=== PATIENT | male | born 1965 | race African-American/Black ===

== ENCOUNTER 2016-07-18 21:51 | Emergency (ER) | payer MEDICARE, OTHER ==
[~2016-07-18] VITALS: Ht 185.4 cm; Wt 63.5 kg
[~2016-07-18 21:51] MED LIST: AMBIEN10 M1 ORAL; AMBIEN10 MG PO; AMBIEN5 MG PO; ANCEF0.5 GM IVPB; ANCEF1 GM/50 ML IV; ASPIR 8181 MG ORAL; ASPIR-LOW81 MG PO; ASPIRIN81 M3 PO; BENADRYL25 M3 IV; BENADRYL25 M3 PO; BETADINE TOPIC; BISACODYL5 MG ORAL; CATAPRES0.1 MG ORAL; COLACE100 MG ORAL; COZAAR50 MG ORAL; CRESTOR10 M2 ORAL; DEPAKOTE125 MG PO; DEPAKOTE500 MG PO; DOCUSATE SODIU100 MG ORAL; ENALAPRIL-HCTZ1 EACH PO; EPZICOM1 TAB ORAL; EPZICOM1 TAB PO; GENVOYA TABLET1 EACH PO; HUMULIN R100 UNIT/1 IJ; HUMULIN R100 UNIT/1 SUBQ; INVANZ1 GM IVPB; LEVAQUIN500 MG IVPB; LEVEMIR FL100 UNIT/1 SUBQ; LEVEMIR100 UNIT/1 SUBQ; LEVEMIR100 UNITS/ *; LEVEMIR100 UNITS/ SUBQ; LEXIVA PO; LEXIVA700 MG PO; LIPITOR20 MG ORAL; LIPITOR80 MG PO; LOPRESSOR HCT1 EAC3 ORAL; METOPROLOL TART25 MG PO; METOPROLOL TART50 M1 ORAL; METOPROLOL-HCT1 EACH PO; MILK OF MA400 MG/51 ORAL; MOM30 ML ORAL; MORPHINE SU IV; MUPIROCIN22 GM TOPIC; NEXIUM40 MG ORAL; NITROSTAT0.4 M1 SL; NORCO 10-325 T1 EACH ORAL; NORCO 10-325 T1 EACH PO; NORCO 10/3251 EA ORAL; NORCO 5-325 TA1 EACH ORAL; NORCO 5-325 TA1 EACH PO; NORCO1 E5 PO; NORVASC5 MG ORAL; NORVIR; NORVIR100 MG ORAL; NORVIR80 MG/1 ML PO; NOVOLOG100 UNIT/1 SQ; NOVOLOG100 UNIT/3 SUBQ; NOVOLOG100 UNITS1; OXYCONTIN10 MG ORAL; PREZISTA600 MG ORAL; PROAIR HFA8.5 GM INH; PROTONIX40 MG ORAL; RANITIDINE HCL150 MG ORAL; SYNTHROID150 MCG ORAL; SYNTHROID150 MCG PO; SYNTHROID75 MCG PO; THYROID MEDICATION; TRUVADA 200 MG1 EACH PO; TRUVADA1 TAB PO; UREA TOPIC; VANCOMYCIN1 GM IV; VENOFER200 MG/10 IVPB; VICODIN ES 7.51 EACH PO; WELLBUTRIN SR150 M1 PO; WELLBUTRIN SR150 MG PO; WELLBUTRIN XL150 M1 ORAL; ZESTRIL10 M1 ORAL; ZOFRAN 4 MG4 MG/2 ML IV; ZOFRAN ODT4 MG ORAL; [UNRECOGNIZED DRUG - CODE] SUBQ
--- NOTE | 2016-07-18 22:44 | Emergency Room Report ---
History of Present Illness General Chief Complaint: Palpitations Source: Patient Present Illness HPI This is a 50-year-old male with history of diabetes, noncompliance, chronic pain syndrome. He also has a BKA. He present with chief complaint of palpitation. Onset on and off for the last few months. Denies any fever chills denies any nausea vomiting. Denies any other complaint. Also said that he has a lot of issue and stress going on. Complained of throbbing cp for the last 2-3 days. Constant in nature. Allergies: Coded Allergies: GABAPENTIN (Verified Allergy, Severe, 04/07/12) QUETIAPINE (Verified Allergy, Unknown, 07/25/15) Patient History Past Medical History: see triage record, old chart reviewed, DM, HTN Past Surgical History: other - bka Pertinent Family History: none Social History: Denies: drug use Immunizations: other Reviewed Nursing Documentation: PMH: Agreed, PSxH: Agreed Nursing Documentation-PMH Hx Hypertension: Yes Hx Pacemaker: No Hx Asthma: Yes Hx COPD: No Hx Diabetes: Yes Hx Cancer: No Hx Gastrointestinal Problems: Yes Hx Dialysis: No - KIDNEY FAILURE NO DIAYLSIS Hx Neurological Problems: Yes Hx Cerebrovascular Accident: Yes Hx Transient Ischemic Attacks: Yes Hx Dementia: Yes Hx Alzheimer's Disease: No Hx Parkinson's Disease: Yes Hx Meningitis: No Hx Encephalitis: No Hx Seizures: Yes Hx Epilepsy: No Hx Multiple Sclerosis: No Hx Cerebral Palsy: No Hx Amyotrophic Lat Sclerosis: No Hx Guillian-[place] Syndrome: No Hx Paralysis: No Hx Peripheral Neuropathy: Yes Hx Spinal Cord Injury: No Hx Head Trauma: Yes Hx Traumatic Brain Injury: No Hx Memory Loss: No Hx Concentration Difficulty: No Hx Speech Problem: No Hx Tremors: No Hx Vertigo: No Hx Dizziness: Yes Hx Syncope: Yes Hx Aphasia: No Hx Dysphasia: No Hx Numbness: Yes - legs Hx Weakness: Yes Hx Fatigue: Yes Hx Neurologic Surgery: No Hx Brain Shunt: No Review of Systems Eye: Denies: blurred vision, eye pain ENT: Denies: ear pain, nose congestion, throat swelling Respiratory: Denies: cough, shortness of breath Cardiovascular: Reports: palpitations, Denies: chest pain Gastrointestinal: Denies: abdominal pain, diarrhea, nausea, vomiting Musculoskeletal: Denies: back pain, joint pain Skin: Denies: rash Neurological: Denies: headache, numbness Endocrine: Denies: increased thirst, increased urine Hematologic/Lymphatic: Denies: easy bruising All Other Systems: negative except mentioned in HPI Physical Exam Vital Signs Date Time Temp Pulse Resp B/P Pulse Ox O2 Delivery O2 Flow Rate FiO2 07/18/16 22:24 99.1 90 16 123/59 100 Room Air vitals normal Sp02 EP Interpretation: reviewed, normal General Appearance: well appearing, no apparent distress, alert Head: normocephalic, atraumatic Eyes: bilateral eye EOMI, bilateral eye PERRL ENT: hearing grossly normal, normal pharynx Neck: full range of motion, supple, no meningismus Respiratory: chest non-tender, lungs clear, normal breath sounds Cardiovascular #1: regular rate, rhythm, no murmur Gastrointestinal: normal bowel sounds, non tender, no mass, no organomegaly, no bruit, non-distended Musculoskeletal: back normal, normal range of motion, other - Patient in wheelchair. BKA. Psychiatric: mood/affect normal Skin: warm/dry Medical Decision Making Diagnostic Impression: Primary Impression: Palpitations Additional Impressions: Opioid dependence Qualified Codes: F11.20 - Opioid dependence, uncomplicated Anemia in chronic illness Thrombocytopenia Chronic pain Qualified Codes: G89.4 - Chronic pain syndrome Hyperglycemia due to type 1 diabetes mellitus ER Course Patient presents with palpitation. Since he's been his heart rate been in the 80s and 90s. Blood pressure stable. He is resting comfortably. Troponin EKG negative. He keep asking for IV narcotic. He is a chronic pain issue. I see no evidence of ACS, PE, dissection to name a few. No evidence of pneumonia. His blood sugar is elevated but no evidence of DKA. He has a long-standing history of noncompliance. I order insulin but he refused. I see no criteria for admission. Patient denies IV and wanted to leave. He is competent to make that decision. He refuse to sign AMA paperwork. We'll discharge him. EKG Diagnostic Results Rate: normal Rhythm: NSR ST Segments: no acute changes Rhythm Strip Diag. Results EP Interpretation: yes Rate: 84 Rhythm: NSR, no PVC's, no ectopy Chest X-Ray Diagnostic Results EP Interpretation: Yes Findings: no consolidation, no effusion, no pneumothorax, no acute cardiopulmonary disease Number of Views: 1 Last Vital Signs Date Time Temp Pulse Resp B/P Pulse Ox O2 Delivery O2 Flow Rate FiO2 07/18/16 22:24 99.1 90 16 123/59 100 Room Air Status: improved Disposition: AGAINST MEDICAL ADVICE Condition: Stable YESSY SLAUGHTER M.D. Jul 18, 2016 22:44
[2016-07-18 23:29] VITALS: BP 165/94
[2016-07-18 23:43] LABS: APPEARANCE,URINE CLEAR; KETONES,URINE 2+ (NEGATIVE); LEUKOCYTE ESTERASE ,URINE NEGATIVE (NEGATIVE); NITRITE,URINE NEGATIVE (NEGATIVE); PH,URINE 6 (4.5-8.0); PROTEIN,URINE 3+ (NEGATIVE); UROBILINOGEN,URINE NORMAL MG/DL (0.0-1.0)
[2016-07-18 23:43] LABS: BASOPHILS % (AUTO) 1.2 % (0.0-2.0); EOSINOPHILS % (AUTO) 1.7 % (0.0-3.0); LYMPHOCYTES % (AUTO) 39.4 % (20.0-45.0); MEAN CORPUSCULAR HEMOGLOBIN 31.6 PG (27.0-31.0); MEAN CORPUSCULAR HGB CONC 31.5 G/DL (32.0-36.0); MEAN CORPUSCULAR VOLUME 100 FL (80-99); MONOCYTES % (AUTO) 4.8 % (1.0-10.0); NEUTROPHILS % (AUTO) 52.9 % (45.0-75.0); PLATELET COUNT 129 K/UL (150-450); RED BLOOD COUNT 2.87 M/UL (4.70-6.10); RED CELL DISTRIBUTION WIDTH 13.4 % (11.6-14.8); WHITE BLOOD COUNT 4.9 K/UL (4.8-10.8)
[2016-07-18] MEDS ORDERED: Norco 5mg/325mg tab ORAL ONE (23:45)
[2016-07-18] MEDS ORDERED: Aspirin Baby 81mg ORAL ONE (23:45)
[2016-07-18 23:52] LABS: RBC,URINE 0-2 /HPF (0 - 0); WBC,URINE 0-2 /HPF (0 - 0)
[2016-07-19 00:07] LABS: TROPONIN I < 0.30 ng/mL (<=0.30)
[2016-07-19 00:10] LABS: ALANINE AMINOTRANSFERASE 117 U/L (3-41); ALBUMIN/GLOBULIN RATIO 1.2 (1.0-2.7); ANION GAP 15 (5-15); ASPARTATE AMINO TRANSFERASE 123 U/L (5-40); CALCIUM 8.6 mg/dL (8.6-10.2); CARBON DIOXIDE 23 mEQ/L (20-30); CHLORIDE 96 mEQ/L (98-107); CREATININE 1.5 mg/dL (0.7-1.2); GLOMERULAR FILTRATION RATE > 60 mL/min (>60); HEMOLYSIS 3; POTASSIUM 4.3 mEQ/L (3.4-4.9); SODIUM 134 mEQ/L (135-145); TOTAL PROTEIN 6.3 g/dL (6.6-8.7)
[2016-07-19 00:36] VITALS: BP 165/94
--- NOTE | 2016-07-21 08:31 | Cardiology Report ---
APPROVED REPORT EKG Measurement Heart [id number] ID [id number] Normal sinus rhythm Possible Left atrial enlargement Septal infarct, age undetermined Abnormal ECG
--- NOTE | 2016-07-25 10:30 | Diagnostic Imaging Report ---
Indication: SOB Technique: One view of the chest Comparison: none Findings: Lungs and pleural spaces are clear. Heart size is normal . No significant change Impression: No acute process This agrees with the preliminary interpretation provided by the emergency room physician
[2016-09-29] MEDS ORDERED: NOVOLOG100 UNIT/3 SUBQ (15:14)
[2016-09-29] MEDS ORDERED: LEVEMIR100 UNIT/1 SUBQ (15:14)
== END 2016-07-19 00:42 | disposition left against medical advice (07) ==
LOC: EMR 22:40
DX: R00.2 Palpitations (principal); F11.20 Opioid dependence, uncomplicated; D63.8 Anemia in other chronic diseases classified elsewhere; D69.6 Thrombocytopenia, unspecified; G89.29 Other chronic pain; E10.65 Type 1 diabetes mellitus with hyperglycemia; Z89.519 Acquired absence of unspecified leg below knee; Z88.8 Allergy status to other drugs, medicaments and biological substances; J45.909 Unspecified asthma, uncomplicated; Z87.19 Personal history of other diseases of the digestive system; Z86.73 Personal history of transient ischemic attack (TIA), and cerebral infarction without residual deficits; F03.90 Unspecified dementia, unspecified severity, without behavioral disturbance, psychotic disturbance, mood disturbance, and anxiety; G20 Parkinson's disease; G62.9 Polyneuropathy, unspecified; R53.83 Other fatigue; R20.0 Anesthesia of skin; R42 Dizziness and giddiness; R55 Syncope and collapse
CPT/HCPCS: 36415; 71010; 80053; 80300; 81003; 82962; 84484; 85025; 93005; 96374

== ENCOUNTER 2016-09-10 07:57 | Inpatient (IN) | payer MEDICARE, OTHER ==
[~2016-09-10] VITALS: Ht 185.4 cm; Wt 68.0 kg
[2016-09-10] MEDS ORDERED: Aspirin Baby 81mg ORAL ONE (08:15)
[2016-09-10] MEDS ORDERED: ZOLPIDEM TARTRA10 MG ORAL (08:25)
[2016-09-10] MEDS ORDERED: SUCRALFATE1 GM ORAL (08:28)
[2016-09-10] MEDS ORDERED: CRESTOR10 M2 ORAL (08:28)
[2016-09-10 09:08] LABS: BASOPHILS % (AUTO) 1.7 % (0.0-2.0); EOSINOPHILS % (AUTO) 2.9 % (0.0-3.0); LYMPHOCYTES % (AUTO) 37.9 % (20.0-45.0); MEAN CORPUSCULAR HEMOGLOBIN 30.8 PG (27.0-31.0); MEAN CORPUSCULAR HGB CONC 31.8 G/DL (32.0-36.0); MEAN CORPUSCULAR VOLUME 97 FL (80-99); MEAN PLATELET VOLUME 9.4 FL (6.5-10.1); MONOCYTES % (AUTO) 8.8 % (1.0-10.0); NEUTROPHILS % (AUTO) 48.6 % (45.0-75.0); PLATELET COUNT 152 K/UL (150-450); RED BLOOD COUNT 3.12 M/UL (4.70-6.10); RED CELL DISTRIBUTION WIDTH 13.4 % (11.6-14.8); WHITE BLOOD COUNT 4.7 K/UL (4.8-10.8)
[2016-09-10] MEDS ORDERED: Morphine Sulfate 4mg/ml Inj IVP ONE ×2 (09:15→14:45)
[2016-09-10 09:20] VITALS: BP 139/93
[2016-09-10 09:22] LABS: ALANINE AMINOTRANSFERASE 302 U/L (3-41); ALBUMIN/GLOBULIN RATIO 1.1 (1.0-2.7); ANION GAP 17 (5-15); ASPARTATE AMINO TRANSFERASE 79 U/L (5-40); CALCIUM 9.2 mg/dL (8.6-10.2); CARBON DIOXIDE 24 mEQ/L (20-30); CHLORIDE 95 mEQ/L (98-107); CREATININE 1.5 mg/dL (0.7-1.2); GLOMERULAR FILTRATION RATE > 60 mL/min (>60); HEMOLYSIS 16; MAGNESIUM 1.5 mg/dL (1.7-2.5); POTASSIUM 4.2 mEQ/L (3.4-4.9); SODIUM 136 mEQ/L (135-145); TOTAL PROTEIN 6.5 g/dL (6.6-8.7)
--- NOTE | 2016-09-10 09:26 | Emergency Room Report ---
History of Present Illness General Chief Complaint: Chest Pain Source: Patient Present Illness HPI Patient is a 50-year-old male presented after increased chest pain. Patient stated he had onset of chest pain earlier in the day which he describes as a tight sensation. The patient had prior history of hypertension and peripheral vascular disease. Patient remote history previous below the knee amputation to his leg for infected ulcer.The patient denied fever or cough. He stated that he was having history of prior renal disease. The patient presented been known to use cocaine and be a cigarette smoker. Patient denied any vomiting or diarrhea Allergies: Coded Allergies: GABAPENTIN (Verified Allergy, Severe, 04/07/12) QUETIAPINE (Verified Allergy, Unknown, 07/25/15) Patient History Past Medical History: see triage record Reviewed Nursing Documentation: PMH: Agreed, PSxH: Agreed Nursing Documentation-PMH Past Medical History: No History, Except For Hx Hypertension: Yes Hx Pacemaker: No Hx Asthma: Yes Hx COPD: No Hx Diabetes: Yes Hx Cancer: No Hx Gastrointestinal Problems: Yes Hx Dialysis: No - KIDNEY FAILURE NO DIAYLSIS Hx Neurological Problems: Yes Hx Cerebrovascular Accident: Yes Hx Transient Ischemic Attacks: Yes Hx Dementia: Yes Hx Alzheimer's Disease: No Hx Parkinson's Disease: Yes Hx Meningitis: No Hx Encephalitis: No Hx Seizures: Yes Hx Epilepsy: No Hx Multiple Sclerosis: No Hx Cerebral Palsy: No Hx Amyotrophic Lat Sclerosis: No Hx Guillian-[place] Syndrome: No Hx Paralysis: No Hx Peripheral Neuropathy: Yes Hx Spinal Cord Injury: No Hx Head Trauma: Yes Hx Traumatic Brain Injury: No Hx Memory Loss: No Hx Concentration Difficulty: No Hx Speech Problem: No Hx Tremors: No Hx Vertigo: No Hx Dizziness: Yes Hx Syncope: Yes Hx Aphasia: No Hx Dysphasia: No Hx Numbness: Yes - legs Hx Weakness: Yes Hx Fatigue: Yes Hx Neurologic Surgery: No Hx Brain Shunt: No Review of Systems All Other Systems: negative except mentioned in HPI Physical Exam Vital Signs Date Time Temp Pulse Resp B/P Pulse Ox O2 Delivery O2 Flow Rate FiO2 09/10/16 08:10 98.2 76 16 156/92 100 Room Air Sp02 EP Interpretation: reviewed, normal General Appearance: normal inspection, well appearing, no apparent distress, alert, GCS 15, non-toxic Head: atraumatic ENT: normal ENT inspection, hearing grossly normal, normal voice Neck: normal inspection, full range of motion, supple, no bony tend Respiratory: normal inspection, lungs clear, normal breath sounds, no respiratory distress, no retraction, no wheezing Cardiovascular #1: regular rate, rhythm, no edema Gastrointestinal: normal inspection, normal bowel sounds, non tender, soft, no guarding, no hernia Genitourinary: no CVA tenderness Musculoskeletal: normal inspection, back normal, normal range of motion Neurologic: normal inspection, alert, oriented x3, responsive, speech normal Psychiatric: normal inspection, judgement/insight normal, mood/affect normal Skin: normal inspection, normal color, no rash Medical Decision Making Diagnostic Impression: Primary Impression: ACS (acute coronary syndrome) Additional Impressions: Chest pain Anemia IDDM (insulin dependent diabetes mellitus) ER Course Patient presented for chest pain. Differential diagnosis included but was not limited to acute coronary syndrome, pulmonary embolism, pneumonia, aortic dissection, shingles, pneumothorax, aortic dissection, esophageal rupture, pericarditis. Because of complexity of patient's case laboratory testing and imaging studies were ordered.EKG interpreted by me showed normal sinus rhythm with a rate of [address] or T wave changes are noted be some T-wave flattening. The patient was noted to have a blood sugars were greater than 300.The patient was given subcutaneous insulin. He was given aspirin by mouth. Patient noted to have multiple cardiac risk factors.Chest x-ray one view interpreted by me showed no acute cardiopulmonary disease normal cardiac size normal mediastinum there is no evident pneumothorax. There were no pleural effusions noted. Dr. Suzy Sheppard was contacted for inpatient management. Labs Test 09/10/16 08:40 09/10/16 09:45 White Blood Count 4.7 K/UL (4.8-10.8) Red Blood Count 3.12 M/UL (4.70-6.10) Hemoglobin 9.6 G/DL (14.2-18.0) Hematocrit 30.2 % (42.0-52.0) Mean Corpuscular Volume 97 FL (80-99) Mean Corpuscular Hemoglobin 30.8 PG (27.0-31.0) Mean Corpuscular Hemoglobin Concent 31.8 G/DL (32.0-36.0) Red Cell Distribution Width 13.4 % (11.6-14.8) Platelet Count 152 K/UL (150-450) Mean Platelet Volume 9.4 FL (6.5-10.1) Neutrophils (%) (Auto) 48.6 % (45.0-75.0) Lymphocytes (%) (Auto) 37.9 % (20.0-45.0) Monocytes (%) (Auto) 8.8 % (1.0-10.0) Eosinophils (%) (Auto) 2.9 % (0.0-3.0) Basophils (%) (Auto) 1.7 % (0.0-2.0) Sodium Level 136 mEQ/L (135-145) Potassium Level 4.2 mEQ/L (3.4-4.9) Chloride Level 95 mEQ/L (98-107) Carbon Dioxide Level 24 mEQ/L (20-30) Anion Gap 17 (5-15) Blood Urea Nitrogen 24 mg/dL (7-23) Creatinine 1.5 mg/dL (0.7-1.2) Estimat Glomerular Filtration Rate > 60 mL/min (>60) Glucose Level 345 mg/dL (74-106) Calcium Level 9.2 mg/dL (8.6-10.2) Magnesium Level 1.5 mg/dL (1.7-2.5) Total Bilirubin 0.4 mg/dL (0.0-1.2) Aspartate Amino Transf (AST/SGOT) 79 U/L (5-40) Alanine Aminotransferase (ALT/SGPT) 302 U/L (3-41) Alkaline Phosphatase 227 U/L (40-129) Total Creatine Kinase 89 U/L (38-174) Creatine Kinase MB 3.0 ng/mL (< 6.7) Creatine Kinase MB Relative Index 3.3 Troponin I < 0.30 ng/mL (<=0.30) Pro-B-Type Natriuretic Peptide 872 pg/mL (0-125) Total Protein 6.5 g/dL (6.6-8.7) Albumin 3.5 g/dL (3.5-5.2) Globulin 3.0 g/dL Albumin/Globulin Ratio 1.1 (1.0-2.7) Acetone Level Negative (NEGATIVE) Urine Color Pale yellow Urine Appearance Clear Urine pH 6 (4.5-8.0) Urine Specific [place] 1.010 (1.005-1.035) Urine Protein 3+ (NEGATIVE) Urine Glucose (UA) 4+ (NEGATIVE) Urine Ketones Negative (NEGATIVE) Urine Occult Blood 1+ (NEGATIVE) Urine Nitrite Negative (NEGATIVE) Urine Bilirubin Negative (NEGATIVE) Urine Urobilinogen Normal MG/DL (0.0-1.0) Urine Leukocyte Esterase Negative (NEGATIVE) Urine RBC 2-4 /HPF (0 - 0) Urine WBC 0-2 /HPF (0 - 0) Urine Squamous Epithelial Cells Occasional /LPF Urine Bacteria Occasional /HPF (NONE) Urine Opiates Screen Positive (NEGATIVE) Urine Barbiturates Screen Negative (NEGATIVE) Phencyclidine (PCP) Screen Negative (NEGATIVE) Urine Amphetamines Screen Negative (NEGATIVE) Urine Benzodiazepines Screen Negative (NEGATIVE) Urine Cocaine Screen Negative (NEGATIVE) Urine Marijuana (THC) Screen Positive (NEGATIVE) EKG Diagnostic Results Rate: normal Rhythm: NSR ST Segments: no acute changes Rhythm Strip Diag. Results EP Interpretation: yes Rhythm: NSR - 70s, no PVC's, no ectopy Chest X-Ray Diagnostic Results EP Interpretation: Yes Findings: no consolidation, no effusion, no pneumothorax, no acute cardiopulmonary disease Number of Views: 1 Last Vital Signs Date Time Temp Pulse Resp B/P Pulse Ox O2 Delivery O2 Flow Rate FiO2 09/10/16 08:10 98.2 76 16 156/92 100 Room Air Status: unchanged Disposition: ADMITTED INPATIENT Condition: Serious Referrals: NON PHYSICIAN (PCP) Blair Chaidez Sep 10, 2016 09:26
[2016-09-10 09:36] LABS: TROPONIN I < 0.30 ng/mL (<=0.30)
[2016-09-10 09:56] LABS: APPEARANCE,URINE CLEAR; KETONES,URINE NEGATIVE (NEGATIVE); LEUKOCYTE ESTERASE ,URINE NEGATIVE (NEGATIVE); NITRITE,URINE NEGATIVE (NEGATIVE); PH,URINE 6 (4.5-8.0); PROTEIN,URINE 3+ (NEGATIVE); UROBILINOGEN,URINE NORMAL MG/DL (0.0-1.0)
[2016-09-10 10:08] LABS: BACTERIA,URINE OCCASIONAL /HPF; SQUAMOUS EPITHELIAL CELL,UR OCCASIONAL /LPF (NONE/OCC); WBC,URINE 0-2 /HPF (0 - 0)
--- NOTE | 2016-09-10 12:16 | Diagnostic Imaging Report ---
Indication: SOB Technique: One view of the chest Comparison: none Findings: Lungs and pleural spaces are clear. Heart size is normal . No significant change Impression: No acute process
[2016-09-10 12:34] VITALS: BP 139/90
--- NOTE | 2016-09-10 13:28 | Consultation ---
Consult Note Consult Note asked to eval for renal failure- Known to me from his previous admissions- Patient is a 50-year-old male presented after increased chest pain. Patient stated he had onset of chest pain earlier in the day which he describes as a tight sensation. The patient had prior history of hypertension and peripheral vascular disease. Patient remote history previous below the knee amputation to his leg for infected ulcer.The patient denied fever or cough. He stated that he was having history of prior renal disease. The patient presented been known to use cocaine and be a cigarette smoker. Patient denied any vomiting or diarrhea Allergies: GABAPENTIN (Verified Allergy, Severe, 04/07/12) QUETIAPINE (Verified Allergy, Unknown, 07/25/15) Past Medical History: DM, HIV Hx Hypertension: Yes - L BKA Hx Asthma: Yes Hx Diabetes: Yes Hx Gastrointestinal Problems: Yes Hx Dialysis: No - KIDNEY FAILURE NO DIAYLSIS Hx Neurological Problems: Yes Hx Cerebrovascular Accident: Yes Hx Transient Ischemic Attacks: Yes Hx Parkinson's Disease: Yes Hx Seizures: Yes Hx Peripheral Neuropathy: Yes Hx Head Trauma: Yes Hx Dizziness: Yes Hx Syncope: Yes Hx Numbness: Yes - legs Hx Weakness: Yes Hx Fatigue: Yes Assessment/Plan . Assessment/Plan status; Patient admitted for CP Cr of 1.5 LFTs also elevated- Urine tox screen positive Other conditions: (1) Diabetic nephropathy (2) DM (diabetes mellitus) (3) Diabetic foot ulcer (4) Hypothyroidism (5) Dehydration (6) HIV (7) Parkinson / Migraine PLAN: Keep BP in check Continue BS control- watch renal parameters and LFTs- slow hydrate- per orders PONCHO RAMÍREZ Sep 10, 2016 13:28
[2016-09-10] MEDS ORDERED: Zolpidem 5mg tab ORAL PRN (13:30)
[2016-09-10 14:53] VITALS: BP 140/84
[2016-09-10] MEDS: Depakote 500mg tab ORAL SCH (18:10)
--- NOTE | 2016-09-10 19:40 | Consultation ---
Consult Note Consult Note DATE OF CONSULTATION: 09/10/16 CONSULTING PHYSICIAN: Connor Cuevas M.D. REFERRING PHYSICIAN: Suzy Bruce M.D. REASON FOR CONSULTATION: Anemia of chronic/kidney disease CURRENT COMPLAINT/HISTORY OF PRESENT ILLNESS: Dear Dr. Bruce, Today, I had an opportunity to see one of your patient, who as you well aware, 50-year-old delightful gentleman with past medical history remarkable for HIV, cellulitis of the foot, hx of anemia, hereditary hemorhagic telectangasia has been admitted to [facility] with similar symptoms numerous times in the recent past ended up in the emergency room at [facility]. During an evaluation, it was found the patient developed significant anemia with hemoglobin of 8-10 and has a similar history before and was admitted for hypoglycemia. At this time he presents with chest pain and admitted for ACS r/o as well. PAST MEDICAL HISTORY: 1. HIV/AIDS. 2. Anemia of HIV/AIDS. 3. Diabetes mellitus. 4. Hypertension. 5. Dementia. 6. Dyslipidemia. 7. Cellulitis left foot. 8. History of cerebrovascular accident. 9. Parkinson disease. 10. Encephalopathy. 11. History of seizure. 12. Periatrial neuropathy. 13. Dizziness. 14. Migraine. 15. Fatigue. ALLERGIES: 1. Gabapentin. 2. Hydromorphone. MEDICATIONS: Home meds reviewed SOCIAL HISTORY: No history of smoking. No history of alcohol abuse. No history of illicit drug use. REVIEW OF SYSTEMS: GENERAL DESCRIPTION: The patient not in any significant distress, but looks chronically ill. RESPIRATORY SYSTEM: Mild shortness of breath on exertion. GASTROINTESTINAL SYSTEM: The patient claims constipation. NEUROMUSCULAR SYSTEM: The patient claims muscle aches. PHYSICAL EXAMINATION: VITAL SIGNS: Last 24 Hour Vital Signs Date Time Temp Pulse Resp B/P Pulse Ox O2 Delivery O2 Flow Rate FiO2 09/10/16 16:26 98.3 74 19 140/84 100 Room Air 09/10/16 14:53 98.3 74 19 140/84 100 Room Air 09/10/16 12:34 98.2 84 21 139/90 100 Room Air 09/10/16 09:54 98.2 09/10/16 09:20 98.2 81 17 139/93 100 Room Air 09/10/16 09:20 76 16 Room Air 09/10/16 08:10 98.2 76 16 156/92 100 Room Air HEENT: Head normocephalic and atraumatic. NECK: Supple. No thyroid enlargement. No lymphadenopathy. LUNGS: Decreased breath sounds bilaterally with few rhonchi at the base. HEART: S1 and S2 regular. ABDOMEN: Soft and benign. No organomegaly present. Bowel sounds present. EXTREMITIES: No cyanosis, clubbing, or edema. LABORATORY DATA: Laboratory Tests Test 09/10/16 08:40 09/10/16 09:45 White Blood Count 4.7 K/UL (4.8-10.8) L Red Blood Count 3.12 M/UL (4.70-6.10) L Hemoglobin 9.6 G/DL (14.2-18.0) L Hematocrit 30.2 % (42.0-52.0) L Mean Corpuscular Volume 97 FL (80-99) Mean Corpuscular Hemoglobin 30.8 PG (27.0-31.0) Mean Corpuscular Hemoglobin Concent 31.8 G/DL (32.0-36.0) L Red Cell Distribution Width 13.4 % (11.6-14.8) Platelet Count 152 K/UL (150-450) Mean Platelet Volume 9.4 FL (6.5-10.1) Neutrophils (%) (Auto) 48.6 % (45.0-75.0) Lymphocytes (%) (Auto) 37.9 % (20.0-45.0) Monocytes (%) (Auto) 8.8 % (1.0-10.0) Eosinophils (%) (Auto) 2.9 % (0.0-3.0) Basophils (%) (Auto) 1.7 % (0.0-2.0) Sodium Level 136 mEQ/L (135-145) Potassium Level 4.2 mEQ/L (3.4-4.9) Chloride Level 95 mEQ/L (98-107) L Carbon Dioxide Level 24 mEQ/L (20-30) Anion Gap 17 (5-15) H Blood Urea Nitrogen 24 mg/dL (7-23) H Creatinine 1.5 mg/dL (0.7-1.2) H Estimat Glomerular Filtration Rate > 60 mL/min (>60) Glucose Level 345 mg/dL (74-106) H Calcium Level 9.2 mg/dL (8.6-10.2) Magnesium Level 1.5 mg/dL (1.7-2.5) L Total Bilirubin 0.4 mg/dL (0.0-1.2) Aspartate Amino Transf (AST/SGOT) 79 U/L (5-40) H Alanine Aminotransferase (ALT/SGPT) 302 U/L (3-41) H Alkaline Phosphatase 227 U/L (40-129) H Total Creatine Kinase 89 U/L (38-174) Creatine Kinase MB 3.0 ng/mL (< 6.7) Creatine Kinase MB Relative Index 3.3 Troponin I < 0.30 ng/mL (<=0.30) Pro-B-Type Natriuretic Peptide 872 pg/mL (0-125) H Total Protein 6.5 g/dL (6.6-8.7) L Albumin 3.5 g/dL (3.5-5.2) Globulin 3.0 g/dL Albumin/Globulin Ratio 1.1 (1.0-2.7) Acetone Level Negative (NEGATIVE) Urine Color Pale yellow Urine Appearance Clear Urine pH 6 (4.5-8.0) Urine Specific [place] 1.010 (1.005-1.035) Urine Protein 3+ (NEGATIVE) H Urine Glucose (UA) 4+ (NEGATIVE) H Urine Ketones Negative (NEGATIVE) Urine Occult Blood 1+ (NEGATIVE) H Urine Nitrite Negative (NEGATIVE) Urine Bilirubin Negative (NEGATIVE) Urine Urobilinogen Normal MG/DL (0.0-1.0) Urine Leukocyte Esterase Negative (NEGATIVE) Urine RBC 2-4 /HPF (0 - 0) H Urine WBC 0-2 /HPF (0 - 0) Urine Squamous Epithelial Cells Occasional /LPF Urine Bacteria Occasional /HPF (NONE) Urine Opiates Screen Positive (NEGATIVE) H Urine Barbiturates Screen Negative (NEGATIVE) Phencyclidine (PCP) Screen Negative (NEGATIVE) Urine Amphetamines Screen Negative (NEGATIVE) Urine Benzodiazepines Screen Negative (NEGATIVE) Urine Cocaine Screen Negative (NEGATIVE) Urine Marijuana (THC) Screen Positive (NEGATIVE) H ASSESSMENT: 1. Anemia of chronic disease as well as kidney disease 2. 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 3. Hereditary hemorrhagic telectangasia 4. Leukopenia, stable, potentially 2/2 infection as well 5. Hypoglycemia. 6. Human immunodeficiency virus/acquired immune deficiency syndrome. 7. Dementia. 8. Parkinson disease. 9. CP r/o ACS 10. Osteomyelitis 11. Parkinson disease. 12. Encephalopathy. 13. History of seizure. RECOMMENDATIONS: 1. Watch count. 2. Ferritin has been ordered 3. PRBC transfusion as needed basis. 4. Procrit subcutaneous for hiv (if hgb less than 10) 5. GI ppx with ppi 6. Heparin for DVT prophylaxis. 7. Skin care. 8. Nutrition. 9. Close followup. Thank you Dr. Suzy Bruce for this kind referral, please do not hesitate to contact me with any further questions Sincerely, MD Mason Freitas Roman L. Sep 10, 2016 19:40
[2016-09-10 20:00] VITALS: BP 146/74
[2016-09-10] MEDS: Bisacodyl EC 5mg tab ORAL SCH (21:55)
[2016-09-10] MEDS: Lisinopril 10mg tab ORAL SCH (21:56)
[2016-09-10] MEDS: Metoprolol 50mg tab ORAL SCH (21:56)
[2016-09-10] MEDS: NovoLOG Insulin Flexpen SUBQ SCH (21:58)
[2016-09-10] MEDS: Heparin 5000 units/ml inj SUBQ SCH (21:59)
[2016-09-10] MEDS: Morphine Sulfate 4mg/ml Inj IVP PRN (21:59)
[2016-09-11 00:30] VITALS: BP 144/88
[2016-09-11] MEDS: Morphine Sulfate 4mg/ml Inj IVP PRN ×6 (02:01→22:39)
--- NOTE | 2016-09-11 02:18 | History and Physical Report ---
DATE OF ADMISSION: 09/10/2016 HISTORY OF PRESENT ILLNESS: The patient is admitted with chest pain to rule out acute coronary syndrome. The patient has HIV, smoker, NIDDM, peripheral vascular disease, chronic pain syndrome, neuropathy, GERD, amputation, migraine, and hypertension. The patient denies nausea, vomiting, and diarrhea. No fever or chills. No abdominal pain. No shortness of breath. He does have chronic pain syndrome. PAST MEDICAL HISTORY: Neuropathy, HIV, amputation, DVT, PVD, coronary artery disease, CHF, and past history of ejijr-jum-lfsg amputation. MEDICATIONS: Refer to the medication list in the chart. ALLERGIES: Refer to allergies in the chart. SOCIAL HISTORY: The patient smokes. History of drug abuse. FAMILY HISTORY: Noncontributory. REVIEW OF SYSTEMS: HEENT: Denies headaches. Respiratory: Denies shortness of breath. Denies cough. Cardiovascular: Reports chest pain. Denies orthopnea. Denies radiation and denies palpitations. Gastrointestinal: Denies nausea, vomiting, or diarrhea. He does have chronic back pain syndrome and generalized pain. Central Nervous System: No change in vision or speech pattern. PHYSICAL EXAMINATION: VITAL SIGNS: Temperature is 97.2 degrees, pulse of 70, and blood pressure 132/70. HEENT: PERRLA. NECK: Supple. No lymphadenopathy. CHEST: Clear to auscultation. GASTROINTESTINAL: Soft, nontender, and nondistended. No organomegaly. EXTREMITIES: He does have ejrxp-yod-suar amputation. He is able to move his extremities. LABORATORY DATA: WBC of 4.0, hemoglobin 9.6, and platelets 152,000. Sodium 146, potassium 4.2, BUN 24, creatinine 1.5, and glucose 384. ASSESSMENT: 1. Non-ketotic hyperosmolar diabetes. The patient is noncompliant with diabetic medication, on insulin. 2. The patient has been admitted with chest pain, rule out acute coronary syndrome. PLAN: I have asked Dr. Bullock, Dr. Milligan as well as Dr. Merino and Dr. Toledo to see the patient for the above-mentioned diagnoses and treatment. Suzy Bruce M.D. DR: MARK JOB#: [id number] CC:
[2016-09-11 04:25] VITALS: BP 132/79
[2016-09-11] MEDS: NovoLOG Insulin Flexpen SUBQ SCH ×6 (06:20→21:00)
[2016-09-11 07:13] LABS: BASOPHILS % (AUTO) 1.8 % (0.0-2.0); EOSINOPHILS % (AUTO) 3.1 % (0.0-3.0); LYMPHOCYTES % (AUTO) 44.8 % (20.0-45.0); MEAN CORPUSCULAR HEMOGLOBIN 31.1 PG (27.0-31.0); MEAN CORPUSCULAR HGB CONC 32.4 G/DL (32.0-36.0); MEAN CORPUSCULAR VOLUME 96 FL (80-99); MEAN PLATELET VOLUME 10.2 FL (6.5-10.1); MONOCYTES % (AUTO) 8.4 % (1.0-10.0); NEUTROPHILS % (AUTO) 41.8 % (45.0-75.0); PLATELET COUNT 161 K/UL (150-450); RED BLOOD COUNT 2.84 M/UL (4.70-6.10); RED CELL DISTRIBUTION WIDTH 13.3 % (11.6-14.8); WHITE BLOOD COUNT 4.1 K/UL (4.8-10.8)
[2016-09-11 07:27] LABS: HEMOGLOBIN A1C 11.2 % (< 6.0)
[2016-09-11 07:40] LABS: FERRITIN 326 ng/mL (10-230)
[2016-09-11 07:41] LABS: ALANINE AMINOTRANSFERASE 227 U/L (3-41); ANION GAP 16 (5-15); ASPARTATE AMINO TRANSFERASE 56 U/L (5-40); CALCIUM 8.6 mg/dL (8.6-10.2); CARBON DIOXIDE 25 mEQ/L (20-30); CHLORIDE 95 mEQ/L (98-107); CHOLESTEROL 152 mg/dL (< 200); CHOLESTEROL/HDL RATIO 2.2 (3.3-4.4); CREATININE 1.1 mg/dL (0.7-1.2); CRP QUANT < 0.3 mg/dL (< 0.5); GLOMERULAR FILTRATION RATE > 60 mL/min (>60); HEMOLYSIS 2; LDL CHOLESTEROL (CALC.) 31 mg/dL (60-99); MAGNESIUM 1.6 mg/dL (1.7-2.5); PHOSPHORUS 3.9 mg/dL (2.5-4.8); POTASSIUM 4.3 mEQ/L (3.4-4.9); SODIUM 136 mEQ/L (135-145); TOTAL PROTEIN 5.8 g/dL (6.6-8.7); URIC ACID 6.4 mg/dL (3.0-7.5)
[2016-09-11 07:43] LABS: TROPONIN I < 0.30 ng/mL (<=0.30)
[2016-09-11 08:19] VITALS: BP 142/91
[2016-09-11] MEDS: BuPROPion SR 150mg tab ORAL SCH (08:26)
[2016-09-11] MEDS: Depakote 500mg tab ORAL SCH ×2 (08:26→17:27)
[2016-09-11] MEDS: Aspirin EC 81mg tab ORAL SCH (08:27)
[2016-09-11] MEDS: Lisinopril 10mg tab ORAL SCH ×2 (08:27→21:08)
[2016-09-11] MEDS: Metoprolol 50mg tab ORAL SCH ×2 (08:27→21:08)
[2016-09-11] MEDS: Heparin 5000 units/ml inj SUBQ SCH ×2 (08:28→21:14)
--- NOTE | 2016-09-11 10:28 | Consultation ---
DATE OF CONSULTATION: 09/11/2016 ENDOCRINOLOGY CONSULTATION CONSULTING PHYSICIAN: Joss Bullock M.D. REFERRING PHYSICIAN: Suzy Bruce M.D. REASON FOR CONSULTATION: 1. Diabetes management. 2. Hypothyroidism. HISTORY OF PRESENT ILLNESS: The patient is as an unfortunate 50-year-old, male, well known to me due to his previous numerous admissions to [facility] with diabetic ketoacidosis and among with the presentations. The patient presented to the hospital complaining of chest pain. Troponin was negative x2. Glucose was elevated at 345. Endocrinology was consulted in order to assist in the management of diabetes. The patient is concerned about at bedtime elevated liver enzymes. PAST MEDICAL HISTORY: 1. Insulin-dependent diabetes. 2. Thyroid cancer, status post thyroidectomy on replacement. 3. Human immunodeficiency virus. 4. History of osteomyelitis leading to left below-knee amputation. 5. Hypertension. 6. Substance abuse. 7. Elevated LFTs. 8. Dyslipidemia. MEDICATIONS: Medications reviewed and reconciled. SOCIAL HISTORY: The patient smokes and he has history of substance abuse. FAMILY HISTORY: Noncontributory. REVIEW OF SYSTEMS: As per history of present illness. PHYSICAL EXAMINATION: GENERAL: He is awake and alert. VITAL SIGNS: Blood pressure is 142/91, pulse 69, temperature 97.0 degrees respiratory rate of 18. HEENT: Pupils are equal and reactive to light. Sclerae are anicteric. NECK: No JVD. HEART: Regular. LUNGS: Clear. ABDOMEN: Positive bowel sounds. Soft. EXTREMITIES: Left below-knee amputation noted. LABORATORY AND DIAGNOSTIC DATA: Laboratory values, sodium 136, potassium 4.3, chloride 95, bicarbonate 25, BUN 19, creatinine 1.1, and glucose of 301. A1c 11.2. GGT is 503 with an AST of 156 and ALT of 227. Troponin negative x2. BNP 849. TSH of 1.18 and HDL is 68. DIAGNOSES: 1. Hyperglycemia due to noncompliance. No ketoacidosis. 2. Hypothyroidism. TSH is at target. 3. Elevated liver enzymes. 4. Human immunodeficiency virus. 5. Chest pain. PLAN: 1. Start the basal bolus insulin regimen with Levemir and NovoLog. 2. Continue levothyroxine 150 mcg. 3. Blood glucose monitoring before meals and at bedtime will be noted. 4. Diet should be diabetic. Although, he always refuses. 5. Workup for the elevated liver enzymes by primary team. Thank you, Dr. Bruce, for the courtesy of this consultation. Joss Bullock M.D. DR: Chu JOB#: [id number] CC:
--- NOTE | 2016-09-11 11:11 | General Progress Note ---
Assessment/Plan Problem List: (1) Hyperglycemia (2) Uncontrolled diabetes mellitus ICD Codes: E11.65 - Type 2 diabetes mellitus with hyperglycemia SNOMED: 209173625 (3) Pain ICD Codes: R52 - Pain SNOMED: 00597975 (4) HIV disease ICD Codes: B20 - Human immunodeficiency virus (HIV) disease SNOMED: 73105623 (5) Hypothyroidism ICD Codes: E03.9 - Hypothyroidism SNOMED: 24001930 (6) DM (diabetes mellitus) ICD Codes: E11.9 - Diabetes mellitus SNOMED: 39332694 (7) Pain in limb ICD Codes: M79.609 - Pain in limb SNOMED: 62796557 (8) Gastritis ICD Codes: K29.70 - Gastritis, unspecified, without bleeding SNOMED: 9469977 (9) Neuropathic pain ICD Codes: M79.2 - Neuropathic pain syndrome (non-herpetic) SNOMED: 391072504 (10) Chest pain ICD Codes: R07.9 - Chest pain, unspecified SNOMED: 65648880 (11) ACS (acute coronary syndrome) ICD Codes: I24.9 - Acute ischemic heart disease, unspecified SNOMED: 254521407 Status: progressing Assessment/Plan cp high risk for acs dm uncontrolled bg reviewed chart and labs Subjective ROS Limited/Unobtainable: Yes Constitutional: Reports: no symptoms Cardiovascular: Reports: chest pain Respiratory: Reports: no symptoms Allergies: Coded Allergies: GABAPENTIN (Verified Allergy, Severe, 04/07/12) QUETIAPINE (Verified Allergy, Unknown, 07/25/15) Objective Last 24 Hour Vital Signs Date Time Temp Pulse Resp B/P Pulse Ox O2 Delivery O2 Flow Rate FiO2 09/11/16 08:27 69 142/91 09/11/16 08:27 142/91 09/11/16 08:27 69 142/91 09/11/16 08:19 97.0 69 18 142/91 100 Room Air 09/11/16 08:00 64 09/11/16 04:25 98.2 66 20 132/79 100 Room Air 09/11/16 04:00 66 09/11/16 00:30 97.0 64 20 144/88 100 Room Air 09/11/16 00:00 68 09/10/16 21:56 72 146/74 09/10/16 21:56 146/74 09/10/16 20:00 68 09/10/16 20:00 97.3 72 18 146/74 98 Room Air 09/10/16 17:18 64 09/10/16 16:26 98.3 74 19 140/84 100 Room Air 09/10/16 14:53 98.3 74 19 140/84 100 Room Air 09/10/16 12:34 98.2 84 21 139/90 100 Room Air Intake and Output 09/10/16 09/11/16 19:00 07:00 Intake Total 120 ml Output Total 500 ml Balance 120 ml -500 ml Intake Oral 120 ml Output Urine Total 500 ml Laboratory Tests 09/11/16 05:40: White Blood Count 4.1L, Red Blood Count 2.84L, Hemoglobin 8.8L, Hematocrit 27.3L , Mean Corpuscular Volume 96, Mean Corpuscular Hemoglobin 31.1H, Mean Corpuscular Hemoglobin Concent 32.4, Red Cell Distribution Width 13.3, Platelet Count 161, Mean Platelet Volume 10.2H, Neutrophils (%) (Auto) 41.8L, Lymphocytes (%) (Auto) 44.8, Monocytes (%) (Auto) 8.4, Eosinophils (%) (Auto) 3.1H, Basophils (%) (Auto) 1.8, Sodium Level 136, Potassium Level 4.3, Chloride Level 95L, Carbon Dioxide Level 25, Anion Gap 16H, Blood Urea Nitrogen 19, Creatinine 1.1, Estimat Glomerular Filtration Rate > 60, Glucose Level 301H, Hemoglobin A1c 11.2H, Uric Acid 6.4, Calcium Level 8.6, Phosphorus Level 3.9, Magnesium Level 1.6L, Ferritin 326H, Total Bilirubin 0.3, Gamma Glutamyl Transpeptidase 503H, Aspartate Amino Transf (AST/SGOT) 56H, Alanine Aminotransferase (ALT/SGPT) 227H, Alkaline Phosphatase 192H, Troponin I < 0.30, C-Reactive Protein, Quantitative < 0.3, Pro-B-Type Natriuretic Peptide 849H, Total Protein 5.8L, Albumin 3.0L, Globulin 2.8, Albumin/Globulin Ratio 1.0, Triglycerides Level 264H, Cholesterol Level 152, LDL Cholesterol 31L, HDL Cholesterol 68H, Cholesterol/HDL Ratio 2.2L, Thyroid Stimulating Hormone (TSH) 1.180 Height (Feet): 6 Height (Inches): 1.00 Weight (Pounds): 150 EENT: PERRL/EOMI Cardiovascular: normal rate Respiratory/Chest: lungs clear Abdomen: soft Suzy Bruce MD Sep 11, 2016 11:11
[2016-09-11 11:38] VITALS: BP 143/84
[2016-09-11] MEDS: Levemir Flexpen SUBQ SCH ×2 (12:01→21:00)
--- NOTE | 2016-09-11 12:06 | General Progress Note ---
Assessment/Plan Status: stable - from renal stand Assessment/Plan status; Patient admitted for CP Cr of 1.5 now lower to 1.1 LFTs also elevated- Urine tox screen positive Other conditions: (1) Diabetic nephropathy (2) DM (diabetes mellitus) (3) Diabetic foot ulcer (4) Hypothyroidism (5) Dehydration (6) HIV (7) Parkinson / Migraine PLAN: Keep BP in check Continue BS control- watch renal parameters and LFTs- slow hydrate- per orders / consultants Subjective ROS Limited/Unobtainable: No Constitutional: Reports: malaise Allergies: Coded Allergies: GABAPENTIN (Verified Allergy, Severe, 04/07/12) QUETIAPINE (Verified Allergy, Unknown, 07/25/15) Objective Last 24 Hour Vital Signs Date Time Temp Pulse Resp B/P Pulse Ox O2 Delivery O2 Flow Rate FiO2 09/11/16 11:38 97.0 62 18 143/84 99 Room Air 09/11/16 08:27 69 142/91 09/11/16 08:27 142/91 09/11/16 08:27 69 142/91 09/11/16 08:19 97.0 69 18 142/91 100 Room Air 09/11/16 08:00 64 09/11/16 04:25 98.2 66 20 132/79 100 Room Air 09/11/16 04:00 66 09/11/16 00:30 97.0 64 20 144/88 100 Room Air 09/11/16 00:00 68 09/10/16 21:56 72 146/74 09/10/16 21:56 146/74 09/10/16 20:00 68 09/10/16 20:00 97.3 72 18 146/74 98 Room Air 09/10/16 17:18 64 09/10/16 16:26 98.3 74 19 140/84 100 Room Air 09/10/16 14:53 98.3 74 19 140/84 100 Room Air 09/10/16 12:34 98.2 84 21 139/90 100 Room Air Intake and Output 09/10/16 09/11/16 19:00 07:00 Intake Total 120 ml Output Total 500 ml Balance 120 ml -500 ml Intake Oral 120 ml Output Urine Total 500 ml Laboratory Tests 09/11/16 05:40: White Blood Count 4.1L, Red Blood Count 2.84L, Hemoglobin 8.8L, Hematocrit 27.3L , Mean Corpuscular Volume 96, Mean Corpuscular Hemoglobin 31.1H, Mean Corpuscular Hemoglobin Concent 32.4, Red Cell Distribution Width 13.3, Platelet Count 161, Mean Platelet Volume 10.2H, Neutrophils (%) (Auto) 41.8L, Lymphocytes (%) (Auto) 44.8, Monocytes (%) (Auto) 8.4, Eosinophils (%) (Auto) 3.1H, Basophils (%) (Auto) 1.8, Sodium Level 136, Potassium Level 4.3, Chloride Level 95L, Carbon Dioxide Level 25, Anion Gap 16H, Blood Urea Nitrogen 19, Creatinine 1.1, Estimat Glomerular Filtration Rate > 60, Glucose Level 301H, Hemoglobin A1c 11.2H, Uric Acid 6.4, Calcium Level 8.6, Phosphorus Level 3.9, Magnesium Level 1.6L, Ferritin 326H, Total Bilirubin 0.3, Gamma Glutamyl Transpeptidase 503H, Aspartate Amino Transf (AST/SGOT) 56H, Alanine Aminotransferase (ALT/SGPT) 227H, Alkaline Phosphatase 192H, Troponin I < 0.30, C-Reactive Protein, Quantitative < 0.3, Pro-B-Type Natriuretic Peptide 849H, Total Protein 5.8L, Albumin 3.0L, Globulin 2.8, Albumin/Globulin Ratio 1.0, Triglycerides Level 264H, Cholesterol Level 152, LDL Cholesterol 31L, HDL Cholesterol 68H, Cholesterol/HDL Ratio 2.2L, Thyroid Stimulating Hormone (TSH) 1.180 Height (Feet): 6 Height (Inches): 1.00 Weight (Pounds): 150 Cardiovascular: normal rate Respiratory/Chest: decreased breath sounds Abdomen: soft Extremities: other - few bruises on arms PONCHO RAMÍREZ Sep 11, 2016 12:06
[2016-09-11 16:00] VITALS: BP 142/79
--- NOTE | 2016-09-11 18:23 | Cardiology Progress Note ---
Assessment/Plan Assessment/Plan The patient is seen and examined, full consult note will be dictated. Objective Last 24 Hour Vital Signs Date Time Temp Pulse Resp B/P Pulse Ox O2 Delivery O2 Flow Rate FiO2 09/11/16 16:00 96.6 67 18 142/79 100 Room Air 09/11/16 12:00 69 09/11/16 11:38 97.0 62 18 143/84 99 Room Air 09/11/16 08:27 69 142/91 09/11/16 08:27 142/91 09/11/16 08:27 69 142/91 09/11/16 08:19 97.0 69 18 142/91 100 Room Air 09/11/16 08:00 64 09/11/16 04:25 98.2 66 20 132/79 100 Room Air 09/11/16 04:00 66 09/11/16 00:30 97.0 64 20 144/88 100 Room Air 09/11/16 00:00 68 09/10/16 21:56 72 146/74 09/10/16 21:56 146/74 09/10/16 20:00 68 09/10/16 20:00 97.3 72 18 146/74 98 Room Air Intake and Output 09/10/16 09/11/16 19:00 07:00 Intake Total 120 ml Output Total 500 ml Balance 120 ml -500 ml Intake Oral 120 ml Output Urine Total 500 ml Laboratory Tests Test 09/11/16 05:40 White Blood Count 4.1 K/UL (4.8-10.8) L Red Blood Count 2.84 M/UL (4.70-6.10) L Hemoglobin 8.8 G/DL (14.2-18.0) L Hematocrit 27.3 % (42.0-52.0) L Mean Corpuscular Volume 96 FL (80-99) Mean Corpuscular Hemoglobin 31.1 PG (27.0-31.0) H Mean Corpuscular Hemoglobin Concent 32.4 G/DL (32.0-36.0) Red Cell Distribution Width 13.3 % (11.6-14.8) Platelet Count 161 K/UL (150-450) Mean Platelet Volume 10.2 FL (6.5-10.1) H Neutrophils (%) (Auto) 41.8 % (45.0-75.0) L Lymphocytes (%) (Auto) 44.8 % (20.0-45.0) Monocytes (%) (Auto) 8.4 % (1.0-10.0) Eosinophils (%) (Auto) 3.1 % (0.0-3.0) H Basophils (%) (Auto) 1.8 % (0.0-2.0) Sodium Level 136 mEQ/L (135-145) Potassium Level 4.3 mEQ/L (3.4-4.9) Chloride Level 95 mEQ/L (98-107) L Carbon Dioxide Level 25 mEQ/L (20-30) Anion Gap 16 (5-15) H Blood Urea Nitrogen 19 mg/dL (7-23) Creatinine 1.1 mg/dL (0.7-1.2) Estimat Glomerular Filtration Rate > 60 mL/min (>60) Glucose Level 301 mg/dL (74-106) H Hemoglobin A1c 11.2 % (< 6.0) H Uric Acid 6.4 mg/dL (3.0-7.5) Calcium Level 8.6 mg/dL (8.6-10.2) Phosphorus Level 3.9 mg/dL (2.5-4.8) Magnesium Level 1.6 mg/dL (1.7-2.5) L Ferritin 326 ng/mL (10-230) H Total Bilirubin 0.3 mg/dL (0.0-1.2) Gamma Glutamyl Transpeptidase 503 U/L (8-61) H Aspartate Amino Transf (AST/SGOT) 56 U/L (5-40) H Alanine Aminotransferase (ALT/SGPT) 227 U/L (3-41) H Alkaline Phosphatase 192 U/L (40-129) H Troponin I < 0.30 ng/mL (<=0.30) C-Reactive Protein, Quantitative < 0.3 mg/dL (< 0.5) Pro-B-Type Natriuretic Peptide 849 pg/mL (0-125) H Total Protein 5.8 g/dL (6.6-8.7) L Albumin 3.0 g/dL (3.5-5.2) L Globulin 2.8 g/dL Albumin/Globulin Ratio 1.0 (1.0-2.7) Triglycerides Level 264 mg/dL (< 150) H Cholesterol Level 152 mg/dL (< 200) LDL Cholesterol 31 mg/dL (60-99) L HDL Cholesterol 68 mg/dL (> 60) H Cholesterol/HDL Ratio 2.2 (3.3-4.4) L Thyroid Stimulating Hormone (TSH) 1.180 uIU/mL (0.300-4.500) HOMA ARTEAGA Sep 11, 2016 18:23
--- NOTE | 2016-09-11 18:54 | General Progress Note ---
Assessment/Plan Assessment/Plan ASSESSMENT: 1. Anemia of chronic disease as well as kidney disease 2. 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 3. Hereditary hemorrhagic telectangasia 4. Leukopenia, stable, potentially 2/2 infection as well 5. Hypoglycemia. 6. Human immunodeficiency virus/acquired immune deficiency syndrome. 7. Dementia. 8. Parkinson disease. 9. CP r/o ACS 10. Osteomyelitis 11. Parkinson disease. 12. Encephalopathy. 13. History of seizure. RECOMMENDATIONS: 1. Watch count. 2. Ferritin has been ordered 3. PRBC transfusion as needed basis. 4. Procrit subcutaneous for hiv (if hgb less than 10) 5. GI ppx with ppi 6. Heparin for DVT prophylaxis. 7. Skin care. 8. Nutrition. 9. Close follow up. Fabrice Cuevas MD Subjective Constitutional: Reports: no symptoms HEENT: Reports: no symptoms Cardiovascular: Reports: no symptoms Respiratory: Reports: no symptoms Gastrointestinal/Abdominal: Reports: no symptoms Genitourinary: Reports: no symptoms Neurologic/Psychiatric: Reports: no symptoms Endocrine: Reports: no symptoms Hematologic/Lymphatic: Reports: no symptoms Allergies: Coded Allergies: GABAPENTIN (Verified Allergy, Severe, 04/07/12) QUETIAPINE (Verified Allergy, Unknown, 07/25/15) Objective Last 24 Hour Vital Signs Date Time Temp Pulse Resp B/P Pulse Ox O2 Delivery O2 Flow Rate FiO2 09/11/16 16:00 96.6 67 18 142/79 100 Room Air 09/11/16 12:00 69 09/11/16 11:38 97.0 62 18 143/84 99 Room Air 09/11/16 08:27 69 142/91 09/11/16 08:27 142/91 09/11/16 08:27 69 142/91 09/11/16 08:19 97.0 69 18 142/91 100 Room Air 09/11/16 08:00 64 09/11/16 04:25 98.2 66 20 132/79 100 Room Air 09/11/16 04:00 66 09/11/16 00:30 97.0 64 20 144/88 100 Room Air 09/11/16 00:00 68 09/10/16 21:56 72 146/74 09/10/16 21:56 146/74 09/10/16 20:00 68 09/10/16 20:00 97.3 72 18 146/74 98 Room Air Intake and Output 09/10/16 09/11/16 19:00 07:00 Intake Total 120 ml Output Total 500 ml Balance 120 ml -500 ml Intake Oral 120 ml Output Urine Total 500 ml Laboratory Tests 09/11/16 05:40: White Blood Count 4.1L, Red Blood Count 2.84L, Hemoglobin 8.8L, Hematocrit 27.3L , Mean Corpuscular Volume 96, Mean Corpuscular Hemoglobin 31.1H, Mean Corpuscular Hemoglobin Concent 32.4, Red Cell Distribution Width 13.3, Platelet Count 161, Mean Platelet Volume 10.2H, Neutrophils (%) (Auto) 41.8L, Lymphocytes (%) (Auto) 44.8, Monocytes (%) (Auto) 8.4, Eosinophils (%) (Auto) 3.1H, Basophils (%) (Auto) 1.8, Sodium Level 136, Potassium Level 4.3, Chloride Level 95L, Carbon Dioxide Level 25, Anion Gap 16H, Blood Urea Nitrogen 19, Creatinine 1.1, Estimat Glomerular Filtration Rate > 60, Glucose Level 301H, Hemoglobin A1c 11.2H, Uric Acid 6.4, Calcium Level 8.6, Phosphorus Level 3.9, Magnesium Level 1.6L, Ferritin 326H, Total Bilirubin 0.3, Gamma Glutamyl Transpeptidase 503H, Aspartate Amino Transf (AST/SGOT) 56H, Alanine Aminotransferase (ALT/SGPT) 227H, Alkaline Phosphatase 192H, Troponin I < 0.30, C-Reactive Protein, Quantitative < 0.3, Pro-B-Type Natriuretic Peptide 849H, Total Protein 5.8L, Albumin 3.0L, Globulin 2.8, Albumin/Globulin Ratio 1.0, Triglycerides Level 264H, Cholesterol Level 152, LDL Cholesterol 31L, HDL Cholesterol 68H, Cholesterol/HDL Ratio 2.2L, Thyroid Stimulating Hormone (TSH) 1.180 Height (Feet): 6 Height (Inches): 1.00 Weight (Pounds): 150 General Appearance: no apparent distress EENT: TMs normal Neck: supple Cardiovascular: regular rhythm Respiratory/Chest: lungs clear Abdomen: soft, no mass Edema: no edema noted Arm (L), no edema noted Arm (R), no edema noted Leg (L), no edema noted Leg (R), no edema noted Pedal (L), no edema noted Pedal (R), no edema noted Generalized Edema: mild edema Neurologic: alert Skin: warm/dry Lymphatic: normal anterior cervical (L), normal anterior cervical (R), normal axillary (L), normal axillary (R), normal inguinal (L), normal inguinal (R), normal other, normal posterior cervical (L), normal posterior cervical (R), normal submandibular (L), normal submandibular (R), normal supraclavicular (L), normal supraclavicular (R) FABRICE CUEVAS Sep 11, 2016 18:54
[2016-09-11 20:00] VITALS: BP 143/82
[2016-09-11] MEDS: Bisacodyl EC 5mg tab ORAL SCH (21:07)
[2016-09-12] VITALS: BP 141/56
[2016-09-12] MEDS: Morphine Sulfate 4mg/ml Inj IVP PRN ×6 (02:39→23:41)
[2016-09-12 04:00] VITALS: BP 144/84
[2016-09-12] MEDS: NovoLOG Insulin Flexpen SUBQ SCH ×7 (06:31→21:00)
[2016-09-12 07:34] LABS: BASOPHILS % (AUTO) 1.3 % (0.0-2.0); EOSINOPHILS % (AUTO) 3.1 % (0.0-3.0); LYMPHOCYTES % (AUTO) 38.9 % (20.0-45.0); MEAN CORPUSCULAR HEMOGLOBIN 31.9 PG (27.0-31.0); MEAN CORPUSCULAR HGB CONC 32.6 G/DL (32.0-36.0); MEAN CORPUSCULAR VOLUME 98 FL (80-99); MEAN PLATELET VOLUME 9.7 FL (6.5-10.1); MONOCYTES % (AUTO) 3.9 % (1.0-10.0); NEUTROPHILS % (AUTO) 52.7 % (45.0-75.0); PLATELET COUNT 158 K/UL (150-450); RED BLOOD COUNT 2.87 M/UL (4.70-6.10); RED CELL DISTRIBUTION WIDTH 13.7 % (11.6-14.8); WHITE BLOOD COUNT 4.7 K/UL (4.8-10.8)
[2016-09-12 07:37] LABS: HEMOLYSIS 14; IRON 81 ug/dL (59-158); TOTAL IRON BINDING CAPACITY 269 ug/dL (250-400)
[2016-09-12 07:39] LABS: FERRITIN 312 ng/mL (10-230)
[2016-09-12 07:42] LABS: INR 0.9 (0.9-1.1); PROTHROMBIN TIME 9.4 SEC (9.30-11.50)
--- NOTE | 2016-09-12 07:49 | General Progress Note ---
Assessment/Plan Assessment/Plan ASSESSMENT: 1. Anemia of chronic disease as well as kidney disease 2. 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 now is on epogen 3. Hereditary hemorrhagic telectangasia 4. Leukopenia, stable, potentially 2/2 infection as well 5. Hypoglycemia. 6. Human immunodeficiency virus/acquired immune deficiency syndrome. 7. Dementia. 8. Parkinson disease. 9. CP r/o ACS 10. Osteomyelitis 11. Parkinson disease. 12. Encephalopathy. 13. History of seizure. RECOMMENDATIONS: 1. Watch count. 2. Ferritin is elevated, other workup pending 3. PRBC transfusion as needed basis. 4. Procrit subcutaneous for hiv (if hgb less than 10) started 5. GI ppx with ppi 6. Heparin for DVT prophylaxis. 7. Skin care. 8. Nutrition. 9. Close followup. Thank you, Connor Cuevas MD Subjective Constitutional: Reports: no symptoms HEENT: Reports: mouth pain Cardiovascular: Reports: no symptoms Respiratory: Reports: no symptoms Gastrointestinal/Abdominal: Reports: no symptoms Genitourinary: Reports: no symptoms Neurologic/Psychiatric: Reports: no symptoms Endocrine: Reports: no symptoms Hematologic/Lymphatic: Reports: anemia Allergies: Coded Allergies: GABAPENTIN (Verified Allergy, Severe, 04/07/12) QUETIAPINE (Verified Allergy, Unknown, 07/25/15) Subjective stable, no events overnight, no fevers or chills Objective Last 24 Hour Vital Signs Date Time Temp Pulse Resp B/P Pulse Ox O2 Delivery O2 Flow Rate FiO2 09/12/16 04:00 73 09/12/16 04:00 97.5 76 18 144/84 99 Room Air 09/12/16 00:00 97.0 68 20 141/56 100 Room Air 09/12/16 00:00 67 09/11/16 21:08 67 143/82 09/11/16 21:08 143/82 09/11/16 20:00 64 09/11/16 20:00 96.1 67 20 143/82 100 Room Air 09/11/16 16:00 96.6 67 18 142/79 100 Room Air 09/11/16 16:00 65 09/11/16 12:00 69 09/11/16 11:38 97.0 62 18 143/84 99 Room Air 09/11/16 08:27 69 142/91 09/11/16 08:27 142/91 2/25/17 08:27 69 142/91 09/11/16 08:19 97.0 69 18 142/91 100 Room Air 09/11/16 08:00 64 Intake and Output 09/11/16 09/12/16 19:00 07:00 Intake Total 480 ml 440 ml Output Total 550 ml 1600 ml Balance -70 ml -1160 ml Intake Oral 480 ml 240 ml IV Total 200 ml Output Urine Total 550 ml 1600 ml # Voids 3 # Bowel Movements 1 Laboratory Tests 09/12/16 05:15: White Blood Count 4.7L, Red Blood Count 2.87L, Hemoglobin 9.1L, Hematocrit 28.1L , Mean Corpuscular Volume 98, Mean Corpuscular Hemoglobin 31.9H, Mean Corpuscular Hemoglobin Concent 32.6, Red Cell Distribution Width 13.7, Platelet Count 158, Mean Platelet Volume 9.7, Neutrophils (%) (Auto) 52.7, Lymphocytes (% ) (Auto) 38.9, Monocytes (%) (Auto) 3.9, Eosinophils (%) (Auto) 3.1H, Basophils (%) (Auto) 1.3, Prothrombin Time 9.4, Prothromb Time International Ratio 0.9, Activated Partial Thromboplast Time 25, Iron Level [Pending], Unsaturated Iron Binding [Pending], Ferritin 312H, Vitamin B12 Level [Pending], Folate [Pending] Height (Feet): 6 Height (Inches): 1.00 Weight (Pounds): 150 General Appearance: no apparent distress EENT: TMs normal Neck: supple Cardiovascular: regular rhythm Respiratory/Chest: lungs clear Abdomen: normal bowel sounds Extremities: non-tender Edema: 1+ Leg (L), 1+ Leg (R) Edema: trace edema Neurologic: alert Skin: warm/dry Connor Cuevas Sep 12, 2016 07:49
[2016-09-12 07:56] VITALS: BP 142/78
[2016-09-12] MEDS: Aspirin EC 81mg tab ORAL SCH (09:11)
[2016-09-12] MEDS: BuPROPion SR 150mg tab ORAL SCH (09:11)
[2016-09-12] MEDS: Lisinopril 10mg tab ORAL SCH ×2 (09:12→20:57)
[2016-09-12] MEDS: Depakote 500mg tab ORAL SCH ×2 (09:12→17:03)
[2016-09-12] MEDS: Metoprolol 50mg tab ORAL SCH ×2 (09:12→20:57)
[2016-09-12] MEDS: Heparin 5000 units/ml inj SUBQ SCH ×2 (09:14→21:02)
--- NOTE | 2016-09-12 09:22 | General Progress Note ---
Assessment/Plan Assessment/Plan (1) Lumbago (2) Lumbar DDD (3) Lumbar Spondylosis (4) Phantom limb pain (5) history of below knee amputation of left lower extremity Pt will be continued on Morphine 4mg IV Q4H PRN severe pain. Pt was d/w Dr. Merino and he concurred. Thank you for curtsey of this consultation Subjective Date patient seen: Sep 12, 2016 Time patient seen: 08:30 - am Allergies: Coded Allergies: GABAPENTIN (Verified Allergy, Severe, 04/07/12) QUETIAPINE (Verified Allergy, Unknown, 07/25/15) Subjective Constitutional: Reports: weakness, Denies: chills, diaphoresis, fever, malaise , no symptoms, other HEENT: Denies: blurred vision, double vision, ear discharge, ear pain, eye pain , mouth pain, mouth swelling, no symptoms, nose congestion, nose pain, other, tearing, throat pain, throat swelling Cardiovascular: Denies: chest pain, edema, irregular heart rate, lightheadedness, no symptoms, other, palpitations, syncope Respiratory: Denies: SOB at rest, SOB with excertion, cough, no symptoms, orthopnea, other, shortness of breath, sputum, stridor, wheezing Gastrointestinal/Abdominal: Denies: abdomen distended, abdominal pain, black stools, blood in stool, constipated, diarrhea, difficulty swallowing, nausea, no symptoms, other, poor appetite, poor fluid intake, rectal bleeding, tarry stools, vomiting Genitourinary: Denies: burning, discharge, flank pain, frequency, hematuria, incontinence, no symptoms, other, pain, urgency Neurologic/Psychiatric: Reports: numbness, tingling, weakness, Denies: anxiety , depressed, emotional problems, headache, no symptoms, other, paresthesia, pre- existing deficit, seizure, tremors Endocrine: Denies: excessive sweating, flushing, increased hunger, increased thirst, increased urine, intolerance to cold, intolerance to heat, no symptoms, other, unexplained weight gain, unexplained weight loss Hematologic/Lymphatic: Denies: anemia, easy bleeding, easy bruising, no symptoms, other Subjective Patient has been seen by us on prior admission now returns due to chest pain. The chest pain is stable. He continues to have chronic pain in his back and left LE on Morphine which has helped to reduce his pain. Objective Last 24 Hour Vital Signs Date Time Temp Pulse Resp B/P Pulse Ox O2 Delivery O2 Flow Rate FiO2 09/12/16 09:12 77 142/78 09/12/16 09:12 142/78 09/12/16 09:11 77 142/78 09/12/16 07:56 97.3 77 18 142/78 98 Room Air 09/12/16 04:00 73 09/12/16 04:00 97.5 76 18 144/84 99 Room Air 09/12/16 00:00 97.0 68 20 141/56 100 Room Air 09/12/16 00:00 67 09/11/16 21:08 67 143/82 09/11/16 21:08 143/82 09/11/16 20:00 64 09/11/16 20:00 96.1 67 20 143/82 100 Room Air 09/11/16 16:00 96.6 67 18 142/79 100 Room Air 09/11/16 16:00 65 09/11/16 12:00 69 09/11/16 11:38 97.0 62 18 143/84 99 Room Air Intake and Output 09/11/16 09/12/16 18:59 06:59 Intake Total 480 ml 440 ml Output Total 550 ml 1600 ml Balance -70 ml -1160 ml Intake Oral 480 ml 240 ml IV Total 200 ml Output Urine Total 550 ml 1600 ml # Voids 3 # Bowel Movements 1 Laboratory Tests 09/12/16 05:15: White Blood Count 4.7L, Red Blood Count 2.87L, Hemoglobin 9.1L, Hematocrit 28.1L , Mean Corpuscular Volume 98, Mean Corpuscular Hemoglobin 31.9H, Mean Corpuscular Hemoglobin Concent 32.6, Red Cell Distribution Width 13.7, Platelet Count 158, Mean Platelet Volume 9.7, Neutrophils (%) (Auto) 52.7, Lymphocytes (% ) (Auto) 38.9, Monocytes (%) (Auto) 3.9, Eosinophils (%) (Auto) 3.1H, Basophils (%) (Auto) 1.3, Prothrombin Time 9.4, Prothromb Time International Ratio 0.9, Activated Partial Thromboplast Time 25, Iron Level 81, Total Iron Binding Capacity 269, Percent Iron Saturation 30, Unsaturated Iron Binding 188, Ferritin 312H, Vitamin B12 Level 1166H, Folate [Pending] Height (Feet): 6 Height (Inches): 1.00 Weight (Pounds): 150 Objective General Appearance: no apparent distress, alert EENT: PERRL/EOMI, normal ENT inspection Neck: normal alignment, supple Cardiovascular: normal rate, regular rhythm Respiratory/Chest: lungs clear, normal breath sounds Abdomen: non tender, soft Extremities: other - left BKA Edema: trace edema Neurologic: alert, oriented x 3 Skin: warm/dry CALLIE FRAGOSO PNicole Sep 12, 2016 09:22
[2016-09-12] MEDS: Levemir Flexpen SUBQ SCH (09:25)
--- NOTE | 2016-09-12 10:31 | General Progress Note ---
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 SNOMED: 04447007 (3) Hypothyroidism ICD Codes: E03.9 - Hypothyroidism SNOMED: 41091203 (4) HIV disease ICD Codes: B20 - Human immunodeficiency virus (HIV) disease SNOMED: 34263108 Assessment/Plan change Levemir to 12 units qam starting today continue Novolog 4 units ac tid + SSI continue LT4 150 mcg qam Subjective Allergies: Coded Allergies: GABAPENTIN (Verified Allergy, Severe, 04/07/12) QUETIAPINE (Verified Allergy, Unknown, 07/25/15) All Systems: reviewed and negative except above Subjective elevated glucose this morning after he refused Levemir last night Objective Last 24 Hour Vital Signs Date Time Temp Pulse Resp B/P Pulse Ox O2 Delivery O2 Flow Rate FiO2 09/12/16 09:12 77 142/78 09/12/16 09:12 142/78 09/12/16 09:11 77 142/78 09/12/16 07:56 97.3 77 18 142/78 98 Room Air 09/12/16 04:00 73 09/12/16 04:00 97.5 76 18 144/84 99 Room Air 09/12/16 00:00 97.0 68 20 141/56 100 Room Air 09/12/16 00:00 67 09/11/16 21:08 67 143/82 09/11/16 21:08 143/82 09/11/16 20:00 64 09/11/16 20:00 96.1 67 20 143/82 100 Room Air 09/11/16 16:00 96.6 67 18 142/79 100 Room Air 09/11/16 16:00 65 09/11/16 12:00 69 09/11/16 11:38 97.0 62 18 143/84 99 Room Air Intake and Output 09/11/16 09/12/16 19:00 07:00 Intake Total 480 ml 440 ml Output Total 550 ml 1600 ml Balance -70 ml -1160 ml Intake Oral 480 ml 240 ml IV Total 200 ml Output Urine Total 550 ml 1600 ml # Voids 3 # Bowel Movements 1 Laboratory Tests 09/12/16 05:15: White Blood Count 4.7L, Red Blood Count 2.87L, Hemoglobin 9.1L, Hematocrit 28.1L , Mean Corpuscular Volume 98, Mean Corpuscular Hemoglobin 31.9H, Mean Corpuscular Hemoglobin Concent 32.6, Red Cell Distribution Width 13.7, Platelet Count 158, Mean Platelet Volume 9.7, Neutrophils (%) (Auto) 52.7, Lymphocytes (% ) (Auto) 38.9, Monocytes (%) (Auto) 3.9, Eosinophils (%) (Auto) 3.1H, Basophils (%) (Auto) 1.3, Prothrombin Time 9.4, Prothromb Time International Ratio 0.9, Activated Partial Thromboplast Time 25, Iron Level 81, Total Iron Binding Capacity 269, Percent Iron Saturation 30, Unsaturated Iron Binding 188, Ferritin 312H, Vitamin B12 Level 1166H, Folate [Pending] Height (Feet): 6 Height (Inches): 1.00 Weight (Pounds): 150 General Appearance: no apparent distress EENT: pale conjunctivae Neck: normal alignment Cardiovascular: normal rate Respiratory/Chest: lungs clear Abdomen: normal bowel sounds Extremities: other - L BKA Objective Current Medications Medications (Trade) Dose Ordered Sig/Gadiel Route PRN Reason Start Time Stop Time Status Last Admin Dose Admin Acetaminophen (Tylenol) 650 mg Q4H PRN ORAL Fever/Headache/Mild Pain 09/10/16 19:00 10/10/16 18:59 Amlodipine Besylate (Norvasc) 5 mg DAILY ORAL 09/11/16 09:00 10/11/16 08:59 09/12/16 09:11 Aspirin (Ecotrin) 81 mg DAILY ORAL 09/11/16 09:00 10/11/16 08:59 09/12/16 09:11 Bisacodyl (Dulcolax) 10 mg QHS ORAL 09/10/16 21:00 10/10/16 20:59 09/11/16 21:07 Bupropion HCl (Wellbutrin SR) 150 mg DAILY ORAL 09/11/16 09:00 10/11/16 08:59 09/12/16 09:11 Clonidine HCl (Catapres) 0.1 mg Q4H PRN ORAL For High Blood Pressure 170 sy 09/10/16 13:30 10/10/16 13:29 Dextrose (Dextrose 50%) STAT PRN IV Hypoglycemia 09/10/16 19:00 10/10/16 18:59 Diphenhydramine HCl (Benadryl) 25 mg Q8H PRN ORAL Itching 09/10/16 13:30 10/10/16 13:29 09/11/16 02:12 Divalproex Sodium (Depakote) 500 mg BID ORAL 09/10/16 18:00 10/10/16 17:59 09/12/16 09:12 Epoetin Tera (Procrit (for non ESRD use)) 3,000 units TUE-TUE-TUE SUBQ 09/13/16 21:00 10/13/16 20:59 Heparin Sodium (Porcine) (Heparin 5000 units/ml) 5,000 units Q12HR SUBQ 09/10/16 21:00 10/10/16 20:59 09/12/16 09:14 Insulin Aspart (NovoLOG) BEFORE MEALS AND HS SUBQ 09/10/16 21:00 10/10/16 20:59 09/12/16 06:31 Insulin Aspart (NovoLOG) 4 units NOVOTIAC SUBQ 09/11/16 11:50 10/11/16 11:49 09/12/16 06:32 Insulin Detemir (Levemir) 12 units DAILY SUBQ 09/12/16 09:00 10/12/16 08:59 09/12/16 09:25 Levothyroxine Sodium (Synthroid) 150 mcg ACBREAKFAST ORAL 09/11/16 06:30 10/11/16 06:29 09/12/16 06:30 Lisinopril (Zestril) 10 mg EVERY 12 HOURS ORAL 09/10/16 21:00 10/10/16 20:59 09/12/16 09:12 Metoprolol Tartrate (Lopressor) 50 mg EVERY 12 HOURS ORAL 09/10/16 21:00 10/10/16 20:59 09/12/16 09:12 Morphine Sulfate (Morphine Sulfate) 4 mg Q4H PRN IVP Severe Pain (Pain Scale 7-10) 09/10/16 20:45 09/17/16 20:44 09/12/16 06:39 Pantoprazole (Protonix) 40 mg ACBREAKFAST ORAL 09/11/16 06:30 10/11/16 06:29 09/12/16 06:30 Ranitidine HCl (Zantac) 150 mg BEDTIME ORAL 09/10/16 21:00 10/10/16 20:59 09/11/16 21:07 Zolpidem Tartrate (Ambien) 5 mg BEDTIME PRN ORAL Insomnia 09/10/16 13:30 10/10/16 13:29 Item Value Date Time Bedside Blood Glucose 339 mg/dl H 09/12/16 0925 Bedside Blood Glucose 456 mg/dl H 09/12/16 0632 Bedside Blood Glucose 87 mg/dl 09/11/16 2100 Bedside Blood Glucose 159 mg/dl H 09/11/16 1731 Bedside Blood Glucose 250 mg/dl H 09/11/16 1201 Bedside Blood Glucose 278 mg/dl H 09/11/16 0620 AKILAH MRAIE Sep 12, 2016 10:31
[2016-09-12 11:35] VITALS: BP 136/75
--- NOTE | 2016-09-12 13:25 | General Progress Note ---
Assessment/Plan Status: stable - from renal stand point Assessment/Plan status; Patient admitted for CP Cr of 1.5 now lower to 1.1 LFTs also elevated- Urine tox screen positive Other conditions: (1) Diabetic nephropathy (2) DM (diabetes mellitus) (3) Diabetic foot ulcer (4) Hypothyroidism (5) Dehydration (6) HIV (7) Parkinson / Migraine PLAN: No labs today- Keep BP in check Continue BS control- watch renal parameters and LFTs- slow hydrate- per orders / consultants Subjective ROS Limited/Unobtainable: No Allergies: Coded Allergies: GABAPENTIN (Verified Allergy, Severe, 04/07/12) QUETIAPINE (Verified Allergy, Unknown, 07/25/15) Objective Last 24 Hour Vital Signs Date Time Temp Pulse Resp B/P Pulse Ox O2 Delivery O2 Flow Rate FiO2 09/12/16 12:00 61 09/12/16 11:35 97.3 68 18 136/75 100 Room Air 09/12/16 09:12 77 142/78 09/12/16 09:12 142/78 09/12/16 09:11 77 142/78 09/12/16 08:00 73 09/12/16 07:56 97.3 77 18 142/78 98 Room Air 09/12/16 04:00 73 09/12/16 04:00 97.5 76 18 144/84 99 Room Air 09/12/16 00:00 97.0 68 20 141/56 100 Room Air 09/12/16 00:00 67 09/11/16 21:08 67 143/82 09/11/16 21:08 143/82 09/11/16 20:00 64 09/11/16 20:00 96.1 67 20 143/82 100 Room Air 09/11/16 16:00 96.6 67 18 142/79 100 Room Air 09/11/16 16:00 65 Intake and Output 09/11/16 09/12/16 19:00 07:00 Intake Total 480 ml 440 ml Output Total 550 ml 1600 ml Balance -70 ml -1160 ml Intake Oral 480 ml 240 ml IV Total 200 ml Output Urine Total 550 ml 1600 ml # Voids 3 # Bowel Movements 1 Laboratory Tests 09/12/16 05:15: White Blood Count 4.7L, Red Blood Count 2.87L, Hemoglobin 9.1L, Hematocrit 28.1L , Mean Corpuscular Volume 98, Mean Corpuscular Hemoglobin 31.9H, Mean Corpuscular Hemoglobin Concent 32.6, Red Cell Distribution Width 13.7, Platelet Count 158, Mean Platelet Volume 9.7, Neutrophils (%) (Auto) 52.7, Lymphocytes (% ) (Auto) 38.9, Monocytes (%) (Auto) 3.9, Eosinophils (%) (Auto) 3.1H, Basophils (%) (Auto) 1.3, Prothrombin Time 9.4, Prothromb Time International Ratio 0.9, Activated Partial Thromboplast Time 25, Iron Level 81, Total Iron Binding Capacity 269, Percent Iron Saturation 30, Unsaturated Iron Binding 188, Ferritin 312H, Vitamin B12 Level 1166H, Folate [Pending] Height (Feet): 6 Height (Inches): 1.00 Weight (Pounds): 150 General Appearance: no apparent distress Objective Physical exam not changed PONCHO RAMÍREZ Sep 12, 2016 13:25
[2016-09-12 16:00] VITALS: BP 124/73
[2016-09-12] MEDS ORDERED: NS 275ml ONE (16:26)
[2016-09-12] MEDS ORDERED: Tubing IV Secondary IV ONE (16:26)
[2016-09-12 20:00] VITALS: BP 146/85
[2016-09-12] MEDS: Bisacodyl EC 5mg tab ORAL SCH (20:50)
--- NOTE | 2016-09-12 22:47 | Cardiology Progress Note ---
Assessment/Plan Assessment/Plan 1. Non-cardiac chest pain, no ischemic features on the ECG, CXR reveals normal size heart with no pulmonary vascular congestion. 2. PAD, s/p left BKA 3. Acute asthma exacerbation 4. HTN, continue amlodipine and lisinopril, may consider DC ing B-blockers 5. Hx of CVA/TIA, ASA daily Subjective Subjective Sinus rhythm at 70. Objective Last 24 Hour Vital Signs Date Time Temp Pulse Resp B/P Pulse Ox O2 Delivery O2 Flow Rate FiO2 09/12/16 20:57 67 131/81 09/12/16 20:57 131/81 09/12/16 20:00 63 09/12/16 20:00 97.3 61 18 146/85 99 Room Air 09/12/16 16:00 59 09/12/16 16:00 97.5 62 20 124/73 Room Air 09/12/16 12:00 61 09/12/16 11:35 97.3 68 18 136/75 100 Room Air 09/12/16 09:12 77 142/78 09/12/16 09:12 142/78 09/12/16 09:11 77 142/78 09/12/16 08:00 73 09/12/16 07:56 97.3 77 18 142/78 98 Room Air 09/12/16 04:00 73 09/12/16 04:00 97.5 76 18 144/84 99 Room Air 09/12/16 00:00 97.0 68 20 141/56 100 Room Air 09/12/16 00:00 67 Intake and Output 09/11/16 09/12/16 19:00 07:00 Intake Total 480 ml 440 ml Output Total 550 ml 1600 ml Balance -70 ml -1160 ml Intake Oral 480 ml 240 ml IV Total 200 ml Output Urine Total 550 ml 1600 ml # Voids 3 # Bowel Movements 1 Laboratory Tests Test 09/12/16 05:15 White Blood Count 4.7 K/UL (4.8-10.8) L Red Blood Count 2.87 M/UL (4.70-6.10) L Hemoglobin 9.1 G/DL (14.2-18.0) L Hematocrit 28.1 % (42.0-52.0) L Mean Corpuscular Volume 98 FL (80-99) Mean Corpuscular Hemoglobin 31.9 PG (27.0-31.0) H Mean Corpuscular Hemoglobin Concent 32.6 G/DL (32.0-36.0) Red Cell Distribution Width 13.7 % (11.6-14.8) Platelet Count 158 K/UL (150-450) Mean Platelet Volume 9.7 FL (6.5-10.1) Neutrophils (%) (Auto) 52.7 % (45.0-75.0) Lymphocytes (%) (Auto) 38.9 % (20.0-45.0) Monocytes (%) (Auto) 3.9 % (1.0-10.0) Eosinophils (%) (Auto) 3.1 % (0.0-3.0) H Basophils (%) (Auto) 1.3 % (0.0-2.0) Prothrombin Time 9.4 SEC (9.30-11.50) Prothromb Time International Ratio 0.9 (0.9-1.1) Activated Partial Thromboplast Time 25 SEC (23-33) Iron Level 81 ug/dL (59-158) Total Iron Binding Capacity 269 ug/dL (250-400) Percent Iron Saturation 30 % (15-50) Unsaturated Iron Binding 188 ug/dL (112-346) Ferritin 312 ng/mL (10-230) H Vitamin B12 Level 1166 pg/mL (211-946) H Folate Pending Microbiology Date/Time Source Procedure Growth Status 09/10/16 10:50 Nasal Nares MRSA Culture - Final NO METHICILLIN RESISTANT STAPH AUREUS... Complete Objective HEENT: Normocephalic and atraumatic, PERRLA, EOMI NECK: Negative JVD, no carotid bruit, carotid upstroke 2+ B/L LUNGS: Decreased breath sounds bilaterally with few rhonchi at the base. HEART: S1 and S2 regular, no murmurs, gallops or rubs ABDOMEN: Soft and benign. No organomegaly present. Bowel sounds present. EXTREMITIES: No cyanosis, clubbing, or edema. HOMA ARTEAGA Sep 12, 2016 22:47
[2016-09-13] VITALS: BP 145/84
--- NOTE | 2016-09-13 03:08 | Consultation ---
DATE OF CONSULTATION: 09/11/2016 CARDIOLOGY CONSULTATION: REFERRING PHYSICIAN: Suzy Bruce M.D. REASON FOR CONSULTATION: Management of chest pain. HISTORY OF PRESENT ILLNESS: The patient is a very pleasant 50-year-old gentleman, who presented to the hospital with chest tightness on 09/10/2016. The patient apparently has been using marijuana and also a known cocaine use in the past. The urine drug screen in the emergency department did not really show any evidence of cocaine in the urine. Initial blood pressure 156/92 and pulse was 76. A 12-lead electrocardiogram was significant for sinus rhythm, heart rate of 70 with no acute ischemic changes. Chest x-ray also showed a normal cardiac silhouette in fact shaped with hyperinflated lungs. The patient was admitted to telemetry for evaluation and management. PAST MEDICAL HISTORY: Includes history of hypertension, history of asthma/COPD, history of diabetes mellitus, history of CVA/TIA, history of dementia, history of Parkinson's disease, history of seizure disorder, history of peripheral neuropathy, history of head trauma in the past, and history of syncope in the past. PAST SURGICAL HISTORY: None. ALLERGIES: Gabapentin and quetiapine. MEDICATIONS: List of medications, albuterol HFA one puff q.6 hours, Norvasc 5 mg p.o. daily, aspirin 81 mg p.o. daily, Zocor 10 mg p.o. daily, Wellbutrin 150 mg daily, Catapres 0.1 mg q.4 hours p.r.n. high blood pressure above 160, Benadryl 25 mg q.8 hours p.r.n. pruritus, Depakote 500 mg twice daily, Genvoya one tablet p.o. daily, enalapril/ hydrochlorothiazide 10-25 one tablet p.o. daily, hydrocodone/acetaminophen 10/325 one tablet q. 8 hours p.r.n. pain, insulin NovoLog subcutaneous 8 units before meals, insulin detemir 13 units subcutaneous twice daily, Synthroid 150 mcg p.o. daily, lisinopril 10 mg p.o. q. 12 hours, losartan 50 mg p.o. q.12 hours, metoprolol 50 mg p.o. q.12 hours, application three times a day, nitroglycerin 0.4 mg q 5 minutes p.r.n. chest pain x3 dose, Zofran 4 mg q.6 hours p.r.n. nausea and vomiting, OxyContin 10 mg p.o. q. 8 hours, Protonix 40 mg daily, ranitidine 150 mg twice daily, Crestor 10 mg p.o. at bedtime, sucralfate 1 g every four times daily, and zolpidem 10 mg p.o. at nightly p.r.n insomnia. ALLERGIES: Gabapentin and quetiapine. REVIEW OF SYSTEMS: HEENT: Denies any headache, diplopia, or blurred vision. Constitutional: Denies any generalized weakness, fever, or chills. Cardiovascular: Complained of chest pain. No shortness of breath. Denies PND, orthopnea, or leg swelling. Pulmonary: Denies any cough, hemoptysis, or wheezing. Gastrointestinal: Denies any nausea, vomiting, diarrhea, constipation, abdominal pain, or GI bleed. : Denies any hematuria, dysuria, or incontinence. Neurologic: Denies any motor dysfunction, sensory deficit, or altered speech. Musculoskeletal: He has left below-knee amputation. PHYSICAL EXAMINATION: VITAL SIGNS: Blood pressure was 156/92, respirations 16, pulse of 72, temperature 98.2 degrees Fahrenheit, and O2 saturation 100% on room air. GENERAL: The patient is a very pleasant 50-year-old gentleman, in no apparent respiratory distress. Alert and oriented x4. HEENT: Atraumatic and normocephalic. Anicteric. Pupils are equal, round, and reactive to light and accommodation. Extraocular muscles intact . NECK: JVP is less than 5 cm . No carotid bruits. Carotid upstrokes 2+ bilaterally. CARDIOVASCULAR: Normal S1, S2. Regular rate and rhythm. No murmurs, gallops, or rubs. LUNGS: Clear to auscultation bilaterally. ABDOMEN: Soft, nontender, and nondistended. No hepatosplenomegaly. Positive bowel sounds. EXTREMITIES: There is left below-knee amputation. The right lower extremity no edema, clubbing, or cyanosis. LABORATORY FINDINGS: WBC was 4.7, hemoglobin 9.6, hematocrit 30.2, and platelet count 162,000. Sodium 136, potassium 4.2, chloride 95, bicarbonate 24, BUN 24, creatinine 1.5, and glucose 345. Calcium is 9.2. AST 302 and ALT 79. Troponin I x2 less than 0.3. ProBNP was 872. INR was 0.9. Chest x-ray shows no acute cardiopulmonary disease. ASSESSMENT AND PLAN: The patient is a very pleasant 50-year-old gentleman, seen in Cardiology consultation at the request for Dr. Bruce, 1. Most likely noncardiac chest pain. Chest pain is not ischemic in origin. A 12-lead electrocardiogram does not show any evidence of acute ischemic changes. Chest x-ray is benign. In fact cardiac silhouette is small. Chest pain is most significant for acute exacerbation of asthma. I would agree with the patient on intravenous antibiotics and inhaler therapy. No further cardiac intervention is required at this time. 2. History of hypertension. We will continue the patient on amlodipine and metoprolol as well as lisinopril. 3. History of diabetes mellitus with hyperglycemia on arrival to this hospital. Endocrinology is following the patient. 4. History of seizure disorder. 5. History of transient ischemic attack/cerebrovascular accident. I will recommend use of aspirin 81 mg p.o. daily. I would like to thank, Dr. Bruce, for allowing me to participate in care of this patient. Saud Milligan M.D. DR: Izabela JOB#: [id number] CC:
[2016-09-13 04:00] VITALS: BP 131/80
[2016-09-13] MEDS: Morphine Sulfate 4mg/ml Inj IVP PRN ×4 (04:15→21:00)
[2016-09-13] MEDS: NovoLOG Insulin Flexpen SUBQ SCH ×7 (06:24→21:02)
[2016-09-13 08:00] VITALS: BP 134/74
--- NOTE | 2016-09-13 08:30 | General Progress Note ---
Assessment/Plan Assessment/Plan (1) Lumbago (2) Lumbar DDD (3) Lumbar Spondylosis (4) Phantom limb pain (5) history of below knee amputation of left lower extremity Pt will be continued on Morphine Pt was d/w Dr. Merino and he concurred. Subjective Date patient seen: Sep 13, 2016 Time patient seen: 07:00 - am Allergies: Coded Allergies: GABAPENTIN (Verified Allergy, Severe, 04/07/12) QUETIAPINE (Verified Allergy, Unknown, 07/25/15) Subjective Constitutional: Reports: weakness, Denies: chills, diaphoresis, fever, malaise , no symptoms, other HEENT: Denies: blurred vision, double vision, ear discharge, ear pain, eye pain , mouth pain, mouth swelling, no symptoms, nose congestion, nose pain, other, tearing, throat pain, throat swelling Cardiovascular: Denies: chest pain, edema, irregular heart rate, lightheadedness, no symptoms, other, palpitations, syncope Respiratory: Denies: SOB at rest, SOB with excertion, cough, no symptoms, orthopnea, other, shortness of breath, sputum, stridor, wheezing Gastrointestinal/Abdominal: Denies: abdomen distended, abdominal pain, black stools, blood in stool, constipated, diarrhea, difficulty swallowing, nausea, no symptoms, other, poor appetite, poor fluid intake, rectal bleeding, tarry stools, vomiting Genitourinary: Denies: burning, discharge, flank pain, frequency, hematuria, incontinence, no symptoms, other, pain, urgency Neurologic/Psychiatric: Reports: numbness, tingling, weakness, Denies: anxiety , depressed, emotional problems, headache, no symptoms, other, paresthesia, pre- existing deficit, seizure, tremors Endocrine: Denies: excessive sweating, flushing, increased hunger, increased thirst, increased urine, intolerance to cold, intolerance to heat, no symptoms, other, unexplained weight gain, unexplained weight loss Hematologic/Lymphatic: Denies: anemia, easy bleeding, easy bruising, no symptoms, other Subjective Pain has been stable and tolerated on the morphine. He has no new pain issues. Objective Last 24 Hour Vital Signs Date Time Temp Pulse Resp B/P Pulse Ox O2 Delivery O2 Flow Rate FiO2 09/13/16 04:00 63 09/13/16 04:00 97.3 67 20 131/80 100 Room Air 09/13/16 01:59 65 09/13/16 00:00 97.7 71 20 145/84 99 Room Air 09/12/16 20:57 67 131/81 09/12/16 20:57 131/81 09/12/16 20:00 63 09/12/16 20:00 97.3 61 18 146/85 99 Room Air 09/12/16 16:00 59 09/12/16 16:00 97.5 62 20 124/73 Room Air 09/12/16 12:00 61 09/12/16 11:35 97.3 68 18 136/75 100 Room Air 09/12/16 09:12 77 142/78 09/12/16 09:12 142/78 09/12/16 09:11 77 142/78 Intake and Output 09/12/16 09/13/16 19:00 07:00 Intake Total 480 ml 720 ml Balance 480 ml 720 ml Intake Oral 480 ml 720 ml # Voids 2 4 # Bowel Movements 1 1 Height (Feet): 6 Height (Inches): 1.00 Weight (Pounds): 150 Objective General Appearance: no apparent distress, alert EENT: PERRL/EOMI, normal ENT inspection Neck: normal alignment, supple Cardiovascular: normal rate, regular rhythm Respiratory/Chest: lungs clear, normal breath sounds Abdomen: non tender, soft Extremities: other - left BKA Edema: trace edema Neurologic: alert, oriented x 3 Skin: warm/dry CALLIE FRAGOSO Sep 13, 2016 08:30
[2016-09-13] MEDS: BuPROPion SR 150mg tab ORAL SCH (08:45)
[2016-09-13] MEDS: Aspirin EC 81mg tab ORAL SCH (08:46)
[2016-09-13] MEDS: Lisinopril 10mg tab ORAL SCH ×2 (08:46→20:58)
[2016-09-13] MEDS: Depakote 500mg tab ORAL SCH ×2 (08:46→17:52)
[2016-09-13] MEDS: Metoprolol 50mg tab ORAL SCH ×2 (08:46→20:59)
[2016-09-13] MEDS: Levemir Flexpen SUBQ SCH (08:49)
[2016-09-13] MEDS: Heparin 5000 units/ml inj SUBQ SCH ×2 (08:50→21:03)
--- NOTE | 2016-09-13 08:53 | General Progress Note ---
Assessment/Plan Assessment/Plan ASSESSMENT: 1. Anemia of chronic disease as well as kidney disease 2. 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 now is on epogen 3. Hereditary hemorrhagic telectangasia 4. Leukopenia, stable, potentially 2/2 infection as well 5. Hypoglycemia. 6. Human immunodeficiency virus/acquired immune deficiency syndrome. 7. Dementia. 8. Parkinson disease. 9. CP r/o ACS 10. Osteomyelitis 11. Parkinson disease. 12. Encephalopathy. 13. History of seizure. RECOMMENDATIONS: 1. Watch count. 2. Anemia w/u has been reviewed 3. PRBC transfusion prn 4. Procrit subcutaneous for hiv (if hgb less than 10) started 5. GI ppx with ppi 6. Heparin for DVT prophylaxis. 7. Skin care. 8. Nutrition. 9. Close followup. Thank you, Connor Cuevas MD Subjective Constitutional: Reports: no symptoms HEENT: Reports: no symptoms Cardiovascular: Reports: no symptoms Respiratory: Reports: no symptoms Gastrointestinal/Abdominal: Reports: no symptoms Genitourinary: Reports: no symptoms Neurologic/Psychiatric: Reports: no symptoms Endocrine: Reports: no symptoms Hematologic/Lymphatic: Reports: anemia Allergies: Coded Allergies: GABAPENTIN (Verified Allergy, Severe, 04/07/12) QUETIAPINE (Verified Allergy, Unknown, 07/25/15) Subjective stable, no events, no fevers or chills Objective Last 24 Hour Vital Signs Date Time Temp Pulse Resp B/P Pulse Ox O2 Delivery O2 Flow Rate FiO2 09/13/16 08:46 74 134/74 09/13/16 08:46 134/74 09/13/16 08:46 74 134/74 09/13/16 04:00 63 09/13/16 04:00 97.3 67 20 131/80 100 Room Air 09/13/16 01:59 65 09/13/16 00:00 97.7 71 20 145/84 99 Room Air 09/12/16 20:57 67 131/81 09/12/16 20:57 131/81 09/12/16 20:00 63 09/12/16 20:00 97.3 61 18 146/85 99 Room Air 09/12/16 16:00 59 09/12/16 16:00 97.5 62 20 124/73 Room Air 09/12/16 12:00 61 09/12/16 11:35 97.3 68 18 136/75 100 Room Air 09/12/16 09:12 77 142/78 09/12/16 09:12 142/78 09/12/16 09:11 77 142/78 Intake and Output 09/12/16 09/13/16 19:00 07:00 Intake Total 480 ml 720 ml Balance 480 ml 720 ml Intake Oral 480 ml 720 ml # Voids 2 4 # Bowel Movements 1 1 Height (Feet): 6 Height (Inches): 1.00 Weight (Pounds): 150 General Appearance: no apparent distress EENT: TMs normal Neck: supple Cardiovascular: regular rhythm Respiratory/Chest: lungs clear Abdomen: non tender Extremities: non-tender Edema: 1+ Leg (L), 1+ Leg (R) Edema: mild edema Neurologic: alert Skin: warm/dry Connor Cuevas Sep 13, 2016 08:53
[2016-09-13 12:00] VITALS: BP 140/89
--- NOTE | 2016-09-13 13:14 | General Progress Note ---
Assessment/Plan Problem List: (1) Hyperglycemia (2) Uncontrolled diabetes mellitus ICD Codes: E11.65 - Type 2 diabetes mellitus with hyperglycemia SNOMED: 666371272 (3) Pain ICD Codes: R52 - Pain SNOMED: 98117830 (4) HIV disease ICD Codes: B20 - Human immunodeficiency virus (HIV) disease SNOMED: 62271412 (5) Hypothyroidism ICD Codes: E03.9 - Hypothyroidism SNOMED: 35604530 (6) DM (diabetes mellitus) ICD Codes: E11.9 - Diabetes mellitus SNOMED: 84312707 (7) Pain in limb ICD Codes: M79.609 - Pain in limb SNOMED: 34877245 (8) Gastritis ICD Codes: K29.70 - Gastritis, unspecified, without bleeding SNOMED: 9911524 (9) Neuropathic pain ICD Codes: M79.2 - Neuropathic pain syndrome (non-herpetic) SNOMED: 985114761 (10) Chest pain ICD Codes: R07.9 - Chest pain, unspecified SNOMED: 67891261 (11) ACS (acute coronary syndrome) ICD Codes: I24.9 - Acute ischemic heart disease, unspecified SNOMED: 088778731 Status: progressing Assessment/Plan chest pain r/o KS AIDS CHRONIC PAIN AMPUTATION NEEDS SNF PLACEMENT Subjective ROS Limited/Unobtainable: Yes Constitutional: Reports: no symptoms Allergies: Coded Allergies: GABAPENTIN (Verified Allergy, Severe, 04/07/12) QUETIAPINE (Verified Allergy, Unknown, 07/25/15) Objective Last 24 Hour Vital Signs Date Time Temp Pulse Resp B/P Pulse Ox O2 Delivery O2 Flow Rate FiO2 09/13/16 12:00 97.7 66 20 140/89 99 Room Air 09/13/16 09:21 97.3 09/13/16 08:46 74 134/74 09/13/16 08:46 134/74 09/13/16 08:46 74 134/74 09/13/16 08:12 65 09/13/16 08:00 97.2 74 20 134/74 100 Room Air 09/13/16 04:00 63 09/13/16 04:00 97.3 67 20 131/80 100 Room Air 09/13/16 01:59 65 09/13/16 00:00 97.7 71 20 145/84 99 Room Air 09/12/16 20:57 67 131/81 09/12/16 20:57 131/81 09/12/16 20:00 63 09/12/16 20:00 97.3 61 18 146/85 99 Room Air 09/12/16 16:00 59 09/12/16 16:00 97.5 62 20 124/73 Room Air Intake and Output 09/12/16 09/13/16 19:00 07:00 Intake Total 480 ml 720 ml Balance 480 ml 720 ml Intake Oral 480 ml 720 ml # Voids 2 4 # Bowel Movements 1 1 Height (Feet): 6 Height (Inches): 1.00 Weight (Pounds): 150 EENT: PERRL/EOMI Neck: supple Cardiovascular: normal rate Respiratory/Chest: lungs clear Abdomen: soft Suzy Bruce MD Sep 13, 2016 13:14
--- NOTE | 2016-09-13 13:46 | General Progress Note ---
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 SNOMED: 01016385 (3) Hypothyroidism ICD Codes: E03.9 - Hypothyroidism SNOMED: 44085943 (4) HIV disease ICD Codes: B20 - Human immunodeficiency virus (HIV) disease SNOMED: 51947210 Assessment/Plan continue Levemir 12 units qam starting today continue Novolog 4 units ac tid + SSI continue LT4 150 mcg qam Subjective Allergies: Coded Allergies: GABAPENTIN (Verified Allergy, Severe, 04/07/12) QUETIAPINE (Verified Allergy, Unknown, 07/25/15) Subjective events noted Objective Last 24 Hour Vital Signs Date Time Temp Pulse Resp B/P Pulse Ox O2 Delivery O2 Flow Rate FiO2 09/13/16 12:00 97.7 66 20 140/89 99 Room Air 09/13/16 09:21 97.3 09/13/16 08:46 74 134/74 09/13/16 08:46 134/74 09/13/16 08:46 74 134/74 09/13/16 08:12 65 09/13/16 08:00 97.2 74 20 134/74 100 Room Air 09/13/16 04:00 63 09/13/16 04:00 97.3 67 20 131/80 100 Room Air 09/13/16 01:59 65 09/13/16 00:00 97.7 71 20 145/84 99 Room Air 09/12/16 20:57 67 131/81 09/12/16 20:57 131/81 09/12/16 20:00 63 09/12/16 20:00 97.3 61 18 146/85 99 Room Air 09/12/16 16:00 59 09/12/16 16:00 97.5 62 20 124/73 Room Air Intake and Output 09/12/16 09/13/16 19:00 07:00 Intake Total 480 ml 720 ml Balance 480 ml 720 ml Intake Oral 480 ml 720 ml # Voids 2 4 # Bowel Movements 1 1 Height (Feet): 6 Height (Inches): 1.00 Weight (Pounds): 150 General Appearance: no apparent distress Cardiovascular: normal peripheral pulses Respiratory/Chest: chest wall non-tender Abdomen: normal bowel sounds Objective Current Medications Medications (Trade) Dose Ordered Sig/Gadiel Route PRN Reason Start Time Stop Time Status Last Admin Dose Admin Acetaminophen (Tylenol) 650 mg Q4H PRN ORAL Fever/Headache/Mild Pain 09/10/16 19:00 10/10/16 18:59 Amlodipine Besylate (Norvasc) 5 mg DAILY ORAL 09/11/16 09:00 10/11/16 08:59 09/12/16 09:11 Aspirin (Ecotrin) 81 mg DAILY ORAL 09/11/16 09:00 10/11/16 08:59 09/12/16 09:11 Bisacodyl (Dulcolax) 10 mg QHS ORAL 09/10/16 21:00 10/10/16 20:59 09/11/16 21:07 Bupropion HCl (Wellbutrin SR) 150 mg DAILY ORAL 09/11/16 09:00 10/11/16 08:59 09/12/16 09:11 Clonidine HCl (Catapres) 0.1 mg Q4H PRN ORAL For High Blood Pressure 170 sy 09/10/16 13:30 10/10/16 13:29 Dextrose (Dextrose 50%) STAT PRN IV Hypoglycemia 09/10/16 19:00 10/10/16 18:59 Diphenhydramine HCl (Benadryl) 25 mg Q8H PRN ORAL Itching 09/10/16 13:30 10/10/16 13:29 09/11/16 02:12 Divalproex Sodium (Depakote) 500 mg BID ORAL 09/10/16 18:00 10/10/16 17:59 09/12/16 09:12 Epoetin Tera (Procrit (for non ESRD use)) 3,000 units MON-WED-FRI SUBQ 09/13/16 21:00 10/13/16 20:59 Heparin Sodium (Porcine) (Heparin 5000 units/ml) 5,000 units Q12HR SUBQ 09/10/16 21:00 10/10/16 20:59 09/12/16 09:14 Insulin Aspart (NovoLOG) BEFORE MEALS AND HS SUBQ 09/10/16 21:00 10/10/16 20:59 09/12/16 06:31 Insulin Aspart (NovoLOG) 4 units NOVOTIAC SUBQ 09/11/16 11:50 10/11/16 11:49 09/12/16 06:32 Insulin Detemir (Levemir) 12 units DAILY SUBQ 09/12/16 09:00 10/12/16 08:59 09/12/16 09:25 Levothyroxine Sodium (Synthroid) 150 mcg ACBREAKFAST ORAL 09/11/16 06:30 10/11/16 06:29 09/12/16 06:30 Lisinopril (Zestril) 10 mg EVERY 12 HOURS ORAL 09/10/16 21:00 10/10/16 20:59 09/12/16 09:12 Metoprolol Tartrate (Lopressor) 50 mg EVERY 12 HOURS ORAL 09/10/16 21:00 10/10/16 20:59 09/12/16 09:12 Morphine Sulfate (Morphine Sulfate) 4 mg Q4H PRN IVP Severe Pain (Pain Scale 7-10) 09/10/16 20:45 09/17/16 20:44 09/12/16 06:39 Pantoprazole (Protonix) 40 mg ACBREAKFAST ORAL 09/11/16 06:30 10/11/16 06:29 09/12/16 06:30 Ranitidine HCl (Zantac) 150 mg BEDTIME ORAL 09/10/16 21:00 10/10/16 20:59 09/11/16 21:07 Zolpidem Tartrate (Ambien) 5 mg BEDTIME PRN ORAL Insomnia 09/10/16 13:30 10/10/16 13:29 Item Value Date Time Bedside Blood Glucose 339 mg/dl H 09/12/16 0925 Bedside Blood Glucose 456 mg/dl H 09/12/16 0632 Bedside Blood Glucose 87 mg/dl 09/11/16 2100 Bedside Blood Glucose 159 mg/dl H 09/11/16 1731 Bedside Blood Glucose 250 mg/dl H 09/11/16 1201 Bedside Blood Glucose 278 mg/dl H 09/11/16 0620 AKILAH MARIE Sep 13, 2016 13:46
--- NOTE | 2016-09-13 15:23 | General Progress Note ---
Assessment/Plan Status: stable Assessment/Plan status; Patient admitted for CP Cr of 1.5 now lower to 1.1 LFTs also elevated- Urine tox screen positive Other conditions: (1) Diabetic nephropathy (2) DM (diabetes mellitus) (3) Diabetic foot ulcer (4) Hypothyroidism (5) Dehydration (6) HIV (7) Parkinson / Migraine PLAN: No labs today- Keep BP in check Continue BS control- watch renal parameters and LFTs- slow hydrate- per orders / consultants Subjective ROS Limited/Unobtainable: No Allergies: Coded Allergies: GABAPENTIN (Verified Allergy, Severe, 04/07/12) QUETIAPINE (Verified Allergy, Unknown, 07/25/15) Objective Last 24 Hour Vital Signs Date Time Temp Pulse Resp B/P Pulse Ox O2 Delivery O2 Flow Rate FiO2 09/13/16 12:00 97.7 66 20 140/89 99 Room Air 09/13/16 09:21 97.3 09/13/16 08:46 74 134/74 09/13/16 08:46 134/74 09/13/16 08:46 74 134/74 09/13/16 08:12 65 09/13/16 08:00 97.2 74 20 134/74 100 Room Air 09/13/16 04:00 63 09/13/16 04:00 97.3 67 20 131/80 100 Room Air 09/13/16 01:59 65 09/13/16 00:00 97.7 71 20 145/84 99 Room Air 09/12/16 20:57 67 131/81 09/12/16 20:57 131/81 09/12/16 20:00 63 09/12/16 20:00 97.3 61 18 146/85 99 Room Air 09/12/16 16:00 59 09/12/16 16:00 97.5 62 20 124/73 Room Air Intake and Output 09/12/16 09/13/16 19:00 07:00 Intake Total 480 ml 720 ml Balance 480 ml 720 ml Intake Oral 480 ml 720 ml # Voids 2 4 # Bowel Movements 1 1 Height (Feet): 6 Height (Inches): 1.00 Weight (Pounds): 150 General Appearance: no apparent distress Objective Physical exam not changed PONCHO RAMÍREZ Sep 13, 2016 15:23
[2016-09-13 16:00] VITALS: BP 149/88
[2016-09-13 20:00] VITALS: BP 146/88
[2016-09-13] MEDS: Bisacodyl EC 5mg tab ORAL SCH (20:59)
[2016-09-13] MEDS ORDERED: Epogen (for non ESRD use) SUBQ SCH (21:00)
--- NOTE | 2016-09-13 23:02 | Cardiology Progress Note ---
Assessment/Plan Assessment/Plan 1. Non-cardiac chest pain, no ischemic features on the ECG, CXR reveals normal size heart with no pulmonary vascular congestion. 2. PAD, s/p left BKA 3. Acute asthma exacerbation 4. HTN, continue amlodipine, metoprolol and lisinopril. 5. Hx of CVA/TIA, ASA daily Subjective Subjective Sinus rhythm at 66. Objective Last 24 Hour Vital Signs Date Time Temp Pulse Resp B/P Pulse Ox O2 Delivery O2 Flow Rate FiO2 09/13/16 20:59 66 146/88 09/13/16 20:58 146/88 09/13/16 20:00 98.7 66 20 146/88 98 Room Air 09/13/16 16:00 97.7 65 20 149/88 100 Room Air 09/13/16 12:00 97.7 66 20 140/89 99 Room Air 09/13/16 09:21 97.3 09/13/16 08:46 74 134/74 09/13/16 08:46 134/74 09/13/16 08:46 74 134/74 09/13/16 08:12 65 09/13/16 08:00 97.2 74 20 134/74 100 Room Air 09/13/16 04:00 63 09/13/16 04:00 97.3 67 20 131/80 100 Room Air 09/13/16 01:59 65 09/13/16 00:00 97.7 71 20 145/84 99 Room Air Intake and Output 09/12/16 09/13/16 19:00 07:00 Intake Total 480 ml 720 ml Balance 480 ml 720 ml Intake Oral 480 ml 720 ml # Voids 2 4 # Bowel Movements 1 1 Objective HEENT: Normocephalic and atraumatic, PERRLA, EOMI NECK: Negative JVD, no carotid bruit, carotid upstroke 2+ B/L LUNGS: Decreased breath sounds bilaterally with few rhonchi at the base. HEART: S1 and S2 regular, no murmurs, gallops or rubs ABDOMEN: Soft and benign. No organomegaly present. Bowel sounds present. EXTREMITIES: No cyanosis, clubbing, or edema. HOMA ARTEAGA Sep 13, 2016 23:02
[2016-09-14] VITALS: BP 151/92
[2016-09-14] MEDS: Morphine Sulfate 4mg/ml Inj IVP PRN ×5 (01:16→20:44)
[2016-09-14 04:00] VITALS: BP 146/89
[2016-09-14] MEDS: NovoLOG Insulin Flexpen SUBQ SCH ×7 (06:47→20:41)
--- NOTE | 2016-09-14 07:03 | General Progress Note ---
Assessment/Plan Problem List: (1) Abnormal liver enzymes ICD Codes: R74.8 - Abnormal levels of other serum enzymes SNOMED: 589223738 (2) IDDM (insulin dependent diabetes mellitus) ICD Codes: E11.9 - Type 2 diabetes mellitus without complications; Z79.4 - custodial (current) use of insulin SNOMED: 11027215 (3) Hypothyroidism ICD Codes: E03.9 - Hypothyroidism SNOMED: 53137696 (4) HIV disease ICD Codes: B20 - Human immunodeficiency virus (HIV) disease SNOMED: 81530414 Assessment/Plan glucose is elevated increase Levemir to 15 units qam increase Novolog to 5 units ac tid + SSI continue LT4 150 mcg qam Subjective Allergies: Coded Allergies: GABAPENTIN (Verified Allergy, Severe, 04/07/12) QUETIAPINE (Verified Allergy, Unknown, 07/25/15) All Systems: reviewed and negative except above Subjective events noted Objective Last 24 Hour Vital Signs Date Time Temp Pulse Resp B/P Pulse Ox O2 Delivery O2 Flow Rate FiO2 09/14/16 04:00 97.7 70 20 146/89 97 09/14/16 04:00 72 09/14/16 00:00 64 09/14/16 00:00 97.7 68 20 151/92 99 Room Air 09/13/16 20:59 66 146/88 09/13/16 20:58 146/88 09/13/16 20:00 98.7 66 20 146/88 98 Room Air 09/13/16 20:00 70 09/13/16 16:00 62 09/13/16 16:00 97.7 65 20 149/88 100 Room Air 09/13/16 12:00 97.7 66 20 140/89 99 Room Air 09/13/16 09:21 97.3 09/13/16 08:46 74 134/74 09/13/16 08:46 134/74 09/13/16 08:46 74 134/74 09/13/16 08:12 65 09/13/16 08:00 97.2 74 20 134/74 100 Room Air Intake and Output 09/13/16 09/14/16 19:00 07:00 Intake Total 360 ml Output Total 600 ml 1400 ml Balance -600 ml -1040 ml Intake Oral 360 ml Output Urine Total 600 ml 1400 ml # Voids 1 # Bowel Movements 1 Height (Feet): 6 Height (Inches): 1.00 Weight (Pounds): 150 General Appearance: no apparent distress EENT: pale conjunctivae Neck: normal alignment Cardiovascular: normal rate Respiratory/Chest: lungs clear Abdomen: normal bowel sounds Pelvis: normal external exam Extremities: other - left BKA Objective Item Value Date Time Bedside Blood Glucose 184 mg/dl H 09/13/16 1256 Bedside Blood Glucose 363 mg/dl H 09/13/16 0849 Bedside Blood Glucose 363 mg/dl H 09/13/16 0625 Bedside Blood Glucose 52 mg/dl L 09/12/16 2100 Bedside Blood Glucose 124 mg/dl H 09/12/16 1705 Bedside Blood Glucose 304 mg/dl H 09/12/16 1130 Bedside Blood Glucose 339 mg/dl H 09/12/16 0925 Bedside Blood Glucose 351 mg/dl H 09/14/16 0648 Bedside Blood Glucose 239 mg/dl H 09/13/16 2102 Bedside Blood Glucose 120 mg/dl 09/13/16 1754 AKILAH MARIE Sep 14, 2016 07:03
[2016-09-14 08:00] VITALS: BP 145/86
[2016-09-14] MEDS: Depakote 500mg tab ORAL SCH ×2 (08:22→17:05)
[2016-09-14] MEDS: Aspirin EC 81mg tab ORAL SCH (08:22)
--- NOTE | 2016-09-14 08:22 | General Progress Note ---
Assessment/Plan Assessment/Plan (1) Lumbago (2) Lumbar DDD (3) Lumbar Spondylosis (4) Phantom limb pain (5) history of below knee amputation of left lower extremity Pt will be continued on Morphine Pt was d/w Dr. Merino and he concurred. Subjective Date patient seen: Sep 14, 2016 Time patient seen: 07:30 - am Allergies: Coded Allergies: GABAPENTIN (Verified Allergy, Severe, 04/07/12) QUETIAPINE (Verified Allergy, Unknown, 07/25/15) Subjective Constitutional: Reports: weakness, Denies: chills, diaphoresis, fever, malaise , no symptoms, other HEENT: Denies: blurred vision, double vision, ear discharge, ear pain, eye pain , mouth pain, mouth swelling, no symptoms, nose congestion, nose pain, other, tearing, throat pain, throat swelling Cardiovascular: Denies: chest pain, edema, irregular heart rate, lightheadedness, no symptoms, other, palpitations, syncope Respiratory: Denies: SOB at rest, SOB with excertion, cough, no symptoms, orthopnea, other, shortness of breath, sputum, stridor, wheezing Gastrointestinal/Abdominal: Denies: abdomen distended, abdominal pain, black stools, blood in stool, constipated, diarrhea, difficulty swallowing, nausea, no symptoms, other, poor appetite, poor fluid intake, rectal bleeding, tarry stools, vomiting Genitourinary: Denies: burning, discharge, flank pain, frequency, hematuria, incontinence, no symptoms, other, pain, urgency Neurologic/Psychiatric: Reports: numbness, tingling, weakness, Denies: anxiety , depressed, emotional problems, headache, no symptoms, other, paresthesia, pre- existing deficit, seizure, tremors Endocrine: Denies: excessive sweating, flushing, increased hunger, increased thirst, increased urine, intolerance to cold, intolerance to heat, no symptoms, other, unexplained weight gain, unexplained weight loss Hematologic/Lymphatic: Denies: anemia, easy bleeding, easy bruising, no symptoms, other Subjective His pain has been at a moderate level and tolerated on the Morphine having used 5 doses in the last 24hrs. Objective Last 24 Hour Vital Signs Date Time Temp Pulse Resp B/P Pulse Ox O2 Delivery O2 Flow Rate FiO2 09/14/16 07:18 97.7 09/14/16 04:00 97.7 70 20 146/89 97 09/14/16 04:00 72 09/14/16 00:00 64 09/14/16 00:00 97.7 68 20 151/92 99 Room Air 09/13/16 20:59 66 146/88 09/13/16 20:58 146/88 09/13/16 20:00 98.7 66 20 146/88 98 Room Air 09/13/16 20:00 70 09/13/16 16:00 62 09/13/16 16:00 97.7 65 20 149/88 100 Room Air 09/13/16 12:00 97.7 66 20 140/89 99 Room Air 09/13/16 08:46 74 134/74 09/13/16 08:46 134/74 09/13/16 08:46 74 134/74 Intake and Output 09/13/16 09/14/16 19:00 07:00 Intake Total 360 ml Output Total 600 ml 1400 ml Balance -600 ml -1040 ml Intake Oral 360 ml Output Urine Total 600 ml 1400 ml # Voids 1 # Bowel Movements 1 Height (Feet): 6 Height (Inches): 1.00 Weight (Pounds): 150 Objective General Appearance: no apparent distress, alert EENT: PERRL/EOMI, normal ENT inspection Neck: normal alignment, supple Cardiovascular: normal rate, regular rhythm Respiratory/Chest: lungs clear, normal breath sounds Abdomen: non tender, soft Extremities: other - left BKA Edema: trace edema Neurologic: alert, oriented x 3 Skin: warm/dry CALLIE FRAGOSO Sep 14, 2016 08:22
[2016-09-14] MEDS: BuPROPion SR 150mg tab ORAL SCH (08:23)
[2016-09-14] MEDS: Metoprolol 50mg tab ORAL SCH ×2 (08:24→20:44)
[2016-09-14] MEDS: Lisinopril 10mg tab ORAL SCH ×2 (08:24→20:43)
[2016-09-14] MEDS: Heparin 5000 units/ml inj SUBQ SCH ×2 (08:31→20:40)
[2016-09-14] MEDS: Levemir Flexpen SUBQ SCH (08:32)
--- NOTE | 2016-09-14 09:13 | General Progress Note ---
Assessment/Plan Assessment/Plan ASSESSMENT: 1. Anemia of chronic disease as well as kidney disease 2. 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 now is on epogen 3. Hereditary hemorrhagic telectangasia 4. Leukopenia, stable, potentially 2/2 infection as well 5. Hypoglycemia. 6. Human immunodeficiency virus/acquired immune deficiency syndrome. 7. Dementia. 8. Parkinson disease. 9. CP r/o ACS 10. Osteomyelitis 11. Parkinson disease. 12. Encephalopathy. 13. History of seizure. RECOMMENDATIONS: 1. Monitor counts 2. Anemia w/u has been reviewed 3. PRBC transfusion prn 4. Procrit sq started 5. GI ppx with ppi 6. Heparin for DVT ppx 7. Skin care. 8. Nutrition. 9. Staff Thank you, Connor Cuevas MD Subjective Constitutional: Reports: no symptoms HEENT: Reports: no symptoms Cardiovascular: Reports: no symptoms Respiratory: Reports: no symptoms Gastrointestinal/Abdominal: Reports: no symptoms Genitourinary: Reports: no symptoms Neurologic/Psychiatric: Reports: no symptoms Endocrine: Reports: no symptoms Hematologic/Lymphatic: Reports: anemia Allergies: Coded Allergies: GABAPENTIN (Verified Allergy, Severe, 04/07/12) QUETIAPINE (Verified Allergy, Unknown, 07/25/15) Subjective stable, no events, no fevers or chills noted Objective Last 24 Hour Vital Signs Date Time Temp Pulse Resp B/P Pulse Ox O2 Delivery O2 Flow Rate FiO2 09/14/16 08:24 67 142/86 09/14/16 08:24 142/86 09/14/16 08:24 67 142/86 09/14/16 08:00 97.2 67 18 145/86 99 Room Air 09/14/16 07:18 97.7 09/14/16 04:00 97.7 70 20 146/89 97 09/14/16 04:00 72 09/14/16 00:00 64 09/14/16 00:00 97.7 68 20 151/92 99 Room Air 09/13/16 20:59 66 146/88 09/13/16 20:58 146/88 09/13/16 20:00 98.7 66 20 146/88 98 Room Air 09/13/16 20:00 70 09/13/16 16:00 62 09/13/16 16:00 97.7 65 20 149/88 100 Room Air 09/13/16 12:00 97.7 66 20 140/89 99 Room Air Intake and Output 09/13/16 09/14/16 17:00 05:00 Intake Total 240 ml 360 ml Output Total 600 ml 600 ml Balance -360 ml -240 ml Intake Oral 240 ml 360 ml Output Urine Total 600 ml 600 ml # Voids 4 1 # Bowel Movements 2 Height (Feet): 6 Height (Inches): 1.00 Weight (Pounds): 150 General Appearance: no apparent distress EENT: TMs normal Neck: supple Cardiovascular: regular rhythm Respiratory/Chest: normal breath sounds Abdomen: soft Pelvis: no masses Extremities: non-tender Edema: 1+ Leg (L), 1+ Leg (R) Edema: mild edema Neurologic: alert Skin: warm/dry Connor Cuevas Sep 14, 2016 09:13
--- NOTE | 2016-09-14 10:51 | General Progress Note ---
Assessment/Plan Status: stable Assessment/Plan status; Patient admitted for CP Cr of 1.5 now lower to 1.1 LFTs also elevated- Urine tox screen positive Other conditions: (1) Diabetic nephropathy (2) DM (diabetes mellitus) (3) Diabetic foot ulcer (4) Hypothyroidism (5) Dehydration (6) HIV (7) Parkinson / Migraine PLAN: No labs today- Keep BP in check Continue BS control- watch renal parameters and LFTs- slow hydrate- per orders / consultants Subjective ROS Limited/Unobtainable: No Allergies: Coded Allergies: GABAPENTIN (Verified Allergy, Severe, 04/07/12) QUETIAPINE (Verified Allergy, Unknown, 07/25/15) Objective Last 24 Hour Vital Signs Date Time Temp Pulse Resp B/P Pulse Ox O2 Delivery O2 Flow Rate FiO2 09/14/16 08:24 67 142/86 09/14/16 08:24 142/86 09/14/16 08:24 67 142/86 09/14/16 08:08 70 09/14/16 08:00 97.2 67 18 145/86 99 Room Air 09/14/16 07:18 97.7 09/14/16 04:00 97.7 70 20 146/89 97 09/14/16 04:00 72 09/14/16 00:00 64 09/14/16 00:00 97.7 68 20 151/92 99 Room Air 09/13/16 20:59 66 146/88 09/13/16 20:58 146/88 09/13/16 20:00 98.7 66 20 146/88 98 Room Air 09/13/16 20:00 70 09/13/16 16:00 62 09/13/16 16:00 97.7 65 20 149/88 100 Room Air 09/13/16 12:00 97.7 66 20 140/89 99 Room Air Intake and Output 09/13/16 09/14/16 19:00 07:00 Intake Total 360 ml Output Total 600 ml 1400 ml Balance -600 ml -1040 ml Intake Oral 360 ml Output Urine Total 600 ml 1400 ml # Voids 1 # Bowel Movements 1 Height (Feet): 6 Height (Inches): 1.00 Weight (Pounds): 150 General Appearance: no apparent distress Objective Physical exam not changed PONCHO RAMÍREZ Sep 14, 2016 10:51
--- NOTE | 2016-09-14 10:59 | General Progress Note ---
Assessment/Plan Problem List: (1) Hyperglycemia (2) Uncontrolled diabetes mellitus ICD Codes: E11.65 - Type 2 diabetes mellitus with hyperglycemia SNOMED: 637742977 (3) Pain ICD Codes: R52 - Pain SNOMED: 14178080 (4) HIV disease ICD Codes: B20 - Human immunodeficiency virus (HIV) disease SNOMED: 10866105 (5) Hypothyroidism ICD Codes: E03.9 - Hypothyroidism SNOMED: 51494870 (6) DM (diabetes mellitus) ICD Codes: E11.9 - Diabetes mellitus SNOMED: 84547898 (7) Pain in limb ICD Codes: M79.609 - Pain in limb SNOMED: 90581884 (8) Gastritis ICD Codes: K29.70 - Gastritis, unspecified, without bleeding SNOMED: 3876650 (9) Neuropathic pain ICD Codes: M79.2 - Neuropathic pain syndrome (non-herpetic) SNOMED: 354371166 (10) Chest pain ICD Codes: R07.9 - Chest pain, unspecified SNOMED: 45550531 (11) ACS (acute coronary syndrome) ICD Codes: I24.9 - Acute ischemic heart disease, unspecified SNOMED: 085742769 Status: progressing Assessment/Plan chest pain r/o ME AIDS needs snf unable to take care of himself at home has amputation noncompliant w diabetic care and meds Subjective ROS Limited/Unobtainable: Yes Constitutional: Reports: no symptoms Allergies: Coded Allergies: GABAPENTIN (Verified Allergy, Severe, 04/07/12) QUETIAPINE (Verified Allergy, Unknown, 07/25/15) Objective Last 24 Hour Vital Signs Date Time Temp Pulse Resp B/P Pulse Ox O2 Delivery O2 Flow Rate FiO2 09/14/16 08:24 67 142/86 09/14/16 08:24 142/86 09/14/16 08:24 67 142/86 09/14/16 08:08 70 09/14/16 08:00 97.2 67 18 145/86 99 Room Air 09/14/16 07:18 97.7 09/14/16 04:00 97.7 70 20 146/89 97 09/14/16 04:00 72 09/14/16 00:00 64 09/14/16 00:00 97.7 68 20 151/92 99 Room Air 09/13/16 20:59 66 146/88 09/13/16 20:58 146/88 09/13/16 20:00 98.7 66 20 146/88 98 Room Air 09/13/16 20:00 70 09/13/16 16:00 62 09/13/16 16:00 97.7 65 20 149/88 100 Room Air 09/13/16 12:00 97.7 66 20 140/89 99 Room Air Intake and Output 09/13/16 09/14/16 19:00 07:00 Intake Total 360 ml Output Total 600 ml 1400 ml Balance -600 ml -1040 ml Intake Oral 360 ml Output Urine Total 600 ml 1400 ml # Voids 1 # Bowel Movements 1 Height (Feet): 6 Height (Inches): 1.00 Weight (Pounds): 150 Neck: non-tender Cardiovascular: normal rate Respiratory/Chest: lungs clear Abdomen: soft Suzy Bruce MD Sep 14, 2016 10:59
[2016-09-14 12:00] VITALS: BP 146/98
[2016-09-14 16:00] VITALS: BP 179/97
[2016-09-14 20:00] VITALS: BP 152/86
[2016-09-14] MEDS: Bisacodyl EC 5mg tab ORAL SCH (20:40)
--- NOTE | 2016-09-14 23:51 | Cardiology Progress Note ---
Assessment/Plan Assessment/Plan 1. Non-cardiac chest pain, no ischemic features on the ECG. 2. PAD, s/p left BKA 3. Acute asthma exacerbation 4. HTN, continue amlodipine, metoprolol and lisinopril. 5. Hx of CVA/TIA, ASA daily Subjective Subjective Sinus rhythm at 80. Objective Last 24 Hour Vital Signs Date Time Temp Pulse Resp B/P Pulse Ox O2 Delivery O2 Flow Rate FiO2 09/14/16 20:44 80 152/86 09/14/16 20:43 152/86 09/14/16 20:00 97.9 80 19 152/86 98 Room Air 09/14/16 16:38 179/97 09/14/16 16:00 97.9 71 19 179/97 99 Room Air 09/14/16 12:00 97.0 69 17 146/98 98 Room Air 09/14/16 11:22 97.2 09/14/16 08:24 67 142/86 09/14/16 08:24 142/86 09/14/16 08:24 67 142/86 09/14/16 08:08 70 09/14/16 08:00 97.2 67 18 145/86 99 Room Air 09/14/16 04:00 97.7 70 20 146/89 97 09/14/16 04:00 72 09/14/16 00:00 64 09/14/16 00:00 97.7 68 20 151/92 99 Room Air Intake and Output 09/13/16 09/14/16 19:00 07:00 Intake Total 360 ml Output Total 600 ml 1400 ml Balance -600 ml -1040 ml Intake Oral 360 ml Output Urine Total 600 ml 1400 ml # Voids 1 # Bowel Movements 1 Objective HEENT: Normocephalic and atraumatic, PERRLA, EOMI NECK: Negative JVD, no carotid bruit, carotid upstroke 2+ B/L LUNGS: Decreased breath sounds bilaterally with few rhonchi at the base. HEART: S1 and S2 regular, no murmurs, gallops or rubs ABDOMEN: Soft and benign. No organomegaly present. Bowel sounds present. EXTREMITIES: No cyanosis, clubbing, or edema. HOMA ARTEAGA Sep 14, 2016 23:51
[2016-09-15] VITALS: BP 133/77
[2016-09-15] MEDS: Morphine Sulfate 4mg/ml Inj IVP PRN ×2 (01:19→06:29)
[2016-09-15 04:00] VITALS: BP 154/88
[2016-09-15] MEDS: NovoLOG Insulin Flexpen SUBQ SCH ×4 (06:32→11:50)
--- NOTE | 2016-09-15 06:48 | General Progress Note ---
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 SNOMED: 00814025 (3) Hypothyroidism ICD Codes: E03.9 - Hypothyroidism SNOMED: 12658256 (4) HIV disease ICD Codes: B20 - Human immunodeficiency virus (HIV) disease SNOMED: 81376450 Assessment/Plan glucose is elevated due to non compliance with diet - he is prone to hypoglycemia - his diabetes is very brittle continue Levemir 15 units qam continue Novolog 5 units ac tid + SSI continue LT4 150 mcg qam Subjective Allergies: Coded Allergies: GABAPENTIN (Verified Allergy, Severe, 04/07/12) QUETIAPINE (Verified Allergy, Unknown, 07/25/15) All Systems: reviewed and negative except above Subjective events noted Objective Last 24 Hour Vital Signs Date Time Temp Pulse Resp B/P Pulse Ox O2 Delivery O2 Flow Rate FiO2 09/15/16 04:00 67 09/15/16 04:00 97.3 68 18 154/88 99 Room Air 09/15/16 00:00 66 09/15/16 00:00 97.7 63 18 133/77 100 Room Air 09/14/16 20:44 80 152/86 09/14/16 20:43 152/86 09/14/16 20:00 70 09/14/16 20:00 97.9 80 19 152/86 98 Room Air 09/14/16 16:38 179/97 09/14/16 16:00 97.9 71 19 179/97 99 Room Air 09/14/16 16:00 71 09/14/16 12:00 97.0 69 17 146/98 98 Room Air 09/14/16 11:22 97.2 09/14/16 08:24 67 142/86 09/14/16 08:24 142/86 09/14/16 08:24 67 142/86 09/14/16 08:08 70 09/14/16 08:00 97.2 67 18 145/86 99 Room Air Intake and Output 09/14/16 09/15/16 19:00 07:00 Intake Total 650 ml Output Total 600 ml Balance 650 ml -600 ml Intake Oral 650 ml Output Urine Total 600 ml # Voids 2 Height (Feet): 6 Height (Inches): 1.00 Weight (Pounds): 150 General Appearance: no apparent distress Neck: normal alignment Cardiovascular: regular rhythm Respiratory/Chest: lungs clear Abdomen: normal bowel sounds Extremities: other - left BKA Objective Current Medications Medications (Trade) Dose Ordered Sig/Gadiel Route PRN Reason Start Time Stop Time Status Last Admin Dose Admin Acetaminophen (Tylenol) 650 mg Q4H PRN ORAL Fever/Headache/Mild Pain 09/10/16 19:00 10/10/16 18:59 Amlodipine Besylate (Norvasc) 5 mg DAILY ORAL 09/11/16 09:00 10/11/16 08:59 09/14/16 08:24 Aspirin (Ecotrin) 81 mg DAILY ORAL 09/11/16 09:00 10/11/16 08:59 09/14/16 08:22 Bisacodyl (Dulcolax) 10 mg QHS ORAL 09/10/16 21:00 10/10/16 20:59 09/14/16 20:40 Bupropion HCl (Wellbutrin SR) 150 mg DAILY ORAL 09/11/16 09:00 10/11/16 08:59 09/14/16 08:23 Clonidine HCl (Catapres) 0.1 mg Q4H PRN ORAL For High Blood Pressure 170 sy 09/10/16 13:30 10/10/16 13:29 09/14/16 16:38 Dextrose (Dextrose 50%) STAT PRN IV Hypoglycemia 09/10/16 19:00 10/10/16 18:59 09/12/16 20:20 Diphenhydramine HCl (Benadryl) 25 mg Q8H PRN ORAL Itching 09/10/16 13:30 10/10/16 13:29 09/11/16 02:12 Divalproex Sodium (Depakote) 500 mg BID ORAL 09/10/16 18:00 10/10/16 17:59 09/14/16 17:05 Epoetin Tera (Procrit (for non ESRD use)) 3,000 units MON-WED-TUE SUBQ 09/13/16 21:00 10/13/16 20:59 09/13/16 21:04 Heparin Sodium (Porcine) (Heparin 5000 units/ml) 5,000 units Q12HR SUBQ 09/10/16 21:00 10/10/16 20:59 09/14/16 20:40 Insulin Aspart (NovoLOG) BEFORE MEALS AND HS SUBQ 09/10/16 21:00 10/10/16 20:59 09/15/16 06:32 Insulin Aspart (NovoLOG) 5 units NOVOTIAC SUBQ 09/14/16 11:50 10/14/16 11:49 09/15/16 06:34 Insulin Detemir (Levemir) 15 units DAILY SUBQ 09/14/16 09:00 10/14/16 08:59 09/14/16 08:32 Levothyroxine Sodium (Synthroid) 150 mcg ACBREAKFAST ORAL 09/11/16 06:30 10/11/16 06:29 09/15/16 06:27 Lisinopril (Zestril) 10 mg EVERY 12 HOURS ORAL 09/10/16 21:00 10/10/16 20:59 09/14/16 20:43 Metoprolol Tartrate (Lopressor) 50 mg EVERY 12 HOURS ORAL 09/10/16 21:00 10/10/16 20:59 09/14/16 20:44 Morphine Sulfate (Morphine Sulfate) 4 mg Q4H PRN IVP Severe Pain (Pain Scale 7-10) 09/10/16 20:45 09/17/16 20:44 09/15/16 06:29 Pantoprazole (Protonix) 40 mg ACBREAKFAST ORAL 09/11/16 06:30 10/11/16 06:29 09/15/16 06:27 Ranitidine HCl (Zantac) 150 mg BEDTIME ORAL 09/10/16 21:00 10/10/16 20:59 09/14/16 20:43 Zolpidem Tartrate (Ambien) 5 mg BEDTIME PRN ORAL Insomnia 09/10/16 13:30 10/10/16 13:29 Item Value Date Time Bedside Blood Glucose 350 mg/dl H 09/15/16 0634 Bedside Blood Glucose 228 mg/dl H 09/14/16 2100 Bedside Blood Glucose 91 mg/dl 09/14/16 1650 Bedside Blood Glucose 365 mg/dl H 09/14/16 1149 Bedside Blood Glucose 351 mg/dl H 09/14/16 0832 Bedside Blood Glucose 351 mg/dl H 09/14/16 0648 AKILAH MARIE Sep 15, 2016 06:48
[2016-09-15 08:00] VITALS: BP 140/89
--- NOTE | 2016-09-15 08:04 | General Progress Note ---
Assessment/Plan Assessment/Plan ASSESSMENT: 1. Anemia of chronic disease as well as kidney disease, has been >8 2. 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 now is on epogen 3. Hereditary hemorrhagic telectangasia 4. Leukopenia, stable, potentially 2/2 infection as well 5. Hypoglycemia. 6. Human immunodeficiency virus/acquired immune deficiency syndrome. 7. Dementia. 8. Parkinson disease. 9. CP r/o ACS 10. Osteomyelitis 11. Parkinson disease. 12. Encephalopathy. 13. History of seizure. RECOMMENDATIONS: 1. Monitor counts 2. Anemia w/u has been reviewed 3. PRBC transfusion prn 4. Procrit sq started 5. GI ppx with ppi 6. Heparin for DVT ppx 7. Skin care. 8. Nutrition. 9. Staff Thank you, Connor Cuevas MD Subjective Constitutional: Reports: no symptoms HEENT: Reports: no symptoms Cardiovascular: Reports: no symptoms Respiratory: Reports: no symptoms Gastrointestinal/Abdominal: Reports: poor appetite Genitourinary: Reports: no symptoms Neurologic/Psychiatric: Reports: no symptoms Endocrine: Reports: no symptoms Hematologic/Lymphatic: Reports: anemia Allergies: Coded Allergies: GABAPENTIN (Verified Allergy, Severe, 04/07/12) QUETIAPINE (Verified Allergy, Unknown, 07/25/15) Subjective stable, no events, no fevers or chills reported Objective Last 24 Hour Vital Signs Date Time Temp Pulse Resp B/P Pulse Ox O2 Delivery O2 Flow Rate FiO2 09/15/16 04:00 67 09/15/16 04:00 97.3 68 18 154/88 99 Room Air 09/15/16 00:00 66 09/15/16 00:00 97.7 63 18 133/77 100 Room Air 09/14/16 20:44 80 152/86 09/14/16 20:43 152/86 09/14/16 20:00 70 09/14/16 20:00 97.9 80 19 152/86 98 Room Air 09/14/16 16:38 179/97 09/14/16 16:00 97.9 71 19 179/97 99 Room Air 09/14/16 16:00 71 09/14/16 12:00 97.0 69 17 146/98 98 Room Air 09/14/16 11:22 97.2 09/14/16 08:24 67 142/86 09/14/16 08:24 142/86 09/14/16 08:24 67 142/86 09/14/16 08:08 70 Intake and Output 09/14/16 09/15/16 19:00 07:00 Intake Total 650 ml Output Total 600 ml Balance 650 ml -600 ml Intake Oral 650 ml Output Urine Total 600 ml # Voids 2 Height (Feet): 6 Height (Inches): 1.00 Weight (Pounds): 150 General Appearance: no apparent distress EENT: TMs normal Neck: supple Cardiovascular: regular rhythm Respiratory/Chest: no respiratory distress Abdomen: soft Extremities: non-tender Edema: 1+ Leg (L), 1+ Leg (R) Edema: mild edema Neurologic: alert Skin: warm/dry Connor Cuevas Sep 15, 2016 08:04
--- NOTE | 2016-09-15 08:17 | General Progress Note ---
Assessment/Plan Assessment/Plan (1) Lumbago (2) Lumbar DDD (3) Lumbar Spondylosis (4) Phantom limb pain (5) history of below knee amputation of left lower extremity Pt will be continued on Morphine Pt was d/w Dr. Merino and he concurred. Subjective Date patient seen: Sep 15, 2016 Time patient seen: 07:00 - am Allergies: Coded Allergies: GABAPENTIN (Verified Allergy, Severe, 04/07/12) QUETIAPINE (Verified Allergy, Unknown, 07/25/15) Subjective Constitutional: Reports: weakness, Denies: chills, diaphoresis, fever, malaise , no symptoms, other HEENT: Denies: blurred vision, double vision, ear discharge, ear pain, eye pain , mouth pain, mouth swelling, no symptoms, nose congestion, nose pain, other, tearing, throat pain, throat swelling Cardiovascular: Denies: chest pain, edema, irregular heart rate, lightheadedness, no symptoms, other, palpitations, syncope Respiratory: Denies: SOB at rest, SOB with excertion, cough, no symptoms, orthopnea, other, shortness of breath, sputum, stridor, wheezing Gastrointestinal/Abdominal: Denies: abdomen distended, abdominal pain, black stools, blood in stool, constipated, diarrhea, difficulty swallowing, nausea, no symptoms, other, poor appetite, poor fluid intake, rectal bleeding, tarry stools, vomiting Genitourinary: Denies: burning, discharge, flank pain, frequency, hematuria, incontinence, no symptoms, other, pain, urgency Neurologic/Psychiatric: Reports: numbness, tingling, weakness, Denies: anxiety , depressed, emotional problems, headache, no symptoms, other, paresthesia, pre- existing deficit, seizure, tremors Endocrine: Denies: excessive sweating, flushing, increased hunger, increased thirst, increased urine, intolerance to cold, intolerance to heat, no symptoms, other, unexplained weight gain, unexplained weight loss Hematologic/Lymphatic: Denies: anemia, easy bleeding, easy bruising, no symptoms, other Subjective Pain is stable and tolerated on the medication. Objective Last 24 Hour Vital Signs Date Time Temp Pulse Resp B/P Pulse Ox O2 Delivery O2 Flow Rate FiO2 09/15/16 04:00 67 09/15/16 04:00 97.3 68 18 154/88 99 Room Air 09/15/16 00:00 66 09/15/16 00:00 97.7 63 18 133/77 100 Room Air 09/14/16 20:44 80 152/86 09/14/16 20:43 152/86 09/14/16 20:00 70 09/14/16 20:00 97.9 80 19 152/86 98 Room Air 09/14/16 16:38 179/97 09/14/16 16:00 97.9 71 19 179/97 99 Room Air 09/14/16 16:00 71 09/14/16 12:00 97.0 69 17 146/98 98 Room Air 09/14/16 11:22 97.2 09/14/16 08:24 67 142/86 09/14/16 08:24 142/86 09/14/16 08:24 67 142/86 Intake and Output 09/14/16 09/15/16 19:00 07:00 Intake Total 650 ml Output Total 600 ml Balance 650 ml -600 ml Intake Oral 650 ml Output Urine Total 600 ml # Voids 2 Height (Feet): 6 Height (Inches): 1.00 Weight (Pounds): 150 Objective General Appearance: no apparent distress, alert EENT: PERRL/EOMI, normal ENT inspection Neck: normal alignment, supple Cardiovascular: normal rate, regular rhythm Respiratory/Chest: lungs clear, normal breath sounds Abdomen: non tender, soft Extremities: other - left BKA Edema: trace edema Neurologic: alert, oriented x 3 Skin: warm/dry CALLIE FRAGOSO Sep 15, 2016 08:17
[2016-09-15] MEDS: BuPROPion SR 150mg tab ORAL SCH (08:24)
[2016-09-15] MEDS: Lisinopril 10mg tab ORAL SCH (08:24)
[2016-09-15] MEDS: Depakote 500mg tab ORAL SCH (08:24)
[2016-09-15] MEDS: Metoprolol 50mg tab ORAL SCH (08:25)
[2016-09-15] MEDS: Aspirin EC 81mg tab ORAL SCH (08:25)
[2016-09-15] MEDS: Heparin 5000 units/ml inj SUBQ SCH (08:26)
[2016-09-15] MEDS: Levemir Flexpen SUBQ SCH (08:27)
[2016-09-15 08:35] LABS: ALANINE AMINOTRANSFERASE 114 U/L (3-41); ALBUMIN/GLOBULIN RATIO 1.1 (1.0-2.7); ANION GAP 14 (5-15); ASPARTATE AMINO TRANSFERASE 50 U/L (5-40); CALCIUM 9.3 mg/dL (8.6-10.2); CARBON DIOXIDE 27 mEQ/L (20-30); CHLORIDE 95 mEQ/L (98-107); CREATININE 1.2 mg/dL (0.7-1.2); GLOMERULAR FILTRATION RATE > 60 mL/min (>60); HEMOLYSIS 3; MAGNESIUM 1.8 mg/dL (1.7-2.5); PHOSPHORUS 3.4 mg/dL (2.5-4.8); POTASSIUM 4.4 mEQ/L (3.4-4.9); SODIUM 136 mEQ/L (135-145); TOTAL PROTEIN 6.7 g/dL (6.6-8.7); URIC ACID 5.8 mg/dL (3.0-7.5)
[2016-09-15] MEDS ORDERED: Morphine Sulfate 4mg/ml Inj IVP PRN (08:45)
[2016-09-15 12:00] VITALS: BP 148/92
[2016-09-15] MEDS ORDERED: Norco 10mg/325mg tab ORAL PRN (12:00)
[2016-09-15] MEDS ORDERED: NORCO 10-325 T1 EACH ORAL (12:02)
--- NOTE | 2016-09-15 13:00 | General Progress Note ---
Assessment/Plan Problem List: (1) Hyperglycemia (2) Uncontrolled diabetes mellitus ICD Codes: E11.65 - Type 2 diabetes mellitus with hyperglycemia SNOMED: 249985157 (3) Pain ICD Codes: R52 - Pain SNOMED: 46314819 (4) HIV disease ICD Codes: B20 - Human immunodeficiency virus (HIV) disease SNOMED: 06878879 (5) Hypothyroidism ICD Codes: E03.9 - Hypothyroidism SNOMED: 70055097 (6) DM (diabetes mellitus) ICD Codes: E11.9 - Diabetes mellitus SNOMED: 02212114 (7) Pain in limb ICD Codes: M79.609 - Pain in limb SNOMED: 69189462 (8) Gastritis ICD Codes: K29.70 - Gastritis, unspecified, without bleeding SNOMED: 9203085 (9) Neuropathic pain ICD Codes: M79.2 - Neuropathic pain syndrome (non-herpetic) SNOMED: 903847675 (10) Chest pain ICD Codes: R07.9 - Chest pain, unspecified SNOMED: 02141734 (11) ACS (acute coronary syndrome) ICD Codes: I24.9 - Acute ischemic heart disease, unspecified SNOMED: 832605679 Status: progressing Assessment/Plan agreed to go to snf see dc summary for details Subjective ROS Limited/Unobtainable: Yes Constitutional: Reports: no symptoms Allergies: Coded Allergies: GABAPENTIN (Verified Allergy, Severe, 04/07/12) QUETIAPINE (Verified Allergy, Unknown, 07/25/15) Objective Last 24 Hour Vital Signs Date Time Temp Pulse Resp B/P Pulse Ox O2 Delivery O2 Flow Rate FiO2 09/15/16 08:25 65 140/89 09/15/16 08:24 140/89 09/15/16 08:24 65 140/89 09/15/16 08:00 97.7 75 17 140/89 98 Room Air 09/15/16 08:00 65 09/15/16 04:00 67 09/15/16 04:00 97.3 68 18 154/88 99 Room Air 09/15/16 00:00 66 09/15/16 00:00 97.7 63 18 133/77 100 Room Air 09/14/16 20:44 80 152/86 09/14/16 20:43 152/86 09/14/16 20:00 70 09/14/16 20:00 97.9 80 19 152/86 98 Room Air 09/14/16 16:38 179/97 09/14/16 16:00 97.9 71 19 179/97 99 Room Air 09/14/16 16:00 71 Intake and Output 09/14/16 09/15/16 19:00 07:00 Intake Total 650 ml Output Total 600 ml Balance 650 ml -600 ml Intake Oral 650 ml Output Urine Total 600 ml # Voids 2 Laboratory Tests 09/15/16 07:45: Sodium Level 136, Potassium Level 4.4, Chloride Level 95L, Carbon Dioxide Level 27, Anion Gap 14, Blood Urea Nitrogen 23, Creatinine 1.2, Estimat Glomerular Filtration Rate > 60, Glucose Level 298H, Uric Acid 5.8, Calcium Level 9.3, Phosphorus Level 3.4, Magnesium Level 1.8, Total Bilirubin 0.3, Aspartate Amino Transf (AST/SGOT) 50H, Alanine Aminotransferase (ALT/SGPT) 114H, Alkaline Phosphatase 181H, Total Protein 6.7, Albumin 3.6, Globulin 3.1, Albumin/ Globulin Ratio 1.1 Height (Feet): 6 Height (Inches): 1.00 Weight (Pounds): 150 EENT: PERRL/EOMI Cardiovascular: normal rate Suzy Bruec MD Sep 15, 2016 13:00
--- NOTE | 2016-09-15 13:54 | General Progress Note ---
Assessment/Plan Status: stable - from renal stand point Assessment/Plan status; Patient admitted for CP Cr of 1.5 now lower to 1.1 LFTs also elevated- Urine tox screen positive Other conditions: (1) Diabetic nephropathy (2) DM (diabetes mellitus) (3) Diabetic foot ulcer (4) Hypothyroidism (5) Dehydration (6) HIV (7) Parkinson / Migraine PLAN: Keep BP in check Continue BS control- watch renal parameters and LFTs- slow hydrate- per orders / consultants Subjective ROS Limited/Unobtainable: No Constitutional: Reports: malaise Allergies: Coded Allergies: GABAPENTIN (Verified Allergy, Severe, 04/07/12) QUETIAPINE (Verified Allergy, Unknown, 07/25/15) Objective Last 24 Hour Vital Signs Date Time Temp Pulse Resp B/P Pulse Ox O2 Delivery O2 Flow Rate FiO2 09/15/16 12:00 97.8 60 18 148/92 98 Room Air 09/15/16 08:25 65 140/89 09/15/16 08:24 140/89 09/15/16 08:24 65 140/89 09/15/16 08:00 97.7 75 17 140/89 98 Room Air 09/15/16 08:00 65 09/15/16 04:00 67 09/15/16 04:00 97.3 68 18 154/88 99 Room Air 09/15/16 00:00 66 09/15/16 00:00 97.7 63 18 133/77 100 Room Air 09/14/16 20:44 80 152/86 09/14/16 20:43 152/86 09/14/16 20:00 70 09/14/16 20:00 97.9 80 19 152/86 98 Room Air 09/14/16 16:38 179/97 09/14/16 16:00 97.9 71 19 179/97 99 Room Air 09/14/16 16:00 71 Intake and Output 09/14/16 09/15/16 19:00 07:00 Intake Total 650 ml Output Total 600 ml Balance 650 ml -600 ml Intake Oral 650 ml Output Urine Total 600 ml # Voids 2 Laboratory Tests 09/15/16 07:45: Sodium Level 136, Potassium Level 4.4, Chloride Level 95L, Carbon Dioxide Level 27, Anion Gap 14, Blood Urea Nitrogen 23, Creatinine 1.2, Estimat Glomerular Filtration Rate > 60, Glucose Level 298H, Uric Acid 5.8, Calcium Level 9.3, Phosphorus Level 3.4, Magnesium Level 1.8, Total Bilirubin 0.3, Aspartate Amino Transf (AST/SGOT) 50H, Alanine Aminotransferase (ALT/SGPT) 114H, Alkaline Phosphatase 181H, Total Protein 6.7, Albumin 3.6, Globulin 3.1, Albumin/ Globulin Ratio 1.1 Height (Feet): 6 Height (Inches): 1.00 Weight (Pounds): 150 General Appearance: no apparent distress Objective Physical exam not changed PONCHO RAMÍREZ Sep 15, 2016 13:54
--- NOTE | 2016-09-15 22:59 | Cardiology Progress Note ---
Assessment/Plan Assessment/Plan 1. Non-cardiac chest pain, no ischemic features on the ECG. 2. PAD, s/p left BKA 3. Acute asthma exacerbation 4. HTN, continue amlodipine, metoprolol and lisinopril. 5. Hx of CVA/TIA, ASA daily Subjective Subjective Sinus rhythm at 65. Prepared to be discharged today. Objective Last 24 Hour Vital Signs Date Time Temp Pulse Resp B/P Pulse Ox O2 Delivery O2 Flow Rate FiO2 09/15/16 12:00 70 09/15/16 12:00 97.8 60 18 148/92 98 Room Air 09/15/16 08:25 65 140/89 09/15/16 08:24 140/89 09/15/16 08:24 65 140/89 09/15/16 08:00 97.7 75 17 140/89 98 Room Air 09/15/16 08:00 65 09/15/16 04:00 67 09/15/16 04:00 97.3 68 18 154/88 99 Room Air 09/15/16 00:00 66 09/15/16 00:00 97.7 63 18 133/77 100 Room Air Intake and Output 09/14/16 09/15/16 19:00 07:00 Intake Total 650 ml Output Total 600 ml Balance 650 ml -600 ml Intake Oral 650 ml Output Urine Total 600 ml # Voids 2 Laboratory Tests Test 09/15/16 07:45 Sodium Level 136 mEQ/L (135-145) Potassium Level 4.4 mEQ/L (3.4-4.9) Chloride Level 95 mEQ/L (98-107) L Carbon Dioxide Level 27 mEQ/L (20-30) Anion Gap 14 (5-15) Blood Urea Nitrogen 23 mg/dL (7-23) Creatinine 1.2 mg/dL (0.7-1.2) Estimat Glomerular Filtration Rate > 60 mL/min (>60) Glucose Level 298 mg/dL (74-106) H Uric Acid 5.8 mg/dL (3.0-7.5) Calcium Level 9.3 mg/dL (8.6-10.2) Phosphorus Level 3.4 mg/dL (2.5-4.8) Magnesium Level 1.8 mg/dL (1.7-2.5) Total Bilirubin 0.3 mg/dL (0.0-1.2) Aspartate Amino Transf (AST/SGOT) 50 U/L (5-40) H Alanine Aminotransferase (ALT/SGPT) 114 U/L (3-41) H Alkaline Phosphatase 181 U/L (40-129) H Total Protein 6.7 g/dL (6.6-8.7) Albumin 3.6 g/dL (3.5-5.2) Globulin 3.1 g/dL Albumin/Globulin Ratio 1.1 (1.0-2.7) Objective HEENT: Normocephalic and atraumatic, PERRLA, EOMI NECK: Negative JVD, no carotid bruit, carotid upstroke 2+ B/L LUNGS: Decreased breath sounds bilaterally with few rhonchi at the base. HEART: S1 and S2 regular, no murmurs, gallops or rubs ABDOMEN: Soft and benign. No organomegaly present. Bowel sounds present. EXTREMITIES: No cyanosis, clubbing, or edema, left JOSLYNA HOMA ARTEAGA Sep 15, 2016 22:59
--- NOTE | 2016-09-15 23:52 | Cardiology Report ---
APPROVED REPORT EKG Measurement Heart [id number] Normal sinus rhythm Possible Left atrial enlargement Septal infarct, age undetermined Abnormal ECG
--- NOTE | 2016-09-16 16:27 | Discharge Summary ---
Discharge Summary Hospital Course Date of Admission Sep 10, 2016 at 10:04 Date of Discharge Sep 15, 2016 at 15:00 Admitting Diagnosis CHEST PAIN,ACS HPI Uri Jr Tuan is a 50 year old male who was admitted on Sep 10, 2016 at 10 :04 for Chest Pain,Acute Coronary Syndrome Hospital Course [id number] Discharge Discharge Disposition Patient was discharged to SNF/Subacute Facility(03) Discharge Diagnoses: Mary Carmen Sweet NP Sep 16, 2016 16:27
--- NOTE | 2016-09-17 03:10 | Discharge Summary 2 SIG ---
DATE OF ADMISSION: 09/10/2016 DATE OF DISCHARGE: 09/15/2016 CONSULTANTS: 1. Saud Milligan M.D. 2. Joss Bullock M.D. 3. Connor Cuevas M.D. 4. Rolo Toledo M.D. 5. Samuel Merino M.D. BRIEF HOSPITAL COURSE: The patient is a 50-year-old male, who was admitted with chest pain for possible acute coronary syndrome. The patient has history of HIV, diabetes mellitus, peripheral vascular disease, chronic pain, neuropathy, GERD, amputation, migraine, and hypertension. On evaluation at ED, EKG showed normal sinus rhythm with some T-wave flattening. Blood glucose was elevated to 345. Urine toxicology was positive for opiates and marijuana. He underwent cardiac evaluation and was seen by Dr. Milligan. 12-lead electrocardiogram did not show any evidence of acute ST to T-wave changes. Troponin was negative x2. He came in with elevated creatinine level of 1.5 and was given slow hydration. Renal parameters improved. Anemia was assessed to be secondary to chronic disease as well as kidney disease. The patient was given Epogen. He was also followed by Endocrinology. Blood glucose was monitored. Glucose was elevated due to noncompliance with diet. He was continued on Levemir 15 units q.a.m. with NovoLog 5 units a.c. t.i.d. with sliding scale. 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 He was eventually discharged back to SNF. FINAL DIAGNOSES: 1. Noncardiac chest pain, most significant for acute exacerbation of asthma. 2. Acute asthma exacerbation. 3. Hypertension. 4. Peripheral artery disease, status post left below-knee amputation. 5. Diabetic nephropathy. 6. Diabetes mellitus. 7. Hypothyroidism. 8. Dehydration. 9. Human immunodeficiency virus. 10. Parkinson's/migraine. 11. Neuropathic pain. 12. Phantom limb pain. 13. Gastritis. 14. Anemia of chronic disease. 15. Anemia of kidney disease. 16. Anemia of human immunodeficiency virus. 17. Abnormal liver transaminases. 18. Lumbar degenerative disk disease. 19. Lumbar spondylosis. Suzy Bruce M.D. I have been assigned to dictate discharge summary on this account and I was not involved in the patient's management. Mary Carmen Sweet N.P. DR: YASIR JOB#: [id number] CC: MARCOS
[2016-09-29] MEDS ORDERED: NOVOLOG100 UNIT/3 SUBQ (15:14)
[2016-09-29] MEDS ORDERED: LEVEMIR100 UNIT/1 SUBQ (15:14)
== END 2016-09-15 15:00 | DRG 202 ==
LOC: EMR 08:20 → EDBEDREQ 10:03 → 2E 10:04 → EDBEDREQ 10:17
DX: J45.901 Unspecified asthma with (acute) exacerbation (principal); G93.40 Encephalopathy, unspecified; E11.00 Type 2 diabetes mellitus with hyperosmolarity without nonketotic hyperglycemic-hyperosmolar coma (NKHHC); B20 Human immunodeficiency virus [HIV] disease; E11.21 Type 2 diabetes mellitus with diabetic nephropathy; E11.51 Type 2 diabetes mellitus with diabetic peripheral angiopathy without gangrene; C73 Malignant neoplasm of thyroid gland; E86.0 Dehydration; D63.1 Anemia in chronic kidney disease; E03.9 Hypothyroidism, unspecified; G20 Parkinson's disease; F02.80 Dementia in other diseases classified elsewhere, unspecified severity, without behavioral disturbance, psychotic disturbance, mood disturbance, and anxiety; K21.9 Gastro-esophageal reflux disease without esophagitis; Z91.14 Patient's other noncompliance with medication regimen; E78.5 Hyperlipidemia, unspecified; F17.200 Nicotine dependence, unspecified, uncomplicated; R73.9 Hyperglycemia, unspecified; K29.70 Gastritis, unspecified, without bleeding; M51.36 Other intervertebral disc degeneration, lumbar region; G54.6 Phantom limb syndrome with pain; Z79.4 Long term (current) use of insulin; Z89.512 Acquired absence of left leg below knee; Z86.73 Personal history of transient ischemic attack (TIA), and cerebral infarction without residual deficits
CPT/HCPCS: 36415; 71010; 80053; 80061; 80300; 81003; 82009; 82550; 82553; 82607; 82728; 82746; 82962; 82977; 83036; 83540; 83550; 83735; 83880; 84100; 84443; 84484; 84550; 85025; 85610; 85730; 86140; 87081; 93005; J1815; J2405; S5561

== ENCOUNTER 2016-09-21 19:44 | Inpatient (IN) | payer MEDICARE, OTHER ==
[~2016-09-21] VITALS: Ht 185.4 cm; Wt 68.0 kg
[~2016-09-21 19:44] MED LIST changes: +SUCRALFATE1 GM ORAL; +ZOLPIDEM TARTRA10 MG ORAL
[2016-09-21 19:45] VITALS: BP 123/76
[2016-09-21] MEDS ORDERED: Famotidine 20 MG/ 2ML VIAL IVP ONE (20:15)
[2016-09-21 21:59] LABS: BASOPHILS % (AUTO) 1.4 % (0.0-2.0); LYMPHOCYTES % (AUTO) 23.5 % (20.0-45.0); MEAN CORPUSCULAR HEMOGLOBIN 30.7 PG (27.0-31.0); MEAN CORPUSCULAR HGB CONC 30.9 G/DL (32.0-36.0); MEAN CORPUSCULAR VOLUME 99 FL (80-99); MEAN PLATELET VOLUME 9.2 FL (6.5-10.1); MONOCYTES % (AUTO) 4.4 % (1.0-10.0); NEUTROPHILS % (AUTO) 69.7 % (45.0-75.0); PLATELET COUNT 213 K/UL (150-450); RED BLOOD COUNT 3.89 M/UL (4.70-6.10); RED CELL DISTRIBUTION WIDTH 14.7 % (11.6-14.8); WHITE BLOOD COUNT 5.8 K/UL (4.8-10.8)
[2016-09-21] MEDS ORDERED: Lidocaine 1% Plain 30 ml INJ ONE (22:07)
[2016-09-21 22:41] LABS: ALANINE AMINOTRANSFERASE 73 U/L (3-41); ALBUMIN/GLOBULIN RATIO 1.3 (1.0-2.7); ANION GAP 32 (5-15); ASPARTATE AMINO TRANSFERASE 31 U/L (5-40); CALCIUM 10.6 mg/dL (8.6-10.2); CARBON DIOXIDE 16 mEQ/L (20-30); CHLORIDE 85 mEQ/L (98-107); HEMOLYSIS 23; POTASSIUM 5.4 mEQ/L (3.4-4.9); SODIUM 133 mEQ/L (135-145); TOTAL PROTEIN 7.8 g/dL (6.6-8.7)
[2016-09-21] MEDS ORDERED: HYDROmorphone 1mg/ml Carpuject IVP ONE (22:45)
[2016-09-21 23:17] LABS: ABG ALLEN TEST POSITIVE; ABG BASE EXCESS -13.3; ABG PCO2 28.1 mmHg (35.0-45.0)
[2016-09-21 23:20] VITALS: BP 88/56
--- NOTE | 2016-09-21 23:31 | Emergency Room Report ---
History of Present Illness General Chief Complaint: Abdominal Pain Source: Patient Present Illness HPI 50-year-old male presents to ED complaining of abdominal pain and vomiting. X3 days. Per EMS patient Accu-Chek critical he high. Patient notes history of diabetes. States he is compliant with his medications. Notes epigastric pain with vomiting. Vomiting coffee-ground emesis. Pain is sharp. 10 out of 10. Nonradiating. No other aggravating relieving factors. Denies chest pain or shortness of breath. Denies fevers or chills. Allergies: Coded Allergies: GABAPENTIN (Verified Allergy, Severe, 04/07/12) QUETIAPINE (Verified Allergy, Unknown, 07/25/15) Patient History Past Medical History: DM, MT, asthma, CVA/TIA Pertinent Family History: none Social History: Denies: alcohol use, drug use, smoking Immunizations: UTD Reviewed Nursing Documentation: PMH: Agreed, PSxH: Agreed Nursing Documentation-PMH Hx Cardiac Problems: Yes - MT 2015 Hx Hypertension: Yes Hx Pacemaker: No Hx Asthma: Yes Hx COPD: No Hx Diabetes: Yes Hx Cancer: No Hx Gastrointestinal Problems: Yes Hx Neurological Problems: Yes Hx Cerebrovascular Accident: Yes Hx Transient Ischemic Attacks: Yes Hx Dementia: Yes Hx Alzheimer's Disease: No Hx Parkinson's Disease: Yes Hx Meningitis: No Hx Encephalitis: No Hx Seizures: Yes Hx Epilepsy: No Hx Multiple Sclerosis: No Hx Cerebral Palsy: No Hx Amyotrophic Lat Sclerosis: No Hx Guillian-[place] Syndrome: No Hx Paralysis: No Hx Peripheral Neuropathy: Yes Hx Spinal Cord Injury: No Hx Head Trauma: Yes Hx Traumatic Brain Injury: No Hx Memory Loss: No Hx Concentration Difficulty: No Hx Speech Problem: No Hx Tremors: No Hx Vertigo: No Hx Dizziness: Yes Hx Syncope: Yes Hx Aphasia: No Hx Dysphasia: No Hx Numbness: Yes - legs Hx Weakness: Yes Hx Fatigue: Yes Hx Neurologic Surgery: No Hx Brain Shunt: No Review of Systems All Other Systems: negative except mentioned in HPI Physical Exam Vital Signs Date Time Temp Pulse Resp B/P Pulse Ox O2 Delivery O2 Flow Rate FiO2 09/21/16 19:39 98.8 98 16 123/76 100 Room Air Sp02 EP Interpretation: reviewed, normal General Appearance: no apparent distress, alert, GCS 15, non-toxic Head: normocephalic, atraumatic Eyes: bilateral eye PERRL, bilateral eye normal inspection ENT: hearing grossly normal, normal pharynx, no angioedema, normal voice Neck: full range of motion, supple/symm/no masses Respiratory: chest non-tender, lungs clear, normal breath sounds, speaking full sentences Cardiovascular #1: regular rate, rhythm, no edema Cardiovascular #2: 2+ carotid (R), 2+ carotid (L), 2+ radial (R), 2+ radial (L) , 2+ dorsalis pedis (R), 2+ dorsalis pedis (L) Gastrointestinal: normal bowel sounds, soft, non-distended, no guarding, no rebound, tenderness Rectal: deferred Genitourinary: normal inspection, no CVA tenderness Musculoskeletal: back normal, gait/station normal, normal range of motion, non- tender Neurologic: alert, oriented x3, responsive, motor strength/tone normal, sensory intact, speech normal Psychiatric: judgement/insight normal, memory normal, mood/affect normal, no suicidal/homicidal ideation Reflexes: 3+ bicep (R), 3+ bicep (L), 3+ tricep (R), 3+ tricep (L), 3+ knee (R) , 3+ knee (L) Skin: normal color, no rash, warm/dry, well hydrated Lymphatic: no adenopathy Procedures Critical Care Time Critical Care Time i. I feel this is a highly complex case requiring extensive working including EKG/Rhythm strip, Xray/CT/US, Blood/urine lab work, repeat exams while in ED, and administration of strong opiates/narcotics for pain control, admission to hospital or close patient follow up. Total time: 30 min bedside evaluation and treatment excludes procedures (EKG). Reason for critical care: DKA, hyperglycemia, vomiting Possible complications: hypotension, hypertension, MT, shock, arrhythmias, metabolic acidosis, end organ damage, respiratory failure. Interventions: Central line, IV fluids, Zofran, Pepcid, insulin, pain medications Course: Patient here with vomiting, abdominal pain. Accu-Chek critical high. No IV access so I placed a right femoral line. Labs show DKA. Insulin bolus given. Insulin drip started Consultations: nursing staff, EMS, family Performed by: Dr Hansen Tolerated well condition = critical j. because of unstable vital signs this patient had a condition that could potentially threaten life or limb. I feel this is a critical patient who required my full attention while patient was considered critical. Total Critical Care Time excluding procedures was greater than 35 minutes Central Line Central Line : Consent: Verbal Central Line Lumen: triple Maximal Sterile Barrier Tech: yes cap, yes mask, yes sterile gown, yes sterile gloves, yes large sterile sheet, yes hand hygiene, yes chlorhexidine prep Central Line Postion: femoral (R) Anesthesia: Lidocaine Complications: none Central Line Post Position: sutured, good blood return Attempts: One Patient Tolerated: Well Complications: None Medical Decision Making Diagnostic Impression: Primary Impression: DKA (diabetic ketoacidoses) Qualified Codes: E13.10 - Other specified diabetes mellitus with ketoacidosis without coma Additional Impressions: UGIB (upper gastrointestinal bleed) ARF (acute renal failure) Qualified Codes: N17.9 - Acute kidney failure, unspecified ER Course Hospital Course 50-year-old male presents to ED with abdominal pain and vomiting. Vomiting coffee-ground emesis. Accu-Chek critically high Differential diagnoses include: ETOH/drug ingestion, sepsis, DKA Clinical course Patient placed on stretcher. On 3d designer. After initial history and physical I ordered labs, 2 L of IV fluids, pain medications, Pepcid and Zofran Patient had no IV access. He usually receives PICC line. I made multiple attempts but unsuccessful at peripheral line. I placed a right femoral line Labs-glucose greater than 600, anion gap elevated, bicarbonate LOW, BUN/ creatinine elevated. K 5.4 pH 7.2 given IV fluids. Started on insulin and insulin drip. Given Protonix Case discussed with Dr. Bruce and he agreed to accept the patient to his service for further care and support i. I feel this is a highly complex case requiring extensive working including EKG/Rhythm strip, Xray/CT/US, Blood/urine lab work, repeat exams while in ED, and administration of strong opiates/narcotics for pain control, admission to hospital or close patient follow up. j. because of unstable vital signs this patient had a condition that could potentially threaten life or limb. I feel this is a critical patient who required my full attention while patient was considered critical. Total Critical Care Time excluding procedures was greater than 35 minutes diagnosis - DKA, UGIB, ARF admitted to ICU in critical condition Labs Test 09/21/16 21:18 09/21/16 23:10 White Blood Count 5.8 K/UL (4.8-10.8) Red Blood Count 3.89 M/UL (4.70-6.10) Hemoglobin 12.0 G/DL (14.2-18.0) Hematocrit 38.7 % (42.0-52.0) Mean Corpuscular Volume 99 FL (80-99) Mean Corpuscular Hemoglobin 30.7 PG (27.0-31.0) Mean Corpuscular Hemoglobin Concent 30.9 G/DL (32.0-36.0) Red Cell Distribution Width 14.7 % (11.6-14.8) Platelet Count 213 K/UL (150-450) Mean Platelet Volume 9.2 FL (6.5-10.1) Neutrophils (%) (Auto) 69.7 % (45.0-75.0) Lymphocytes (%) (Auto) 23.5 % (20.0-45.0) Monocytes (%) (Auto) 4.4 % (1.0-10.0) Eosinophils (%) (Auto) 1.0 % (0.0-3.0) Basophils (%) (Auto) 1.4 % (0.0-2.0) Sodium Level 133 mEQ/L (135-145) Potassium Level 5.4 mEQ/L (3.4-4.9) Chloride Level 85 mEQ/L (98-107) Carbon Dioxide Level 16 mEQ/L (20-30) Anion Gap 32 (5-15) Blood Urea Nitrogen 41 mg/dL (7-23) Creatinine 2.0 mg/dL (0.7-1.2) Estimat Glomerular Filtration Rate 43.0 mL/min (>60) Glucose Level 626 mg/dL (74-106) Calcium Level 10.6 mg/dL (8.6-10.2) Magnesium Level 2.0 mg/dL (1.7-2.5) Total Bilirubin 0.4 mg/dL (0.0-1.2) Aspartate Amino Transf (AST/SGOT) 31 U/L (5-40) Alanine Aminotransferase (ALT/SGPT) 73 U/L (3-41) Alkaline Phosphatase 211 U/L (40-129) Total Protein 7.8 g/dL (6.6-8.7) Albumin 4.5 g/dL (3.5-5.2) Globulin 3.3 g/dL Albumin/Globulin Ratio 1.3 (1.0-2.7) Acetone Level Positive-moderate (NEGATIVE) Arterial Blood pH 7.260 (7.350-7.450) Arterial Blood Partial Pressure CO2 28.1 mmHg (35.0-45.0) Arterial Blood Partial Pressure O2 105.8 mmHg (75.0-100.0) Arterial Blood HCO3 12.3 mmol/L (22.0-26.0) Arterial Blood Oxygen Saturation 97.1 % (92.0-98.0) Arterial Blood Base Excess -13.3 Rosalino Test Positive Last Vital Signs Date Time Temp Pulse Resp B/P Pulse Ox O2 Delivery O2 Flow Rate FiO2 09/21/16 23:20 98.8 85 16 88/56 100 Room Air Status: improved Disposition: ADMITTED INPATIENT Condition: Critical Referrals: NOT CHOSEN JEFFREY/,REFERRING (PCP) KADE HANSEN M.D. Sep 21, 2016 23:31
[2016-09-21] MEDS ORDERED: DuoNeb 0.5-3(2.5)mg/3ml neb HHN PRN (23:45)
[2016-09-21] MEDS ORDERED: Nitroglycerin Subl 0.4mg tab (Bottle Of 25) SL PRN (23:45)
[2016-09-21] MEDS ORDERED: Pantoprazole Inj IVP ONE (23:45)
[2016-09-21] MEDS ORDERED: Insulin Rate Change 1 Each MISC PRN (23:45)
[2016-09-21] MEDS ORDERED: Miralax 17gm pkt ORAL PRN (23:45)
[2016-09-21] MEDS ORDERED: LORazepam Inj 2mg/ml 1ml IV PRN (23:45)
[2016-09-22] VITALS (21 sets, daily range): BP systolic 116–166; BP diastolic 64–95
[2016-09-22] MEDS: Morphine Sulfate 4mg/ml Inj IVP PRN ×5 (04:56→23:37)
[2016-09-22] MEDS ORDERED: METHOCARBAMOL750 MG ORAL (07:53)
[2016-09-22] MEDS ORDERED: DOCUSATE SODIU100 MG ORAL (07:53)
[2016-09-22 08:15] LABS: CALCIUM 9.2 mg/dL (8.6-10.2); CREATININE 1.6 mg/dL (0.7-1.2); GLOMERULAR FILTRATION RATE 55.8 mL/min (>60); POTASSIUM 4.3 mEQ/L (3.4-4.9)
[2016-09-22 08:16] LABS: BILIRUBIN,DIRECT 0.1 mg/dL (0.1-0.3); PHOSPHORUS 3.5 mg/dL (2.5-4.8); TOTAL PROTEIN 6.3 g/dL (6.6-8.7)
[2016-09-22 08:22] LABS: PROTHROMBIN TIME 10.3 SEC (9.30-11.50)
[2016-09-22] MEDS: Heparin 5000 units/ml inj SUBQ SCH ×2 (09:25→20:28)
--- NOTE | 2016-09-22 14:47 | Infectious Diseases Prog Note ---
Assessment/Plan Problems: (1) HIV disease Assessment & Plan: will continue genvoya, and check viral load, follow up with HIV provider as an outpatient (2) Diabetic ketoacidosis Assessment & Plan: continue insulin drip, titrate to keep blood glucose between 80-120 (3) Dehydration Assessment & Plan: continue IVF , monitor electrolytes (4) DM (diabetes mellitus) Assessment & Plan: recommend tight glycemic control to keep blood glucose between 80-120 (5) ARF (acute renal failure) Assessment & Plan: suspect prerenal, continue hydration and monitor UOP, and renal function Subjective Allergies: Coded Allergies: GABAPENTIN (Verified Allergy, Severe, 04/07/12) QUETIAPINE (Verified Allergy, Unknown, 07/25/15) Objective Vital Signs Last 24 Hour Vital Signs Date Time Temp Pulse Resp B/P Pulse Ox O2 Delivery O2 Flow Rate FiO2 09/22/16 14:00 79 09/22/16 14:00 97.8 79 23 130/84 94 Room Air 09/22/16 13:25 80 16 122/88 99 Room Air 09/22/16 13:15 97.2 80 16 122/88 100 Room Air 09/22/16 12:08 97.2 83 15 127/88 100 Room Air 09/22/16 11:00 97.2 80 13 138/71 100 Room Air 09/22/16 10:15 97.2 09/22/16 10:06 98.8 83 11 143/74 100 Room Air 09/22/16 09:30 98.8 88 16 147/78 100 Room Air 09/22/16 08:30 98.8 90 28 137/64 100 Room Air 09/22/16 07:30 98.8 86 16 116/68 100 Room Air 09/22/16 06:00 98.8 86 16 137/75 100 Room Air 09/22/16 03:57 98.8 77 16 143/75 100 Room Air 09/22/16 02:30 98.8 86 16 137/71 100 Room Air 09/22/16 00:00 98.8 78 16 166/77 100 Room Air 09/21/16 23:20 98.8 85 16 88/56 100 Room Air 09/21/16 19:45 98.8 87 16 123/76 100 Room Air 09/21/16 19:39 98.8 98 16 123/76 100 Room Air Height (Feet): 6 Height (Inches): 1.00 Weight (Pounds): 150 Laboratory Tests Test 09/21/16 21:18 09/21/16 23:10 09/22/16 07:42 White Blood Count 5.8 K/UL (4.8-10.8) Red Blood Count 3.89 M/UL (4.70-6.10) L Hemoglobin 12.0 G/DL (14.2-18.0) L Hematocrit 38.7 % (42.0-52.0) L Mean Corpuscular Volume 99 FL (80-99) Mean Corpuscular Hemoglobin 30.7 PG (27.0-31.0) Mean Corpuscular Hemoglobin Concent 30.9 G/DL (32.0-36.0) L Red Cell Distribution Width 14.7 % (11.6-14.8) Platelet Count 213 K/UL (150-450) Mean Platelet Volume 9.2 FL (6.5-10.1) Neutrophils (%) (Auto) 69.7 % (45.0-75.0) Lymphocytes (%) (Auto) 23.5 % (20.0-45.0) Monocytes (%) (Auto) 4.4 % (1.0-10.0) Eosinophils (%) (Auto) 1.0 % (0.0-3.0) Basophils (%) (Auto) 1.4 % (0.0-2.0) Sodium Level 133 mEQ/L (135-145) L 139 mEQ/L (135-145) Potassium Level 5.4 mEQ/L (3.4-4.9) H 4.3 mEQ/L (3.4-4.9) Chloride Level 85 mEQ/L (98-107) L 98 mEQ/L (98-107) Carbon Dioxide Level 16 mEQ/L (20-30) L 23 mEQ/L (20-30) Anion Gap 32 (5-15) H 18 (5-15) H Blood Urea Nitrogen 41 mg/dL (7-23) H 35 mg/dL (7-23) H Creatinine 2.0 mg/dL (0.7-1.2) H 1.6 mg/dL (0.7-1.2) H Estimat Glomerular Filtration Rate 43.0 mL/min (>60) 55.8 mL/min (>60) Glucose Level 626 mg/dL (74-106) *H 228 mg/dL (74-106) #H Calcium Level 10.6 mg/dL (8.6-10.2) H 9.2 mg/dL (8.6-10.2) Magnesium Level 2.0 mg/dL (1.7-2.5) Total Bilirubin 0.4 mg/dL (0.0-1.2) 0.3 mg/dL (0.0-1.2) Aspartate Amino Transf (AST/SGOT) 31 U/L (5-40) 20 U/L (5-40) Alanine Aminotransferase (ALT/SGPT) 73 U/L (3-41) H 51 U/L (3-41) H Alkaline Phosphatase 211 U/L (40-129) H 149 U/L (40-129) H Total Protein 7.8 g/dL (6.6-8.7) 6.3 g/dL (6.6-8.7) L Albumin 4.5 g/dL (3.5-5.2) 3.3 g/dL (3.5-5.2) L Globulin 3.3 g/dL Albumin/Globulin Ratio 1.3 (1.0-2.7) Acetone Level Positive-moderate (NEGATIVE) Arterial Blood pH 7.260 (7.350-7.450) Arterial Blood Partial Pressure CO2 28.1 mmHg (35.0-45.0) L Arterial Blood Partial Pressure O2 105.8 mmHg (75.0-100.0) H Arterial Blood HCO3 12.3 mmol/L (22.0-26.0) L Arterial Blood Oxygen Saturation 97.1 % (92.0-98.0) Arterial Blood Base Excess -13.3 Rosalino Test Positive Prothrombin Time 10.3 SEC (9.30-11.50) Prothromb Time International Ratio 1.0 (0.9-1.1) Activated Partial Thromboplast Time 22 SEC (23-33) L Phosphorus Level 3.5 mg/dL (2.5-4.8) Direct Bilirubin 0.1 mg/dL (0.1-0.3) Current Medications Medications (Trade) Dose Ordered Sig/Gadiel Route PRN Reason Start Time Stop Time Status Last Admin Dose Admin Acetaminophen (Tylenol) 650 mg Q4H PRN ORAL Fever 09/21/16 23:45 10/21/16 23:44 Albuterol/ Ipratropium (DuoNeb 0.5-3(2.5)mg/3ml) 3 ml Q4H PRN HHN Shortness of Breath 09/21/16 23:45 09/26/16 23:44 Dextrose (Dextrose 50%) STAT PRN IV Hypoglycemia 09/21/16 23:45 10/21/16 23:44 Dextrose/Sodium Chloride (D5 0.45% NS) 1,000 ml @ 75 mls/hr [id number] IV 09/22/16 14:45 10/22/16 14:44 Heparin Sodium (Porcine) (Heparin 5000 units/ml) 5,000 units EVERY 12 HOURS SUBQ 09/22/16 09:00 10/22/16 08:59 09/22/16 09:25 Insulin Human Regular (NovoLIN R) 5 units PRN PRN IV BS 200-299 09/21/16 23:45 10/21/16 23:44 09/22/16 08:32 Insulin Human Regular (NovoLIN R) 10 units PRN PRN IV BS=>300 09/21/16 23:45 10/21/16 23:44 Lorazepam (Ativan 2mg/ml 1ml) 2 mg Q2H PRN IV agitation 09/21/16 23:45 09/28/16 23:44 Miscellaneous Medication (Insulin Rate Change) 1 ea PRN PRN MISC To Patient Comfort 09/21/16 23:45 10/21/16 23:44 Morphine Sulfate (Morphine Sulfate) 4 mg Q4H PRN IVP Severe Pain (Pain Scale 7-10) 09/21/16 23:45 09/28/16 23:44 09/22/16 09:19 Nitroglycerin (Ntg) 0.4 mg Q5M PRN SL Prn Chest Pain 09/21/16 23:45 10/21/16 23:44 Ondansetron HCl (Zofran) 4 mg Q6H PRN IVP Nausea & Vomiting 09/21/16 23:45 10/21/16 23:44 Patient Own Medication 1 ea 1 ea DAILY ORAL 09/22/16 16:00 10/22/16 15:59 Polyethylene Glycol (Miralax) 17 gm DAILYPRN PRN ORAL Constipation 09/21/16 23:45 10/21/16 23:44 Clayton Escamilla M.D. Sep 22, 2016 14:47
[2016-09-22] MEDS: D5 1/2NS 1,000 ML IV SCH (15:12)
[2016-09-22] MEDS: GENVOYA TAB ORAL SCH (16:11)
--- NOTE | 2016-09-22 16:35 | General Progress Note ---
Assessment/Plan Assessment/Plan (1) Lumbago (2) Lumbar DDD (3) Lumbar Spondylosis (4) Phantom limb pain (5) history of below knee amputation of left lower extremity Pt will be continued on Morphine Pt was d/w Dr. Merino and he concurred. Subjective Date patient seen: Sep 22, 2016 Time patient seen: 07:00 - am Allergies: Coded Allergies: GABAPENTIN (Verified Allergy, Severe, 04/07/12) QUETIAPINE (Verified Allergy, Unknown, 07/25/15) Subjective Constitutional: Reports: weakness, Denies: chills, diaphoresis, fever, malaise , no symptoms, other HEENT: Denies: blurred vision, double vision, ear discharge, ear pain, eye pain , mouth pain, mouth swelling, no symptoms, nose congestion, nose pain, other, tearing, throat pain, throat swelling Cardiovascular: Denies: chest pain, edema, irregular heart rate, lightheadedness, no symptoms, other, palpitations, syncope Respiratory: Denies: SOB at rest, SOB with excertion, cough, no symptoms, orthopnea, other, shortness of breath, sputum, stridor, wheezing Gastrointestinal/Abdominal: Reports: abdominal pain, Denies: abdomen distended, black stools, blood in stool, constipated, diarrhea, difficulty swallowing, nausea, no symptoms, other, poor appetite, poor fluid intake, rectal bleeding, tarry stools, vomiting Genitourinary: Denies: burning, discharge, flank pain, frequency, hematuria, incontinence, no symptoms, other, pain, urgency Neurologic/Psychiatric: Reports: numbness, tingling, weakness, Denies: anxiety , depressed, emotional problems, headache, no symptoms, other, paresthesia, pre- existing deficit, seizure, tremors Endocrine: Denies: excessive sweating, flushing, increased hunger, increased thirst, increased urine, intolerance to cold, intolerance to heat, no symptoms, other, unexplained weight gain, unexplained weight loss Hematologic/Lymphatic: Denies: anemia, easy bleeding, easy bruising, no symptoms, other Subjective Patient was last seen on previous admission and has been admitted due to abdominal pain. He continues to have leg pain and was started on Morphine. Objective Last 24 Hour Vital Signs Date Time Temp Pulse Resp B/P Pulse Ox O2 Delivery O2 Flow Rate FiO2 09/22/16 15:36 97.8 09/22/16 15:00 78 12 150/95 100 09/22/16 14:00 79 09/22/16 14:00 97.8 79 23 130/84 94 Room Air 09/22/16 13:25 80 16 122/88 99 Room Air 09/22/16 13:15 97.2 80 16 122/88 100 Room Air 09/22/16 13:00 97.8 09/22/16 12:08 97.2 83 15 127/88 100 Room Air 09/22/16 11:00 97.2 80 13 138/71 100 Room Air 09/22/16 10:06 98.8 83 11 143/74 100 Room Air 09/22/16 09:30 98.8 88 16 147/78 100 Room Air 09/22/16 08:30 98.8 90 28 137/64 100 Room Air 09/22/16 07:30 98.8 86 16 116/68 100 Room Air 09/22/16 06:00 98.8 86 16 137/75 100 Room Air 09/22/16 03:57 98.8 77 16 143/75 100 Room Air 09/22/16 02:30 98.8 86 16 137/71 100 Room Air 09/22/16 00:00 98.8 78 16 166/77 100 Room Air 09/21/16 23:20 98.8 85 16 88/56 100 Room Air 09/21/16 19:45 98.8 87 16 123/76 100 Room Air 09/21/16 19:39 98.8 98 16 123/76 100 Room Air Intake and Output 09/21/16 09/22/16 19:00 07:00 Intake Total 1036.23 ml Output Total 700 ml Balance 336.23 ml IV Total 1036.23 ml Output Urine Total 700 ml # Voids 1 Laboratory Tests 09/21/16 21:18: White Blood Count 5.8, Red Blood Count 3.89L, Hemoglobin 12.0L, Hematocrit 38.7L , Mean Corpuscular Volume 99, Mean Corpuscular Hemoglobin 30.7, Mean Corpuscular Hemoglobin Concent 30.9L, Red Cell Distribution Width 14.7, Platelet Count 213, Mean Platelet Volume 9.2, Neutrophils (%) (Auto) 69.7, Lymphocytes (%) (Auto) 23.5, Monocytes (%) (Auto) 4.4, Eosinophils (%) (Auto) 1.0, Basophils (%) (Auto) 1.4, Sodium Level 133L, Potassium Level 5.4H, Chloride Level 85L, Carbon Dioxide Level 16L, Anion Gap 32H, Blood Urea Nitrogen 41H, Creatinine 2.0H, Estimat Glomerular Filtration Rate 43.0, Glucose Level 626*H, Calcium Level 10.6H, Magnesium Level 2.0, Total Bilirubin 0.4, Aspartate Amino Transf (AST/SGOT) 31, Alanine Aminotransferase (ALT/SGPT) 73H, Alkaline Phosphatase 211H, Total Protein 7.8, Albumin 4.5, Globulin 3.3, Albumin /Globulin Ratio 1.3, Acetone Level Positive-moderate 09/21/16 23:10: Arterial Blood pH 7.260L, Arterial Blood Partial Pressure CO2 28.1L, Arterial Blood Partial Pressure O2 105.8H, Arterial Blood HCO3 12.3L, Arterial Blood Oxygen Saturation 97.1, Arterial Blood Base Excess -13.3, Rosalino Test Positive 09/22/16 07:42: Sodium Level 139, Potassium Level 4.3, Chloride Level 98, Carbon Dioxide Level 23, Anion Gap 18H, Blood Urea Nitrogen 35H, Creatinine 1.6H, Estimat Glomerular Filtration Rate 55.8, Glucose Level 228#H, Calcium Level 9.2, Total Bilirubin 0.3, Aspartate Amino Transf (AST/SGOT) 20, Alanine Aminotransferase (ALT/SGPT) 51H, Alkaline Phosphatase 149H, Total Protein 6.3L, Albumin 3.3L, Prothrombin Time 10.3, Prothromb Time International Ratio 1.0, Activated Partial Thromboplast Time 22L, Phosphorus Level 3.5, Direct Bilirubin 0.1 Height (Feet): 6 Height (Inches): 1.00 Weight (Pounds): 150 Objective General Appearance: no apparent distress, alert EENT: PERRL/EOMI, normal ENT inspection Neck: normal alignment, supple Cardiovascular: normal rate, regular rhythm Respiratory/Chest: lungs clear, normal breath sounds Abdomen: non tender, soft Extremities: other - left BKA Edema: trace edema Neurologic: alert, oriented x 3 Skin: warm/dry CALLIE FRAGOSO PNicole Sep 22, 2016 16:34
[2016-09-22] MEDS: Insulin Rate Change 1 Each MISC PRN ×7 (17:01→22:06)
--- NOTE | 2016-09-22 17:51 | Consultation ---
Consult Note Consult Note CONSULTING SPECIALTY: PODIATRY REASON FOR CONSULT: DIABETIC FOOT EXAM CONSULTING PHYSICIAN: JOSE MANUEL ARMSTRONG DPM COVERING FOR AZUCENA JIN DPM HISTORY OF PRESENT ILLNESS: Patient states no discomfort currently but mentions that he experiences phantom limb pain after the left side below knee amputation. Patient states he has oral medication and creams at home that have helped with the phantom limb pain. He states no other pedal problem. Patient mentions that he has diabetic shoes but he does not wear them regularly. PAST MEDICAL HISTORY: HIV, left lower extremity phantom limb pain, low back pain, T2DM, asthma, [place], CVA PAST SURGICAL HISTORY: Left below knee amputation Allergies: Coded Allergies: GABAPENTIN (Verified Allergy, Severe, 04/07/12) QUETIAPINE (Verified Allergy, Unknown, 07/25/15) Objective Objective Exam Last 24 Hour Vital Signs Date Time Temp Pulse Resp B/P Pulse Ox O2 Delivery O2 Flow Rate FiO2 09/22/16 17:00 79 12 152/92 100 Room Air 09/22/16 16:00 98.1 83 25 147/87 99 Room Air 09/22/16 15:36 97.8 09/22/16 15:00 78 12 150/95 100 09/22/16 14:00 79 09/22/16 14:00 97.8 79 23 130/84 94 Room Air 09/22/16 13:25 80 16 122/88 99 Room Air 09/22/16 13:15 97.2 80 16 122/88 100 Room Air 09/22/16 13:00 97.8 09/22/16 12:08 97.2 83 15 127/88 100 Room Air 09/22/16 11:00 97.2 80 13 138/71 100 Room Air 09/22/16 10:06 98.8 83 11 143/74 100 Room Air 09/22/16 09:30 98.8 88 16 147/78 100 Room Air 09/22/16 08:30 98.8 90 28 137/64 100 Room Air 09/22/16 07:30 98.8 86 16 116/68 100 Room Air 09/22/16 06:00 98.8 86 16 137/75 100 Room Air 09/22/16 03:57 98.8 77 16 143/75 100 Room Air 09/22/16 02:30 98.8 86 16 137/71 100 Room Air 09/22/16 00:00 98.8 78 16 166/77 100 Room Air 09/21/16 23:20 98.8 85 16 88/56 100 Room Air 09/21/16 19:45 98.8 87 16 123/76 100 Room Air 09/21/16 19:39 98.8 98 16 123/76 100 Room Air Laboratory Tests Test 09/21/16 21:18 09/21/16 23:10 09/22/16 07:42 09/22/16 16:00 White Blood Count 5.8 K/UL (4.8-10.8) Red Blood Count 3.89 M/UL (4.70-6.10) L Hemoglobin 12.0 G/DL (14.2-18.0) L Hematocrit 38.7 % (42.0-52.0) L Mean Corpuscular Volume 99 FL (80-99) Mean Corpuscular Hemoglobin 30.7 PG (27.0-31.0) Mean Corpuscular Hemoglobin Concent 30.9 G/DL (32.0-36.0) L Red Cell Distribution Width 14.7 % (11.6-14.8) Platelet Count 213 K/UL (150-450) Mean Platelet Volume 9.2 FL (6.5-10.1) Neutrophils (%) (Auto) 69.7 % (45.0-75.0) Lymphocytes (%) (Auto) 23.5 % (20.0-45.0) Monocytes (%) (Auto) 4.4 % (1.0-10.0) Eosinophils (%) (Auto) 1.0 % (0.0-3.0) Basophils (%) (Auto) 1.4 % (0.0-2.0) Sodium Level 133 mEQ/L (135-145) L 139 mEQ/L (135-145) Potassium Level 5.4 mEQ/L (3.4-4.9) H 4.3 mEQ/L (3.4-4.9) Chloride Level 85 mEQ/L (98-107) L 98 mEQ/L (98-107) Carbon Dioxide Level 16 mEQ/L (20-30) L 23 mEQ/L (20-30) Anion Gap 32 (5-15) H 18 (5-15) H Blood Urea Nitrogen 41 mg/dL (7-23) H 35 mg/dL (7-23) H Creatinine 2.0 mg/dL (0.7-1.2) H 1.6 mg/dL (0.7-1.2) H Estimat Glomerular Filtration Rate 43.0 mL/min (>60) 55.8 mL/min (>60) Glucose Level 626 mg/dL (74-106) *H 228 mg/dL (74-106) #H Calcium Level 10.6 mg/dL (8.6-10.2) H 9.2 mg/dL (8.6-10.2) Magnesium Level 2.0 mg/dL (1.7-2.5) Total Bilirubin 0.4 mg/dL (0.0-1.2) 0.3 mg/dL (0.0-1.2) Aspartate Amino Transf (AST/SGOT) 31 U/L (5-40) 20 U/L (5-40) Alanine Aminotransferase (ALT/SGPT) 73 U/L (3-41) H 51 U/L (3-41) H Alkaline Phosphatase 211 U/L (40-129) H 149 U/L (40-129) H Total Protein 7.8 g/dL (6.6-8.7) 6.3 g/dL (6.6-8.7) L Albumin 4.5 g/dL (3.5-5.2) 3.3 g/dL (3.5-5.2) L Globulin 3.3 g/dL Albumin/Globulin Ratio 1.3 (1.0-2.7) Acetone Level Positive-moderate (NEGATIVE) Arterial Blood pH 7.260 (7.350-7.450) Arterial Blood Partial Pressure CO2 28.1 mmHg (35.0-45.0) L Arterial Blood Partial Pressure O2 105.8 mmHg (75.0-100.0) H Arterial Blood HCO3 12.3 mmol/L (22.0-26.0) L Arterial Blood Oxygen Saturation 97.1 % (92.0-98.0) Arterial Blood Base Excess -13.3 Rosalino Test Positive Prothrombin Time 10.3 SEC (9.30-11.50) Prothromb Time International Ratio 1.0 (0.9-1.1) Activated Partial Thromboplast Time 22 SEC (23-33) L Phosphorus Level 3.5 mg/dL (2.5-4.8) Direct Bilirubin 0.1 mg/dL (0.1-0.3) HIV-1 RNA (PCR) log10 Value Pending HIV-1 RNA Ultraquantitative (PCR) Pending HbA1c: 11.2 (09/11/16) PHYSICAL EXAM: Left below knee amputation. Stump is sensate to light touch with no open lesions or ulceration. Right foot with dry stable eschar on the dorsal 2nd toe. Bunion and hammertoes 2-5 noted on the right. Decreased sensation to light touch. Pedal pulses are lightly palpable. Toenails and thick and discolored but trimmed to appropriate length. Right foot muscle strength is within normal limits . Assessment/Plan ASSESSMENT: - Diabetic foot ulcer dorsal right 2nd toe. Currently with a dry stable eschar - Poorly controlled diabetes. Last HbA1c of 11.2 (09/11/16) - History of left below knee amputation with phantom limb pain - Right foot bunion and hammertoes PLAN: - Instructed patient to start using his diabetic shoes regularly in order to offload the dorsal 2nd toe wound which will only worsen if inappropriate shoes area worn. Educated patient about diabetic foot care - Educated patient on the importance of appropriate glucose management - Patient states that he has appropriate control over the phantom limb pain with oral medication and topical creams that have been prescribed in the past - Patient instructed to follow up with a program trainer regularly for diabetic foot exams Jose Manuel Armstrong DPM Sep 22, 2016 17:51
--- NOTE | 2016-09-22 19:28 | History and Physical Report ---
DATE OF ADMISSION: 09/21/2016 HISTORY OF PRESENT ILLNESS: The patient admitted to the ICU for vomiting blood as well as DKA. The patient has HIV, poor compliance with insulin. The patient also has psychosis and noncompliance. The patient vomited blood and feels weak, has abdominal pain, nauseous, and is going to ICU for DKA. All the consultants were made aware. PAST MEDICAL HISTORY: HIV, neuropathy, PVD, history of gangrene that was amputated, GERD, hypertension, NIDDM, history of DKA, psychosis, mood disorder, neuropathy, chronic pain syndrome. PAST SURGICAL HISTORY: The patient had eye surgery as well as left BKA. MEDICATIONS: The patient takes insulin, gabapentin, HIV medications, Prilosec, gabapentin, Mouthcard. ALLERGIES: No known allergies. SOCIAL HISTORY: Denies history of smoking, alcohol, or illicit drugs. Lives in apartment with his girlfriend. FAMILY HISTORY: Does have history of diabetes in the family. REVIEW OF SYSTEMS: HEENT: Denies headaches. Respiratory: Denies shortness of breath. Denies cough. Cardiovascular: Denies chest pain. Gastrointestinal: Does nausea, vomiting blood yesterday. No diarrhea. No abdominal pain. No abdominal cramps. Extremities: Does have chronic pain syndrome in the lower extremities and back, which is chronic . Central Nervous System: No change in vision or speech pattern. Feels weaker than usual. PHYSICAL EXAMINATION: VITAL SIGNS: Temperature is 97.8 degrees, pulse of 88, and blood pressure 132/70. HEENT: PERRLA. NECK: Supple. No lymphadenopathy. CHEST: Clear to auscultation. CARDIOVASCULAR: Regular rate and rhythm. GASTROINTESTINAL: Epigastric tenderness. No rebound. Positive bowel sounds. No organomegaly. EXTREMITIES: Left [id number] amputation. He is able to move his extremities. LABORATORY DATA: Significant for glucose of 700. No azotemia and acidosis. ASSESSMENT: 1. Vomiting blood. 2. Diabetic ketoacidosis. 3. Human immunodeficiency virus. 4. Chronic pain syndrome. 5. Leukocytosis. PLAN: I have asked Dr. Bullock, Dr. Toledo, Dr. Escamilla, Dr. Merino, Dr. Fish, and Dr. Silverio to see the patient for the above-mentioned diagnoses and treatment. Suzy Bruce M.D. DR: Nessa JOB#: [id number] CC:
--- NOTE | 2016-09-22 19:44 | Consultation ---
Consult Note Consult Note DATE OF CONSULTATION: 09/22/16 CONSULTING PHYSICIAN: Connor Cuevas M.D. REFERRING PHYSICIAN: Suzy Bruce M.D. REASON FOR CONSULTATION: Anemia of GI bleed, prior hx of anemia and re-eval CURRENT COMPLAINT/HISTORY OF PRESENT ILLNESS: Dear Dr. Bruce, Today, I had an opportunity to see one of your patient, who as you well aware, 50-year-old delightful gentleman with past medical history remarkable for HIV, cellulitis of the foot, hx of anemia, hereditary hemorhagic telectangasia has been admitted to [facility] with similar symptoms numerous times in the recent past ended up in the emergency room at [facility]. During an evaluation, it was found the patient developed significant anemia with hemoglobin of 8-10 and has a similar history before and was admitted for vomiting of blood. His hgb now improved and I was consulted to re-eval for GI bleed and discontinuation of epogen. PAST MEDICAL HISTORY: 1. HIV/AIDS. 2. Anemia of HIV/AIDS. 3. Diabetes mellitus. 4. Hypertension. 5. Dementia. 6. Dyslipidemia. 7. Cellulitis left foot. 8. History of cerebrovascular accident. 9. Parkinson disease. 10. Encephalopathy. 11. History of seizure. 12. Periatrial neuropathy. 13. Dizziness. 14. Migraine. 15. Fatigue. ALLERGIES: 1. Gabapentin. 2. Hydromorphone. MEDICATIONS: Home meds reviewed SOCIAL HISTORY: No history of smoking. No history of alcohol abuse. No history of illicit drug use. REVIEW OF SYSTEMS: GENERAL DESCRIPTION: The patient not in any significant distress, but looks chronically ill. RESPIRATORY SYSTEM: Mild shortness of breath on exertion. GASTROINTESTINAL SYSTEM: The patient claims constipation. NEUROMUSCULAR SYSTEM: The patient claims muscle aches. PHYSICAL EXAMINATION: VITAL SIGNS: Date Time Temp Pulse Resp B/P Pulse Ox O2 Delivery O2 Flow Rate FiO2 09/22/16 19:00 78 16 160/89 100 Room Air 09/22/16 18:00 79 14 145/93 100 Room Air 09/22/16 17:00 79 12 152/92 100 Room Air 09/22/16 16:00 98.1 83 25 147/87 99 Room Air 09/22/16 15:36 97.8 09/22/16 15:00 78 12 150/95 100 09/22/16 14:00 79 09/22/16 14:00 97.8 79 23 130/84 94 Room Air 09/22/16 13:25 80 16 122/88 99 Room Air 09/22/16 13:15 97.2 80 16 122/88 100 Room Air 09/22/16 13:00 97.8 09/22/16 12:08 97.2 83 15 127/88 100 Room Air 09/22/16 11:00 97.2 80 13 138/71 100 Room Air 09/22/16 10:06 98.8 83 11 143/74 100 Room Air 09/22/16 09:30 98.8 88 16 147/78 100 Room Air 09/22/16 08:30 98.8 90 28 137/64 100 Room Air 09/22/16 07:30 98.8 86 16 116/68 100 Room Air 09/22/16 06:00 98.8 86 16 137/75 100 Room Air 09/22/16 03:57 98.8 77 16 143/75 100 Room Air 09/22/16 02:30 98.8 86 16 137/71 100 Room Air 09/22/16 00:00 98.8 78 16 166/77 100 Room Air 09/21/16 23:20 98.8 85 16 88/56 100 Room Air 09/21/16 19:45 98.8 87 16 123/76 100 Room Air HEENT: Head normocephalic and atraumatic. NECK: Supple. No thyroid enlargement. No lymphadenopathy. LUNGS: Decreased breath sounds bilaterally with few rhonchi at the base. HEART: S1 and S2 regular. ABDOMEN: Soft and benign. No organomegaly present. Bowel sounds present. EXTREMITIES: No cyanosis, clubbing, or edema. LABORATORY DATA: Laboratory Tests Test 09/21/16 21:18 09/21/16 23:10 09/22/16 07:42 09/22/16 16:00 White Blood Count 5.8 K/UL (4.8-10.8) Red Blood Count 3.89 M/UL (4.70-6.10) L Hemoglobin 12.0 G/DL (14.2-18.0) L Hematocrit 38.7 % (42.0-52.0) L Mean Corpuscular Volume 99 FL (80-99) Mean Corpuscular Hemoglobin 30.7 PG (27.0-31.0) Mean Corpuscular Hemoglobin Concent 30.9 G/DL (32.0-36.0) L Red Cell Distribution Width 14.7 % (11.6-14.8) Platelet Count 213 K/UL (150-450) Mean Platelet Volume 9.2 FL (6.5-10.1) Neutrophils (%) (Auto) 69.7 % (45.0-75.0) Lymphocytes (%) (Auto) 23.5 % (20.0-45.0) Monocytes (%) (Auto) 4.4 % (1.0-10.0) Eosinophils (%) (Auto) 1.0 % (0.0-3.0) Basophils (%) (Auto) 1.4 % (0.0-2.0) Sodium Level 133 mEQ/L (135-145) L 139 mEQ/L (135-145) Potassium Level 5.4 mEQ/L (3.4-4.9) H 4.3 mEQ/L (3.4-4.9) Chloride Level 85 mEQ/L (98-107) L 98 mEQ/L (98-107) Carbon Dioxide Level 16 mEQ/L (20-30) L 23 mEQ/L (20-30) Anion Gap 32 (5-15) H 18 (5-15) H Blood Urea Nitrogen 41 mg/dL (7-23) H 35 mg/dL (7-23) H Creatinine 2.0 mg/dL (0.7-1.2) H 1.6 mg/dL (0.7-1.2) H Estimat Glomerular Filtration Rate 43.0 mL/min (>60) 55.8 mL/min (>60) Glucose Level 626 mg/dL (74-106) *H 228 mg/dL (74-106) #H Calcium Level 10.6 mg/dL (8.6-10.2) H 9.2 mg/dL (8.6-10.2) Magnesium Level 2.0 mg/dL (1.7-2.5) Total Bilirubin 0.4 mg/dL (0.0-1.2) 0.3 mg/dL (0.0-1.2) Aspartate Amino Transf (AST/SGOT) 31 U/L (5-40) 20 U/L (5-40) Alanine Aminotransferase (ALT/SGPT) 73 U/L (3-41) H 51 U/L (3-41) H Alkaline Phosphatase 211 U/L (40-129) H 149 U/L (40-129) H Total Protein 7.8 g/dL (6.6-8.7) 6.3 g/dL (6.6-8.7) L Albumin 4.5 g/dL (3.5-5.2) 3.3 g/dL (3.5-5.2) L Globulin 3.3 g/dL Albumin/Globulin Ratio 1.3 (1.0-2.7) Acetone Level Positive-moderate (NEGATIVE) Arterial Blood pH 7.260 (7.350-7.450) Arterial Blood Partial Pressure CO2 28.1 mmHg (35.0-45.0) L Arterial Blood Partial Pressure O2 105.8 mmHg (75.0-100.0) H Arterial Blood HCO3 12.3 mmol/L (22.0-26.0) L Arterial Blood Oxygen Saturation 97.1 % (92.0-98.0) Arterial Blood Base Excess -13.3 Rosalino Test Positive Prothrombin Time 10.3 SEC (9.30-11.50) Prothromb Time International Ratio 1.0 (0.9-1.1) Activated Partial Thromboplast Time 22 SEC (23-33) L Phosphorus Level 3.5 mg/dL (2.5-4.8) Direct Bilirubin 0.1 mg/dL (0.1-0.3) HIV-1 RNA (PCR) log10 Value Pending HIV-1 RNA Ultraquantitative (PCR) Pending ASSESSMENT: 1. Anemia of GI bleed, patient with vomiting of blood and reason for admission, to be potentially scoped 2. Anemia of chronic disease as well as kidney disease, now improved, could be 2/2 dehydration, will recheck 3. Hereditary hemorrhagic telectangasia 4. Leukopenia, stable, potentially 2/2 infection as well 5. Hypoglycemia. 6. Human immunodeficiency virus/acquired immune deficiency syndrome. 7. Dementia. 8. Parkinson disease. 9. CP r/o ACS 10. Osteomyelitis 11. Parkinson disease. 12. Encephalopathy. 13. History of seizure. RECOMMENDATIONS: 1. Watch count. 2. Ferritin has been ordered 3. PRBC transfusion as needed basis. 4. Procrit subcutaneous for hiv (only if hgb less than 10) 5. GI ppx with ppi 6. Heparin for DVT prophylaxis. 7. Skin care. 8. Nutrition. 9. Close followup. Thank you Dr. Suzy Bruce for this kind referral, please do not hesitate to contact me with any further questions. MD Mason Freitas Roman L. Sep 22, 2016 19:44
--- NOTE | 2016-09-22 21:40 | General Progress Note ---
Assessment/Plan Assessment/Plan Assessment - N/V - DKA - UGIB - GERD - AIDS Recommendations - PPI - elevate HOB - EGD in am - outpatient screening colon Thank you Merritt Silverio. Subjective Allergies: Coded Allergies: GABAPENTIN (Verified Allergy, Severe, 04/07/12) QUETIAPINE (Verified Allergy, Unknown, 07/25/15) Objective Last 24 Hour Vital Signs Date Time Temp Pulse Resp B/P Pulse Ox O2 Delivery O2 Flow Rate FiO2 09/22/16 19:00 78 16 160/89 100 Room Air 09/22/16 18:00 79 14 145/93 100 Room Air 09/22/16 17:00 79 12 152/92 100 Room Air 09/22/16 16:00 98.1 83 25 147/87 99 Room Air 09/22/16 15:36 97.8 09/22/16 15:00 78 12 150/95 100 09/22/16 14:00 79 09/22/16 14:00 97.8 79 23 130/84 94 Room Air 09/22/16 13:25 80 16 122/88 99 Room Air 09/22/16 13:15 97.2 80 16 122/88 100 Room Air 09/22/16 13:00 97.8 09/22/16 12:08 97.2 83 15 127/88 100 Room Air 09/22/16 11:00 97.2 80 13 138/71 100 Room Air 09/22/16 10:06 98.8 83 11 143/74 100 Room Air 09/22/16 09:30 98.8 88 16 147/78 100 Room Air 09/22/16 08:30 98.8 90 28 137/64 100 Room Air 09/22/16 07:30 98.8 86 16 116/68 100 Room Air 09/22/16 06:00 98.8 86 16 137/75 100 Room Air 09/22/16 03:57 98.8 77 16 143/75 100 Room Air 09/22/16 02:30 98.8 86 16 137/71 100 Room Air 09/22/16 00:00 98.8 78 16 166/77 100 Room Air 09/21/16 23:20 98.8 85 16 88/56 100 Room Air Intake and Output 09/21/16 09/22/16 19:00 07:00 Intake Total 1036.23 ml Output Total 700 ml Balance 336.23 ml IV Total 1036.23 ml Output Urine Total 700 ml # Voids 1 Laboratory Tests 09/21/16 23:10: Arterial Blood pH 7.260L, Arterial Blood Partial Pressure CO2 28.1L, Arterial Blood Partial Pressure O2 105.8H, Arterial Blood HCO3 12.3L, Arterial Blood Oxygen Saturation 97.1, Arterial Blood Base Excess -13.3, Rosalino Test Positive 09/22/16 07:42: Prothrombin Time 10.3, Prothromb Time International Ratio 1.0, Activated Partial Thromboplast Time 22L, Sodium Level 139, Potassium Level 4.3, Chloride Level 98, Carbon Dioxide Level 23, Anion Gap 18H, Blood Urea Nitrogen 35H, Creatinine 1.6H, Estimat Glomerular Filtration Rate 55.8, Glucose Level 228#H, Calcium Level 9.2, Phosphorus Level 3.5, Total Bilirubin 0.3, Direct Bilirubin 0.1, Aspartate Amino Transf (AST/SGOT) 20, Alanine Aminotransferase (ALT/SGPT) 51H, Alkaline Phosphatase 149H, Total Protein 6.3L, Albumin 3.3L 09/22/16 16:00: HIV-1 RNA (PCR) log10 Value [Pending], HIV-1 RNA Ultraquantitative (PCR) [ Pending] Height (Feet): 6 Height (Inches): 1.00 Weight (Pounds): 150 MERRITT SILVERIO Sep 22, 2016 21:40
--- NOTE | 2016-09-22 21:47 | Pulmonolgy Critical Care Note ---
Critical Care - Asmt/Plan Problems: (1) DKA (diabetic ketoacidoses) (2) UGIB (upper gastrointestinal bleed) Cardiac: continue to monitor HR/BP Renal: F/U I&O, keep IV fluid Infectious Disease: check cultures Gastrointestinal: continue feedings/current rate Endocrine: monitor blood sugar Hematologic: transfuse if hgb<8.5 Neurologic: PRN Ativan, PRN Morphine, keep patient comfortable Prophylaxis: Protonix, Heparin Notes Reviewed: credit charge authorizer Discussed with: nurses, consultants, manager case managementsenior clinical project manager - Objective Last 24 Hour Vital Signs Date Time Temp Pulse Resp B/P Pulse Ox O2 Delivery O2 Flow Rate FiO2 09/22/16 19:00 78 16 160/89 100 Room Air 09/22/16 18:00 79 14 145/93 100 Room Air 09/22/16 17:00 79 12 152/92 100 Room Air 09/22/16 16:00 98.1 83 25 147/87 99 Room Air 09/22/16 15:36 97.8 09/22/16 15:00 78 12 150/95 100 09/22/16 14:00 79 09/22/16 14:00 97.8 79 23 130/84 94 Room Air 09/22/16 13:25 80 16 122/88 99 Room Air 09/22/16 13:15 97.2 80 16 122/88 100 Room Air 09/22/16 13:00 97.8 09/22/16 12:08 97.2 83 15 127/88 100 Room Air 09/22/16 11:00 97.2 80 13 138/71 100 Room Air 09/22/16 10:06 98.8 83 11 143/74 100 Room Air 09/22/16 09:30 98.8 88 16 147/78 100 Room Air 09/22/16 08:30 98.8 90 28 137/64 100 Room Air 09/22/16 07:30 98.8 86 16 116/68 100 Room Air 09/22/16 06:00 98.8 86 16 137/75 100 Room Air 09/22/16 03:57 98.8 77 16 143/75 100 Room Air 09/22/16 02:30 98.8 86 16 137/71 100 Room Air 09/22/16 00:00 98.8 78 16 166/77 100 Room Air 09/21/16 23:20 98.8 85 16 88/56 100 Room Air Status: awake Condition: critical HEENT: atraumatic Neck: full ROM Lungs: chest wall tender Abdomen: soft, non-tender Extremities: no C/C/E, edema Accucheck: 113 Critical Care - Subjective ROS Limited/Unobtainable: No ICU Day: 1 Interval Events: 50-year-old male presented to ED complaining of abdominal pain and vomiting. X3 days. He had epigastric pain with coffee-ground vomiting. He was also diagnosed to have DKA, was started on insulin drip and transferred to ICU. Fluids: insulin drip Drips: NS 150 cc.hour I&O: Intake and Output 09/21/16 09/22/16 19:00 07:00 Intake Total 1036.23 ml Output Total 700 ml Balance 336.23 ml IV Total 1036.23 ml Output Urine Total 700 ml # Voids 1 CXR: CHERYL Labs: Laboratory Tests Test 09/22/16 16:00 09/23/16 05:00 HIV-1 RNA (PCR) log10 Value Pending HIV-1 RNA Ultraquantitative (PCR) Pending White Blood Count 4.8 K/UL (4.8-10.8) Red Blood Count 2.96 M/UL (4.70-6.10) L Hemoglobin 9.2 G/DL (14.2-18.0) L Hematocrit 28.5 % (42.0-52.0) L Mean Corpuscular Volume 96 FL (80-99) Mean Corpuscular Hemoglobin 31.1 PG (27.0-31.0) H Mean Corpuscular Hemoglobin Concent 32.3 G/DL (32.0-36.0) Red Cell Distribution Width 14.7 % (11.6-14.8) Platelet Count 182 K/UL (150-450) Mean Platelet Volume 8.8 FL (6.5-10.1) Neutrophils (%) (Auto) 54.5 % (45.0-75.0) Lymphocytes (%) (Auto) 33.5 % (20.0-45.0) Monocytes (%) (Auto) 5.9 % (1.0-10.0) Eosinophils (%) (Auto) 4.4 % (0.0-3.0) H Basophils (%) (Auto) 1.7 % (0.0-2.0) Sodium Level 139 mEQ/L (135-145) Potassium Level 3.7 mEQ/L (3.4-4.9) Chloride Level 98 mEQ/L (98-107) Carbon Dioxide Level 28 mEQ/L (20-30) Anion Gap 13 (5-15) Blood Urea Nitrogen 23 mg/dL (7-23) Creatinine 1.3 mg/dL (0.7-1.2) H Estimat Glomerular Filtration Rate > 60 mL/min (>60) Glucose Level 142 mg/dL (74-106) H Calcium Level 9.0 mg/dL (8.6-10.2) Ferritin 344 ng/mL (10-230) H Total Bilirubin 0.2 mg/dL (0.0-1.2) Aspartate Amino Transf (AST/SGOT) 20 U/L (5-40) Alanine Aminotransferase (ALT/SGPT) 41 U/L (3-41) Alkaline Phosphatase 134 U/L (40-129) H Pro-B-Type Natriuretic Peptide 166 pg/mL (0-125) H Total Protein 5.9 g/dL (6.6-8.7) L Albumin 3.0 g/dL (3.5-5.2) L Globulin 2.9 g/dL Albumin/Globulin Ratio 1.0 (1.0-2.7) GINETTE DAMON Sep 22, 2016 21:47
--- NOTE | 2016-09-22 21:58 | Consultation ---
DATE OF CONSULTATION: 09/22/2016 INFECTIOUS DISEASE CONSULTATION REASON FOR CONSULTATION: HIV care. REQUESTING PHYSICIAN: Suzy Bruce M.D. HISTORY OF PRESENT ILLNESS: The patient is a 50-year-old male with history of poorly controlled diabetes, peripheral vascular disease, and HIV who has been well controlled on Genvoya as an outpatient and being followed by HIV provider as an outpatient with undetectable viral load and CD4 count above 200. He presented to the hospital with abdominal pain, nausea, and vomiting for three days. He was found to have DKA. He was admitted to the intensive care unit for insulin drip and hydration and I was asked by the primary provider for HIV care and further management. The patient denied any cough or shortness of breath. He denied any fever or chills. No diarrhea and no urinary symptoms. PAST MEDICAL HISTORY: Significant for diabetes, coronary artery disease, asthma, CVA, TIA, GERD, peripheral neuropathy, syncope, numbness, weakness, and fatigue. PAST SURGICAL HISTORY: Negative. SOCIAL HISTORY: The patient lives with his . Unemployed. Denied using any drugs, tobacco, or alcohol. ALLERGIES: He is allergic to gabapentin and quetiapine. MEDICATIONS: He is on Genvoya as an outpatient. For the rest of his medications, please refer to MAR. LABORATORY DATA: He has a white count of 5.8, hemoglobin of 12, and platelet count of 213, 000. BUN of 41 and creatinine of 2. Calcium level of 10.6. ALT of 73. REVIEW OF SYSTEMS: A 14-point of system reviewed were all negative apart from the one I mentioned above in my H and P. PHYSICAL EXAMINATION: VITAL SIGNS: Temperature 97.8, pulse 79, respirations 23, blood pressure 130/84, and pulse oximetry 94% on room air. GENERAL: A middle-aged male, up in bed, awake, alert, not in distress. HEENT: Normocephalic and atraumatic. Pupils are reactive to light. Moist oral mucosa. NECK: Supple. No lymphadenopathy. CARDIOVASCULAR: Regular rate and rhythm. LUNGS: Clear bilaterally. No wheezing or rhonchi. ABDOMEN: Soft, nontender, and nondistended. Positive bowel sounds. EXTREMITIES: No edema or cyanosis. ASSESSMENT AND PLAN: 1. Human immunodeficiency virus disease. We will continue with Genvoya. Monitor renal function test and check his viral load. Recommend to follow up with human immunodeficiency virus provider as an outpatient. 2. Diabetic ketoacidosis. Continue insulin drip. Titrate to keep blood glucose between 80 to 120. 3. Dehydration. Continue IV fluids. Monitor electrolytes. 4. Diabetes. Recommend tight glycemic control to keep blood glucose between 80 to 120. 5. Acute renal failure. Suspect prerenal dehydration-related. Continue hydration and monitor urine output and renal function test. Clayton Escamilla M.D. DR: NELI JOB#: [id number] CC:
--- NOTE | 2016-09-22 23:38 | Consultation ---
DATE OF CONSULTATION: 09/22/2016 GASTROLOGY CONSULTATION CHIEF COMPLAINT: I was asked to see this patient by Dr. Suzy Bruce today for evaluation of upper gastrointestinal bleeding. HISTORY OF PRESENT ILLNESS: The patient is a pleasant 50-year-old man with a history of AIDS and other medical problems, who is admitted to the hospital due to diabetes and diabetic ketoacidosis. The patient states that he had two days of abdominal pain, nausea, vomiting, and coffee-grounds emesis. He came to the hospital where he was found to have severe diabetes. He has been taken to ICU and placed on insulin drip. He is much better now and is actually tolerating oral diet. He does have a longstanding history of gastroesophageal reflux and about a year ago, he had an endoscopy showing reflux esophagitis. His bowel movements are daily and he never had a colonoscopy. He was advised that he should undergo an endoscopy now for his bleeding and a colonoscopy screening. He agreed with both and he understood that he has to follow up with me as an outpatient to have a colonoscopy scheduled. PAST MEDICAL HISTORY: History of acquired immune deficiency syndrome, anemia, diabetes, hypertension, dementia, hyperlipidemia, Parkinson disease, history of seizures, neuropathy, and dizziness. ALLERGIES: Gabapentin and hydromorphone. FAMILY HISTORY: Noncontributory. SOCIAL HISTORY: The patient does not smoke or drink. REVIEW OF SYSTEMS: Otherwise negative. PHYSICAL EXAMINATION: GENERAL: This is a pleasant man, seen in the intensive care unit HEENT: Normocephalic and atraumatic. Sclerae anicteric. Oropharynx clear. NECK: Supple. CHEST: Clear to auscultation. CARDIOVASCULAR: Revealed a regular rate. ABDOMEN: Soft. EXTREMITIES: Revealed no edema. LABORATORY DATA: Noted. ASSESSMENT: This patient presents with a longstanding history of gastroesophageal reflux and now with vomiting and coffee-grounds emesis. Differential diagnosis would most probably include the reflux esophagitis as the main culprit. Peptic ulcer disease is other consideration. The patient should undergo endoscopy tomorrow to evaluate for these possibilities. We have also advised him to have a colonoscopy for screening as outpatient. Proton pump inhibitor should be given at this time. RECOMMENDATIONS: 1. NPO after midnight. 2. Endoscopy tomorrow. 3. Proton pump inhibitor. 4. Outpatient colonoscopy. Thank you for asking me to participate in the care of this patient. Merritt Silverio M.D. DR: DAVEY JOB#: [id number] CC:
[2016-09-23] VITALS (19 sets, daily range): BP systolic 102–146; BP diastolic 76–93
--- NOTE | 2016-09-23 02:48 | Consultation ---
DATE OF CONSULTATION: 09/22/2016 ENDOCRINOLOGY CONSULTATION CONSULTING PHYSICIAN: Joss Bullock M.D. REFERRING PHYSICIAN: Suzy Bruce M.D. REASON FOR CONSULTATION: Diabetes management. HISTORY OF PRESENT ILLNESS: The patient is a 50-year-old male known to us from multiple previous admissions to [facility]. He has history of T1DM, history of DKA and presented to the hospital about a week ago and discharged after stabilization. Today, he was going to the hospital complaining of abdominal pain and vomiting x2 days. The AccuChek was high. He explained that he was having coffee-ground emesis in the emergency room. He was found to have platelet count of 626,000, leukocytes sodium of 136, potassium of 5.4, chloride of 85, bicarbonate 16, BUN 41, creatinine 2.0 with a calcium of 10.6. He was admitted to the ICU for treatment of ketoacidosis. Endocrinology was consulted. PAST MEDICAL HISTORY: Thyroid cancer, status post thyroidectomy, status post left below-knee amputation due to PAD osteomyelitis, type 1 diabetes mellitus, BKA, noncompliance with medication, hypertension, and peripheral arterial disease. MEDICATIONS: Reviewed. SOCIAL HISTORY: The patient smokes. REVIEW OF SYSTEMS: As per history of present illness. PHYSICAL EXAMINATION: GENERAL: He is afebrile. Awake and alert. VITAL SIGNS: Blood pressure is 142/80, pulse of temperature of 98.2 degrees, and respiratory rate of 19. HEENT: Pupils are equal and reactive to light and accommodation. Sclerae are anicteric. NECK: No JVD. No thyromegaly. No bruit. Thyroid is not palpable. LUNGS: Clear. HEART: Regular. ABDOMEN: Positive bowel sounds are soft. EXTREMITIES: No clubbing. No cyanosis. No edema. LABORATORY AND DIAGNOSTIC DATA: Labs are reviewed. DIAGNOSES: 1. Ketoacidosis. 2. Nausea and vomiting. 3. Acute kidney failure. PLAN: 1. IV fluid. 2. IV insulin. 3. ICU care. 4. Monitor electrolytes as well as continue to follow. Thank you, Dr. Fish, for the courtesy of this consultation. Joss Bullock M.D. DR: LINDEN JOB#: [id number] CC: MARCOS
[2016-09-23] MEDS: Insulin Rate Change 1 Each MISC PRN ×2 (03:23→07:59)
[2016-09-23] MEDS: D5 1/2NS 1,000 ML IV SCH (04:20)
[2016-09-23] MEDS: Morphine Sulfate 4mg/ml Inj IVP PRN ×5 (05:00→21:10)
[2016-09-23 06:14] LABS: BASOPHILS % (AUTO) 1.7 % (0.0-2.0); EOSINOPHILS % (AUTO) 4.4 % (0.0-3.0); LYMPHOCYTES % (AUTO) 33.5 % (20.0-45.0); MEAN CORPUSCULAR HEMOGLOBIN 31.1 PG (27.0-31.0); MEAN CORPUSCULAR HGB CONC 32.3 G/DL (32.0-36.0); MEAN CORPUSCULAR VOLUME 96 FL (80-99); MEAN PLATELET VOLUME 8.8 FL (6.5-10.1); MONOCYTES % (AUTO) 5.9 % (1.0-10.0); NEUTROPHILS % (AUTO) 54.5 % (45.0-75.0); PLATELET COUNT 182 K/UL (150-450); RED BLOOD COUNT 2.96 M/UL (4.70-6.10); RED CELL DISTRIBUTION WIDTH 14.7 % (11.6-14.8); WHITE BLOOD COUNT 4.8 K/UL (4.8-10.8)
[2016-09-23 07:21] LABS: ALANINE AMINOTRANSFERASE 41 U/L (3-41); ANION GAP 13 (5-15); ASPARTATE AMINO TRANSFERASE 20 U/L (5-40); CARBON DIOXIDE 28 mEQ/L (20-30); CHLORIDE 98 mEQ/L (98-107); CREATININE 1.3 mg/dL (0.7-1.2); GLOMERULAR FILTRATION RATE > 60 mL/min (>60); HEMOLYSIS 3; POTASSIUM 3.7 mEQ/L (3.4-4.9); SODIUM 139 mEQ/L (135-145); TOTAL PROTEIN 5.9 g/dL (6.6-8.7)
[2016-09-23] MEDS ORDERED: Propofol 10mg/ml 20ml IV ONE ×2 (07:30→10:00)
[2016-09-23] MEDS ORDERED: Lidocaine 1% MPF 10mg/ml 5ml ONE ×2 (07:30→10:00)
[2016-09-23] MEDS ORDERED: Midazolam 2mg/2ml Inj ONE ×2 (07:30→10:00)
[2016-09-23] MEDS ORDERED: Alfentanil 2ml Inj ONE (07:30)
--- NOTE | 2016-09-23 07:49 | Anethesia Preoperative Eval ---
Anesthesia Pre-op PMH/ROS General Date of Evaluation: Sep 23, 2016 Time of Evaluation: 07:33 Anesthesiologist: Dorothy ASA Score: ASA 4 Mallampati Score Class I : Soft palate, uvula, fauces, pillars visible Class II: Soft palate, uvula, fauces visible Class III: Soft palate, base of uvula visible Class IV: Only hard plate visible Mallampati Classification: Class II Surgeon: Jean Claude Diagnosis: Intractable Emesis Surgical Procedure: EGD Anesthesia History: none Family History: no anesthesia problems Allergies: Coded Allergies: GABAPENTIN (Verified Allergy, Severe, 04/07/12) QUETIAPINE (Verified Allergy, Unknown, 07/25/15) Medications: see eMAR Past Medical History Cardiovascular: Reports: CAD - CHF, PVD, HTN, [place] Pulmonary: Reports: asthma Gastrointestinal/Genitourinary: Reports: GERD Neurologic/Psychiatric: Reports: CVA, other - Seizures, Schzophrenia Endocrine: Reports: DM, hypothyroidism HEENT: Reports: cataract (L), cataract (R), glaucoma Hematology/Immune: Reports: anemia, other - HIV, AIDS Anesthesia Pre-op Phys. Exam Physician Exam Last Vital Signs Date Time Temp Pulse Resp B/P Pulse Ox O2 Delivery O2 Flow Rate FiO2 09/23/16 07:00 63 16 134/76 100 Room Air 09/23/16 04:00 98.1 Constitutional: NAD Neurologic: CN 2-12 intact Cardiovascular: RRR Respiratory: CTA Gastrointestinal: S/NT/ND Airway Exam Mallampati Score: Class II MO: limited ROM: limited Teeth: missing, intact Anesthesia Pre-op A/P Labs Hematology Test 09/23/16 05:00 White Blood Count 4.8 K/UL (4.8-10.8) Red Blood Count 2.96 M/UL (4.70-6.10) L Hemoglobin 9.2 G/DL (14.2-18.0) L Hematocrit 28.5 % (42.0-52.0) L Mean Corpuscular Volume 96 FL (80-99) Mean Corpuscular Hemoglobin 31.1 PG (27.0-31.0) H Mean Corpuscular Hemoglobin Concent 32.3 G/DL (32.0-36.0) Red Cell Distribution Width 14.7 % (11.6-14.8) Platelet Count 182 K/UL (150-450) Mean Platelet Volume 8.8 FL (6.5-10.1) Neutrophils (%) (Auto) 54.5 % (45.0-75.0) Lymphocytes (%) (Auto) 33.5 % (20.0-45.0) Monocytes (%) (Auto) 5.9 % (1.0-10.0) Eosinophils (%) (Auto) 4.4 % (0.0-3.0) H Basophils (%) (Auto) 1.7 % (0.0-2.0) Coagulation Test 09/22/16 07:42 Prothrombin Time 10.3 SEC (9.30-11.50) Prothromb Time International Ratio 1.0 (0.9-1.1) Activated Partial Thromboplast Time 22 SEC (23-33) L Chemistry Test 09/22/16 07:42 09/23/16 05:00 Sodium Level 139 mEQ/L (135-145) Pending Potassium Level 4.3 mEQ/L (3.4-4.9) Pending Chloride Level 98 mEQ/L (98-107) Pending Carbon Dioxide Level 23 mEQ/L (20-30) Pending Anion Gap 18 (5-15) H Blood Urea Nitrogen 35 mg/dL (7-23) H Pending Creatinine 1.6 mg/dL (0.7-1.2) H Pending Estimat Glomerular Filtration Rate 55.8 mL/min (>60) Pending Glucose Level 228 mg/dL (74-106) #H Pending Calcium Level 9.2 mg/dL (8.6-10.2) Pending Phosphorus Level 3.5 mg/dL (2.5-4.8) Total Bilirubin 0.3 mg/dL (0.0-1.2) Pending Direct Bilirubin 0.1 mg/dL (0.1-0.3) Aspartate Amino Transf (AST/SGOT) 20 U/L (5-40) Pending Alanine Aminotransferase (ALT/SGPT) 51 U/L (3-41) H Pending Alkaline Phosphatase 149 U/L (40-129) H Pending Total Protein 6.3 g/dL (6.6-8.7) L Pending Albumin 3.3 g/dL (3.5-5.2) L Pending Ferritin Pending Pro-B-Type Natriuretic Peptide Pending Globulin Pending Risk Assessment & Plan Assessment: ASA 4 Plan: GA Status Change Before Surgery: No Ba De La Cruz MD Sep 23, 2016 07:49
--- NOTE | 2016-09-23 07:50 | Immediate Post-Op Evaluation ---
Immediate Post-Op Evalulation Immediate Post-Op Evalulation Procedure: EGD Date of Evaluation: Sep 23, 2016 Time of Evaluation: 08:32 IV Fluids: 200 NS Blood Products: 0 Estimated Blood Loss: 2 Urinary Output: 0 Blood Pressure Systolic: 126 Blood Pressure Diastolic: 78 Pulse Rate: 67 Respiratory Rate: 18 O2 Sat by Pulse Oximetry: 100 Temperature (Fahrenheit): 98.6 Pain Score (1-10): 1 Nausea: No Vomiting: No Complications 0 Patient Status: awake, reacts, patent, none Hydration Status: adequate Ba De La Cruz MD Sep 23, 2016 07:50
--- NOTE | 2016-09-23 08:25 | 48 Hour Post Anesthesia Eval ---
Post Anesthesia Evaluation Procedure: EGD Date of Evaluation: Sep 23, 2016 Time of Evaluation: 10:42 Blood Pressure Systolic: 132 0: 68 Pulse Rate: 67 Respiratory Rate: 18 Temperature (Fahrenheit): 98.6 O2 Sat by Pulse Oximetry: 100 Airway: patent Nausea: No Vomiting: No Pain Intensity: 1 Hydration Status: adequate Cardiopulmonary Status: Stable Mental Status/LOC: patient returned to baseline Follow-up Care/Observations: 0 Post-Anesthesia Complications: 0 Follow-up care needed: N/A Ba De La Cruz MD Sep 23, 2016 08:24
--- NOTE | 2016-09-23 08:59 | General Progress Note ---
Assessment/Plan Assessment/Plan (1) Lumbago (2) Lumbar DDD (3) Lumbar Spondylosis (4) Phantom limb pain (5) history of below knee amputation of left lower extremity Pt will be continued on Morphine Pt was d/w Dr. Merino and he concurred. Subjective Date patient seen: Sep 23, 2016 Time patient seen: 08:00 - am Allergies: Coded Allergies: GABAPENTIN (Verified Allergy, Severe, 04/07/12) QUETIAPINE (Verified Allergy, Unknown, 07/25/15) Subjective Constitutional: Reports: weakness, Denies: chills, diaphoresis, fever, malaise , no symptoms, other HEENT: Denies: blurred vision, double vision, ear discharge, ear pain, eye pain , mouth pain, mouth swelling, no symptoms, nose congestion, nose pain, other, tearing, throat pain, throat swelling Cardiovascular: Denies: chest pain, edema, irregular heart rate, lightheadedness, no symptoms, other, palpitations, syncope Respiratory: Denies: SOB at rest, SOB with excertion, cough, no symptoms, orthopnea, other, shortness of breath, sputum, stridor, wheezing Gastrointestinal/Abdominal: Reports: abdominal pain, Denies: abdomen distended, black stools, blood in stool, constipated, diarrhea, difficulty swallowing, nausea, no symptoms, other, poor appetite, poor fluid intake, rectal bleeding, tarry stools, vomiting Genitourinary: Denies: burning, discharge, flank pain, frequency, hematuria, incontinence, no symptoms, other, pain, urgency Neurologic/Psychiatric: Reports: numbness, tingling, weakness, Denies: anxiety , depressed, emotional problems, headache, no symptoms, other, paresthesia, pre- existing deficit, seizure, tremors Endocrine: Denies: excessive sweating, flushing, increased hunger, increased thirst, increased urine, intolerance to cold, intolerance to heat, no symptoms, other, unexplained weight gain, unexplained weight loss Hematologic/Lymphatic: Denies: anemia, easy bleeding, easy bruising, no symptoms, other Subjective Pt is in ICU comfortable in no acute distress. Pain is stable and tolerated on Morphine. Objective Last 24 Hour Vital Signs Date Time Temp Pulse Resp B/P Pulse Ox O2 Delivery O2 Flow Rate FiO2 09/23/16 08:24 67 18 100 09/23/16 08:23 67 18 100 09/23/16 07:00 63 16 134/76 100 Room Air 09/23/16 06:00 69 21 140/93 100 Room Air 09/23/16 05:00 66 15 134/91 100 Room Air 09/23/16 04:00 98.1 69 14 134/91 100 Room Air 09/23/16 04:00 68 09/23/16 03:00 68 12 133/86 100 Room Air 09/23/16 02:00 70 12 133/82 100 Room Air 09/23/16 01:00 68 12 133/82 100 Room Air 09/23/16 00:00 72 09/23/16 00:00 98.7 72 11 127/82 100 Room Air 09/22/16 23:00 73 14 132/89 100 Room Air 09/22/16 22:00 78 18 125/79 100 Room Air 09/22/16 21:00 74 14 125/79 100 Room Air 09/22/16 20:00 98.1 79 18 132/88 100 Room Air 09/22/16 20:00 77 09/22/16 19:00 78 16 160/89 100 Room Air 09/22/16 18:00 79 14 145/93 100 Room Air 09/22/16 17:00 79 12 152/92 100 Room Air 09/22/16 16:00 98.1 83 25 147/87 99 Room Air 09/22/16 15:36 97.8 09/22/16 15:00 78 12 150/95 100 09/22/16 14:00 79 09/22/16 14:00 97.8 79 23 130/84 94 Room Air 09/22/16 13:25 80 16 122/88 99 Room Air 09/22/16 13:15 97.2 80 16 122/88 100 Room Air 09/22/16 13:00 97.8 09/22/16 12:08 97.2 83 15 127/88 100 Room Air 09/22/16 11:00 97.2 80 13 138/71 100 Room Air 09/22/16 10:06 98.8 83 11 143/74 100 Room Air 09/22/16 09:30 98.8 88 16 147/78 100 Room Air Intake and Output 09/22/16 09/23/16 19:00 07:00 Intake Total 1438.6 ml 915.4 ml Output Total 591 ml 550 ml Balance 847.6 ml 365.4 ml Intake Oral 675 ml IV Total 763.6 ml 915.4 ml Output Urine Total 591 ml 550 ml Laboratory Tests 09/22/16 16:00: HIV-1 RNA (PCR) log10 Value [Pending], HIV-1 RNA Ultraquantitative (PCR) [ Pending] 09/23/16 05:00: White Blood Count 4.8, Red Blood Count 2.96L, Hemoglobin 9.2L, Hematocrit 28.5L , Mean Corpuscular Volume 96, Mean Corpuscular Hemoglobin 31.1H, Mean Corpuscular Hemoglobin Concent 32.3, Red Cell Distribution Width 14.7, Platelet Count 182, Mean Platelet Volume 8.8, Neutrophils (%) (Auto) 54.5, Lymphocytes (% ) (Auto) 33.5, Monocytes (%) (Auto) 5.9, Eosinophils (%) (Auto) 4.4H, Basophils (%) (Auto) 1.7, Sodium Level 139, Potassium Level 3.7, Chloride Level 98, Carbon Dioxide Level 28, Anion Gap 13, Blood Urea Nitrogen 23, Creatinine 1.3H, Estimat Glomerular Filtration Rate > 60, Glucose Level 142H, Calcium Level 9.0, Ferritin 344H, Total Bilirubin 0.2, Aspartate Amino Transf (AST/SGOT) 20, Alanine Aminotransferase (ALT/SGPT) 41, Alkaline Phosphatase 134H, Pro-B-Type Natriuretic Peptide 166H, Total Protein 5.9L, Albumin 3.0L, Globulin 2.9, Albumin/Globulin Ratio 1.0 Height (Feet): 6 Height (Inches): 1.00 Weight (Pounds): 150 Objective General Appearance: no apparent distress, alert EENT: PERRL/EOMI, normal ENT inspection Neck: normal alignment, supple Cardiovascular: normal rate, regular rhythm Respiratory/Chest: lungs clear, normal breath sounds Abdomen: non tender, soft Extremities: other - left BKA Edema: trace edema Neurologic: alert, oriented x 3 Skin: warm/dry CALLIE FRAGOSO N. P.Dhiraj Sep 23, 2016 08:59
[2016-09-23] MEDS: Heparin 5000 units/ml inj SUBQ SCH ×2 (09:00→21:12)
--- NOTE | 2016-09-23 09:09 | General Progress Note ---
Assessment/Plan Problem List: (1) Diabetic nephropathy ICD Codes: E11.21 - Type 2 diabetes mellitus with diabetic nephropathy SNOMED: 380111989 (2) Uncontrolled diabetes mellitus ICD Codes: E11.65 - Type 2 diabetes mellitus with hyperglycemia SNOMED: 697005180 (3) Diabetic ketoacidosis ICD Codes: E13.10 - Other specified diabetes mellitus with ketoacidosis without coma SNOMED: 22202639, 235425005 (4) HIV disease ICD Codes: B20 - Human immunodeficiency virus (HIV) disease SNOMED: 79641285 (5) Hypothyroidism ICD Codes: E03.9 - Hypothyroidism SNOMED: 55984012 Assessment/Plan DKA resolved change IVF to NS start diet DC insulin drip start Levemir 15 units dailyh + Novolog 5 units ac tid + SSI resume Levothyroxine 150 mcg daily Subjective Allergies: Coded Allergies: GABAPENTIN (Verified Allergy, Severe, 04/07/12) QUETIAPINE (Verified Allergy, Unknown, 07/25/15) All Systems: reviewed and negative except above Subjective status post EGD AG is closed Objective Last 24 Hour Vital Signs Date Time Temp Pulse Resp B/P Pulse Ox O2 Delivery O2 Flow Rate FiO2 09/23/16 08:24 67 18 100 09/23/16 08:23 67 18 100 09/23/16 07:00 63 16 134/76 100 Room Air 09/23/16 06:00 69 21 140/93 100 Room Air 09/23/16 05:00 66 15 134/91 100 Room Air 09/23/16 04:00 98.1 69 14 134/91 100 Room Air 09/23/16 04:00 68 09/23/16 03:00 68 12 133/86 100 Room Air 09/23/16 02:00 70 12 133/82 100 Room Air 09/23/16 01:00 68 12 133/82 100 Room Air 09/23/16 00:00 72 09/23/16 00:00 98.7 72 11 127/82 100 Room Air 09/22/16 23:00 73 14 132/89 100 Room Air 09/22/16 22:00 78 18 125/79 100 Room Air 09/22/16 21:00 74 14 125/79 100 Room Air 09/22/16 20:00 98.1 79 18 132/88 100 Room Air 09/22/16 20:00 77 09/22/16 19:00 78 16 160/89 100 Room Air 09/22/16 18:00 79 14 145/93 100 Room Air 09/22/16 17:00 79 12 152/92 100 Room Air 09/22/16 16:00 98.1 83 25 147/87 99 Room Air 09/22/16 15:36 97.8 09/22/16 15:00 78 12 150/95 100 09/22/16 14:00 79 09/22/16 14:00 97.8 79 23 130/84 94 Room Air 09/22/16 13:25 80 16 122/88 99 Room Air 09/22/16 13:15 97.2 80 16 122/88 100 Room Air 09/22/16 13:00 97.8 09/22/16 12:08 97.2 83 15 127/88 100 Room Air 09/22/16 11:00 97.2 80 13 138/71 100 Room Air 09/22/16 10:06 98.8 83 11 143/74 100 Room Air 09/22/16 09:30 98.8 88 16 147/78 100 Room Air Intake and Output 09/22/16 09/23/16 19:00 07:00 Intake Total 1438.6 ml 915.4 ml Output Total 591 ml 550 ml Balance 847.6 ml 365.4 ml Intake Oral 675 ml IV Total 763.6 ml 915.4 ml Output Urine Total 591 ml 550 ml Laboratory Tests 09/22/16 16:00: HIV-1 RNA (PCR) log10 Value [Pending], HIV-1 RNA Ultraquantitative (PCR) [ Pending] 09/23/16 05:00: White Blood Count 4.8, Red Blood Count 2.96L, Hemoglobin 9.2L, Hematocrit 28.5L , Mean Corpuscular Volume 96, Mean Corpuscular Hemoglobin 31.1H, Mean Corpuscular Hemoglobin Concent 32.3, Red Cell Distribution Width 14.7, Platelet Count 182, Mean Platelet Volume 8.8, Neutrophils (%) (Auto) 54.5, Lymphocytes (% ) (Auto) 33.5, Monocytes (%) (Auto) 5.9, Eosinophils (%) (Auto) 4.4H, Basophils (%) (Auto) 1.7, Sodium Level 139, Potassium Level 3.7, Chloride Level 98, Carbon Dioxide Level 28, Anion Gap 13, Blood Urea Nitrogen 23, Creatinine 1.3H, Estimat Glomerular Filtration Rate > 60, Glucose Level 142H, Calcium Level 9.0, Ferritin 344H, Total Bilirubin 0.2, Aspartate Amino Transf (AST/SGOT) 20, Alanine Aminotransferase (ALT/SGPT) 41, Alkaline Phosphatase 134H, Pro-B-Type Natriuretic Peptide 166H, Total Protein 5.9L, Albumin 3.0L, Globulin 2.9, Albumin/Globulin Ratio 1.0 Height (Feet): 6 Height (Inches): 1.00 Weight (Pounds): 150 General Appearance: no apparent distress Neck: normal alignment Cardiovascular: regular rhythm Respiratory/Chest: lungs clear Abdomen: normal bowel sounds Extremities: other - left Objective Current Medications Medications (Trade) Dose Ordered Sig/Gadiel Route PRN Reason Start Time Stop Time Status Last Admin Dose Admin Acetaminophen (Tylenol) 650 mg Q4H PRN ORAL Fever 09/21/16 23:45 10/21/16 23:44 Albuterol/ Ipratropium (DuoNeb 0.5-3(2.5)mg/3ml) 3 ml Q4H PRN HHN Shortness of Breath 09/21/16 23:45 09/26/16 23:44 Dextrose (Dextrose 50%) PRN PRN IV HYPOGLYCEMIA 09/22/16 16:30 10/22/16 16:29 Dextrose (Dextrose 50%) STAT PRN IV Hypoglycemia 09/21/16 23:45 10/21/16 23:44 Dextrose/Sodium Chloride (D5 0.45% NS) 1,000 ml @ 75 mls/hr [id number] IV 09/22/16 14:45 10/22/16 14:44 09/23/16 04:20 Heparin Sodium (Porcine) (Heparin 5000 units/ml) 5,000 units EVERY 12 HOURS SUBQ 09/22/16 09:00 10/22/16 08:59 09/22/16 20:28 Insulin Human Regular (NovoLIN R) 5 units PRN PRN IV BS 200-299 09/22/16 16:30 10/22/16 16:29 09/22/16 20:22 Insulin Human Regular (NovoLIN R) 10 units PRN PRN IV BS=>300 09/22/16 16:30 10/22/16 16:29 09/22/16 18:29 Insulin Human Regular/Sodium Chloride (NovoLIN R/ Sodium Chloride) 101 ml @ 0 mls/hr Q24H IV 09/22/16 18:01 10/22/16 17:29 09/22/16 19:00 Lorazepam (Ativan 2mg/ml 1ml) 2 mg Q2H PRN IV agitation 09/21/16 23:45 09/28/16 23:44 Miscellaneous Medication 1 ea 1 ea PRN PRN MISC Hyperglycemia 09/22/16 16:30 10/22/16 16:29 09/23/16 07:59 Morphine Sulfate (Morphine Sulfate) 4 mg Q4H PRN IVP Severe Pain (Pain Scale 7-10) 09/21/16 23:45 09/28/16 23:44 09/23/16 05:00 Nitroglycerin (Ntg) 0.4 mg Q5M PRN SL Prn Chest Pain 09/21/16 23:45 10/21/16 23:44 Ondansetron HCl (Zofran) 4 mg Q6H PRN IVP Nausea & Vomiting 09/21/16 23:45 10/21/16 23:44 Patient Own Medication 1 ea 1 ea DAILY ORAL 09/22/16 16:00 10/22/16 15:59 09/22/16 16:11 Polyethylene Glycol (Miralax) 17 gm DAILYPRN PRN ORAL Constipation 09/21/16 23:45 10/21/16 23:44 Item Value Date Time Bedside Blood Glucose 131 mg/dl H 09/23/16 0759 Bedside Blood Glucose 127 mg/dl H 09/23/16 0600 Bedside Blood Glucose 131 mg/dl H 09/23/16 0200 Bedside Blood Glucose 102 mg/dl 09/22/16 2206 Bedside Blood Glucose 224 mg/dl H 09/22/161828 AKILAH MARIE 9, 2017 09:09
--- NOTE | 2016-09-23 09:33 | General Progress Note ---
Assessment/Plan Assessment/Plan Assessment - N/V - DKA - UGIB - GERD - AIDS Recommendations - PPI - elevate HOB - EGD today --> duodenitis - outpatient screening colon Subjective Allergies: Coded Allergies: GABAPENTIN (Verified Allergy, Severe, 04/07/12) QUETIAPINE (Verified Allergy, Unknown, 07/25/15) Subjective feels OK no further N/V pain gone Objective Last 24 Hour Vital Signs Date Time Temp Pulse Resp B/P Pulse Ox O2 Delivery O2 Flow Rate FiO2 09/23/16 08:24 67 18 100 09/23/16 08:23 67 18 100 09/23/16 07:00 63 16 134/76 100 Room Air 09/23/16 06:00 69 21 140/93 100 Room Air 09/23/16 05:00 66 15 134/91 100 Room Air 09/23/16 04:00 98.1 69 14 134/91 100 Room Air 09/23/16 04:00 68 09/23/16 03:00 68 12 133/86 100 Room Air 09/23/16 02:00 70 12 133/82 100 Room Air 09/23/16 01:00 68 12 133/82 100 Room Air 09/23/16 00:00 72 09/23/16 00:00 98.7 72 11 127/82 100 Room Air 09/22/16 23:00 73 14 132/89 100 Room Air 09/22/16 22:00 78 18 125/79 100 Room Air 09/22/16 21:00 74 14 125/79 100 Room Air 09/22/16 20:00 98.1 79 18 132/88 100 Room Air 09/22/16 20:00 77 09/22/16 19:00 78 16 160/89 100 Room Air 09/22/16 18:00 79 14 145/93 100 Room Air 09/22/16 17:00 79 12 152/92 100 Room Air 09/22/16 16:00 98.1 83 25 147/87 99 Room Air 09/22/16 15:36 97.8 09/22/16 15:00 78 12 150/95 100 09/22/16 14:00 79 09/22/16 14:00 97.8 79 23 130/84 94 Room Air 09/22/16 13:25 80 16 122/88 99 Room Air 09/22/16 13:15 97.2 80 16 122/88 100 Room Air 09/22/16 13:00 97.8 09/22/16 12:08 97.2 83 15 127/88 100 Room Air 09/22/16 11:00 97.2 80 13 138/71 100 Room Air 09/22/16 10:06 98.8 83 11 143/74 100 Room Air Intake and Output 09/22/16 09/23/16 19:00 07:00 Intake Total 1438.6 ml 915.4 ml Output Total 591 ml 550 ml Balance 847.6 ml 365.4 ml Intake Oral 675 ml IV Total 763.6 ml 915.4 ml Output Urine Total 591 ml 550 ml Laboratory Tests 09/22/16 16:00: HIV-1 RNA (PCR) log10 Value [Pending], HIV-1 RNA Ultraquantitative (PCR) [ Pending] 09/23/16 05:00: White Blood Count 4.8, Red Blood Count 2.96L, Hemoglobin 9.2L, Hematocrit 28.5L , Mean Corpuscular Volume 96, Mean Corpuscular Hemoglobin 31.1H, Mean Corpuscular Hemoglobin Concent 32.3, Red Cell Distribution Width 14.7, Platelet Count 182, Mean Platelet Volume 8.8, Neutrophils (%) (Auto) 54.5, Lymphocytes (% ) (Auto) 33.5, Monocytes (%) (Auto) 5.9, Eosinophils (%) (Auto) 4.4H, Basophils (%) (Auto) 1.7, Sodium Level 139, Potassium Level 3.7, Chloride Level 98, Carbon Dioxide Level 28, Anion Gap 13, Blood Urea Nitrogen 23, Creatinine 1.3H, Estimat Glomerular Filtration Rate > 60, Glucose Level 142H, Calcium Level 9.0, Ferritin 344H, Total Bilirubin 0.2, Aspartate Amino Transf (AST/SGOT) 20, Alanine Aminotransferase (ALT/SGPT) 41, Alkaline Phosphatase 134H, Pro-B-Type Natriuretic Peptide 166H, Total Protein 5.9L, Albumin 3.0L, Globulin 2.9, Albumin/Globulin Ratio 1.0 Height (Feet): 6 Height (Inches): 1.00 Weight (Pounds): 150 Objective WDWN NCAT CTA RRR Soft ND NT (L) SYED VILLARREAL Sep 23, 2016 09:33
--- NOTE | 2016-09-23 09:34 | Endoscopy Procedure Note ---
Endoscopy Procedure Note Indication for Procedure: ugib Operative Findings/Diagnosis: duodenitis, bx antrum Specimen: yes Pt Tolerated Procedure Well: Yes Estimated Blood Loss: none Anesthesiologist: see report Anesthesia: MAC Implant(s) used?: No 50 yrs or older w/o bx or poly: Not Applicable 10yrs. F/U not recommended: Not Applicable If not recommended, why?: SYED VILLEDA Sep 23, 2016 09:34
--- NOTE | 2016-09-23 09:35 | Brief Operative Note ---
Immediate Post Operative Note Operative Note Chief Complaint: ugib Pre-op Diagnosis: ugib Procedure: egd/bx Post-op Diagnosis: duodenitis Surgeon: daren Anesthesiologist: see report Anesthesia: MAC Specimen: yes Complications: none Condition: stable Estimated Blood Loss: none Drains: none Implant(s) used?: No SYED VILLEDA Sep 23, 2016 09:35
[2016-09-23] MEDS: GENVOYA TAB ORAL SCH (09:59)
[2016-09-23] MEDS ORDERED: LR 1000ml ONE (10:00)
[2016-09-23] MEDS: NovoLOG Insulin Flexpen SUBQ SCH ×5 (10:16→21:11)
--- NOTE | 2016-09-23 10:46 | Pulmonolgy Critical Care Note ---
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 Discussed with: nurses, consultants, manager of [employer] of [employer] - Objective Last 24 Hour Vital Signs Date Time Temp Pulse Resp B/P Pulse Ox O2 Delivery O2 Flow Rate FiO2 09/23/16 10:00 71 12 118/86 100 Room Air 09/23/16 09:00 67 11 102/76 100 Room Air 09/23/16 08:24 67 18 100 09/23/16 08:23 67 18 100 09/23/16 08:00 98.0 67 12 120/84 100 Room Air 09/23/16 07:00 63 16 134/76 100 Room Air 09/23/16 06:00 69 21 140/93 100 Room Air 09/23/16 05:00 66 15 134/91 100 Room Air 09/23/16 04:00 98.1 69 14 134/91 100 Room Air 09/23/16 04:00 68 09/23/16 03:00 68 12 133/86 100 Room Air 09/23/16 02:00 70 12 133/82 100 Room Air 09/23/16 01:00 68 12 133/82 100 Room Air 09/23/16 00:00 72 09/23/16 00:00 98.7 72 11 127/82 100 Room Air 09/22/16 23:00 73 14 132/89 100 Room Air 09/22/16 22:00 78 18 125/79 100 Room Air 09/22/16 21:00 74 14 125/79 100 Room Air 09/22/16 20:00 98.1 79 18 132/88 100 Room Air 09/22/16 20:00 77 09/22/16 19:00 78 16 160/89 100 Room Air 09/22/16 18:00 79 14 145/93 100 Room Air 09/22/16 17:00 79 12 152/92 100 Room Air 09/22/16 16:00 98.1 83 25 147/87 99 Room Air 09/22/16 15:36 97.8 09/22/16 15:00 78 12 150/95 100 09/22/16 14:00 79 09/22/16 14:00 97.8 79 23 130/84 94 Room Air 09/22/16 13:25 80 16 122/88 99 Room Air 09/22/16 13:15 97.2 80 16 122/88 100 Room Air 09/22/16 13:00 97.8 09/22/16 12:08 97.2 83 15 127/88 100 Room Air 09/22/16 11:00 97.2 80 13 138/71 100 Room Air Condition: critical, improving Neck: full ROM Heart: HR/BP stable Abdomen: soft, non-tender Extremities: no C/C/E, edema Accucheck: 175 Critical Care - Subjective ROS Limited/Unobtainable: Yes ICU Day: 2 Condition: critical EKG Rhythm: Sinus Rhythm Fluids: d5w 75 cc.hour I&O: Intake and Output 09/22/16 09/23/16 19:00 07:00 Intake Total 1438.6 ml 915.4 ml Output Total 591 ml 550 ml Balance 847.6 ml 365.4 ml Intake Oral 675 ml IV Total 763.6 ml 915.4 ml Output Urine Total 591 ml 550 ml CXR: paulina Labs: Laboratory Tests Test 09/22/16 16:00 09/23/16 05:00 HIV-1 RNA (PCR) log10 Value Pending HIV-1 RNA Ultraquantitative (PCR) Pending White Blood Count 4.8 K/UL (4.8-10.8) Red Blood Count 2.96 M/UL (4.70-6.10) L Hemoglobin 9.2 G/DL (14.2-18.0) L Hematocrit 28.5 % (42.0-52.0) L Mean Corpuscular Volume 96 FL (80-99) Mean Corpuscular Hemoglobin 31.1 PG (27.0-31.0) H Mean Corpuscular Hemoglobin Concent 32.3 G/DL (32.0-36.0) Red Cell Distribution Width 14.7 % (11.6-14.8) Platelet Count 182 K/UL (150-450) Mean Platelet Volume 8.8 FL (6.5-10.1) Neutrophils (%) (Auto) 54.5 % (45.0-75.0) Lymphocytes (%) (Auto) 33.5 % (20.0-45.0) Monocytes (%) (Auto) 5.9 % (1.0-10.0) Eosinophils (%) (Auto) 4.4 % (0.0-3.0) H Basophils (%) (Auto) 1.7 % (0.0-2.0) Sodium Level 139 mEQ/L (135-145) Potassium Level 3.7 mEQ/L (3.4-4.9) Chloride Level 98 mEQ/L (98-107) Carbon Dioxide Level 28 mEQ/L (20-30) Anion Gap 13 (5-15) Blood Urea Nitrogen 23 mg/dL (7-23) Creatinine 1.3 mg/dL (0.7-1.2) H Estimat Glomerular Filtration Rate > 60 mL/min (>60) Glucose Level 142 mg/dL (74-106) H Calcium Level 9.0 mg/dL (8.6-10.2) Ferritin 344 ng/mL (10-230) H Total Bilirubin 0.2 mg/dL (0.0-1.2) Aspartate Amino Transf (AST/SGOT) 20 U/L (5-40) Alanine Aminotransferase (ALT/SGPT) 41 U/L (3-41) Alkaline Phosphatase 134 U/L (40-129) H Pro-B-Type Natriuretic Peptide 166 pg/mL (0-125) H Total Protein 5.9 g/dL (6.6-8.7) L Albumin 3.0 g/dL (3.5-5.2) L Globulin 2.9 g/dL Albumin/Globulin Ratio 1.0 (1.0-2.7) GINETTE DAMON Sep 23, 2016 10:45
[2016-09-23] MEDS ORDERED: Levemir Flexpen SUBQ SCH (11:00)
--- NOTE | 2016-09-23 11:25 | General Progress Note ---
Assessment/Plan Problem List: (1) Upper GI bleed ICD Codes: K92.2 - Gastrointestinal hemorrhage, unspecified SNOMED: 15556539 (2) Anemia due to blood loss, acute ICD Codes: D62 - Acute posthemorrhagic anemia SNOMED: 946900012 (3) Hyperglycemia (4) Phantom limb pain ICD Codes: G54.7 - Phantom limb syndrome SNOMED: 085118600 (5) Hypoalbuminemia ICD Codes: E88.09 - Other disorders of plasma-protein metabolism, not elsewhere classified SNOMED: 834543013 (6) Gastritis ICD Codes: K29.70 - Gastritis, unspecified, without bleeding SNOMED: 1272049 (7) Pain in limb ICD Codes: M79.609 - Pain in limb SNOMED: 43413385 (8) Neuropathic pain ICD Codes: M79.2 - Neuropathic pain syndrome (non-herpetic) SNOMED: 089505428 (9) Hyperglycemia (10) UGIB (upper gastrointestinal bleed) ICD Codes: K92.2 - Gastrointestinal hemorrhage, unspecified SNOMED: 84697172 (11) Diabetic ketoacidosis ICD Codes: E13.10 - Other specified diabetes mellitus with ketoacidosis without coma SNOMED: 58695936, 346541538 (12) HIV disease ICD Codes: B20 - Human immunodeficiency virus (HIV) disease SNOMED: 45451491 (13) Dehydration (14) Hypothyroidism ICD Codes: E03.9 - Hypothyroidism SNOMED: 53985718 (15) Diabetic nephropathy ICD Codes: E11.21 - Type 2 diabetes mellitus with diabetic nephropathy SNOMED: 743083898 (16) DKA (diabetic ketoacidoses) ICD Codes: E13.10 - Other specified diabetes mellitus with ketoacidosis without coma SNOMED: 96934688, 938419193 Qualifiers: Qualified Codes: E13.10 - Other specified diabetes mellitus with ketoacidosis without coma Status: progressing Assessment/Plan bg is improving dka resolved unable to take care of himself at home agrees rto go to snf needs pt/ot Subjective ROS Limited/Unobtainable: Yes Constitutional: Reports: no symptoms Allergies: Coded Allergies: GABAPENTIN (Verified Allergy, Severe, 04/07/12) QUETIAPINE (Verified Allergy, Unknown, 07/25/15) Objective Last 24 Hour Vital Signs Date Time Temp Pulse Resp B/P Pulse Ox O2 Delivery O2 Flow Rate FiO2 09/23/16 10:00 71 12 118/86 100 Room Air 09/23/16 09:00 67 11 102/76 100 Room Air 09/23/16 08:24 67 18 100 09/23/16 08:23 67 18 100 09/23/16 08:00 98.0 67 12 120/84 100 Room Air 09/23/16 07:00 63 16 134/76 100 Room Air 09/23/16 06:00 69 21 140/93 100 Room Air 09/23/16 05:00 66 15 134/91 100 Room Air 09/23/16 04:00 98.1 69 14 134/91 100 Room Air 09/23/16 04:00 68 09/23/16 03:00 68 12 133/86 100 Room Air 09/23/16 02:00 70 12 133/82 100 Room Air 09/23/16 01:00 68 12 133/82 100 Room Air 09/23/16 00:00 72 09/23/16 00:00 98.7 72 11 127/82 100 Room Air 09/22/16 23:00 73 14 132/89 100 Room Air 09/22/16 22:00 78 18 125/79 100 Room Air 09/22/16 21:00 74 14 125/79 100 Room Air 09/22/16 20:00 98.1 79 18 132/88 100 Room Air 09/22/16 20:00 77 09/22/16 19:00 78 16 160/89 100 Room Air 09/22/16 18:00 79 14 145/93 100 Room Air 09/22/16 17:00 79 12 152/92 100 Room Air 09/22/16 16:00 98.1 83 25 147/87 99 Room Air 09/22/16 15:36 97.8 09/22/16 15:00 78 12 150/95 100 09/22/16 14:00 79 09/22/16 14:00 97.8 79 23 130/84 94 Room Air 09/22/16 13:25 80 16 122/88 99 Room Air 09/22/16 13:15 97.2 80 16 122/88 100 Room Air 09/22/16 13:00 97.8 09/22/16 12:08 97.2 83 15 127/88 100 Room Air Intake and Output 09/22/16 09/23/16 19:00 07:00 Intake Total 1438.6 ml 915.4 ml Output Total 591 ml 550 ml Balance 847.6 ml 365.4 ml Intake Oral 675 ml IV Total 763.6 ml 915.4 ml Output Urine Total 591 ml 550 ml Laboratory Tests 09/22/16 16:00: HIV-1 RNA (PCR) log10 Value [Pending], HIV-1 RNA Ultraquantitative (PCR) [ Pending] 09/23/16 05:00: White Blood Count 4.8, Red Blood Count 2.96L, Hemoglobin 9.2L, Hematocrit 28.5L , Mean Corpuscular Volume 96, Mean Corpuscular Hemoglobin 31.1H, Mean Corpuscular Hemoglobin Concent 32.3, Red Cell Distribution Width 14.7, Platelet Count 182, Mean Platelet Volume 8.8, Neutrophils (%) (Auto) 54.5, Lymphocytes (% ) (Auto) 33.5, Monocytes (%) (Auto) 5.9, Eosinophils (%) (Auto) 4.4H, Basophils (%) (Auto) 1.7, Sodium Level 139, Potassium Level 3.7, Chloride Level 98, Carbon Dioxide Level 28, Anion Gap 13, Blood Urea Nitrogen 23, Creatinine 1.3H, Estimat Glomerular Filtration Rate > 60, Glucose Level 142H, Calcium Level 9.0, Ferritin 344H, Total Bilirubin 0.2, Aspartate Amino Transf (AST/SGOT) 20, Alanine Aminotransferase (ALT/SGPT) 41, Alkaline Phosphatase 134H, Pro-B-Type Natriuretic Peptide 166H, Total Protein 5.9L, Albumin 3.0L, Globulin 2.9, Albumin/Globulin Ratio 1.0 Height (Feet): 6 Height (Inches): 1.00 Weight (Pounds): 150 EENT: PERRL/EOMI Neck: supple Cardiovascular: normal rate Respiratory/Chest: lungs clear Abdomen: soft Suzy Bruce MD Sep 23, 2016 11:25
--- NOTE | 2016-09-23 11:36 | General Progress Note ---
Assessment/Plan Assessment/Plan ASSESSMENT: 1. Anemia of GI bleed, patient with vomiting of blood and reason for admission, s/p egd procedure this am, results to follow 2. Anemia of chronic disease as well as kidney disease, now improved, could be 2/2 dehydration, will recheck 3. Hereditary hemorrhagic telectangasia 4. Leukopenia, stable, potentially 2/2 infection as well 5. Hypoglycemia. 6. Human immunodeficiency virus/acquired immune deficiency syndrome. 7. Dementia. 8. Parkinson disease. 9. CP r/o ACS 10. Osteomyelitis 11. Parkinson disease. 12. Encephalopathy. 13. History of seizure. RECOMMENDATIONS: 1. Monitor counts 2. Ferritin is elevated indicating anemia of chronic disease 3. PRBC transfusion as needed basis. 4. Procrit sq for hiv (only if hgb less than 10) 5. GI ppx with ppi 6. Heparin for DVT prophylaxis. 7. Skin care. 8. Nutrition. 9. Close followup. Thank you, Connor Cuevas MD Subjective Constitutional: Reports: no symptoms HEENT: Reports: no symptoms Cardiovascular: Reports: no symptoms Respiratory: Reports: no symptoms Gastrointestinal/Abdominal: Reports: no symptoms Genitourinary: Reports: no symptoms Neurologic/Psychiatric: Reports: anxiety Endocrine: Reports: no symptoms Hematologic/Lymphatic: Reports: anemia Allergies: Coded Allergies: GABAPENTIN (Verified Allergy, Severe, 04/07/12) QUETIAPINE (Verified Allergy, Unknown, 07/25/15) Subjective stable, no events overnight, no fevers or chills reported Objective Last 24 Hour Vital Signs Date Time Temp Pulse Resp B/P Pulse Ox O2 Delivery O2 Flow Rate FiO2 09/23/16 10:00 71 12 118/86 100 Room Air 09/23/16 09:00 67 11 102/76 100 Room Air 09/23/16 08:24 67 18 100 09/23/16 08:23 67 18 100 09/23/16 08:00 98.0 67 12 120/84 100 Room Air 09/23/16 07:00 63 16 134/76 100 Room Air 09/23/16 06:00 69 21 140/93 100 Room Air 09/23/16 05:00 66 15 134/91 100 Room Air 09/23/16 04:00 98.1 69 14 134/91 100 Room Air 09/23/16 04:00 68 09/23/16 03:00 68 12 133/86 100 Room Air 09/23/16 02:00 70 12 133/82 100 Room Air 09/23/16 01:00 68 12 133/82 100 Room Air 09/23/16 00:00 72 09/23/16 00:00 98.7 72 11 127/82 100 Room Air 09/22/16 23:00 73 14 132/89 100 Room Air 09/22/16 22:00 78 18 125/79 100 Room Air 09/22/16 21:00 74 14 125/79 100 Room Air 09/22/16 20:00 98.1 79 18 132/88 100 Room Air 09/22/16 20:00 77 09/22/16 19:00 78 16 160/89 100 Room Air 09/22/16 18:00 79 14 145/93 100 Room Air 09/22/16 17:00 79 12 152/92 100 Room Air 09/22/16 16:00 98.1 83 25 147/87 99 Room Air 09/22/16 15:36 97.8 09/22/16 15:00 78 12 150/95 100 09/22/16 14:00 79 09/22/16 14:00 97.8 79 23 130/84 94 Room Air 09/22/16 13:25 80 16 122/88 99 Room Air 09/22/16 13:15 97.2 80 16 122/88 100 Room Air 09/22/16 13:00 97.8 09/22/16 12:08 97.2 83 15 127/88 100 Room Air Intake and Output 09/22/16 09/23/16 19:00 07:00 Intake Total 1438.6 ml 915.4 ml Output Total 591 ml 550 ml Balance 847.6 ml 365.4 ml Intake Oral 675 ml IV Total 763.6 ml 915.4 ml Output Urine Total 591 ml 550 ml Laboratory Tests 09/22/16 16:00: HIV-1 RNA (PCR) log10 Value [Pending], HIV-1 RNA Ultraquantitative (PCR) [ Pending] 09/23/16 05:00: White Blood Count 4.8, Red Blood Count 2.96L, Hemoglobin 9.2L, Hematocrit 28.5L , Mean Corpuscular Volume 96, Mean Corpuscular Hemoglobin 31.1H, Mean Corpuscular Hemoglobin Concent 32.3, Red Cell Distribution Width 14.7, Platelet Count 182, Mean Platelet Volume 8.8, Neutrophils (%) (Auto) 54.5, Lymphocytes (% ) (Auto) 33.5, Monocytes (%) (Auto) 5.9, Eosinophils (%) (Auto) 4.4H, Basophils (%) (Auto) 1.7, Sodium Level 139, Potassium Level 3.7, Chloride Level 98, Carbon Dioxide Level 28, Anion Gap 13, Blood Urea Nitrogen 23, Creatinine 1.3H, Estimat Glomerular Filtration Rate > 60, Glucose Level 142H, Calcium Level 9.0, Ferritin 344H, Total Bilirubin 0.2, Aspartate Amino Transf (AST/SGOT) 20, Alanine Aminotransferase (ALT/SGPT) 41, Alkaline Phosphatase 134H, Pro-B-Type Natriuretic Peptide 166H, Total Protein 5.9L, Albumin 3.0L, Globulin 2.9, Albumin/Globulin Ratio 1.0 Height (Feet): 6 Height (Inches): 1.00 Weight (Pounds): 150 General Appearance: no apparent distress EENT: TMs normal Neck: supple Cardiovascular: regular rhythm Respiratory/Chest: lungs clear Abdomen: soft Extremities: non-tender Edema: 1+ Leg (L), 1+ Leg (R) Neurologic: alert Skin: warm/dry Connor Cuevas Sep 23, 2016 11:36
--- NOTE | 2016-09-23 11:39 | Diagnostic Imaging Report ---
Indication: DYSPNEA Technique: One view of the chest Comparison: 09/10/2016 Findings: Lungs and pleural spaces are clear. Heart size is normal. No significant change Impression: No acute process
[2016-09-23] MEDS ORDERED: NovoLOG Insulin Flexpen SUBQ ONE (11:50)
[2016-09-23] MEDS ORDERED: NovoLOG Insulin Flexpen SUBQ SCH (11:50)
[2016-09-23] MEDS ORDERED: Sterile Water Irrig 1000ml IRRIG ONE (15:05)
[2016-09-23] MEDS ORDERED: D5 1/2NS 1000ml IV ONE (15:05)
[2016-09-23] MEDS ORDERED: LORazepam Inj 2mg/ml 1ml IV PRN (15:45)
[2016-09-23] MEDS ORDERED: DuoNeb 0.5-3(2.5)mg/3ml neb HHN PRN (15:45)
[2016-09-23] MEDS ORDERED: Nitroglycerin Subl 0.4mg tab (Bottle Of 25) SL PRN (15:45)
[2016-09-23] MEDS ORDERED: Miralax 17gm pkt ORAL PRN (16:00)
--- NOTE | 2016-09-23 16:53 | Infectious Diseases Prog Note ---
Assessment/Plan Problems: (1) HIV disease Assessment & Plan: continue genvoya, check viral load, follow up with HIV provider as an outpatient (2) Diabetic ketoacidosis Assessment & Plan: improved on insulin drip, titrate insulin to keep blood glucose between 80-120 (3) Dehydration Assessment & Plan: continue IVF , monitor electrolytes (4) DM (diabetes mellitus) Assessment & Plan: recommend tight glycemic control to keep blood glucose between 80-120 (5) ARF (acute renal failure) Assessment & Plan: suspect prerenal, continue hydration and monitor UOP, and renal function Subjective Constitutional: Denies: anorexia, chills, drenching sweats, fatigue, fever, no symptoms, other HEENT: Denies: congestion, coryza, dysphagia, hearing change, no symptoms, other, visual change Respiratory: Denies: dry cough, no symptoms, other, productive cough, shortness of breath Breasts: Denies: discharge, no symptoms, other, swelling, tenderness Cardiovascular: Denies: chest pain, dyspnea on exertion, no symptoms, other, palpitations Gastrointestinal/Abdominal: Denies: bloating, blood in stool, constipation, diarrhea, nausea, no symptoms, other, vomiting Genitourinary: Denies: dysuria, frequency, hematuria, no symptoms, nocturia, other Neurologic: Denies: confusion, headache, no symptoms, numbness, other, weakness Psychiatric: Denies: anxiety, depression, no symptoms, other Skin: Denies: no symptoms, other, rash, ulcer Allergies: Coded Allergies: GABAPENTIN (Verified Allergy, Severe, 04/07/12) QUETIAPINE (Verified Allergy, Unknown, 07/25/15) Objective Vital Signs Last 24 Hour Vital Signs Date Time Temp Pulse Resp B/P Pulse Ox O2 Delivery O2 Flow Rate FiO2 09/23/16 16:00 97.7 82 18 132/84 100 Room Air 09/23/16 15:03 97.5 09/23/16 14:00 74 18 141/89 100 Room Air 09/23/16 13:00 85 21 139/86 100 Room Air 09/23/16 12:00 97.5 74 10 131/81 100 Room Air 09/23/16 12:00 85 09/23/16 11:00 73 11 127/80 100 Room Air 09/23/16 10:00 71 12 118/86 100 Room Air 09/23/16 09:00 67 11 102/76 100 Room Air 09/23/16 08:24 67 18 100 09/23/16 08:23 67 18 100 09/23/16 08:00 66 09/23/16 08:00 98.0 67 12 120/84 100 Room Air 09/23/16 07:00 63 16 134/76 100 Room Air 09/23/16 06:00 69 21 140/93 100 Room Air 09/23/16 05:00 66 15 134/91 100 Room Air 09/23/16 04:00 98.1 69 14 134/91 100 Room Air 09/23/16 04:00 68 09/23/16 03:00 68 12 133/86 100 Room Air 09/23/16 02:00 70 12 133/82 100 Room Air 09/23/16 01:00 68 12 133/82 100 Room Air 09/23/16 00:00 72 09/23/16 00:00 98.7 72 11 127/82 100 Room Air 09/22/16 23:00 73 14 132/89 100 Room Air 09/22/16 22:00 78 18 125/79 100 Room Air 09/22/16 21:00 74 14 125/79 100 Room Air 09/22/16 20:00 98.1 79 18 132/88 100 Room Air 09/22/16 20:00 77 09/22/16 19:00 78 16 160/89 100 Room Air 09/22/16 18:00 79 14 145/93 100 Room Air 09/22/16 17:00 79 12 152/92 100 Room Air Height (Feet): 6 Height (Inches): 1.00 Weight (Pounds): 150 General Appearance: WD/WN, no acute distress HEENT: normocephalic, atraumatic, anicteric, mucous membranes moist Respiratory/Chest: chest wall non-tender, lungs clear, normal breath sounds, no respiratory distress, no accessory muscle use Cardiovascular: normal peripheral pulses, normal rate, regular rhythm, no JVD Abdomen: normal bowel sounds, soft, non tender, no organomegaly, non distended , no mass Extremities: no cyanosis, no clubbing Skin: no rash, no lesions Laboratory Tests Test 09/23/16 05:00 White Blood Count 4.8 K/UL (4.8-10.8) Red Blood Count 2.96 M/UL (4.70-6.10) L Hemoglobin 9.2 G/DL (14.2-18.0) L Hematocrit 28.5 % (42.0-52.0) L Mean Corpuscular Volume 96 FL (80-99) Mean Corpuscular Hemoglobin 31.1 PG (27.0-31.0) H Mean Corpuscular Hemoglobin Concent 32.3 G/DL (32.0-36.0) Red Cell Distribution Width 14.7 % (11.6-14.8) Platelet Count 182 K/UL (150-450) Mean Platelet Volume 8.8 FL (6.5-10.1) Neutrophils (%) (Auto) 54.5 % (45.0-75.0) Lymphocytes (%) (Auto) 33.5 % (20.0-45.0) Monocytes (%) (Auto) 5.9 % (1.0-10.0) Eosinophils (%) (Auto) 4.4 % (0.0-3.0) H Basophils (%) (Auto) 1.7 % (0.0-2.0) Sodium Level 139 mEQ/L (135-145) Potassium Level 3.7 mEQ/L (3.4-4.9) Chloride Level 98 mEQ/L (98-107) Carbon Dioxide Level 28 mEQ/L (20-30) Anion Gap 13 (5-15) Blood Urea Nitrogen 23 mg/dL (7-23) Creatinine 1.3 mg/dL (0.7-1.2) H Estimat Glomerular Filtration Rate > 60 mL/min (>60) Glucose Level 142 mg/dL (74-106) H Calcium Level 9.0 mg/dL (8.6-10.2) Ferritin 344 ng/mL (10-230) H Total Bilirubin 0.2 mg/dL (0.0-1.2) Aspartate Amino Transf (AST/SGOT) 20 U/L (5-40) Alanine Aminotransferase (ALT/SGPT) 41 U/L (3-41) Alkaline Phosphatase 134 U/L (40-129) H Pro-B-Type Natriuretic Peptide 166 pg/mL (0-125) H Total Protein 5.9 g/dL (6.6-8.7) L Albumin 3.0 g/dL (3.5-5.2) L Globulin 2.9 g/dL Albumin/Globulin Ratio 1.0 (1.0-2.7) Current Medications Medications (Trade) Dose Ordered Sig/Gadiel Route PRN Reason Start Time Stop Time Status Last Admin Dose Admin Acetaminophen (Tylenol) 650 mg Q4H PRN ORAL T>100.5 09/23/16 15:45 10/23/16 15:44 Albuterol/ Ipratropium (DuoNeb 0.5-3(2.5)mg/3ml) 3 ml Q4H PRN HHN Shortness of Breath 09/23/16 15:45 09/28/16 15:44 Dextrose (Dextrose 50%) STAT PRN IV Hypoglycemia 09/23/16 16:00 10/23/16 15:59 Heparin Sodium (Porcine) (Heparin 5000 units/ml) 5,000 units EVERY 12 HOURS SUBQ 09/23/16 21:00 10/23/16 20:59 Insulin Aspart (NovoLOG) BEFORE MEALS AND HS SUBQ 09/23/16 17:00 10/23/16 16:59 Insulin Detemir (Levemir) 15 units DAILY SUBQ 09/24/16 09:00 10/24/16 08:59 Levothyroxine Sodium (Synthroid) 150 mcg DAILY@0630 ORAL 09/24/16 06:30 10/24/16 06:29 Lorazepam (Ativan 2mg/ml 1ml) 2 mg Q2H PRN IV agitation 09/23/16 15:45 09/30/16 15:44 Morphine Sulfate (Morphine Sulfate) 4 mg Q4H PRN IVP Severe Pain (Pain Scale 7-10) 09/23/16 15:45 09/30/16 15:44 Nitroglycerin (Ntg) 0.4 mg Q5M PRN SL Prn Chest Pain 09/23/16 15:45 10/23/16 15:44 Ondansetron HCl (Zofran) 4 mg Q6H PRN IVP Nausea & Vomiting 09/23/16 16:00 10/23/16 15:59 Patient Own Medication (Patient's Own Med) 1 ea DAILY ORAL 09/22/16 16:00 10/22/16 15:59 09/23/16 09:59 Polyethylene Glycol (Miralax) 17 gm DAILYPRN PRN ORAL Constipation 09/23/16 16:00 10/23/16 15:59 Clayton Escamilla M.D. Sep 23, 2016 16:53
--- NOTE | 2016-09-23 17:39 | Consultation ---
Consult Note Consult Note asked to eval at the request of Dr Sheppard Patient known to me from previously and recent admission 50-year-old male presents to ED complaining of abdominal pain and vomiting. X3 days. Per EMS patient Accu-Chek critical he high. Patient notes history of diabetes. States he is compliant with his medications. Notes epigastric pain with vomiting. Vomiting coffee-ground emesis. Pain is sharp. 10 out of 10. Nonradiating. No other aggravating relieving factors. Denies chest pain or shortness of breath. Denies fevers or chills. Allergies: GABAPENTIN (Verified Allergy, Severe, 04/07/12) QUETIAPINE (Verified Allergy, Unknown, 07/25/15) Past Medical History: DM, VT, asthma, CVA/TIA Pertinent Family History: none Social History: Denies: alcohol use, drug use, smoking Immunizations: UTD Reviewed Nursing Documentation: PMH: Agreed, PSxH: Agreed patient interviewed and examined- data reviewed . Assessment/Plan Patient admitted for DKA Cr of 2 now lower to 1.3 Glucose now much improved LFTs also elevated- but improving Urine tox screen been positive recently No UA available at this time Other conditions: (1) Diabetic nephropathy (2) DM (diabetes mellitus) (3) Diabetic foot ulcer (4) Hypothyroidism (5) Dehydration (6) HIV (7) Parkinson / Migraine PLAN: Keep BP in check Continue BS control- watch renal parameters and LFTs- slow hydrate- per orders / consultants PONCHO RAMÍREZ Sep 23, 2016 17:39
[2016-09-23 21:03] LABS: APPEARANCE,URINE CLEAR; KETONES,URINE 1+ (NEGATIVE); LEUKOCYTE ESTERASE ,URINE 1+ (NEGATIVE); NITRITE,URINE NEGATIVE (NEGATIVE); PH,URINE 5 (4.5-8.0); PROTEIN,URINE 3+ (NEGATIVE); UROBILINOGEN,URINE NORMAL MG/DL (0.0-1.0)
[2016-09-23 21:13] LABS: BACTERIA,URINE FEW /HPF
[2016-09-24] VITALS: BP 138/81
[2016-09-24] MEDS: Morphine Sulfate 4mg/ml Inj IVP PRN ×5 (01:10→19:07)
[2016-09-24 04:00] VITALS: BP 128/78
[2016-09-24] MEDS: NovoLOG Insulin Flexpen SUBQ SCH ×6 (05:56→21:00)
[2016-09-24 06:53] LABS: EOSINOPHILS % (AUTO) 4.4 % (0.0-3.0); MEAN CORPUSCULAR HEMOGLOBIN 31.4 PG (27.0-31.0); MEAN CORPUSCULAR HGB CONC 32.3 G/DL (32.0-36.0); MEAN CORPUSCULAR VOLUME 97 FL (80-99); MEAN PLATELET VOLUME 8.3 FL (6.5-10.1); MONOCYTES % (AUTO) 5.1 % (1.0-10.0); NEUTROPHILS % (AUTO) 56.6 % (45.0-75.0); PLATELET COUNT 175 K/UL (150-450); RED CELL DISTRIBUTION WIDTH 14.2 % (11.6-14.8)
--- NOTE | 2016-09-24 07:12 | General Progress Note ---
Assessment/Plan Problem List: (1) Diabetic nephropathy ICD Codes: E11.21 - Type 2 diabetes mellitus with diabetic nephropathy SNOMED: 242074890 (2) Uncontrolled diabetes mellitus ICD Codes: E11.65 - Type 2 diabetes mellitus with hyperglycemia SNOMED: 533656761 (3) Diabetic ketoacidosis ICD Codes: E13.10 - Other specified diabetes mellitus with ketoacidosis without coma SNOMED: 37055857, 082876773 (4) HIV disease ICD Codes: B20 - Human immunodeficiency virus (HIV) disease SNOMED: 79337534 (5) Hypothyroidism ICD Codes: E03.9 - Hypothyroidism SNOMED: 17225670 Assessment/Plan continue Levemir 15 units dailyh + Novolog 5 units ac tid + SSI resume Levothyroxine 150 mcg daily Subjective Allergies: Coded Allergies: GABAPENTIN (Verified Allergy, Severe, 04/07/12) QUETIAPINE (Verified Allergy, Unknown, 07/25/15) All Systems: reviewed and negative except above Subjective event noted Objective Last 24 Hour Vital Signs Date Time Temp Pulse Resp B/P Pulse Ox O2 Delivery O2 Flow Rate FiO2 09/24/16 04:00 98.9 69 18 128/78 100 Room Air 09/24/16 00:00 97.7 79 20 138/81 100 Room Air 09/23/16 21:00 97.9 88 20 146/91 99 Room Air 09/23/16 19:43 82 18 Room Air 09/23/16 19:00 97.9 88 20 146/91 99 Room Air 09/23/16 17:00 97.7 82 18 132/84 100 Room Air 09/23/16 16:00 97.7 82 18 132/84 100 Room Air 09/23/16 15:03 97.5 09/23/16 14:00 74 18 141/89 100 Room Air 09/23/16 13:00 85 21 139/86 100 Room Air 09/23/16 12:00 97.5 74 10 131/81 100 Room Air 09/23/16 12:00 85 09/23/16 11:00 73 11 127/80 100 Room Air 09/23/16 10:00 71 12 118/86 100 Room Air 09/23/16 09:00 67 11 102/76 100 Room Air 09/23/16 08:24 67 18 100 09/23/16 08:23 67 18 100 09/23/16 08:00 66 09/23/16 08:00 98.0 67 12 120/84 100 Room Air Intake and Output 09/23/16 09/24/16 19:00 07:00 Intake Total 1142.4 ml 240 ml Output Total 630 ml 200 ml Balance 512.4 ml 40 ml Intake Oral 670 ml 240 ml IV Total 452.4 ml Other 20 ml Output Urine Total 630 ml 200 ml # Voids 1 Laboratory Tests 09/23/16 19:10: Urine Color Pale yellow, Urine Appearance Clear, Urine pH 5, Urine Specific [place] 1.020, Urine Protein 3+H, Urine Glucose (UA) 1+H, Urine Ketones 1+H, Urine Occult Blood 5+H, Urine Nitrite Negative, Urine Bilirubin Negative, Urine Urobilinogen Normal, Urine Leukocyte Esterase 1+H, Urine RBC 10-15H, Urine WBC 2 -4, Urine Squamous Epithelial Cells None, Urine Bacteria Few 09/24/16 06:05: White Blood Count 4.0L, Red Blood Count 2.90L, Hemoglobin 9.1L, Hematocrit 28.3L , Mean Corpuscular Volume 97, Mean Corpuscular Hemoglobin 31.4H, Mean Corpuscular Hemoglobin Concent 32.3, Red Cell Distribution Width 14.2, Platelet Count 175, Mean Platelet Volume 8.3, Neutrophils (%) (Auto) 56.6, Lymphocytes (% ) (Auto) 33.0, Monocytes (%) (Auto) 5.1, Eosinophils (%) (Auto) 4.4H, Basophils (%) (Auto) 1.0, Sodium Level [Pending], Potassium Level [Pending], Chloride Level [Pending], Carbon Dioxide Level [Pending], Blood Urea Nitrogen [Pending], Creatinine [Pending], Estimat Glomerular Filtration Rate [Pending], Glucose Level [Pending], Uric Acid [Pending], Calcium Level [Pending], Phosphorus Level [Pending], Magnesium Level [Pending], Total Bilirubin [Pending], Gamma Glutamyl Transpeptidase [Pending], Aspartate Amino Transf (AST/SGOT) [Pending], Alanine Aminotransferase (ALT/SGPT) [Pending], Alkaline Phosphatase [Pending], C- Reactive Protein, Quantitative [Pending], Pro-B-Type Natriuretic Peptide [ Pending], Total Protein [Pending], Albumin [Pending], Globulin [Pending], Triglycerides Level [Pending], Cholesterol Level [Pending], LDL Cholesterol [ Pending], HDL Cholesterol [Pending], Cholesterol/HDL Ratio [Pending] Height (Feet): 6 Height (Inches): 1.00 Weight (Pounds): 150 General Appearance: no apparent distress Neck: normal alignment Cardiovascular: regular rhythm Respiratory/Chest: lungs clear Abdomen: normal bowel sounds Pelvis: normal external exam Extremities: other - L BKA Objective Current Medications Medications (Trade) Dose Ordered Sig/Gadiel Route PRN Reason Start Time Stop Time Status Last Admin Dose Admin Acetaminophen (Tylenol) 650 mg Q4H PRN ORAL T>100.5 09/23/16 15:45 10/23/16 15:44 Albuterol/ Ipratropium (DuoNeb 0.5-3(2.5)mg/3ml) 3 ml Q4H PRN HHN Shortness of Breath 09/23/16 15:45 09/28/16 15:44 Dextrose (Dextrose 50%) STAT PRN IV Hypoglycemia 09/23/16 16:00 10/23/16 15:59 Heparin Sodium (Porcine) (Heparin 5000 units/ml) 5,000 units EVERY 12 HOURS SUBQ 09/23/16 21:00 10/23/16 20:59 09/23/16 21:12 Insulin Aspart (NovoLOG) BEFORE MEALS AND HS SUBQ 09/23/16 17:00 10/23/16 16:59 09/24/16 05:56 Insulin Detemir (Levemir) 15 units DAILY SUBQ 09/24/16 09:00 10/24/16 08:59 Levothyroxine Sodium (Synthroid) 150 mcg DAILY@0630 ORAL 09/24/16 06:30 10/24/16 06:29 09/24/16 05:54 Lorazepam (Ativan 2mg/ml 1ml) 2 mg Q2H PRN IV agitation 09/23/16 15:45 09/30/16 15:44 Morphine Sulfate (Morphine Sulfate) 4 mg Q4H PRN IVP Severe Pain (Pain Scale 7-10) 09/23/16 15:45 09/30/16 15:44 09/24/16 05:10 Nitroglycerin (Ntg) 0.4 mg Q5M PRN SL Prn Chest Pain 09/23/16 15:45 10/23/16 15:44 Ondansetron HCl (Zofran) 4 mg Q6H PRN IVP Nausea & Vomiting 09/23/16 16:00 10/23/16 15:59 Patient Own Medication (Patient's Own Med) 1 ea DAILY ORAL 09/22/16 16:00 10/22/16 15:59 09/23/16 09:59 Polyethylene Glycol (Miralax) 17 gm DAILYPRN PRN ORAL Constipation 09/23/16 16:00 10/23/16 15:59 Item Value Date Time Bedside Blood Glucose 235 mg/dl H 09/24/16 0630 Bedside Blood Glucose 112 mg/dl 09/23/16 2111 Bedside Blood Glucose 162 mg/dl H 09/23/16 1723 Bedside Blood Glucose 175 mg/dl H 09/23/16 1325 Bedside Blood Glucose 175 mg/dl H 09/23/16 1016 Bedside Blood Glucose 127 mg/dl H 09/23/16 0600 Bedside Blood Glucose 131 mg/dl H 09/23/16 0200 AKILAH MARIE 10, 2017 07:12
[2016-09-24 07:15] LABS: ALANINE AMINOTRANSFERASE 52 U/L (3-41); ALBUMIN/GLOBULIN RATIO 1.1 (1.0-2.7); ANION GAP 16 (5-15); ASPARTATE AMINO TRANSFERASE 59 U/L (5-40); CALCIUM 8.9 mg/dL (8.6-10.2); CARBON DIOXIDE 24 mEQ/L (20-30); CHLORIDE 96 mEQ/L (98-107); CHOLESTEROL 219 mg/dL (< 200); CHOLESTEROL/HDL RATIO 3.4 (3.3-4.4); CREATININE 1.1 mg/dL (0.7-1.2); GLOMERULAR FILTRATION RATE > 60 mL/min (>60); HEMOLYSIS 13; LDL CHOLESTEROL (CALC.) 84 mg/dL (60-99); MAGNESIUM 1.7 mg/dL (1.7-2.5); PHOSPHORUS 3.8 mg/dL (2.5-4.8); POTASSIUM 4.1 mEQ/L (3.4-4.9); SODIUM 136 mEQ/L (135-145); TOTAL PROTEIN 5.8 g/dL (6.6-8.7)
[2016-09-24 07:16] LABS: CRP QUANT < 0.3 mg/dL (< 0.5); URIC ACID 6.5 mg/dL (3.0-7.5)
--- NOTE | 2016-09-24 08:03 | General Progress Note ---
Assessment/Plan Assessment/Plan (1) Lumbago (2) Lumbar DDD (3) Lumbar Spondylosis (4) Phantom limb pain (5) history of below knee amputation of left lower extremity Pt will be continued on Morphine Pt was d/w Dr. Merino and he concurred. Subjective Date patient seen: Sep 24, 2016 Time patient seen: 07:45 - am Allergies: Coded Allergies: GABAPENTIN (Verified Allergy, Severe, 04/07/12) QUETIAPINE (Verified Allergy, Unknown, 07/25/15) Subjective Constitutional: Reports: weakness, Denies: chills, diaphoresis, fever, malaise , no symptoms, other HEENT: Denies: blurred vision, double vision, ear discharge, ear pain, eye pain , mouth pain, mouth swelling, no symptoms, nose congestion, nose pain, other, tearing, throat pain, throat swelling Cardiovascular: Denies: chest pain, edema, irregular heart rate, lightheadedness, no symptoms, other, palpitations, syncope Respiratory: Denies: SOB at rest, SOB with excertion, cough, no symptoms, orthopnea, other, shortness of breath, sputum, stridor, wheezing Gastrointestinal/Abdominal: Reports: abdominal pain, Denies: abdomen distended, black stools, blood in stool, constipated, diarrhea, difficulty swallowing, nausea, no symptoms, other, poor appetite, poor fluid intake, rectal bleeding, tarry stools, vomiting Genitourinary: Denies: burning, discharge, flank pain, frequency, hematuria, incontinence, no symptoms, other, pain, urgency Neurologic/Psychiatric: Reports: numbness, tingling, weakness, Denies: anxiety , depressed, emotional problems, headache, no symptoms, other, paresthesia, pre- existing deficit, seizure, tremors Endocrine: Denies: excessive sweating, flushing, increased hunger, increased thirst, increased urine, intolerance to cold, intolerance to heat, no symptoms, other, unexplained weight gain, unexplained weight loss Hematologic/Lymphatic: Denies: anemia, easy bleeding, easy bruising, no symptoms, other Subjective Pt is was transferred to med/surg doinf better pain is tolerated on the morphine. Objective Last 24 Hour Vital Signs Date Time Temp Pulse Resp B/P Pulse Ox O2 Delivery O2 Flow Rate FiO2 09/24/16 04:00 98.9 69 18 128/78 100 Room Air 09/24/16 00:00 97.7 79 20 138/81 100 Room Air 09/23/16 21:00 97.9 88 20 146/91 99 Room Air 09/23/16 19:43 82 18 Room Air 09/23/16 19:00 97.9 88 20 146/91 99 Room Air 09/23/16 17:00 97.7 82 18 132/84 100 Room Air 09/23/16 16:00 97.7 82 18 132/84 100 Room Air 09/23/16 15:03 97.5 09/23/16 14:00 74 18 141/89 100 Room Air 09/23/16 13:00 85 21 139/86 100 Room Air 09/23/16 12:00 97.5 74 10 131/81 100 Room Air 09/23/16 12:00 85 09/23/16 11:00 73 11 127/80 100 Room Air 09/23/16 10:00 71 12 118/86 100 Room Air 09/23/16 09:00 67 11 102/76 100 Room Air 09/23/16 08:24 67 18 100 09/23/16 08:23 67 18 100 Intake and Output 09/23/16 09/24/16 19:00 07:00 Intake Total 1142.4 ml 240 ml Output Total 630 ml 200 ml Balance 512.4 ml 40 ml Intake Oral 670 ml 240 ml IV Total 452.4 ml Other 20 ml Output Urine Total 630 ml 200 ml # Voids 1 Laboratory Tests 09/23/16 19:10: Urine Color Pale yellow, Urine Appearance Clear, Urine pH 5, Urine Specific [place] 1.020, Urine Protein 3+H, Urine Glucose (UA) 1+H, Urine Ketones 1+H, Urine Occult Blood 5+H, Urine Nitrite Negative, Urine Bilirubin Negative, Urine Urobilinogen Normal, Urine Leukocyte Esterase 1+H, Urine RBC 10-15H, Urine WBC 2 -4, Urine Squamous Epithelial Cells None, Urine Bacteria Few 09/24/16 06:05: White Blood Count 4.0L, Red Blood Count 2.90L, Hemoglobin 9.1L, Hematocrit 28.3L , Mean Corpuscular Volume 97, Mean Corpuscular Hemoglobin 31.4H, Mean Corpuscular Hemoglobin Concent 32.3, Red Cell Distribution Width 14.2, Platelet Count 175, Mean Platelet Volume 8.3, Neutrophils (%) (Auto) 56.6, Lymphocytes (% ) (Auto) 33.0, Monocytes (%) (Auto) 5.1, Eosinophils (%) (Auto) 4.4H, Basophils (%) (Auto) 1.0, Sodium Level 136, Potassium Level 4.1, Chloride Level 96L, Carbon Dioxide Level 24, Anion Gap 16H, Blood Urea Nitrogen 18, Creatinine 1.1, Estimat Glomerular Filtration Rate > 60, Glucose Level 234H, Uric Acid 6.5, Calcium Level 8.9, Phosphorus Level 3.8, Magnesium Level 1.7, Total Bilirubin < 0.2, Gamma Glutamyl Transpeptidase 298H, Aspartate Amino Transf (AST/SGOT) 59H, Alanine Aminotransferase (ALT/SGPT) 52H, Alkaline Phosphatase 139H, C-Reactive Protein, Quantitative < 0.3, Pro-B-Type Natriuretic Peptide 144H, Total Protein 5.8L, Albumin 3.1L, Globulin 2.7, Albumin/Globulin Ratio 1.1, Triglycerides Level 352H, Cholesterol Level 219H, LDL Cholesterol 84, HDL Cholesterol 65H, Cholesterol/HDL Ratio 3.4 Height (Feet): 6 Height (Inches): 1.00 Weight (Pounds): 150 Objective General Appearance: no apparent distress, alert EENT: PERRL/EOMI, normal ENT inspection Neck: normal alignment, supple Cardiovascular: normal rate, regular rhythm Respiratory/Chest: lungs clear, normal breath sounds Abdomen: non tender, soft Extremities: other - left BKA Edema: trace edema Neurologic: alert, oriented x 3 Skin: warm/dry CALLIE FRAGOSO. P.Dhiraj Sep 24, 2016 08:03
[2016-09-24 08:30] VITALS: BP 143/81
[2016-09-24] MEDS: Heparin 5000 units/ml inj SUBQ SCH ×2 (09:25→22:43)
[2016-09-24] MEDS: Levemir Flexpen SUBQ SCH (09:26)
[2016-09-24] MEDS: GENVOYA TAB ORAL SCH (10:23)
--- NOTE | 2016-09-24 10:35 | General Progress Note ---
Assessment/Plan Assessment/Plan ASSESSMENT: 1. Anemia of GI bleed, patient with vomiting of blood and reason for admission, s/p egd procedure, results to follow 2. Anemia of chronic disease as well as kidney disease, now improved, could be 2/2 dehydration, will recheck 3. Hereditary hemorrhagic telectangasia 4. Leukopenia, stable, potentially 2/2 infection as well 5. Hypoglycemia. 6. Human immunodeficiency virus/acquired immune deficiency syndrome. 7. Dementia. 8. Parkinson disease. 9. CP r/o ACS 10. Osteomyelitis 11. Parkinson disease. 12. Encephalopathy. 13. History of seizure. RECOMMENDATIONS: 1. Monitor counts 2. Ferritin is elevated indicating anemia of chronic disease 3. PRBC transfusion as needed basis. 4. Procrit sq for hiv (only if hgb less than 10) 5. GI ppx with ppi 6. Heparin for DVT prophylaxis. 7. Appreciate GI, ID, renal recs 8. Nutrition. 9. Close followup. Thank you, Connor Cuevas MD Subjective Constitutional: Reports: no symptoms HEENT: Reports: no symptoms Cardiovascular: Reports: no symptoms Respiratory: Reports: no symptoms Gastrointestinal/Abdominal: Reports: no symptoms Genitourinary: Reports: no symptoms Neurologic/Psychiatric: Reports: anxiety Endocrine: Reports: no symptoms Hematologic/Lymphatic: Reports: anemia Allergies: Coded Allergies: GABAPENTIN (Verified Allergy, Severe, 04/07/12) QUETIAPINE (Verified Allergy, Unknown, 07/25/15) Subjective stable, no events overnight, no fevers or chills Objective Last 24 Hour Vital Signs Date Time Temp Pulse Resp B/P Pulse Ox O2 Delivery O2 Flow Rate FiO2 09/24/16 08:30 97.7 75 20 143/81 99 Room Air 09/24/16 07:55 80 18 Room Air 09/24/16 04:00 98.9 69 18 128/78 100 Room Air 09/24/16 00:00 97.7 79 20 138/81 100 Room Air 09/23/16 21:00 97.9 88 20 146/91 99 Room Air 09/23/16 19:43 82 18 Room Air 09/23/16 19:00 97.9 88 20 146/91 99 Room Air 09/23/16 17:00 97.7 82 18 132/84 100 Room Air 09/23/16 16:00 97.7 82 18 132/84 100 Room Air 09/23/16 15:03 97.5 09/23/16 14:00 74 18 141/89 100 Room Air 09/23/16 13:00 85 21 139/86 100 Room Air 09/23/16 12:00 97.5 74 10 131/81 100 Room Air 09/23/16 12:00 85 09/23/16 11:00 73 11 127/80 100 Room Air Intake and Output 09/23/16 09/24/16 19:00 07:00 Intake Total 1142.4 ml 240 ml Output Total 630 ml 200 ml Balance 512.4 ml 40 ml Intake Oral 670 ml 240 ml IV Total 452.4 ml Other 20 ml Output Urine Total 630 ml 200 ml # Voids 1 Laboratory Tests 09/23/16 19:10: Urine Color Pale yellow, Urine Appearance Clear, Urine pH 5, Urine Specific [place] 1.020, Urine Protein 3+H, Urine Glucose (UA) 1+H, Urine Ketones 1+H, Urine Occult Blood 5+H, Urine Nitrite Negative, Urine Bilirubin Negative, Urine Urobilinogen Normal, Urine Leukocyte Esterase 1+H, Urine RBC 10-15H, Urine WBC 2 -4, Urine Squamous Epithelial Cells None, Urine Bacteria Few 09/24/16 06:05: White Blood Count 4.0L, Red Blood Count 2.90L, Hemoglobin 9.1L, Hematocrit 28.3L , Mean Corpuscular Volume 97, Mean Corpuscular Hemoglobin 31.4H, Mean Corpuscular Hemoglobin Concent 32.3, Red Cell Distribution Width 14.2, Platelet Count 175, Mean Platelet Volume 8.3, Neutrophils (%) (Auto) 56.6, Lymphocytes (% ) (Auto) 33.0, Monocytes (%) (Auto) 5.1, Eosinophils (%) (Auto) 4.4H, Basophils (%) (Auto) 1.0, Sodium Level 136, Potassium Level 4.1, Chloride Level 96L, Carbon Dioxide Level 24, Anion Gap 16H, Blood Urea Nitrogen 18, Creatinine 1.1, Estimat Glomerular Filtration Rate > 60, Glucose Level 234H, Uric Acid 6.5, Calcium Level 8.9, Phosphorus Level 3.8, Magnesium Level 1.7, Total Bilirubin < 0.2, Gamma Glutamyl Transpeptidase 298H, Aspartate Amino Transf (AST/SGOT) 59H, Alanine Aminotransferase (ALT/SGPT) 52H, Alkaline Phosphatase 139H, C-Reactive Protein, Quantitative < 0.3, Pro-B-Type Natriuretic Peptide 144H, Total Protein 5.8L, Albumin 3.1L, Globulin 2.7, Albumin/Globulin Ratio 1.1, Triglycerides Level 352H, Cholesterol Level 219H, LDL Cholesterol 84, HDL Cholesterol 65H, Cholesterol/HDL Ratio 3.4 Height (Feet): 6 Height (Inches): 1.00 Weight (Pounds): 150 General Appearance: alert EENT: TMs normal Neck: supple Cardiovascular: regular rhythm Respiratory/Chest: lungs clear Abdomen: non tender Extremities: non-tender Edema: 1+ Leg (L), 1+ Leg (R) Neurologic: alert Skin: warm/dry Connor Cuevas Sep 24, 2016 10:35
--- NOTE | 2016-09-24 11:22 | General Progress Note ---
Assessment/Plan Status: stable Assessment/Plan Patient admitted for DKA Cr of 2 now lower to 1.3 and 1.1 Glucose now much improved LFTs also elevated- but improving Urine tox screen been positive recently No UA available at this time Other conditions: (1) Diabetic nephropathy (2) DM (diabetes mellitus) (3) Diabetic foot ulcer (4) Hypothyroidism (5) Dehydration (6) HIV (7) Parkinson / Migraine PLAN: Keep BP in check Continue BS control- watch renal parameters and LFTs- slow hydrate- per orders / consultants Subjective ROS Limited/Unobtainable: Yes Allergies: Coded Allergies: GABAPENTIN (Verified Allergy, Severe, 04/07/12) QUETIAPINE (Verified Allergy, Unknown, 07/25/15) Objective Last 24 Hour Vital Signs Date Time Temp Pulse Resp B/P Pulse Ox O2 Delivery O2 Flow Rate FiO2 09/24/16 10:55 97.7 09/24/16 08:30 97.7 75 20 143/81 99 Room Air 09/24/16 07:55 80 18 Room Air 09/24/16 04:00 98.9 69 18 128/78 100 Room Air 09/24/16 00:00 97.7 79 20 138/81 100 Room Air 09/23/16 21:00 97.9 88 20 146/91 99 Room Air 09/23/16 19:43 82 18 Room Air 09/23/16 19:00 97.9 88 20 146/91 99 Room Air 09/23/16 17:00 97.7 82 18 132/84 100 Room Air 09/23/16 16:00 97.7 82 18 132/84 100 Room Air 09/23/16 15:03 97.5 09/23/16 14:00 74 18 141/89 100 Room Air 09/23/16 13:00 85 21 139/86 100 Room Air 09/23/16 12:00 97.5 74 10 131/81 100 Room Air 09/23/16 12:00 85 Intake and Output 09/23/16 09/24/16 19:00 07:00 Intake Total 1142.4 ml 240 ml Output Total 630 ml 200 ml Balance 512.4 ml 40 ml Intake Oral 670 ml 240 ml IV Total 452.4 ml Other 20 ml Output Urine Total 630 ml 200 ml # Voids 1 Laboratory Tests 09/23/16 19:10: Urine Color Pale yellow, Urine Appearance Clear, Urine pH 5, Urine Specific [place] 1.020, Urine Protein 3+H, Urine Glucose (UA) 1+H, Urine Ketones 1+H, Urine Occult Blood 5+H, Urine Nitrite Negative, Urine Bilirubin Negative, Urine Urobilinogen Normal, Urine Leukocyte Esterase 1+H, Urine RBC 10-15H, Urine WBC 2 -4, Urine Squamous Epithelial Cells None, Urine Bacteria Few 09/24/16 06:05: White Blood Count 4.0L, Red Blood Count 2.90L, Hemoglobin 9.1L, Hematocrit 28.3L , Mean Corpuscular Volume 97, Mean Corpuscular Hemoglobin 31.4H, Mean Corpuscular Hemoglobin Concent 32.3, Red Cell Distribution Width 14.2, Platelet Count 175, Mean Platelet Volume 8.3, Neutrophils (%) (Auto) 56.6, Lymphocytes (% ) (Auto) 33.0, Monocytes (%) (Auto) 5.1, Eosinophils (%) (Auto) 4.4H, Basophils (%) (Auto) 1.0, Sodium Level 136, Potassium Level 4.1, Chloride Level 96L, Carbon Dioxide Level 24, Anion Gap 16H, Blood Urea Nitrogen 18, Creatinine 1.1, Estimat Glomerular Filtration Rate > 60, Glucose Level 234H, Uric Acid 6.5, Calcium Level 8.9, Phosphorus Level 3.8, Magnesium Level 1.7, Total Bilirubin < 0.2, Gamma Glutamyl Transpeptidase 298H, Aspartate Amino Transf (AST/SGOT) 59H, Alanine Aminotransferase (ALT/SGPT) 52H, Alkaline Phosphatase 139H, C-Reactive Protein, Quantitative < 0.3, Pro-B-Type Natriuretic Peptide 144H, Total Protein 5.8L, Albumin 3.1L, Globulin 2.7, Albumin/Globulin Ratio 1.1, Triglycerides Level 352H, Cholesterol Level 219H, LDL Cholesterol 84, HDL Cholesterol 65H, Cholesterol/HDL Ratio 3.4 Height (Feet): 6 Height (Inches): 1.00 Weight (Pounds): 150 General Appearance: no apparent distress Objective physical exam not changed OPNCHO RAMÍREZ Sep 24, 2016 11:22
[2016-09-24 12:47] VITALS: BP 152/97
--- NOTE | 2016-09-24 15:44 | Infectious Diseases Prog Note ---
Assessment/Plan Problems: (1) HIV disease Assessment & Plan: continue genvoya, check viral load, follow up with HIV provider as an outpatient (2) Diabetic ketoacidosis Assessment & Plan: improved on insulin drip, titrate insulin to keep blood glucose between 80-120 (3) Dehydration Assessment & Plan: continue IVF , monitor electrolytes (4) DM (diabetes mellitus) Assessment & Plan: recommend tight glycemic control to keep blood glucose between 80-120 (5) ARF (acute renal failure) Assessment & Plan: suspect prerenal, continue hydration and monitor UOP, and renal function Subjective Constitutional: Denies: anorexia, chills, drenching sweats, fatigue, fever, no symptoms, other HEENT: Denies: congestion, coryza, dysphagia, hearing change, no symptoms, other, visual change Respiratory: Denies: dry cough, no symptoms, other, productive cough, shortness of breath Breasts: Denies: discharge, no symptoms, other, swelling, tenderness Cardiovascular: Denies: chest pain, dyspnea on exertion, no symptoms, other, palpitations Gastrointestinal/Abdominal: Denies: bloating, blood in stool, constipation, diarrhea, nausea, no symptoms, other, vomiting Genitourinary: Denies: dysuria, frequency, hematuria, no symptoms, nocturia, other Neurologic: Denies: confusion, headache, no symptoms, numbness, other, weakness Skin: Denies: no symptoms, other, rash, ulcer Allergies: Coded Allergies: GABAPENTIN (Verified Allergy, Severe, 04/07/12) QUETIAPINE (Verified Allergy, Unknown, 07/25/15) Objective Vital Signs Last 24 Hour Vital Signs Date Time Temp Pulse Resp B/P Pulse Ox O2 Delivery O2 Flow Rate FiO2 09/24/16 12:47 98.2 73 20 152/97 100 Room Air 09/24/16 10:55 97.7 09/24/16 08:30 97.7 75 20 143/81 99 Room Air 09/24/16 07:55 80 18 Room Air 09/24/16 04:00 98.9 69 18 128/78 100 Room Air 09/24/16 00:00 97.7 79 20 138/81 100 Room Air 09/23/16 21:00 97.9 88 20 146/91 99 Room Air 09/23/16 19:43 82 18 Room Air 09/23/16 19:00 97.9 88 20 146/91 99 Room Air 09/23/16 17:00 97.7 82 18 132/84 100 Room Air 09/23/16 16:00 97.7 82 18 132/84 100 Room Air Height (Feet): 6 Height (Inches): 1.00 Weight (Pounds): 150 General Appearance: no acute distress HEENT: normocephalic, atraumatic, anicteric Respiratory/Chest: chest wall non-tender, lungs clear, normal breath sounds, no respiratory distress, no accessory muscle use Cardiovascular: normal peripheral pulses, normal rate, regular rhythm, no gallop/murmur, no JVD Abdomen: normal bowel sounds, soft, non tender, no organomegaly, non distended , no mass, no scars Extremities: no cyanosis, no clubbing Skin: no rash, no lesions, no ulcers Microbiology Date/Time Source Procedure Growth Status 09/22/16 05:00 Nasal Nares MRSA Culture - Final NO METHICILLIN RESISTANT STAPH AUREUS... Complete 09/22/16 05:00 Rectum VRE Culture - Final NO VANCOMYCIN RESISTANT ENTEROCOCCUS ... Complete Laboratory Tests Test 09/23/16 19:10 09/24/16 06:05 Urine Color Pale yellow Urine Appearance Clear Urine pH 5 (4.5-8.0) Urine Specific Bowler 1.020 (1.005-1.035) Urine Protein 3+ (NEGATIVE) H Urine Glucose (UA) 1+ (NEGATIVE) H Urine Ketones 1+ (NEGATIVE) H Urine Occult Blood 5+ (NEGATIVE) H Urine Nitrite Negative (NEGATIVE) Urine Bilirubin Negative (NEGATIVE) Urine Urobilinogen Normal MG/DL (0.0-1.0) Urine Leukocyte Esterase 1+ (NEGATIVE) H Urine RBC 10-15 /HPF (0 - 0) H Urine WBC 2-4 /HPF (0 - 0) Urine Squamous Epithelial Cells None /LPF (NONE/OCC) Urine Bacteria Few /HPF (NONE) White Blood Count 4.0 K/UL (4.8-10.8) L Red Blood Count 2.90 M/UL (4.70-6.10) L Hemoglobin 9.1 G/DL (14.2-18.0) L Hematocrit 28.3 % (42.0-52.0) L Mean Corpuscular Volume 97 FL (80-99) Mean Corpuscular Hemoglobin 31.4 PG (27.0-31.0) H Mean Corpuscular Hemoglobin Concent 32.3 G/DL (32.0-36.0) Red Cell Distribution Width 14.2 % (11.6-14.8) Platelet Count 175 K/UL (150-450) Mean Platelet Volume 8.3 FL (6.5-10.1) Neutrophils (%) (Auto) 56.6 % (45.0-75.0) Lymphocytes (%) (Auto) 33.0 % (20.0-45.0) Monocytes (%) (Auto) 5.1 % (1.0-10.0) Eosinophils (%) (Auto) 4.4 % (0.0-3.0) H Basophils (%) (Auto) 1.0 % (0.0-2.0) Sodium Level 136 mEQ/L (135-145) Potassium Level 4.1 mEQ/L (3.4-4.9) Chloride Level 96 mEQ/L (98-107) L Carbon Dioxide Level 24 mEQ/L (20-30) Anion Gap 16 (5-15) H Blood Urea Nitrogen 18 mg/dL (7-23) Creatinine 1.1 mg/dL (0.7-1.2) Estimat Glomerular Filtration Rate > 60 mL/min (>60) Glucose Level 234 mg/dL (74-106) H Uric Acid 6.5 mg/dL (3.0-7.5) Calcium Level 8.9 mg/dL (8.6-10.2) Phosphorus Level 3.8 mg/dL (2.5-4.8) Magnesium Level 1.7 mg/dL (1.7-2.5) Total Bilirubin < 0.2 mg/dL (0.0-1.2) Gamma Glutamyl Transpeptidase 298 U/L (8-61) H Aspartate Amino Transf (AST/SGOT) 59 U/L (5-40) H Alanine Aminotransferase (ALT/SGPT) 52 U/L (3-41) H Alkaline Phosphatase 139 U/L (40-129) H C-Reactive Protein, Quantitative < 0.3 mg/dL (< 0.5) Pro-B-Type Natriuretic Peptide 144 pg/mL (0-125) H Total Protein 5.8 g/dL (6.6-8.7) L Albumin 3.1 g/dL (3.5-5.2) L Globulin 2.7 g/dL Albumin/Globulin Ratio 1.1 (1.0-2.7) Triglycerides Level 352 mg/dL (< 150) H Cholesterol Level 219 mg/dL (< 200) H LDL Cholesterol 84 mg/dL (60-99) HDL Cholesterol 65 mg/dL (> 60) H Cholesterol/HDL Ratio 3.4 (3.3-4.4) Current Medications Medications (Trade) Dose Ordered Sig/Gadiel Route PRN Reason Start Time Stop Time Status Last Admin Dose Admin Acetaminophen (Tylenol) 650 mg Q4H PRN ORAL T>100.5 09/23/16 15:45 10/23/16 15:44 Albuterol/ Ipratropium (DuoNeb 0.5-3(2.5)mg/3ml) 3 ml Q4H PRN HHN Shortness of Breath 09/23/16 15:45 09/28/16 15:44 Dextrose (Dextrose 50%) STAT PRN IV Hypoglycemia 09/24/16 07:15 10/24/16 07:14 Heparin Sodium (Porcine) (Heparin 5000 units/ml) 5,000 units EVERY 12 HOURS SUBQ 09/23/16 21:00 10/23/16 20:59 09/24/16 09:25 Insulin Aspart (NovoLOG) BEFORE MEALS AND HS SUBQ 09/23/16 17:00 10/23/16 16:59 09/24/16 11:36 Insulin Aspart (NovoLOG) 5 units NOVOTIAC SUBQ 09/24/16 11:50 10/24/16 11:49 09/24/16 11:34 Insulin Detemir (Levemir) 15 units DAILY SUBQ 09/24/16 09:00 10/24/16 08:59 09/24/16 09:26 Levothyroxine Sodium (Synthroid) 150 mcg DAILY@0630 ORAL 09/24/16 06:30 10/24/16 06:29 09/24/16 05:54 Lorazepam (Ativan 2mg/ml 1ml) 2 mg Q2H PRN IV agitation 09/23/16 15:45 09/30/16 15:44 Morphine Sulfate (Morphine Sulfate) 4 mg Q4H PRN IVP Severe Pain (Pain Scale 7-10) 09/23/16 15:45 09/30/16 15:44 09/24/16 15:12 Nitroglycerin (Ntg) 0.4 mg Q5M PRN SL Prn Chest Pain 09/23/16 15:45 10/23/16 15:44 Ondansetron HCl (Zofran) 4 mg Q6H PRN IVP Nausea & Vomiting 09/23/16 16:00 10/23/16 15:59 Patient Own Medication (Patient's Own Med) 1 ea DAILY ORAL 09/22/16 16:00 10/22/16 15:59 09/24/16 10:23 Polyethylene Glycol (Miralax) 17 gm DAILYPRN PRN ORAL Constipation 09/23/16 16:00 10/23/16 15:59 Clayton Escamilla M.D. Sep 24, 2016 15:44
[2016-09-24 16:00] VITALS: BP 160/102
[2016-09-24 20:00] VITALS: BP 176/104
--- NOTE | 2016-09-24 22:19 | General Progress Note ---
Assessment/Plan Assessment/Plan Assessment - N/V - DKA - UGIB - GERD - AIDS Recommendations - PPI - elevate HOB - EGD today --> duodenitis - outpatient screening colon Subjective Allergies: Coded Allergies: GABAPENTIN (Verified Allergy, Severe, 04/07/12) QUETIAPINE (Verified Allergy, Unknown, 07/25/15) Subjective feels better No N/V d/w PMD re above Objective Last 24 Hour Vital Signs Date Time Temp Pulse Resp B/P Pulse Ox O2 Delivery O2 Flow Rate FiO2 09/24/16 20:00 97.7 86 20 176/104 100 Room Air 09/24/16 19:10 82 18 Room Air 09/24/16 16:00 97.9 80 22 160/102 99 Room Air 09/24/16 12:47 98.2 73 20 152/97 100 Room Air 09/24/16 10:55 97.7 09/24/16 08:30 97.7 75 20 143/81 99 Room Air 09/24/16 07:55 80 18 Room Air 09/24/16 04:00 98.9 69 18 128/78 100 Room Air 09/24/16 00:00 97.7 79 20 138/81 100 Room Air Intake and Output 09/23/16 09/24/16 19:00 07:00 Intake Total 1142.4 ml 240 ml Output Total 630 ml 200 ml Balance 512.4 ml 40 ml Intake Oral 670 ml 240 ml IV Total 452.4 ml Other 20 ml Output Urine Total 630 ml 200 ml # Voids 1 Laboratory Tests 09/24/16 06:05: White Blood Count 4.0L, Red Blood Count 2.90L, Hemoglobin 9.1L, Hematocrit 28.3L , Mean Corpuscular Volume 97, Mean Corpuscular Hemoglobin 31.4H, Mean Corpuscular Hemoglobin Concent 32.3, Red Cell Distribution Width 14.2, Platelet Count 175, Mean Platelet Volume 8.3, Neutrophils (%) (Auto) 56.6, Lymphocytes (% ) (Auto) 33.0, Monocytes (%) (Auto) 5.1, Eosinophils (%) (Auto) 4.4H, Basophils (%) (Auto) 1.0, Sodium Level 136, Potassium Level 4.1, Chloride Level 96L, Carbon Dioxide Level 24, Anion Gap 16H, Blood Urea Nitrogen 18, Creatinine 1.1, Estimat Glomerular Filtration Rate > 60, Glucose Level 234H, Uric Acid 6.5, Calcium Level 8.9, Phosphorus Level 3.8, Magnesium Level 1.7, Total Bilirubin < 0.2, Gamma Glutamyl Transpeptidase 298H, Aspartate Amino Transf (AST/SGOT) 59H, Alanine Aminotransferase (ALT/SGPT) 52H, Alkaline Phosphatase 139H, C-Reactive Protein, Quantitative < 0.3, Pro-B-Type Natriuretic Peptide 144H, Total Protein 5.8L, Albumin 3.1L, Globulin 2.7, Albumin/Globulin Ratio 1.1, Triglycerides Level 352H, Cholesterol Level 219H, LDL Cholesterol 84, HDL Cholesterol 65H, Cholesterol/HDL Ratio 3.4 Height (Feet): 6 Height (Inches): 1.00 Weight (Pounds): 150 Objective WDWN NCAT CTA RRR Soft ND NT (L) SYED VILLARREAL Sep 24, 2016 22:19
--- NOTE | 2016-09-24 23:35 | Pulmonology Progress Note ---
Assessment/Plan Assessment/Plan Critical Care - Asmt/Plan Problems: (1) DKA (diabetic ketoacidoses) (2) UGIB (upper gastrointestinal bleed) Respiratory: monitor respiratory rate, adjust FIO2, CXR Cardiac: continue to monitor HR/BP Renal: F/U I&O, keep IV fluid Infectious Disease: check cultures Gastrointestinal: continue feedings/current rate Endocrine: monitor blood sugar, continue sliding scale insulin Hematologic: monitor H/H, transfuse if hgb<8.5 Neurologic: PRN Ativan, keep patient comfortable Prophylaxis: Protonix Notes Reviewed: actionscript developer, cardio Discussed with: nurses, consultants, skilled nursing case manager Subjective ROS Limited/Unobtainable: Yes Constitutional: Reports: anorexia, fatigue Gastrointestinal/Abdominal: Reports: nausea, vomiting Neurologic: Reports: confusion, weakness Allergies: Coded Allergies: GABAPENTIN (Verified Allergy, Severe, 04/07/12) QUETIAPINE (Verified Allergy, Unknown, 07/25/15) Objective Last 24 Hour Vital Signs Date Time Temp Pulse Resp B/P Pulse Ox O2 Delivery O2 Flow Rate FiO2 09/24/16 20:00 97.7 86 20 176/104 100 Room Air 09/24/16 19:10 82 18 Room Air 09/24/16 16:00 97.9 80 22 160/102 99 Room Air 09/24/16 12:47 98.2 73 20 152/97 100 Room Air 09/24/16 10:55 97.7 09/24/16 08:30 97.7 75 20 143/81 99 Room Air 09/24/16 07:55 80 18 Room Air 09/24/16 04:00 98.9 69 18 128/78 100 Room Air 09/24/16 00:00 97.7 79 20 138/81 100 Room Air Intake and Output 09/23/16 09/24/16 19:00 07:00 Intake Total 1142.4 ml 240 ml Output Total 630 ml 200 ml Balance 512.4 ml 40 ml Intake Oral 670 ml 240 ml IV Total 452.4 ml Other 20 ml Output Urine Total 630 ml 200 ml # Voids 1 General Appearance: no acute distress HEENT: normocephalic, atraumatic, PERRL Respiratory/Chest: chest wall non-tender, decreased breath sounds, accessory muscle use, crackles/rales Cardiovascular: normal peripheral pulses, normal rate, regular rhythm, no JVD Abdomen: normal bowel sounds, soft, non tender, no organomegaly, non distended Genitourinary: normal external genitalia Extremities: no cyanosis Skin: no rash, no lesions Neurologic/Psychiatric: family lawyer II-XII grossly normal, responsive, disoriented Microbiology Date/Time Source Procedure Growth Status 09/22/16 05:00 Nasal Nares MRSA Culture - Final NO METHICILLIN RESISTANT STAPH AUREUS... Complete 09/22/16 05:00 Rectum VRE Culture - Final NO VANCOMYCIN RESISTANT ENTEROCOCCUS ... Complete Laboratory Tests 09/24/16 06:05: White Blood Count 4.0L, Red Blood Count 2.90L, Hemoglobin 9.1L, Hematocrit 28.3L , Mean Corpuscular Volume 97, Mean Corpuscular Hemoglobin 31.4H, Mean Corpuscular Hemoglobin Concent 32.3, Red Cell Distribution Width 14.2, Platelet Count 175, Mean Platelet Volume 8.3, Neutrophils (%) (Auto) 56.6, Lymphocytes (% ) (Auto) 33.0, Monocytes (%) (Auto) 5.1, Eosinophils (%) (Auto) 4.4H, Basophils (%) (Auto) 1.0, Sodium Level 136, Potassium Level 4.1, Chloride Level 96L, Carbon Dioxide Level 24, Anion Gap 16H, Blood Urea Nitrogen 18, Creatinine 1.1, Estimat Glomerular Filtration Rate > 60, Glucose Level 234H, Uric Acid 6.5, Calcium Level 8.9, Phosphorus Level 3.8, Magnesium Level 1.7, Total Bilirubin < 0.2, Gamma Glutamyl Transpeptidase 298H, Aspartate Amino Transf (AST/SGOT) 59H, Alanine Aminotransferase (ALT/SGPT) 52H, Alkaline Phosphatase 139H, C-Reactive Protein, Quantitative < 0.3, Pro-B-Type Natriuretic Peptide 144H, Total Protein 5.8L, Albumin 3.1L, Globulin 2.7, Albumin/Globulin Ratio 1.1, Triglycerides Level 352H, Cholesterol Level 219H, LDL Cholesterol 84, HDL Cholesterol 65H, Cholesterol/HDL Ratio 3.4 Current Medications Medications (Trade) Dose Ordered Sig/Gadiel Route PRN Reason Start Time Stop Time Status Last Admin Dose Admin Acetaminophen (Tylenol) 650 mg Q4H PRN ORAL T>100.5 09/23/16 15:45 10/23/16 15:44 Albuterol/ Ipratropium (DuoNeb 0.5-3(2.5)mg/3ml) 3 ml Q4H PRN HHN Shortness of Breath 09/23/16 15:45 09/28/16 15:44 Dextrose (Dextrose 50%) STAT PRN IV Hypoglycemia 09/24/16 07:15 10/24/16 07:14 Heparin Sodium (Porcine) (Heparin 5000 units/ml) 5,000 units EVERY 12 HOURS SUBQ 09/23/16 21:00 10/23/16 20:59 09/24/16 22:43 Insulin Aspart (NovoLOG) BEFORE MEALS AND HS SUBQ 09/23/16 17:00 10/23/16 16:59 09/24/16 17:27 Insulin Aspart (NovoLOG) 5 units NOVOTIAC SUBQ 09/24/16 11:50 10/24/16 11:49 09/24/16 19:03 Insulin Detemir (Levemir) 15 units DAILY SUBQ 09/24/16 09:00 10/24/16 08:59 09/24/16 09:26 Levothyroxine Sodium (Synthroid) 150 mcg DAILY@0630 ORAL 09/24/16 06:30 10/24/16 06:29 09/24/16 05:54 Lorazepam (Ativan 2mg/ml 1ml) 2 mg Q2H PRN IV agitation 09/23/16 15:45 09/30/16 15:44 Morphine Sulfate (Morphine Sulfate) 4 mg Q4H PRN IVP Severe Pain (Pain Scale 7-10) 09/23/16 15:45 09/30/16 15:44 09/24/16 19:07 Nitroglycerin (Ntg) 0.4 mg Q5M PRN SL Prn Chest Pain 09/23/16 15:45 10/23/16 15:44 Ondansetron HCl (Zofran) 4 mg Q6H PRN IVP Nausea & Vomiting 09/23/16 16:00 10/23/16 15:59 Patient Own Medication (Patient's Own Med) 1 ea DAILY ORAL 09/22/16 16:00 10/22/16 15:59 09/24/16 10:23 Polyethylene Glycol (Miralax) 17 gm DAILYPRN PRN ORAL Constipation 09/23/16 16:00 10/23/16 15:59 GINETTE DAMON Sep 24, 2016 23:35
[2016-09-25] VITALS: BP 166/95
[2016-09-25] MEDS: Morphine Sulfate 4mg/ml Inj IVP PRN ×5 (00:09→21:57)
[2016-09-25 04:00] VITALS: BP 153/105
[2016-09-25] MEDS: NovoLOG Insulin Flexpen SUBQ SCH ×8 (05:55→21:52)
[2016-09-25] MEDS: GENVOYA TAB ORAL SCH (08:01)
[2016-09-25] MEDS: Heparin 5000 units/ml inj SUBQ SCH ×2 (08:05→21:57)
[2016-09-25] MEDS: Levemir Flexpen SUBQ SCH (08:08)
[2016-09-25 08:09] VITALS: BP 157/99
--- NOTE | 2016-09-25 09:04 | General Progress Note ---
Assessment/Plan Problem List: (1) Diabetic nephropathy ICD Codes: E11.21 - Type 2 diabetes mellitus with diabetic nephropathy SNOMED: 826481937 (2) Uncontrolled diabetes mellitus ICD Codes: E11.65 - Type 2 diabetes mellitus with hyperglycemia SNOMED: 887473685 (3) Diabetic ketoacidosis ICD Codes: E13.10 - Other specified diabetes mellitus with ketoacidosis without coma SNOMED: 49892606, 154670929 (4) HIV disease ICD Codes: B20 - Human immunodeficiency virus (HIV) disease SNOMED: 30447724 (5) Hypothyroidism ICD Codes: E03.9 - Hypothyroidism SNOMED: 90938220 Assessment/Plan glucose elevated due to non compliance with diet continue Levemir 15 units daily + Novolog 5 units ac tid + SSI Levothyroxine 150 mcg daily Subjective Allergies: Coded Allergies: GABAPENTIN (Verified Allergy, Severe, 04/07/12) QUETIAPINE (Verified Allergy, Unknown, 07/25/15) All Systems: reviewed and negative except above Subjective event noted Objective Last 24 Hour Vital Signs Date Time Temp Pulse Resp B/P Pulse Ox O2 Delivery O2 Flow Rate FiO2 09/25/16 08:09 97.9 82 18 157/99 99 Room Air 09/25/16 07:01 85 18 Room Air 09/25/16 04:00 98.0 86 22 153/105 99 Room Air 09/25/16 00:39 97.7 09/25/16 00:00 97.5 86 20 166/95 99 Room Air 09/24/16 20:00 97.7 86 20 176/104 100 Room Air 09/24/16 19:10 82 18 Room Air 09/24/16 16:00 97.9 80 22 160/102 99 Room Air 09/24/16 12:47 98.2 73 20 152/97 100 Room Air Intake and Output 09/24/16 09/25/16 19:00 07:00 Intake Total 480 ml 360 ml Output Total 2400 ml Balance 480 ml -2040 ml Intake Oral 480 ml 360 ml Output Urine Total 2400 ml Height (Feet): 6 Height (Inches): 1.00 Weight (Pounds): 150 General Appearance: no apparent distress EENT: pale conjunctivae Neck: normal alignment Cardiovascular: normal rate Respiratory/Chest: chest wall non-tender, lungs clear Abdomen: normal bowel sounds Pelvis: normal external exam Extremities: other - Left BKA Objective Current Medications Medications (Trade) Dose Ordered Sig/Gadiel Route PRN Reason Start Time Stop Time Status Last Admin Dose Admin Acetaminophen (Tylenol) 650 mg Q4H PRN ORAL T>100.5 09/23/16 15:45 10/23/16 15:44 Albuterol/ Ipratropium (DuoNeb 0.5-3(2.5)mg/3ml) 3 ml Q4H PRN HHN Shortness of Breath 09/23/16 15:45 09/28/16 15:44 Dextrose (Dextrose 50%) STAT PRN IV Hypoglycemia 09/24/16 07:15 10/24/16 07:14 Heparin Sodium (Porcine) (Heparin 5000 units/ml) 5,000 units EVERY 12 HOURS SUBQ 09/23/16 21:00 10/23/16 20:59 09/25/16 08:05 Insulin Aspart (NovoLOG) BEFORE MEALS AND HS SUBQ 09/23/16 17:00 10/23/16 16:59 09/25/16 05:55 Insulin Aspart (NovoLOG) 5 units NOVOTIAC SUBQ 09/24/16 11:50 10/24/16 11:49 09/25/16 05:56 Insulin Detemir (Levemir) 15 units DAILY SUBQ 09/24/16 09:00 10/24/16 08:59 09/25/16 08:08 Levothyroxine Sodium (Synthroid) 150 mcg DAILY@0630 ORAL 09/24/16 06:30 10/24/16 06:29 09/25/16 05:38 Lorazepam (Ativan 2mg/ml 1ml) 2 mg Q2H PRN IV agitation 09/23/16 15:45 09/30/16 15:44 Morphine Sulfate (Morphine Sulfate) 4 mg Q4H PRN IVP Severe Pain (Pain Scale 7-10) 09/23/16 15:45 09/30/16 15:44 09/25/16 08:01 Nitroglycerin (Ntg) 0.4 mg Q5M PRN SL Prn Chest Pain 09/23/16 15:45 10/23/16 15:44 Ondansetron HCl (Zofran) 4 mg Q6H PRN IVP Nausea & Vomiting 09/23/16 16:00 10/23/16 15:59 Patient Own Medication (Patient's Own Med) 1 ea DAILY ORAL 09/22/16 16:00 10/22/16 15:59 09/25/16 08:01 Polyethylene Glycol (Miralax) 17 gm DAILYPRN PRN ORAL Constipation 09/23/16 16:00 10/23/16 15:59 Item Value Date Time Bedside Blood Glucose 319 mg/dl H 09/25/16 0808 Bedside Blood Glucose 319 mg/dl H 09/25/16 0624 Bedside Blood Glucose 74 mg/dl 09/24/16 2100 Bedside Blood Glucose 225 mg/dl H 09/24/16 1727 AKILAH MARIE Sep 25, 2016 09:04
[2016-09-25 12:00] VITALS: BP 160/97
--- NOTE | 2016-09-25 12:29 | General Progress Note ---
Assessment/Plan Status: unchanged Status Narrative stable from renal stand Assessment/Plan Patient admitted for DKA Cr of 2 now lower to 1.3 and 1.1 Glucose now much improved LFTs also elevated- but improving Urine tox screen been positive recently No UA available at this time Other conditions: (1) Diabetic nephropathy (2) DM (diabetes mellitus) (3) Diabetic foot ulcer (4) Hypothyroidism (5) Dehydration (6) HIV (7) Parkinson / Migraine PLAN: no labs today Keep BP in check, adjust meds Continue BS control- watch renal parameters and LFTs- slow hydrate- per orders / consultants Subjective ROS Limited/Unobtainable: No Allergies: Coded Allergies: GABAPENTIN (Verified Allergy, Severe, 04/07/12) QUETIAPINE (Verified Allergy, Unknown, 07/25/15) Objective Last 24 Hour Vital Signs Date Time Temp Pulse Resp B/P Pulse Ox O2 Delivery O2 Flow Rate FiO2 09/25/16 12:23 97.9 09/25/16 08:09 97.9 82 18 157/99 99 Room Air 09/25/16 07:01 85 18 Room Air 09/25/16 04:00 98.0 86 22 153/105 99 Room Air 09/25/16 00:00 97.5 86 20 166/95 99 Room Air 09/24/16 20:00 97.7 86 20 176/104 100 Room Air 09/24/16 19:10 82 18 Room Air 09/24/16 16:00 97.9 80 22 160/102 99 Room Air 09/24/16 12:47 98.2 73 20 152/97 100 Room Air Intake and Output 09/24/16 09/25/16 19:00 07:00 Intake Total 480 ml 360 ml Output Total 2400 ml Balance 480 ml -2040 ml Intake Oral 480 ml 360 ml Output Urine Total 2400 ml Height (Feet): 6 Height (Inches): 1.00 Weight (Pounds): 150 General Appearance: no apparent distress Objective physical exam not changed PONCHO RAMÍREZ Sep 25, 2016 12:28
--- NOTE | 2016-09-25 13:31 | Infectious Diseases Prog Note ---
Assessment/Plan Problems: (1) HIV disease Assessment & Plan: continue genvoya, check viral load, follow up with HIV provider as an outpatient (2) Diabetic ketoacidosis Assessment & Plan: improved on insulin drip, recommend tight glycemic control to keep blood glucose between 80-120 (3) DM (diabetes mellitus) Assessment & Plan: recommend tight glycemic control to keep blood glucose between 80-120 (4) ARF (acute renal failure) Assessment & Plan: suspect prerenal, continue hydration and monitor UOP, and renal function Subjective Constitutional: Denies: anorexia, chills, drenching sweats, fatigue, fever, no symptoms, other HEENT: Denies: congestion, coryza, dysphagia, hearing change, no symptoms, other, visual change Respiratory: Denies: dry cough, no symptoms, other, productive cough, shortness of breath Breasts: Denies: discharge, no symptoms, other, swelling, tenderness Cardiovascular: Denies: chest pain, dyspnea on exertion, no symptoms, other, palpitations Gastrointestinal/Abdominal: Denies: bloating, blood in stool, constipation, diarrhea, nausea, no symptoms, other, vomiting Genitourinary: Denies: dysuria, frequency, hematuria, no symptoms, nocturia, other Neurologic: Denies: confusion, headache, no symptoms, numbness, other, weakness Psychiatric: Denies: anxiety, depression, no symptoms, other Skin: Denies: no symptoms, other, rash, ulcer Endocrine: Denies: feels cold, feels warm, no symptoms, other Allergies: Coded Allergies: GABAPENTIN (Verified Allergy, Severe, 04/07/12) QUETIAPINE (Verified Allergy, Unknown, 07/25/15) Objective Vital Signs Last 24 Hour Vital Signs Date Time Temp Pulse Resp B/P Pulse Ox O2 Delivery O2 Flow Rate FiO2 09/25/16 12:23 97.9 09/25/16 12:00 97.7 70 18 160/97 98 Room Air 09/25/16 08:09 97.9 82 18 157/99 99 Room Air 09/25/16 07:01 85 18 Room Air 09/25/16 04:00 98.0 86 22 153/105 99 Room Air 09/25/16 00:00 97.5 86 20 166/95 99 Room Air 09/24/16 20:00 97.7 86 20 176/104 100 Room Air 09/24/16 19:10 82 18 Room Air 09/24/16 16:00 97.9 80 22 160/102 99 Room Air Height (Feet): 6 Height (Inches): 1.00 Weight (Pounds): 150 General Appearance: WD/WN, no acute distress HEENT: normocephalic, atraumatic, anicteric, mucous membranes moist Respiratory/Chest: chest wall non-tender, lungs clear, normal breath sounds, no respiratory distress, no accessory muscle use Cardiovascular: normal peripheral pulses, normal rate, regular rhythm, no JVD Abdomen: normal bowel sounds, soft, non tender, no organomegaly, non distended , no mass Extremities: no cyanosis, no clubbing Skin: no rash, no lesions Current Medications Medications (Trade) Dose Ordered Sig/Gadile Route PRN Reason Start Time Stop Time Status Last Admin Dose Admin Acetaminophen (Tylenol) 650 mg Q4H PRN ORAL T>100.5 09/23/16 15:45 10/23/16 15:44 Albuterol/ Ipratropium (DuoNeb 0.5-3(2.5)mg/3ml) 3 ml Q4H PRN HHN Shortness of Breath 09/23/16 15:45 09/28/16 15:44 Amlodipine Besylate (Norvasc) 5 mg DAILY ORAL 09/26/16 09:00 10/26/16 08:59 UNV Aspirin (Ecotrin) 81 mg DAILY ORAL 09/26/16 09:00 10/26/16 08:59 UNV Clonidine HCl (Catapres) 0.1 mg EVERY 4 HOURS PRN ORAL For High Blood Pressure 09/25/16 12:30 10/25/16 12:29 UNV Dextrose (Dextrose 50%) STAT PRN IV Hypoglycemia 09/24/16 07:15 10/24/16 07:14 Heparin Sodium (Porcine) (Heparin 5000 units/ml) 5,000 units EVERY 12 HOURS SUBQ 09/23/16 21:00 10/23/16 20:59 09/25/16 08:05 Insulin Aspart (NovoLOG) BEFORE MEALS AND HS SUBQ 09/23/16 17:00 10/23/16 16:59 09/25/16 11:53 Insulin Aspart (NovoLOG) 5 units NOVOTIAC SUBQ 09/24/16 11:50 10/24/16 11:49 09/25/16 11:53 Insulin Detemir (Levemir) 15 units DAILY SUBQ 09/24/16 09:00 10/24/16 08:59 09/25/16 08:08 Levothyroxine Sodium (Synthroid) 150 mcg DAILY@0630 ORAL 09/24/16 06:30 10/24/16 06:29 09/25/16 05:38 Lisinopril (Prinivil) 10 mg EVERY 12 HOURS ORAL 09/25/16 21:00 10/25/16 20:59 UNV Lorazepam (Ativan 2mg/ml 1ml) 2 mg Q2H PRN IV agitation 09/23/16 15:45 09/30/16 15:44 Morphine Sulfate (Morphine Sulfate) 4 mg Q4H PRN IVP Severe Pain (Pain Scale 7-10) 09/23/16 15:45 09/30/16 15:44 09/25/16 11:53 Nitroglycerin (Ntg) 0.4 mg Q5M PRN SL Prn Chest Pain 09/23/16 15:45 10/23/16 15:44 Ondansetron HCl (Zofran) 4 mg Q6H PRN IVP Nausea & Vomiting 09/23/16 16:00 10/23/16 15:59 Pantoprazole (Protonix) 40 mg DAILY ORAL 09/26/16 09:00 10/26/16 08:59 UNV Patient Own Medication (Patient's Own Med) 1 ea DAILY ORAL 09/22/16 16:00 10/22/16 15:59 09/25/16 08:01 Polyethylene Glycol (Miralax) 17 gm DAILYPRN PRN ORAL Constipation 09/23/16 16:00 10/23/16 15:59 Ranitidine HCl (Zantac) 150 mg BEDTIME ORAL 09/25/16 21:00 10/25/16 20:59 UNV Clayton Escamilla M.D. Sep 25, 2016 13:31
--- NOTE | 2016-09-25 14:24 | General Progress Note ---
Assessment/Plan Assessment/Plan Assessment - N/V- EGD --> duodenitis - DKA - UGIB - GERD - AIDS Recommendations - PPI - elevate HOB - outpatient screening colon Subjective Allergies: Coded Allergies: GABAPENTIN (Verified Allergy, Severe, 04/07/12) QUETIAPINE (Verified Allergy, Unknown, 07/25/15) Subjective feels better No N/V advised re need for colonoscopy Objective Last 24 Hour Vital Signs Date Time Temp Pulse Resp B/P Pulse Ox O2 Delivery O2 Flow Rate FiO2 09/25/16 12:23 97.9 09/25/16 12:00 97.7 70 18 160/97 98 Room Air 09/25/16 08:09 97.9 82 18 157/99 99 Room Air 09/25/16 07:01 85 18 Room Air 09/25/16 04:00 98.0 86 22 153/105 99 Room Air 09/25/16 00:00 97.5 86 20 166/95 99 Room Air 09/24/16 20:00 97.7 86 20 176/104 100 Room Air 09/24/16 19:10 82 18 Room Air 09/24/16 16:00 97.9 80 22 160/102 99 Room Air Intake and Output 09/24/16 09/25/16 19:00 07:00 Intake Total 480 ml 360 ml Output Total 2400 ml Balance 480 ml -2040 ml Intake Oral 480 ml 360 ml Output Urine Total 2400 ml Height (Feet): 6 Height (Inches): 1.00 Weight (Pounds): 150 Objective WDWN NCAT CTA RRR Soft ND NT (L) SYED VILLARREAL Sep 25, 2016 14:24
--- NOTE | 2016-09-25 14:41 | General Progress Note ---
Assessment/Plan Problem List: (1) Upper GI bleed ICD Codes: K92.2 - Gastrointestinal hemorrhage, unspecified SNOMED: 04365795 (2) Anemia due to blood loss, acute ICD Codes: D62 - Acute posthemorrhagic anemia SNOMED: 154778302 (3) Hyperglycemia (4) Phantom limb pain ICD Codes: G54.7 - Phantom limb syndrome SNOMED: 122114784 (5) Hypoalbuminemia ICD Codes: E88.09 - Other disorders of plasma-protein metabolism, not elsewhere classified SNOMED: 300053762 (6) Gastritis ICD Codes: K29.70 - Gastritis, unspecified, without bleeding SNOMED: 2099757 (7) Pain in limb ICD Codes: M79.609 - Pain in limb SNOMED: 42254701 (8) Neuropathic pain ICD Codes: M79.2 - Neuropathic pain syndrome (non-herpetic) SNOMED: 841083143 (9) Hyperglycemia (10) UGIB (upper gastrointestinal bleed) ICD Codes: K92.2 - Gastrointestinal hemorrhage, unspecified SNOMED: 52468501 (11) Diabetic ketoacidosis ICD Codes: E13.10 - Other specified diabetes mellitus with ketoacidosis without coma SNOMED: 47846713, 237832872 (12) HIV disease ICD Codes: B20 - Human immunodeficiency virus (HIV) disease SNOMED: 44954445 (13) Dehydration (14) Hypothyroidism ICD Codes: E03.9 - Hypothyroidism SNOMED: 54126104 (15) Diabetic nephropathy ICD Codes: E11.21 - Type 2 diabetes mellitus with diabetic nephropathy SNOMED: 259748022 (16) DKA (diabetic ketoacidoses) ICD Codes: E13.10 - Other specified diabetes mellitus with ketoacidosis without coma SNOMED: 44606209, 849327015 Qualifiers: Qualified Codes: E13.10 - Other specified diabetes mellitus with ketoacidosis without coma Status: progressing Assessment/Plan bg is improving dka resolved unable to take care of himself at home agrees to go to snf non compliance w insulin s/p amputation hiv Subjective ROS Limited/Unobtainable: Yes Constitutional: Reports: no symptoms Allergies: Coded Allergies: GABAPENTIN (Verified Allergy, Severe, 04/07/12) QUETIAPINE (Verified Allergy, Unknown, 07/25/15) Objective Last 24 Hour Vital Signs Date Time Temp Pulse Resp B/P Pulse Ox O2 Delivery O2 Flow Rate FiO2 3/11/17 12:23 97.9 09/25/16 12:00 97.7 70 18 160/97 98 Room Air 09/25/16 08:09 97.9 82 18 157/99 99 Room Air 09/25/16 07:01 85 18 Room Air 09/25/16 04:00 98.0 86 22 153/105 99 Room Air 09/25/16 00:00 97.5 86 20 166/95 99 Room Air 09/24/16 20:00 97.7 86 20 176/104 100 Room Air 09/24/16 19:10 82 18 Room Air 09/24/16 16:00 97.9 80 22 160/102 99 Room Air Intake and Output 09/24/16 09/25/16 19:00 07:00 Intake Total 480 ml 360 ml Output Total 2400 ml Balance 480 ml -2040 ml Intake Oral 480 ml 360 ml Output Urine Total 2400 ml Height (Feet): 6 Height (Inches): 1.00 Weight (Pounds): 150 Cardiovascular: normal rate Respiratory/Chest: lungs clear Abdomen: soft Suzy Bruce MD Sep 25, 2016 14:41
--- NOTE | 2016-09-25 15:05 | Cardiology Report ---
APPROVED REPORT EKG Measurement Heart [id number] Sinus rhythm with occasional premature ventricular complexes Nonspecific T wave abnormality Prolonged QT Abnormal ECG
[2016-09-25 16:00] VITALS: BP 161/93
--- NOTE | 2016-09-25 19:52 | General Progress Note ---
Assessment/Plan Assessment/Plan ASSESSMENT: 1. Anemia of GI bleed, patient with vomiting of blood and reason for admission, s/p egd procedure, results to follow 2. Anemia of chronic disease as well as kidney disease, now improved, could be 2/2 dehydration, will recheck 3. Hereditary hemorrhagic telectangasia 4. Leukopenia, stable, potentially 2/2 infection as well 5. Hypoglycemia. 6. Human immunodeficiency virus/acquired immune deficiency syndrome. 7. Dementia. 8. Parkinson disease. 9. CP r/o ACS 10. Osteomyelitis 11. Parkinson disease. 12. Encephalopathy. 13. History of seizure. RECOMMENDATIONS: 1. Monitor counts 2. Ferritin is elevated indicating anemia of chronic disease 3. PRBC transfusion as needed basis. 4. Procrit sq for hiv (only if hgb less than 10) 5. GI ppx with ppi 6. Heparin for DVT prophylaxis. 7. Appreciate GI, ID, renal recs 8. Nutrition. 9. Close followup. Thank you, Fabrice Cuevas MD Subjective Constitutional: Reports: no symptoms HEENT: Reports: no symptoms Cardiovascular: Reports: no symptoms Respiratory: Reports: no symptoms Gastrointestinal/Abdominal: Reports: no symptoms Genitourinary: Reports: no symptoms Neurologic/Psychiatric: Reports: no symptoms Endocrine: Reports: no symptoms Hematologic/Lymphatic: Reports: no symptoms Allergies: Coded Allergies: GABAPENTIN (Verified Allergy, Severe, 04/07/12) QUETIAPINE (Verified Allergy, Unknown, 07/25/15) Objective Last 24 Hour Vital Signs Date Time Temp Pulse Resp B/P Pulse Ox O2 Delivery O2 Flow Rate FiO2 09/25/16 19:18 81 18 Room Air 09/25/16 16:00 97.9 71 20 161/93 100 Room Air 09/25/16 12:23 97.9 09/25/16 12:00 97.7 70 18 160/97 98 Room Air 09/25/16 08:09 97.9 82 18 157/99 99 Room Air 09/25/16 07:01 85 18 Room Air 09/25/16 04:00 98.0 86 22 153/105 99 Room Air 09/25/16 00:00 97.5 86 20 166/95 99 Room Air 09/24/16 20:00 97.7 86 20 176/104 100 Room Air Intake and Output 3/10/17 3/11/17 19:00 07:00 Intake Total 480 ml 360 ml Output Total 2400 ml Balance 480 ml -2040 ml Intake Oral 480 ml 360 ml Output Urine Total 2400 ml Height (Feet): 6 Height (Inches): 1.00 Weight (Pounds): 150 General Appearance: no apparent distress EENT: normal ENT inspection Neck: normal alignment Cardiovascular: normal rate Respiratory/Chest: lungs clear Abdomen: non tender Pelvis: no masses Extremities: non-tender Edema: no edema noted Arm (L), no edema noted Arm (R), no edema noted Leg (L), no edema noted Leg (R), no edema noted Pedal (L), no edema noted Pedal (R), no edema noted Generalized Edema: mild edema Neurologic: responsive Lymphatic: normal anterior cervical (L), normal anterior cervical (R), normal axillary (L), normal axillary (R), normal inguinal (L), normal inguinal (R), normal other, normal posterior cervical (L), normal posterior cervical (R), normal submandibular (L), normal submandibular (R), normal supraclavicular (L), normal supraclavicular (R) FABRICE CUEVAS Sep 25, 2016 19:52
[2016-09-25 20:00] VITALS: BP 143/81
[2016-09-25] MEDS: Lisinopril 10mg tab ORAL SCH (21:56)
--- NOTE | 2016-09-25 23:55 | Pulmonology Progress Note ---
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9 82 18 157/99 99 Room Air 09/25/16 07:01 85 18 Room Air 09/25/16 04:00 98.0 86 22 153/105 99 Room Air 09/25/16 00:00 97.5 86 20 166/95 99 Room Air Intake and Output 09/24/16 09/25/16 19:00 07:00 Intake Total 480 ml 360 ml Output Total 2400 ml Balance 480 ml -2040 ml Intake Oral 480 ml 360 ml Output Urine Total 2400 ml General Appearance: no acute distress HEENT: normocephalic, atraumatic, PERRL Respiratory/Chest: chest wall non-tender, decreased breath sounds, accessory muscle use Cardiovascular: normal peripheral pulses, normal rate, regular rhythm, no JVD Abdomen: normal bowel sounds, soft, non tender, no organomegaly Genitourinary: normal external genitalia Extremities: no cyanosis 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, responsive, disoriented Current Medications Medications (Trade) Dose Ordered Sig/Gadiel Route PRN Reason Start Time Stop Time Status Last Admin Dose Admin Acetaminophen (Tylenol) 650 mg Q4H PRN ORAL T>100.5 09/23/16 15:45 10/23/16 15:44 Albuterol/ Ipratropium (DuoNeb 0.5-3(2.5)mg/3ml) 3 ml Q4H PRN HHN Shortness of Breath 09/23/16 15:45 09/28/16 15:44 Amlodipine Besylate (Norvasc) 5 mg DAILY ORAL 09/26/16 09:00 10/26/16 08:59 Aspirin (Ecotrin) 81 mg DAILY ORAL 09/26/16 09:00 10/26/16 08:59 Clonidine HCl (Catapres) 0.1 mg EVERY 4 HOURS PRN ORAL SBP>160 09/25/16 12:30 10/25/16 12:29 Dextrose (Dextrose 50%) STAT PRN IV Hypoglycemia 09/24/16 07:15 10/24/16 07:14 Heparin Sodium (Porcine) (Heparin 5000 units/ml) 5,000 units EVERY 12 HOURS SUBQ 09/23/16 21:00 10/23/16 20:59 09/25/16 21:57 Insulin Aspart (NovoLOG) BEFORE MEALS AND HS SUBQ 09/23/16 17:00 10/23/16 16:59 09/25/16 17:19 Insulin Aspart (NovoLOG) 5 units NOVOTIAC SUBQ 09/24/16 11:50 10/24/16 11:49 09/25/16 18:31 Insulin Detemir (Levemir) 15 units DAILY SUBQ 09/24/16 09:00 10/24/16 08:59 09/25/16 08:08 Levothyroxine Sodium (Synthroid) 150 mcg DAILY@0630 ORAL 09/24/16 06:30 10/24/16 06:29 09/25/16 05:38 Lisinopril (Zestril) 10 mg EVERY 12 HOURS ORAL 09/25/16 21:00 10/25/16 20:59 09/25/16 21:56 Lorazepam (Ativan 2mg/ml 1ml) 2 mg Q2H PRN IV agitation 09/23/16 15:45 09/30/16 15:44 Morphine Sulfate (Morphine Sulfate) 4 mg Q4H PRN IVP Severe Pain (Pain Scale 7-10) 09/23/16 15:45 09/30/16 15:44 09/25/16 21:57 Nitroglycerin (Ntg) 0.4 mg Q5M PRN SL Prn Chest Pain 09/23/16 15:45 10/23/16 15:44 Ondansetron HCl (Zofran) 4 mg Q6H PRN IVP Nausea & Vomiting 09/23/16 16:00 10/23/16 15:59 Pantoprazole (Protonix) 40 mg DAILY ORAL 09/26/16 09:00 10/26/16 08:59 Patient Own Medication (Patient's Own Med) 1 ea DAILY ORAL 09/22/16 16:00 10/22/16 15:59 09/25/16 08:01 Polyethylene Glycol (Miralax) 17 gm DAILYPRN PRN ORAL Constipation 09/23/16 16:00 10/23/16 15:59 Ranitidine HCl (Zantac) 150 mg BEDTIME ORAL 09/25/16 21:00 10/25/16 20:59 09/25/16 21:56 GINETTE DAMON Sep 25, 2016 23:55
[2016-09-26] VITALS: BP 143/81
[2016-09-26] MEDS: Morphine Sulfate 4mg/ml Inj IVP PRN ×5 (01:40→19:59)
[2016-09-26] MEDS: NovoLOG Insulin Flexpen SUBQ SCH ×6 (06:08→20:55)
[2016-09-26 07:04] VITALS: BP 146/85
[2016-09-26 07:50] LABS: BASOPHILS % (AUTO) 1.3 % (0.0-2.0); EOSINOPHILS % (AUTO) 3.5 % (0.0-3.0); LYMPHOCYTES % (AUTO) 42.4 % (20.0-45.0); MEAN CORPUSCULAR HEMOGLOBIN 30.3 PG (27.0-31.0); MEAN CORPUSCULAR HGB CONC 31.6 G/DL (32.0-36.0); MEAN CORPUSCULAR VOLUME 96 FL (80-99); MEAN PLATELET VOLUME 8.1 FL (6.5-10.1); MONOCYTES % (AUTO) 6.8 % (1.0-10.0); PLATELET COUNT 162 K/UL (150-450); RED BLOOD COUNT 2.97 M/UL (4.70-6.10); RED CELL DISTRIBUTION WIDTH 14.3 % (11.6-14.8); WHITE BLOOD COUNT 3.8 K/UL (4.8-10.8)
--- NOTE | 2016-09-26 08:03 | General Progress Note ---
Assessment/Plan Assessment/Plan ASSESSMENT: 1. Anemia of GI bleed, patient with vomiting of blood and reason for admission, s/p egd procedure, results show duodenitis 2. Anemia of chronic disease as well as kidney disease, now improved, could be 2/2 dehydration, will recheck 3. Hereditary hemorrhagic telectangasia 4. Leukopenia, stable, potentially 2/2 infection as well 5. Hypoglycemia. 6. Human immunodeficiency virus/acquired immune deficiency syndrome. 7. Dementia. 8. Parkinson disease. 9. CP r/o ACS 10. Osteomyelitis 11. Parkinson disease. 12. Encephalopathy. 13. History of seizure. RECOMMENDATIONS: 1. Monitor counts 2. Ferritin is elevated indicating anemia of chronic disease 3. PRBC transfusion as needed basis. 4. Procrit sq for hiv (only if hgb less than 10) 5. GI ppx with ppi 6. Heparin for DVT prophylaxis. 7. Appreciate GI, ID, renal recs 8. Nutrition. 9. Close followup. Thank you, Connor Cuevas MD Subjective Constitutional: Reports: no symptoms HEENT: Reports: no symptoms Cardiovascular: Reports: no symptoms Respiratory: Reports: no symptoms Gastrointestinal/Abdominal: Reports: poor appetite Genitourinary: Reports: no symptoms Neurologic/Psychiatric: Reports: no symptoms Endocrine: Reports: no symptoms Hematologic/Lymphatic: Reports: anemia Allergies: Coded Allergies: GABAPENTIN (Verified Allergy, Severe, 04/07/12) QUETIAPINE (Verified Allergy, Unknown, 07/25/15) Subjective stable, no events overnight, no fevers or chills reported, joking this am Objective Last 24 Hour Vital Signs Date Time Temp Pulse Resp B/P Pulse Ox O2 Delivery O2 Flow Rate FiO2 09/26/16 07:04 97.5 71 20 146/85 99 Nasal Cannula 09/26/16 02:10 97.9 09/26/16 00:00 98.8 74 20 143/81 99 Room Air 09/25/16 21:56 148/82 09/25/16 20:00 98.8 74 20 143/81 99 Room Air 09/25/16 19:18 81 18 Room Air 09/25/16 16:00 97.9 71 20 161/93 100 Room Air 09/25/16 12:00 97.7 70 18 160/97 98 Room Air 09/25/16 08:09 97.9 82 18 157/99 99 Room Air Intake and Output 09/25/16 09/26/16 19:00 07:00 Intake Total 720 ml Output Total 1200 ml 2650 ml Balance -480 ml -2650 ml Intake Oral 720 ml Output Urine Total 1200 ml 2650 ml # Voids 1 Laboratory Tests 09/26/16 06:45: White Blood Count 3.8L, Red Blood Count 2.97L, Hemoglobin 9.0L, Hematocrit 28.4L , Mean Corpuscular Volume 96, Mean Corpuscular Hemoglobin 30.3, Mean Corpuscular Hemoglobin Concent 31.6L, Red Cell Distribution Width 14.3, Platelet Count 162, Mean Platelet Volume 8.1, Neutrophils (%) (Auto) 46.0, Lymphocytes (%) (Auto) 42.4, Monocytes (%) (Auto) 6.8, Eosinophils (%) (Auto) 3.5H, Basophils (%) (Auto) 1.3, Sodium Level [Pending], Potassium Level [Pending ], Chloride Level [Pending], Carbon Dioxide Level [Pending], Blood Urea Nitrogen [Pending], Creatinine [Pending], Estimat Glomerular Filtration Rate [ Pending], Glucose Level [Pending], Uric Acid [Pending], Calcium Level [Pending] , Phosphorus Level [Pending], Magnesium Level [Pending], Total Bilirubin [ Pending], Aspartate Amino Transf (AST/SGOT) [Pending], Alanine Aminotransferase (ALT/SGPT) [Pending], Alkaline Phosphatase [Pending], C-Reactive Protein, Quantitative [Pending], Pro-B-Type Natriuretic Peptide [Pending], Total Protein [Pending], Albumin [Pending], Globulin [Pending] Height (Feet): 6 Height (Inches): 1.00 Weight (Pounds): 150 General Appearance: alert EENT: TMs normal Neck: supple Cardiovascular: regular rhythm Respiratory/Chest: normal breath sounds Abdomen: non tender Extremities: non-tender Edema: 1+ Leg (L), 1+ Leg (R) Edema: mild edema Neurologic: alert Skin: warm/dry Connor Cuevas Sep 26, 2016 08:03
[2016-09-26] MEDS: Aspirin EC 81mg tab ORAL SCH (08:31)
[2016-09-26] MEDS: Lisinopril 10mg tab ORAL SCH ×2 (08:32→20:49)
[2016-09-26] MEDS: GENVOYA TAB ORAL SCH (08:33)
[2016-09-26 08:34] LABS: ALANINE AMINOTRANSFERASE 62 U/L (3-41); ALBUMIN/GLOBULIN RATIO 1.1 (1.0-2.7); ANION GAP 11 (5-15); ASPARTATE AMINO TRANSFERASE 84 U/L (5-40); CALCIUM 9.2 mg/dL (8.6-10.2); CARBON DIOXIDE 28 mEQ/L (20-30); CHLORIDE 98 mEQ/L (98-107); CREATININE 1.2 mg/dL (0.7-1.2); CRP QUANT < 0.3 mg/dL (< 0.5); GLOMERULAR FILTRATION RATE > 60 mL/min (>60); HEMOLYSIS 5; MAGNESIUM 1.6 mg/dL (1.7-2.5); PHOSPHORUS 4.6 mg/dL (2.5-4.8); POTASSIUM 4.4 mEQ/L (3.4-4.9); SODIUM 137 mEQ/L (135-145); TOTAL PROTEIN 6.1 g/dL (6.6-8.7); URIC ACID 5.8 mg/dL (3.0-7.5)
[2016-09-26] MEDS: Heparin 5000 units/ml inj SUBQ SCH ×2 (08:35→20:55)
[2016-09-26] MEDS: Levemir Flexpen SUBQ SCH (08:35)
[2016-09-26 08:45] VITALS: BP 143/89
--- NOTE | 2016-09-26 10:28 | General Progress Note ---
Assessment/Plan Status: stable Status Narrative Cr 1.2 Assessment/Plan Patient admitted for DKA Cr of 2 now lower to 1.3 and 1.1 Glucose now much improved LFTs also elevated- but improving Urine tox screen been positive recently No UA available at this time Other conditions: (1) Diabetic nephropathy (2) DM (diabetes mellitus) (3) Diabetic foot ulcer (4) Hypothyroidism (5) Dehydration (6) HIV (7) Parkinson / Migraine PLAN: labs OK Keep BP in check, adjust meds Continue BS control- watch renal parameters and LFTs- slow hydrate- per orders / consultants Subjective ROS Limited/Unobtainable: No Allergies: Coded Allergies: GABAPENTIN (Verified Allergy, Severe, 04/07/12) QUETIAPINE (Verified Allergy, Unknown, 07/25/15) Objective Last 24 Hour Vital Signs Date Time Temp Pulse Resp B/P Pulse Ox O2 Delivery O2 Flow Rate FiO2 09/26/16 08:45 97.9 71 18 143/89 99 Room Air 09/26/16 08:32 146/85 09/26/16 08:32 71 146/85 09/26/16 08:22 97.5 09/26/16 07:04 97.5 71 20 146/85 99 Nasal Cannula 09/26/16 00:00 98.8 74 20 143/81 99 Room Air 09/25/16 21:56 148/82 09/25/16 20:00 98.8 74 20 143/81 99 Room Air 09/25/16 19:18 81 18 Room Air 09/25/16 16:00 97.9 71 20 161/93 100 Room Air 09/25/16 12:00 97.7 70 18 160/97 98 Room Air Intake and Output 09/25/16 09/26/16 19:00 07:00 Intake Total 720 ml Output Total 1200 ml 2650 ml Balance -480 ml -2650 ml Intake Oral 720 ml Output Urine Total 1200 ml 2650 ml # Voids 1 Laboratory Tests 09/26/16 06:45: White Blood Count 3.8L, Red Blood Count 2.97L, Hemoglobin 9.0L, Hematocrit 28.4L , Mean Corpuscular Volume 96, Mean Corpuscular Hemoglobin 30.3, Mean Corpuscular Hemoglobin Concent 31.6L, Red Cell Distribution Width 14.3, Platelet Count 162, Mean Platelet Volume 8.1, Neutrophils (%) (Auto) 46.0, Lymphocytes (%) (Auto) 42.4, Monocytes (%) (Auto) 6.8, Eosinophils (%) (Auto) 3.5H, Basophils (%) (Auto) 1.3, Sodium Level 137, Potassium Level 4.4, Chloride Level 98, Carbon Dioxide Level 28, Anion Gap 11, Blood Urea Nitrogen 22, Creatinine 1.2, Estimat Glomerular Filtration Rate > 60, Glucose Level 261H, Uric Acid 5.8, Calcium Level 9.2, Phosphorus Level 4.6, Magnesium Level 1.6L, Total Bilirubin 0.2, Aspartate Amino Transf (AST/SGOT) 84H, Alanine Aminotransferase (ALT/SGPT) 62H, Alkaline Phosphatase 132H, C-Reactive Protein, Quantitative < 0.3, Pro-B-Type Natriuretic Peptide 679H, Total Protein 6.1L, Albumin 3.3L, Globulin 2.8, Albumin/Globulin Ratio 1.1 Height (Feet): 6 Height (Inches): 1.00 Weight (Pounds): 150 General Appearance: no apparent distress Objective physical exam not changed PONCHO RAMÍREZ Sep 26, 2016 10:28
--- NOTE | 2016-09-26 11:15 | General Progress Note ---
Assessment/Plan Problem List: (1) Upper GI bleed ICD Codes: K92.2 - Gastrointestinal hemorrhage, unspecified SNOMED: 63631755 (2) Anemia due to blood loss, acute ICD Codes: D62 - Acute posthemorrhagic anemia SNOMED: 656155326 (3) Hyperglycemia (4) Phantom limb pain ICD Codes: G54.7 - Phantom limb syndrome SNOMED: 915945728 (5) Hypoalbuminemia ICD Codes: E88.09 - Other disorders of plasma-protein metabolism, not elsewhere classified SNOMED: 002300749 (6) Gastritis ICD Codes: K29.70 - Gastritis, unspecified, without bleeding SNOMED: 1618230 (7) Pain in limb ICD Codes: M79.609 - Pain in limb SNOMED: 58459895 (8) Neuropathic pain ICD Codes: M79.2 - Neuropathic pain syndrome (non-herpetic) SNOMED: 438179149 (9) Hyperglycemia (10) UGIB (upper gastrointestinal bleed) ICD Codes: K92.2 - Gastrointestinal hemorrhage, unspecified SNOMED: 11560546 (11) Diabetic ketoacidosis ICD Codes: E13.10 - Other specified diabetes mellitus with ketoacidosis without coma SNOMED: 15337077, 198901408 (12) HIV disease ICD Codes: B20 - Human immunodeficiency virus (HIV) disease SNOMED: 16395300 (13) Dehydration (14) Hypothyroidism ICD Codes: E03.9 - Hypothyroidism SNOMED: 94442448 (15) Diabetic nephropathy ICD Codes: E11.21 - Type 2 diabetes mellitus with diabetic nephropathy SNOMED: 522268905 (16) DKA (diabetic ketoacidoses) ICD Codes: E13.10 - Other specified diabetes mellitus with ketoacidosis without coma SNOMED: 43662134, 003500724 Qualifiers: Qualified Codes: E13.10 - Other specified diabetes mellitus with ketoacidosis without coma Status: progressing Assessment/Plan dka resolved require skilled facility unable to take care of himself at home labile bg hiv amputation chronic pain Subjective ROS Limited/Unobtainable: Yes Constitutional: Reports: no symptoms Allergies: Coded Allergies: GABAPENTIN (Verified Allergy, Severe, 04/07/12) QUETIAPINE (Verified Allergy, Unknown, 07/25/15) Objective Last 24 Hour Vital Signs Date Time Temp Pulse Resp B/P Pulse Ox O2 Delivery O2 Flow Rate FiO2 09/26/16 08:45 97.9 71 18 143/89 99 Room Air 09/26/16 08:32 146/85 09/26/16 08:32 71 146/85 09/26/16 08:22 97.5 09/26/16 07:04 97.5 71 20 146/85 99 Nasal Cannula 09/26/16 00:00 98.8 74 20 143/81 99 Room Air 09/25/16 21:56 148/82 09/25/16 20:00 98.8 74 20 143/81 99 Room Air 09/25/16 19:18 81 18 Room Air 09/25/16 16:00 97.9 71 20 161/93 100 Room Air 09/25/16 12:00 97.7 70 18 160/97 98 Room Air Intake and Output 09/25/16 09/26/16 19:00 07:00 Intake Total 720 ml Output Total 1200 ml 2650 ml Balance -480 ml -2650 ml Intake Oral 720 ml Output Urine Total 1200 ml 2650 ml # Voids 1 Laboratory Tests 09/26/16 06:45: White Blood Count 3.8L, Red Blood Count 2.97L, Hemoglobin 9.0L, Hematocrit 28.4L , Mean Corpuscular Volume 96, Mean Corpuscular Hemoglobin 30.3, Mean Corpuscular Hemoglobin Concent 31.6L, Red Cell Distribution Width 14.3, Platelet Count 162, Mean Platelet Volume 8.1, Neutrophils (%) (Auto) 46.0, Lymphocytes (%) (Auto) 42.4, Monocytes (%) (Auto) 6.8, Eosinophils (%) (Auto) 3.5H, Basophils (%) (Auto) 1.3, Sodium Level 137, Potassium Level 4.4, Chloride Level 98, Carbon Dioxide Level 28, Anion Gap 11, Blood Urea Nitrogen 22, Creatinine 1.2, Estimat Glomerular Filtration Rate > 60, Glucose Level 261H, Uric Acid 5.8, Calcium Level 9.2, Phosphorus Level 4.6, Magnesium Level 1.6L, Total Bilirubin 0.2, Aspartate Amino Transf (AST/SGOT) 84H, Alanine Aminotransferase (ALT/SGPT) 62H, Alkaline Phosphatase 132H, C-Reactive Protein, Quantitative < 0.3, Pro-B-Type Natriuretic Peptide 679H, Total Protein 6.1L, Albumin 3.3L, Globulin 2.8, Albumin/Globulin Ratio 1.1 Height (Feet): 6 Height (Inches): 1.00 Weight (Pounds): 150 EENT: PERRL/EOMI Neck: supple Cardiovascular: normal rate Respiratory/Chest: lungs clear Abdomen: soft Suyz Bruce MD Sep 26, 2016 11:15
[2016-09-26 12:00] VITALS: BP 124/87
[2016-09-26 16:37] VITALS: BP 134/76
[2016-09-26 20:00] VITALS: BP 124/81
--- NOTE | 2016-09-26 23:23 | Pulmonology Progress Note ---
Assessment/Plan Assessment/Plan Assessment/Plan Assessment/Plan Critical Care - Asmt/Plan Problems: (1) DKA (diabetic ketoacidoses) (2) UGIB (upper gastrointestinal bleed) Respiratory: monitor respiratory rate, adjust FIO2, CXR Cardiac: continue to monitor HR/BP Renal: F/U I&O, keep IV fluid Infectious Disease: check cultures Gastrointestinal: continue feedings/current rate Endocrine: monitor blood sugar, continue sliding scale insulin Hematologic: monitor H/H, transfuse if hgb<8.5 Neurologic: PRN Ativan, keep patient comfortable Prophylaxis: Protonix Notes Reviewed: stave hewer, cardio Discussed with: nurses, consultants, immigration case manager Subjective ROS Limited/Unobtainable: Yes Constitutional: Reports: anorexia, chills, fatigue Gastrointestinal/Abdominal: Reports: nausea Neurologic: Reports: confusion, weakness Allergies: Coded Allergies: GABAPENTIN (Verified Allergy, Severe, 04/07/12) QUETIAPINE (Verified Allergy, Unknown, 07/25/15) Objective Last 24 Hour Vital Signs Date Time Temp Pulse Resp B/P Pulse Ox O2 Delivery O2 Flow Rate FiO2 09/26/16 20:49 124/81 09/26/16 20:29 98.1 09/26/16 20:00 98.1 82 20 124/81 99 Room Air 09/26/16 19:32 80 18 Room Air 09/26/16 17:37 85 134/76 09/26/16 16:37 97.9 85 20 134/76 99 Room Air 09/26/16 12:00 97.7 73 18 124/87 96 Room Air 09/26/16 11:47 78 18 Room Air 09/26/16 08:45 97.9 71 18 143/89 99 Room Air 09/26/16 08:32 146/85 09/26/16 08:32 71 146/85 09/26/16 07:04 97.5 71 20 146/85 99 Nasal Cannula 09/26/16 00:00 98.8 74 20 143/81 99 Room Air Intake and Output 09/25/16 09/26/16 19:00 07:00 Intake Total 720 ml Output Total 1200 ml 2650 ml Balance -480 ml -2650 ml Intake Oral 720 ml Output Urine Total 1200 ml 2650 ml # Voids 1 General Appearance: no acute distress HEENT: normocephalic, atraumatic, PERRL Respiratory/Chest: chest wall non-tender, decreased breath sounds, accessory muscle use Cardiovascular: normal peripheral pulses, normal rate, regular rhythm, no JVD Abdomen: normal bowel sounds, soft, non tender, no organomegaly, non distended , no mass Genitourinary: normal external genitalia Extremities: no cyanosis Skin: no lesions Neurologic/Psychiatric: arch support maker II-XII grossly normal, responsive, disoriented Laboratory Tests 09/26/16 06:45: White Blood Count 3.8L, Red Blood Count 2.97L, Hemoglobin 9.0L, Hematocrit 28.4L , Mean Corpuscular Volume 96, Mean Corpuscular Hemoglobin 30.3, Mean Corpuscular Hemoglobin Concent 31.6L, Red Cell Distribution Width 14.3, Platelet Count 162, Mean Platelet Volume 8.1, Neutrophils (%) (Auto) 46.0, Lymphocytes (%) (Auto) 42.4, Monocytes (%) (Auto) 6.8, Eosinophils (%) (Auto) 3.5H, Basophils (%) (Auto) 1.3, Sodium Level 137, Potassium Level 4.4, Chloride Level 98, Carbon Dioxide Level 28, Anion Gap 11, Blood Urea Nitrogen 22, Creatinine 1.2, Estimat Glomerular Filtration Rate > 60, Glucose Level 261H, Uric Acid 5.8, Calcium Level 9.2, Phosphorus Level 4.6, Magnesium Level 1.6L, Total Bilirubin 0.2, Aspartate Amino Transf (AST/SGOT) 84H, Alanine Aminotransferase (ALT/SGPT) 62H, Alkaline Phosphatase 132H, C-Reactive Protein, Quantitative < 0.3, Pro-B-Type Natriuretic Peptide 679H, Total Protein 6.1L, Albumin 3.3L, Globulin 2.8, Albumin/Globulin Ratio 1.1 Current Medications Medications (Trade) Dose Ordered Sig/Gadiel Route PRN Reason Start Time Stop Time Status Last Admin Dose Admin Acetaminophen (Tylenol) 650 mg Q4H PRN ORAL T>100.5 09/23/16 15:45 10/23/16 15:44 Albuterol/ Ipratropium (DuoNeb 0.5-3(2.5)mg/3ml) 3 ml Q4H PRN HHN Shortness of Breath 09/23/16 15:45 09/28/16 15:44 Amlodipine Besylate (Norvasc) 5 mg BID ORAL 09/26/16 18:00 10/26/16 17:59 09/26/16 17:37 Aspirin (Ecotrin) 81 mg DAILY ORAL 09/26/16 09:00 10/26/16 08:59 09/26/16 08:31 Clonidine HCl (Catapres) 0.1 mg EVERY 4 HOURS PRN ORAL SBP>160 09/25/16 12:30 10/25/16 12:29 Dextrose (Dextrose 50%) STAT PRN IV Hypoglycemia 09/24/16 07:15 10/24/16 07:14 Heparin Sodium (Porcine) (Heparin 5000 units/ml) 5,000 units EVERY 12 HOURS SUBQ 09/23/16 21:00 10/23/16 20:59 09/26/16 20:55 Insulin Aspart (NovoLOG) BEFORE MEALS AND HS SUBQ 09/23/16 17:00 10/23/16 16:59 09/26/16 20:55 Insulin Aspart (NovoLOG) 5 units NOVOTIAC SUBQ 09/24/16 11:50 10/24/16 11:49 09/26/16 12:14 Insulin Detemir (Levemir) 15 units DAILY SUBQ 09/24/16 09:00 10/24/16 08:59 09/26/16 08:35 Levothyroxine Sodium (Synthroid) 150 mcg DAILY@0630 ORAL 09/24/16 06:30 10/24/16 06:29 09/26/16 05:52 Lisinopril (Zestril) 10 mg EVERY 12 HOURS ORAL 09/25/16 21:00 10/25/16 20:59 09/26/16 20:49 Lorazepam (Ativan 2mg/ml 1ml) 2 mg Q2H PRN IV agitation 09/23/16 15:45 09/30/16 15:44 Morphine Sulfate (Morphine Sulfate) 4 mg Q4H PRN IVP Severe Pain (Pain Scale 7-10) 09/23/16 15:45 09/30/16 15:44 09/26/16 19:59 Nitroglycerin (Ntg) 0.4 mg Q5M PRN SL Prn Chest Pain 09/23/16 15:45 10/23/16 15:44 Ondansetron HCl (Zofran) 4 mg Q6H PRN IVP Nausea & Vomiting 09/23/16 16:00 10/23/16 15:59 Pantoprazole (Protonix) 40 mg DAILY ORAL 09/26/16 09:00 10/26/16 08:59 09/26/16 08:32 Patient Own Medication (Patient's Own Med) 1 ea DAILY ORAL 09/22/16 16:00 10/22/16 15:59 09/26/16 08:33 Polyethylene Glycol (Miralax) 17 gm DAILYPRN PRN ORAL Constipation 09/23/16 16:00 10/23/16 15:59 Ranitidine HCl (Zantac) 150 mg BEDTIME ORAL 09/25/16 21:00 10/25/16 20:59 09/26/16 20:49 GINETTE DAMON Sep 26, 2016 23:23
[2016-09-27] VITALS: BP 120/76
[2016-09-27] MEDS: Morphine Sulfate 4mg/ml Inj IVP PRN ×3 (00:24→09:23)
[2016-09-27 04:00] VITALS: BP 122/79
[2016-09-27] MEDS: NovoLOG Insulin Flexpen SUBQ SCH ×4 (06:39→12:10)
--- NOTE | 2016-09-27 07:45 | General Progress Note ---
Assessment/Plan Problem List: (1) Diabetic nephropathy ICD Codes: E11.21 - Type 2 diabetes mellitus with diabetic nephropathy SNOMED: 930922187 (2) Uncontrolled diabetes mellitus ICD Codes: E11.65 - Type 2 diabetes mellitus with hyperglycemia SNOMED: 767575720 (3) Diabetic ketoacidosis ICD Codes: E13.10 - Other specified diabetes mellitus with ketoacidosis without coma SNOMED: 11272577, 985752178 (4) HIV disease ICD Codes: B20 - Human immunodeficiency virus (HIV) disease SNOMED: 55793011 (5) Hypothyroidism ICD Codes: E03.9 - Hypothyroidism SNOMED: 98811526 Assessment/Plan glucose elevated due to non compliance with diet continue Levemir 15 units daily + Novolog 5 units ac tid + SSI Levothyroxine 150 mcg daily Subjective Allergies: Coded Allergies: GABAPENTIN (Verified Allergy, Severe, 04/07/12) QUETIAPINE (Verified Allergy, Unknown, 07/25/15) All Systems: reviewed and negative except above Subjective event noted Objective Last 24 Hour Vital Signs Date Time Temp Pulse Resp B/P Pulse Ox O2 Delivery O2 Flow Rate FiO2 09/27/16 05:47 98.1 09/27/16 04:00 97.0 75 20 122/79 99 Room Air 09/27/16 00:00 97.3 77 20 120/76 100 Room Air 09/26/16 20:49 124/81 09/26/16 20:00 98.1 82 20 124/81 99 Room Air 09/26/16 19:32 80 18 Room Air 09/26/16 17:37 85 134/76 09/26/16 16:37 97.9 85 20 134/76 99 Room Air 09/26/16 12:00 97.7 73 18 124/87 96 Room Air 09/26/16 11:47 78 18 Room Air 09/26/16 08:45 97.9 71 18 143/89 99 Room Air 09/26/16 08:32 146/85 09/26/16 08:32 71 146/85 Intake and Output 09/26/16 09/27/16 18:59 06:59 Intake Total 600 ml 720 ml Output Total 900 ml 1500 ml Balance -300 ml -780 ml Intake Oral 600 ml 720 ml Output Urine Total 900 ml 1500 ml # Voids 1 Laboratory Tests 09/27/16 05:45: Hepatitis A IgM Antibody [Pending], Hepatitis B Surface Antigen [Pending], Hepatitis B Core IgM Antibody [Pending], Hepatitis C Antibody [Pending] Height (Feet): 6 Height (Inches): 1.00 Weight (Pounds): 150 General Appearance: no apparent distress Neck: non-tender Cardiovascular: normal rate Respiratory/Chest: lungs clear Abdomen: normal bowel sounds Pelvis: normal external exam Extremities: other - left BKA Objective Current Medications Medications (Trade) Dose Ordered Sig/Gadiel Route PRN Reason Start Time Stop Time Status Last Admin Dose Admin Acetaminophen (Tylenol) 650 mg Q4H PRN ORAL T>100.5 09/23/16 15:45 10/23/16 15:44 Albuterol/ Ipratropium (DuoNeb 0.5-3(2.5)mg/3ml) 3 ml Q4H PRN HHN Shortness of Breath 09/23/16 15:45 09/28/16 15:44 Amlodipine Besylate (Norvasc) 5 mg BID ORAL 09/26/16 18:00 10/26/16 17:59 09/26/16 17:37 Aspirin (Ecotrin) 81 mg DAILY ORAL 09/26/16 09:00 10/26/16 08:59 09/26/16 08:31 Clonidine HCl (Catapres) 0.1 mg EVERY 4 HOURS PRN ORAL SBP>160 09/25/16 12:30 10/25/16 12:29 Dextrose (Dextrose 50%) STAT PRN IV Hypoglycemia 09/24/16 07:15 10/24/16 07:14 Heparin Sodium (Porcine) (Heparin 5000 units/ml) 5,000 units EVERY 12 HOURS SUBQ 09/23/16 21:00 10/23/16 20:59 09/26/16 20:55 Insulin Aspart (NovoLOG) BEFORE MEALS AND HS SUBQ 09/23/16 17:00 10/23/16 16:59 09/27/16 06:39 Insulin Aspart (NovoLOG) 5 units NOVOTIAC SUBQ 09/24/16 11:50 10/24/16 11:49 09/27/16 06:40 Insulin Detemir (Levemir) 15 units DAILY SUBQ 09/24/16 09:00 10/24/16 08:59 09/26/16 08:35 Levothyroxine Sodium (Synthroid) 150 mcg DAILY@0630 ORAL 09/24/16 06:30 10/24/16 06:29 09/27/16 05:46 Lisinopril (Zestril) 10 mg EVERY 12 HOURS ORAL 09/25/16 21:00 10/25/16 20:59 09/26/16 20:49 Lorazepam (Ativan 2mg/ml 1ml) 2 mg Q2H PRN IV agitation 09/23/16 15:45 09/30/16 15:44 Morphine Sulfate (Morphine Sulfate) 4 mg Q4H PRN IVP Severe Pain (Pain Scale 7-10) 09/23/16 15:45 09/30/16 15:44 09/27/16 05:16 Nitroglycerin (Ntg) 0.4 mg Q5M PRN SL Prn Chest Pain 09/23/16 15:45 10/23/16 15:44 Ondansetron HCl (Zofran) 4 mg Q6H PRN IVP Nausea & Vomiting 09/23/16 16:00 10/23/16 15:59 Pantoprazole (Protonix) 40 mg DAILY ORAL 09/26/16 09:00 10/26/16 08:59 09/26/16 08:32 Patient Own Medication (Patient's Own Med) 1 ea DAILY ORAL 09/22/16 16:00 10/22/16 15:59 09/26/16 08:33 Polyethylene Glycol (Miralax) 17 gm DAILYPRN PRN ORAL Constipation 09/23/16 16:00 10/23/16 15:59 Ranitidine HCl (Zantac) 150 mg BEDTIME ORAL 09/25/16 21:00 10/25/16 20:59 09/26/16 20:49 Item Value Date Time Bedside Blood Glucose 364 mg/dl H 09/27/16 0643 Bedside Blood Glucose 270 mg/dl H 09/26/162054 Bedside Blood Glucose 83 mg/dl 09/26/16 1650 Bedside Blood Glucose 229 mg/dl H 09/26/16 1215 Bedside Blood Glucose 200 mg/dl H 09/26/16 0835 Bedside Blood Glucose 200 mg/dl H 09/26/16 0608 AKILAH MARIE 13, 2017 07:45
[2016-09-27 08:00] VITALS: BP 128/84
--- NOTE | 2016-09-27 08:40 | General Progress Note ---
Assessment/Plan Assessment/Plan (1) Lumbago (2) Lumbar DDD (3) Lumbar Spondylosis (4) Phantom limb pain (5) history of below knee amputation of left lower extremity Pt will be continued on Morphine Pt was d/w Dr. Merino and he concurred. Subjective Date patient seen: Sep 27, 2016 Time patient seen: 07:00 - am Allergies: Coded Allergies: GABAPENTIN (Verified Allergy, Severe, 04/07/12) QUETIAPINE (Verified Allergy, Unknown, 07/25/15) Subjective Constitutional: Reports: weakness, Denies: chills, diaphoresis, fever, malaise , no symptoms, other HEENT: Denies: blurred vision, double vision, ear discharge, ear pain, eye pain , mouth pain, mouth swelling, no symptoms, nose congestion, nose pain, other, tearing, throat pain, throat swelling Cardiovascular: Denies: chest pain, edema, irregular heart rate, lightheadedness, no symptoms, other, palpitations, syncope Respiratory: Denies: SOB at rest, SOB with excertion, cough, no symptoms, orthopnea, other, shortness of breath, sputum, stridor, wheezing Gastrointestinal/Abdominal: Reports: abdominal pain, Denies: abdomen distended, black stools, blood in stool, constipated, diarrhea, difficulty swallowing, nausea, no symptoms, other, poor appetite, poor fluid intake, rectal bleeding, tarry stools, vomiting Genitourinary: Denies: burning, discharge, flank pain, frequency, hematuria, incontinence, no symptoms, other, pain, urgency Neurologic/Psychiatric: Reports: numbness, tingling, weakness, Denies: anxiety , depressed, emotional problems, headache, no symptoms, other, paresthesia, pre- existing deficit, seizure, tremors Endocrine: Denies: excessive sweating, flushing, increased hunger, increased thirst, increased urine, intolerance to cold, intolerance to heat, no symptoms, other, unexplained weight gain, unexplained weight loss Hematologic/Lymphatic: Denies: anemia, easy bleeding, easy bruising, no symptoms, other Subjective Pain is unchanged and tolerated on the Morphine Objective Last 24 Hour Vital Signs Date Time Temp Pulse Resp B/P Pulse Ox O2 Delivery O2 Flow Rate FiO2 09/27/16 08:00 97.3 81 18 128/84 100 Room Air 09/27/16 07:46 82 18 Room Air 09/27/16 05:47 98.1 09/27/16 04:00 97.0 75 20 122/79 99 Room Air 09/27/16 00:00 97.3 77 20 120/76 100 Room Air 09/26/16 20:49 124/81 09/26/16 20:00 98.1 82 20 124/81 99 Room Air 09/26/16 19:32 80 18 Room Air 09/26/16 17:37 85 134/76 09/26/16 16:37 97.9 85 20 134/76 99 Room Air 09/26/16 12:00 97.7 73 18 124/87 96 Room Air 09/26/16 11:47 78 18 Room Air 09/26/16 08:45 97.9 71 18 143/89 99 Room Air Intake and Output 09/26/16 09/27/16 19:00 07:00 Intake Total 600 ml 720 ml Output Total 900 ml 1500 ml Balance -300 ml -780 ml Intake Oral 600 ml 720 ml Output Urine Total 900 ml 1500 ml # Voids 1 Laboratory Tests 09/27/16 05:45: Hepatitis A IgM Antibody [Pending], Hepatitis B Surface Antigen [Pending], Hepatitis B Core IgM Antibody [Pending], Hepatitis C Antibody [Pending] Height (Feet): 6 Height (Inches): 1.00 Weight (Pounds): 150 Objective General Appearance: no apparent distress, alert EENT: PERRL/EOMI, normal ENT inspection Neck: normal alignment, supple Cardiovascular: normal rate, regular rhythm Respiratory/Chest: lungs clear, normal breath sounds Abdomen: non tender, soft Extremities: other - left BKA Edema: trace edema Neurologic: alert, oriented x 3 Skin: warm/dry CALLIE FRAGOSO Sep 27, 2016 08:40
[2016-09-27] MEDS: Levemir Flexpen SUBQ SCH (08:59)
[2016-09-27] MEDS: Heparin 5000 units/ml inj SUBQ SCH (08:59)
[2016-09-27] MEDS: Aspirin EC 81mg tab ORAL SCH (09:01)
[2016-09-27] MEDS: Lisinopril 10mg tab ORAL SCH (09:01)
[2016-09-27] MEDS: GENVOYA TAB ORAL SCH (09:01)
[2016-09-27 11:56] VITALS: BP 144/81
--- NOTE | 2016-09-27 12:42 | General Progress Note ---
Assessment/Plan Problem List: (1) Upper GI bleed ICD Codes: K92.2 - Gastrointestinal hemorrhage, unspecified SNOMED: 27639211 (2) Anemia due to blood loss, acute ICD Codes: D62 - Acute posthemorrhagic anemia SNOMED: 630388084 (3) Hyperglycemia (4) Phantom limb pain ICD Codes: G54.7 - Phantom limb syndrome SNOMED: 896597318 (5) Hypoalbuminemia ICD Codes: E88.09 - Other disorders of plasma-protein metabolism, not elsewhere classified SNOMED: 327489872 (6) Gastritis ICD Codes: K29.70 - Gastritis, unspecified, without bleeding SNOMED: 0964946 (7) Pain in limb ICD Codes: M79.609 - Pain in limb SNOMED: 64714548 (8) Neuropathic pain ICD Codes: M79.2 - Neuropathic pain syndrome (non-herpetic) SNOMED: 146286986 (9) Hyperglycemia (10) UGIB (upper gastrointestinal bleed) ICD Codes: K92.2 - Gastrointestinal hemorrhage, unspecified SNOMED: 79496929 (11) Diabetic ketoacidosis ICD Codes: E13.10 - Other specified diabetes mellitus with ketoacidosis without coma SNOMED: 04480979, 784747529 (12) HIV disease ICD Codes: B20 - Human immunodeficiency virus (HIV) disease SNOMED: 53470560 (13) Dehydration (14) Hypothyroidism ICD Codes: E03.9 - Hypothyroidism SNOMED: 18093324 (15) Diabetic nephropathy ICD Codes: E11.21 - Type 2 diabetes mellitus with diabetic nephropathy SNOMED: 754826395 (16) DKA (diabetic ketoacidoses) ICD Codes: E13.10 - Other specified diabetes mellitus with ketoacidosis without coma SNOMED: 27723074, 326429080 Qualifiers: Qualified Codes: E13.10 - Other specified diabetes mellitus with ketoacidosis without coma Status: progressing Assessment/Plan has agreed to go to snf require skilled facility unable to take care of himself at home labile bg hiv amputati Subjective ROS Limited/Unobtainable: Yes Constitutional: Reports: no symptoms Allergies: Coded Allergies: GABAPENTIN (Verified Allergy, Severe, 04/07/12) QUETIAPINE (Verified Allergy, Unknown, 07/25/15) Objective Last 24 Hour Vital Signs Date Time Temp Pulse Resp B/P Pulse Ox O2 Delivery O2 Flow Rate FiO2 09/27/16 11:56 97.3 73 18 144/81 100 Room Air 09/27/16 09:53 97.3 09/27/16 09:20 81 128/84 09/27/16 09:01 128/84 09/27/16 08:00 97.3 81 18 128/84 100 Room Air 09/27/16 07:46 82 18 Room Air 09/27/16 04:00 97.0 75 20 122/79 99 Room Air 09/27/16 00:00 97.3 77 20 120/76 100 Room Air 09/26/16 20:49 124/81 09/26/16 20:00 98.1 82 20 124/81 99 Room Air 09/26/16 19:32 80 18 Room Air 09/26/16 17:37 85 134/76 09/26/16 16:37 97.9 85 20 134/76 99 Room Air Intake and Output 09/26/16 09/27/16 19:00 07:00 Intake Total 600 ml 720 ml Output Total 900 ml 1500 ml Balance -300 ml -780 ml Intake Oral 600 ml 720 ml Output Urine Total 900 ml 1500 ml # Voids 1 Laboratory Tests 09/27/16 05:45: Hepatitis A IgM Antibody [Pending], Hepatitis B Surface Antigen [Pending], Hepatitis B Core IgM Antibody [Pending], Hepatitis C Antibody [Pending] Height (Feet): 6 Height (Inches): 1.00 Weight (Pounds): 150 EENT: PERRL/EOMI Neck: supple Cardiovascular: normal rate Respiratory/Chest: lungs clear Abdomen: soft Suzy Bruce MD Sep 27, 2016 12:42
--- NOTE | 2016-09-27 13:58 | General Progress Note ---
Assessment/Plan Assessment/Plan ASSESSMENT: 1. Anemia of GI bleed, patient with vomiting of blood and reason for admission, s/p egd procedure, results show duodenitis 2. Anemia of chronic disease as well as kidney disease, now improved, could be 2/2 dehydration, will recheck 3. Hereditary hemorrhagic telectangasia 4. Leukopenia, stable, potentially 2/2 infection as well 5. Hypoglycemia. 6. Human immunodeficiency virus/acquired immune deficiency syndrome. 7. Dementia. 8. Parkinson disease. 9. CP r/o ACS 10. Osteomyelitis 11. Parkinson disease. 12. Encephalopathy. 13. History of seizure. RECS: 1. Monitor counts 2. Ferritin is elevated indicating anemia of chronic disease 3. PRBC transfusion as needed basis. 4. Procrit sq for hiv (only if hgb less than 10) 5. GI ppx with ppi 6. Heparin for DVT prophylaxis. 7. Appreciate GI, ID, renal recs 8. Nutrition. 9. Stable from heme end for discharge Thank you, Connor Cuevas MD Subjective Constitutional: Reports: no symptoms HEENT: Reports: no symptoms Cardiovascular: Reports: no symptoms Respiratory: Reports: no symptoms Gastrointestinal/Abdominal: Reports: no symptoms Genitourinary: Reports: no symptoms Neurologic/Psychiatric: Reports: no symptoms Endocrine: Reports: no symptoms Hematologic/Lymphatic: Reports: anemia Allergies: Coded Allergies: GABAPENTIN (Verified Allergy, Severe, 04/07/12) QUETIAPINE (Verified Allergy, Unknown, 07/25/15) Subjective stable, no events overnight, no fevers or chills reported, to be discharged Objective Last 24 Hour Vital Signs Date Time Temp Pulse Resp B/P Pulse Ox O2 Delivery O2 Flow Rate FiO2 09/27/16 11:56 97.3 73 18 144/81 100 Room Air 09/27/16 09:53 97.3 09/27/16 09:20 81 128/84 09/27/16 09:01 128/84 09/27/16 08:00 97.3 81 18 128/84 100 Room Air 09/27/16 07:46 82 18 Room Air 09/27/16 04:00 97.0 75 20 122/79 99 Room Air 09/27/16 00:00 97.3 77 20 120/76 100 Room Air 09/26/16 20:49 124/81 09/26/16 20:00 98.1 82 20 124/81 99 Room Air 09/26/16 19:32 80 18 Room Air 09/26/16 17:37 85 134/76 09/26/16 16:37 97.9 85 20 134/76 99 Room Air Intake and Output 09/26/16 09/27/16 19:00 07:00 Intake Total 600 ml 720 ml Output Total 900 ml 1500 ml Balance -300 ml -780 ml Intake Oral 600 ml 720 ml Output Urine Total 900 ml 1500 ml # Voids 1 Laboratory Tests 09/27/16 05:45: Hepatitis A IgM Antibody [Pending], Hepatitis B Surface Antigen [Pending], Hepatitis B Core IgM Antibody [Pending], Hepatitis C Antibody [Pending] Height (Feet): 6 Height (Inches): 1.00 Weight (Pounds): 150 General Appearance: WD/WN EENT: TMs normal Neck: supple Cardiovascular: regular rhythm Respiratory/Chest: normal breath sounds Abdomen: soft Extremities: non-tender Edema: no edema noted Leg (L), no edema noted Leg (R) Edema: mild edema Neurologic: alert Skin: warm/dry Connor Cuevas Sep 27, 2016 13:58
--- NOTE | 2016-09-27 17:02 | General Progress Note ---
Assessment/Plan Status: stable Assessment/Plan Patient admitted for DKA Cr of 2 now lower to 1.3 and 1.1 Glucose now much improved LFTs also elevated- but improving Urine tox screen been positive recently No UA available at this time Other conditions: (1) Diabetic nephropathy (2) DM (diabetes mellitus) (3) Diabetic foot ulcer (4) Hypothyroidism (5) Dehydration (6) HIV (7) Parkinson / Migraine PLAN: no labs today- Ok to discharge- Keep BP in check, adjust meds Continue BS control- watch renal parameters and LFTs- slow hydrate- per orders / consultants Subjective Date patient seen: Sep 27, 2016 Time patient seen: 12:00 ROS Limited/Unobtainable: No Allergies: Coded Allergies: GABAPENTIN (Verified Allergy, Severe, 04/07/12) QUETIAPINE (Verified Allergy, Unknown, 07/25/15) Objective Last 24 Hour Vital Signs Date Time Temp Pulse Resp B/P Pulse Ox O2 Delivery O2 Flow Rate FiO2 09/27/16 11:56 97.3 73 18 144/81 100 Room Air 09/27/16 09:53 97.3 09/27/16 09:20 81 128/84 09/27/16 09:01 128/84 09/27/16 08:00 97.3 81 18 128/84 100 Room Air 09/27/16 07:46 82 18 Room Air 09/27/16 04:00 97.0 75 20 122/79 99 Room Air 09/27/16 00:00 97.3 77 20 120/76 100 Room Air 09/26/16 20:49 124/81 09/26/16 20:00 98.1 82 20 124/81 99 Room Air 09/26/16 19:32 80 18 Room Air 09/26/16 17:37 85 134/76 Intake and Output 09/26/16 09/27/16 19:00 07:00 Intake Total 600 ml 720 ml Output Total 900 ml 1500 ml Balance -300 ml -780 ml Intake Oral 600 ml 720 ml Output Urine Total 900 ml 1500 ml # Voids 1 Laboratory Tests 09/27/16 05:45: Hepatitis A IgM Antibody [Pending], Hepatitis B Surface Antigen [Pending], Hepatitis B Core IgM Antibody [Pending], Hepatitis C Antibody [Pending] Height (Feet): 6 Height (Inches): 1.00 Weight (Pounds): 150 General Appearance: no apparent distress Objective physical exam not changed PONCHO RAMÍREZ Sep 27, 2016 17:02
--- NOTE | 2016-09-27 17:08 | Infectious Diseases Prog Note ---
Assessment/Plan Problems: (1) HIV disease Assessment & Plan: continue genvoya, check viral load, follow up with HIV provider as an outpatient (2) Diabetic ketoacidosis Assessment & Plan: improved on insulin drip, recommend tight glycemic control to keep blood glucose between 80-120 (3) DM (diabetes mellitus) Assessment & Plan: recommend tight glycemic control to keep blood glucose between 80-120 (4) ARF (acute renal failure) Assessment & Plan: suspect prerenal, continue hydration and monitor UOP, and renal function Subjective Constitutional: Denies: anorexia, chills, drenching sweats, fatigue, fever, no symptoms, other HEENT: Denies: congestion, coryza, dysphagia, hearing change, no symptoms, other, visual change Respiratory: Denies: dry cough, no symptoms, other, productive cough, shortness of breath Breasts: Denies: discharge, no symptoms, other, swelling, tenderness Cardiovascular: Denies: chest pain, dyspnea on exertion, no symptoms, other, palpitations Gastrointestinal/Abdominal: Denies: bloating, blood in stool, constipation, diarrhea, nausea, no symptoms, other, vomiting Genitourinary: Denies: dysuria, frequency, hematuria, no symptoms, nocturia, other Neurologic: Denies: confusion, headache, no symptoms, numbness, other, weakness Psychiatric: Denies: anxiety, depression, no symptoms, other Skin: Denies: no symptoms, other, rash, ulcer Endocrine: Denies: feels cold, feels warm, no symptoms, other Hematologic: Denies: bleeding, no symptoms, other, swollen lymph nodes Allergies: Coded Allergies: GABAPENTIN (Verified Allergy, Severe, 04/07/12) QUETIAPINE (Verified Allergy, Unknown, 07/25/15) Objective Vital Signs Last 24 Hour Vital Signs Date Time Temp Pulse Resp B/P Pulse Ox O2 Delivery O2 Flow Rate FiO2 09/27/16 11:56 97.3 73 18 144/81 100 Room Air 09/27/16 09:53 97.3 09/27/16 09:20 81 128/84 09/27/16 09:01 128/84 09/27/16 08:00 97.3 81 18 128/84 100 Room Air 09/27/16 07:46 82 18 Room Air 09/27/16 04:00 97.0 75 20 122/79 99 Room Air 09/27/16 00:00 97.3 77 20 120/76 100 Room Air 09/26/16 20:49 124/81 09/26/16 20:00 98.1 82 20 124/81 99 Room Air 09/26/16 19:32 80 18 Room Air 09/26/16 17:37 85 134/76 Height (Feet): 6 Height (Inches): 1.00 Weight (Pounds): 150 General Appearance: WD/WN, no acute distress HEENT: normocephalic, atraumatic, anicteric, mucous membranes moist Respiratory/Chest: chest wall non-tender, lungs clear, normal breath sounds, no respiratory distress, no accessory muscle use Cardiovascular: normal peripheral pulses, normal rate, regular rhythm Abdomen: normal bowel sounds, soft, non tender, no organomegaly, non distended , no mass Extremities: no cyanosis, no clubbing Skin: no rash, no lesions, no ulcers Laboratory Tests Test 09/27/16 05:45 Hepatitis A IgM Antibody Pending Hepatitis B Surface Antigen Pending Hepatitis B Core IgM Antibody Pending Hepatitis C Antibody Pending Clayton Escamilla M.D. Sep 27, 2016 17:08
--- NOTE | 2016-09-27 22:01 | General Progress Note ---
Assessment/Plan Assessment/Plan Assessment - N/V- EGD --> duodenitis - DKA - UGIB - GERD - AIDS Recommendations - PPI - elevate HOB - outpatient screening colon Subjective Allergies: Coded Allergies: GABAPENTIN (Verified Allergy, Severe, 04/07/12) QUETIAPINE (Verified Allergy, Unknown, 07/25/15) Subjective feels better No N/V advised re need for colonoscopy advised to f/u as outpt Objective Last 24 Hour Vital Signs Date Time Temp Pulse Resp B/P Pulse Ox O2 Delivery O2 Flow Rate FiO2 09/27/16 11:56 97.3 73 18 144/81 100 Room Air 09/27/16 09:53 97.3 09/27/16 09:20 81 128/84 09/27/16 09:01 128/84 09/27/16 08:00 97.3 81 18 128/84 100 Room Air 09/27/16 07:46 82 18 Room Air 09/27/16 04:00 97.0 75 20 122/79 99 Room Air 09/27/16 00:00 97.3 77 20 120/76 100 Room Air Intake and Output 09/26/16 09/27/16 19:00 07:00 Intake Total 600 ml 720 ml Output Total 900 ml 1500 ml Balance -300 ml -780 ml Intake Oral 600 ml 720 ml Output Urine Total 900 ml 1500 ml # Voids 1 Laboratory Tests 09/27/16 05:45: Hepatitis A IgM Antibody [Pending], Hepatitis B Surface Antigen [Pending], Hepatitis B Core IgM Antibody [Pending], Hepatitis C Antibody [Pending] Height (Feet): 6 Height (Inches): 1.00 Weight (Pounds): 150 Objective WDWN NCAT CTA RRR Soft ND NT (L) SYED VILLARREAL Sep 27, 2016 22:01
[2016-09-28 12:12] LABS: HIV RNA PCR QUANT 1.602 (.)
[2016-09-29] MEDS ORDERED: NOVOLOG100 UNIT/3 SUBQ (15:14)
[2016-09-29] MEDS ORDERED: LEVEMIR100 UNIT/1 SUBQ (15:14)
--- NOTE | 2016-09-29 15:15 | Discharge Summary ---
Discharge Summary Hospital Course Date of Admission Sep 21, 2016 at 23:24 Date of Discharge Sep 27, 2016 at 15:02 Admitting Diagnosis gastritis, intractable vomiting, DKA HPI Uri Dickerson is a 50 year old male who was admitted on Sep 21, 2016 at 23: 24 for Gastritis,Intractavble Vomiting,Dka Hospital Course dc summary #[id number] Discharge Medications Changed Medications: Insulin Aspart* (Novolog*) 100 Unit/1 Ml Insuln.pen 5 SYR SUBQ BEFORE MEALS, #1 EA 0 Refills (Changed from: 8 ) Insulin Detemir (Levemir) 100 Unit/1 Ml Vial 15 UNITS SUBQ BID, #1 VIAL (Changed from: 13 UNITS) Continued Medications: Albuterol Sulfate* (Proair Hfa*) 8.5 Gm Hfa.aer.ad 1 PUFF INH Q6H, #8.5 GM 0 Refills Amlodipine Besylate (Norvasc) 5 Mg Tab 5 MG ORAL DAILY, TAB Aspirin* (Aspir-Low*) 81 Mg Tablet.dr 81 MG PO DAILY, TAB Take 1 tablet by mouth every day. Bisacodyl* (Dulcolax*) 5 Mg Tablet.dr 10 MG ORAL DAILY, #10 TAB 0 Refills Bupropion HCl (Wellbutrin Sr) 150 Mg Tablet.er 150 MG PO DAILY, TAB Clonidine Hcl* (Catapres*) 0.1 Mg Tablet 0.1 MG ORAL EVERY 4 HOURS PRN for For High Blood Pressure, TAB Diphenhydramine HCl (Benadryl) 25 Mg Capsule 25 MG PO EVERY 8 HOURS PRN for Itching, CAP Divalproex Sodium (Depakote) 500 Mg Tabec 500 MG PO BID, TAB Docusate Sodium* (Docusate Sodium*) 100 Mg Capsule 100 MG ORAL THREE TIMES A DAY, CAP Elviteg/Ninoska/Emtric/Tenofo Ala (Genvoya Tablet) 1 Each Tablet 1 EACH PO DAILY, TAB Enalapril/Hydrochlorothiazide (Enalapril-Hctz 10-25 Mg Tablet) 1 Each Tablet 1 EACH PO DAILY Hydrocodone Bit/Acetaminophen 10-325* ([place] 10-325*) 1 Each Tablet 1 TAB ORAL Q4H PRN for For Pain, TAB 0 Refills PRN PAIN Insulin Aspart* (Novolog*) 100 Unit/1 Ml Insuln.pen 0 SUBQ .SLIDING SCALE for 14 Days, UNITS Inject subcutaneously per sliding scale order Levothyroxine Sodium* (Synthroid*) 150 Mcg Tablet 150 MCG PO DAILY, #0 TAB Take 1 tablet by mouth every day. Lisinopril* (Zestril*) 10 Mg Tablet 10 MG ORAL EVERY 12 HOURS, TAB Methocarbamol* (Methocarbamol*) 750 Mg Tablet 750 MG ORAL THREE TIMES A DAY PRN for For Pain, TAB Metoprolol Tartrate* (Metoprolol Tartrate*) 50 Mg Tablet 50 MG ORAL EVERY 12 HOURS, TAB Mupirocin* (Mupirocin*) 22 Gm Oint...g. 1 APPLIC TOPIC THREE TIMES A DAY, #22 GM Nitroglycerin (Nitrostat) 0.4 Mg Tab.subl 0.4 MG SL Q5M X3 DOSES PRN for chest pain, #25 TAB 0 Refills Ondansetron Odt* (Zofran Odt*) 4 Mg Tab.rapdis 4 MG ORAL Q6H PRN for Nausea & Vomiting, #30 TAB 0 Refills Oxycodone Hcl Er* (Oxycontin*) 10 Mg Tab.er.12h 10 MG ORAL EVERY 8 HOURS for For Pain, TAB Pantoprazole* (Protonix*) 40 Mg Tablet.dr 40 MG ORAL DAILY, TAB Rosuvastatin Calcium* (Crestor*) 10 Mg Tablet 10 MG ORAL DAILY, TAB Rosuvastatin Calcium* (Crestor*) 10 Mg Tablet 10 MG ORAL DAILY, TAB Sucralfate* (Carafate*) 1 Gm Tablet 1 GM ORAL FOUR TIMES A DAY, TAB Zolpidem Tartrate* (Zolpidem Tartrate*) 10 Mg Tablet 10 MG ORAL BEDTIME PRN for Insomnia, TAB 0 Refills Discharge Condition Upon Discharge: stable Discharge Disposition Patient was discharged to SNF Discharge Diagnoses: Discharge Instructions Discharge Instructions Special Instructions I have been assigned to complete a D/C Summary on this account. I was not involved in the patient management Cindi Banks NP (Vanchtein) Sep 29, 2016 15:15
--- NOTE | 2016-09-30 01:58 | Discharge Summary 2 SIG ---
DATE OF ADMISSION: 09/21/2016 DATE OF DISCHARGE: 09/27/2016 The patient was admitted under Dr. Bruce. REASON FOR ADMISSION: 50-year-old male with multiple medical comorbidities presented with abdominal pain and vomiting for three days. Accu-Chek was critically high per customer experience leader. The patient has a history of diabetes. He reported compliance with medication regimen. He reported epigastric pain with vomiting, vomiting with coffee-ground emesis. Pain 10/10 ,nonradiating. The patient with a history of human immunodeficiency virus as well as the other comorbidities such as hypertension, diabetes, history of osteomyelitis, peripheral vascular disease, and history of left below-knee amputation. Workup in the emergency room revealed glucose 626, BUN 41, and creatinine 2.0. Potassium 5.4. Anion gap 32. Sodium 133. White blood count was stable at 5.8, hemoglobin 12, and hematocrit 38.7. The patient was admitted for further management. ADMITTING DIAGNOSES: 1. Diabetes ketoacidosis. 2. Upper gastrointestinal bleeding. 3. Acute renal failure. HOSPITAL STAY: The patient was initially admitted to intensive care unit. DKA was managed with insulin drip as per protocol. Endocrinology consult was requested. IV fluids started along with insulin drip. The patient was closely monitored . When anion gap closed, insulin drip was discontinued. The patient was started on short and long acting insulin as well as sliding scale of insulin as needed. Transportation Engineer closely followed and titrated insulin as needed. Renal parameters were slowly improving. Creatinine down to normal. Acute renal failure likely secondary to dehydration from vomiting as well as the diabetic nephropathy. Gastrointestinal consult was requested due to the upper GI bleeding. Hemoglobin and hematocrit were closely monitored. EGD revealed duodenitis. Stomach biopsy was taken during the upper endoscopy and pathology revealed no evidence of H. pylori infection, no metaplasia, no dysplasia, it only demonstrated mild reactive gastropathy. The patient was placed on the PPI. Antiemetic provided as needed. The patient was advised to have colonoscopy as outpatient. Hemoglobin and hematocrit were closely monitored. Student Specialist followed. Anemia with some trend down, probably it is a baseline ( initially was higher due to dehydration) . Closely monitor hemoglobin and hematocrit in the facility. Paste Plant Supervisor followed the patient. Hyperkalemia corrected. Slow hydration as per nurse outreach case manager. Renal parameters were closely monitored. Nephrotoxins were avoided. Paste Plant Supervisor cleared the patient for discharge after renal parameters were down to normal. Watch renal parameters and LFT. LFT noted to be elevated. Hepatitis panel was negative. Mild transaminitis possibly due to side effect of HAART therapy. The patient was continued on HAART therapy as before. ID followed. Followup as outpatient with HIV specialist. Patient had a diabetic foot ulcer on the right second toe. The ulcer with only evidence of dry eschar, no evidence pf infection. The patient also has a history of left below- knee amputation with phantom limb pain. Pain management provided as needed. DVT and GI prophylaxes provided. Bowel regimen instituted. Seizure precaution maintained; no seizure activity while in the hospital. Continue current regimen of anticonvulsant. Continue levothyroxine. The patient was educated on diabetic low-fat low-cardiac diet. The patient was stable for discharge. DISCHARGE DIAGNOSES: 1. Diabetic ketoacidosis, resolved. 2. Upper gastrointestinal bleeding. s/p EGD Duodenitis. 3. Acute renal failure on chronic renal insufficiency, resolved(possibly due to dehydration) 4. Diabetic nephropathy. 5. Hyperkalemia -resolved . 6. Dehydration-resolved . 7. Human immunodeficiency virus disease. 8. Hypertension. 9. Diabetes mellitus, poorly controlled. 10. Parkinson disease. 11. Encephalopathy. 12. Seizure disorder. 13. Osteomyelitis , status post treatment. 14. Dementia. 15. Diabetic foot ulcer, dorsal right second toe with a dry stable eschar.( no evidence of infection) 16. Hypothyroidism . 17. Mild transaminitis . DISCHARGE MEDICATIONS: See medication reconciliation list. DISCHARGE INSTRUCTIONS: The patient was discharged to [facility] facility. Needs close monitoring of renal parameters, LFT and blood sugar. Suzy Bruce M.D. I have been assigned to dictate discharge summary on this account and I was not involved in the patient's management. Cindi Kamkiah, N.P. DR: PATRICIA JOB#: [id number] CC: MARCOS
--- NOTE | 2016-10-08 00:18 | Operative Note - Dictated ---
DATE OF OPERATION: 09/23/2016 PROCEDURE: Upper gastroendoscopy with biopsy. SURGEON: Merritt Silverio M.D. ANESTHESIA: Please see the separate anesthesiologist's notes for details. PRE-ENDOSCOPIC DIAGNOSIS: Upper gastrointestinal bleeding. POST-ENDOSCOPIC DIAGNOSIS: Duodenitis, status post biopsy. DESCRIPTION OF PROCEDURE: The procedure, its risks, indications, alternatives, and possible complications were explained. Informed consent was obtained. The patient was then sedated in the left lateral decubitus position. A diagnostic upper endoscope was introduced through the oropharynx and advanced to the duodenum. The endoscope was then gradually withdrawn and mucosa examined carefully. Examination of the upper gastric mucosa revealed duodenitis. Biopsies were sent to pathology for review. The endoscope was removed. The patient was sent to recovery in good condition. COMPLICATIONS: None. RECOMMENDATION: 1. Resume the diet. 2. Follow up biopsy. Merritt Silverio M.D. DR: KELTON JOB#: [id number] CC:
== END 2016-09-27 15:02 | disposition home or self-care (01) | DRG 637 ==
LOC: EDBD 19:44 → EDBEDREQ 22:57 → EDBEDREQSVC 22:57 → EMR 23:23 → ICU 23:24 → EDBEDREQ 09-22 13:10 → 4W 09-23 14:45
PROC: 06HM33Z Insertion of Infusion Device into Right Femoral Vein, Percutaneous Approach (ICD-10-PCS; principal; 2016-09-21)
PROC: 0DB98ZX Excision of Duodenum, Via Natural or Artificial Opening Endoscopic, Diagnostic (ICD-10-PCS; 2016-09-23)
DX: E13.10 Other specified diabetes mellitus with ketoacidosis without coma (principal); G93.40 Encephalopathy, unspecified; N17.9 Acute kidney failure, unspecified; B20 Human immunodeficiency virus [HIV] disease; K92.2 Gastrointestinal hemorrhage, unspecified; D62 Acute posthemorrhagic anemia; E86.0 Dehydration; G54.6 Phantom limb syndrome with pain; E11.621 Type 2 diabetes mellitus with foot ulcer; L97.519 Non-pressure chronic ulcer of other part of right foot with unspecified severity; K29.80 Duodenitis without bleeding; K29.70 Gastritis, unspecified, without bleeding; E11.40 Type 2 diabetes mellitus with diabetic neuropathy, unspecified; G20 Parkinson's disease; F02.80 Dementia in other diseases classified elsewhere, unspecified severity, without behavioral disturbance, psychotic disturbance, mood disturbance, and anxiety; E78.5 Hyperlipidemia, unspecified; I10 Essential (primary) hypertension; E11.21 Type 2 diabetes mellitus with diabetic nephropathy; K21.9 Gastro-esophageal reflux disease without esophagitis; E11.51 Type 2 diabetes mellitus with diabetic peripheral angiopathy without gangrene; M47.9 Spondylosis, unspecified; M51.36 Other intervertebral disc degeneration, lumbar region; F17.210 Nicotine dependence, cigarettes, uncomplicated; M20.41 Other hammer toe(s) (acquired), right foot; M21.611 Bunion of right foot; Z89.512 Acquired absence of left leg below knee; Z91.14 Patient's other noncompliance with medication regimen; E88.09 Other disorders of plasma-protein metabolism, not elsewhere classified; E03.9 Hypothyroidism, unspecified; Z79.4 Long term (current) use of insulin
CPT/HCPCS: 36415; 36600; 71010; 80048; 80053; 80061; 80076; 81001; 82009; 82728; 82803; 82962; 82977; 83735; 83880; 84100; 84550; 85025; 85610; 85730; 86140; 86705; 86709; 86803; 87081; 87340; 87536; 93005; 94003; 94150; 94664; J1815; J2250; J2405; J3490; S5561

== ENCOUNTER 2017-06-07 21:03 | Inpatient (IN) | payer MEDICARE, OTHER ==
[~2017-06-07] VITALS: Ht 185.4 cm; Wt 64.0 kg
[~2017-06-07 21:03] MED LIST changes: +METHOCARBAMOL750 MG ORAL
--- NOTE | 2017-06-07 21:14 | Emergency Room Report ---
History of Present Illness General Chief Complaint: Substance Abuse Source: Patient Present Illness HPI The patient presents via EMS. He has multiple complaints. Apparently his blood sugar was critically high in the field. He does take insulin. According to his family his also altered. They claim that he was doing some drugs with THC. He vigorously denies this and gets very upset when asked. He says his body falling apart. In the past he has presented with DKA. Usually he is also treated for pain with morphine or Dilaudid. He c/o some chest pain 02/24, both chest and abdomen - more upper - aching, constant. No vomiting or diarrhea. No dysuria. + Polyuria. No cough. He also suffers from HIV and hypertension. Allergies: Coded Allergies: GABAPENTIN (Verified Allergy, Severe, 06/07/17) QUETIAPINE (Verified Allergy, Unknown, 06/07/17) Patient History Past Medical History: see triage record Social History: Reports: smoking, drug use Social History Narrative with family Reviewed Nursing Documentation: PMH: Agreed, PSxH: Agreed Nursing Documentation-PMH Hx Cardiac Problems: Yes - [place] 2016 Hx Hypertension: Yes Hx Pacemaker: No - HIV+ Hx Asthma: Yes Hx COPD: No Hx Diabetes: Yes Hx Cancer: No Hx Gastrointestinal Problems: Yes History Of Psychiatric Problem: Yes Hx Neurological Problems: Yes Hx Cerebrovascular Accident: Yes - CVA Hx Transient Ischemic Attacks: Yes Hx Dementia: Yes Hx Alzheimer's Disease: No Hx Parkinson's Disease: Yes Hx Meningitis: No Hx Encephalitis: No Hx Seizures: Yes Hx Epilepsy: No Hx Multiple Sclerosis: No Hx Cerebral Palsy: No Hx Amyotrophic Lat Sclerosis: No Hx Guillian-Wray Syndrome: No Hx Paralysis: No Hx Peripheral Neuropathy: Yes Hx Spinal Cord Injury: No Hx Head Trauma: Yes Hx Traumatic Brain Injury: No Hx Memory Loss: No Hx Concentration Difficulty: No Hx Speech Problem: No Hx Tremors: No Hx Vertigo: No Hx Dizziness: Yes Hx Syncope: Yes Hx Aphasia: No Hx Dysphasia: No Hx Numbness: Yes - legs Hx Weakness: Yes Hx Fatigue: Yes Hx Neurologic Surgery: No Hx Brain Shunt: No Review of Systems All Other Systems: negative except mentioned in HPI Physical Exam Vital Signs Date Time Temp Pulse Resp B/P (MAP) Pulse Ox O2 Delivery O2 Flow Rate FiO2 06/07/17 21:03 98.1 104 16 170/100 98 Room Air Sp02 EP Interpretation: reviewed, normal General Appearance: well appearing, no apparent distress, GCS 15 Head: normocephalic Eyes: bilateral eye PERRL, bilateral eye EOMI, bilateral eye Scleral Injection ENT: moist mucus membranes Neck: supple Respiratory: lungs clear, normal breath sounds Cardiovascular #1: regular rate, rhythm Cardiovascular #2: 2+ radial (R) Gastrointestinal: normal inspection, normal bowel sounds, non tender, no mass, non-distended, scaphoid Musculoskeletal: back normal, gait/station normal, normal range of motion, no calf tenderness Neurologic: alert, oriented x3, regrind mill operator III-XII nml as tested, motor strength/tone normal, DTRs symmetric, sensory intact, speech normal Psychiatric: other - pressured and demanding pain medicine Skin: normal inspection, warm/dry Medical Decision Making Diagnostic Impression: Primary Impression: Hyperglycemia Additional Impressions: Cocaine abuse Chest pain Qualified Codes: R07.9 - Chest pain, unspecified ER Course The patient presents with multiple complaints with critically high blood sugar. Differential includes diabetic ketoacidosis, hyperglycemia, other electrolyte imbalance, occult infection amongst others. The patient needs emergent evaluation with EKG, chest x-ray and labs. Visual treatment will be with aggressive hydration and repeated blood sugars with probable insulin treatment. EKG without acute injury. Cxr no infiltrate. Labs with elevated glucose without ketosis or acidosis. Glucose still high with initial fluid bolus. Insulin IV. Treated for pain. Glucose still high. Repeat insulin and continued hydration. Glucose better but needs continued treatment. Patient admitted to [facility] floor Dr. Bruce. Laboratory Tests Test 06/07/17 21:30 06/08/17 09:30 White Blood Count 6.0 K/UL (4.8-10.8) Red Blood Count 3.42 M/UL (4.70-6.10) L Hemoglobin 10.7 G/DL (14.2-18.0) L Hematocrit 34.3 % (42.0-52.0) L Mean Corpuscular Volume 100 FL (80-99) H Mean Corpuscular Hemoglobin 31.2 PG (27.0-31.0) H Mean Corpuscular Hemoglobin Concent 31.1 G/DL (32.0-36.0) L Red Cell Distribution Width 13.2 % (11.6-14.8) Platelet Count 174 K/UL (150-450) Mean Platelet Volume 8.0 FL (6.5-10.1) Neutrophils (%) (Auto) 58.7 % (45.0-75.0) Lymphocytes (%) (Auto) 33.9 % (20.0-45.0) Monocytes (%) (Auto) 4.6 % (1.0-10.0) Eosinophils (%) (Auto) 1.5 % (0.0-3.0) Basophils (%) (Auto) 1.3 % (0.0-2.0) Prothrombin Time 8.7 SEC (9.30-11.50) L Prothrombin Time INR 0.8 (0.9-1.1) L PTT 18 SEC (23-33) L Urine Color Pale yellow Urine Appearance Clear Urine pH 5 (4.5-8.0) Urine Specific [place] 1.010 (1.005-1.035) Urine Protein 3+ (NEGATIVE) H Urine Glucose (UA) 4+ (NEGATIVE) H Urine Ketones Negative (NEGATIVE) Urine Occult Blood Negative (NEGATIVE) Urine Nitrite Negative (NEGATIVE) Urine Bilirubin Negative (NEGATIVE) Urine Urobilinogen Normal MG/DL (0.0-1.0) Urine Leukocyte Esterase Negative (NEGATIVE) Urine RBC 0-2 /HPF (0 - 0) H Urine WBC 0-2 /HPF (0 - 0) Urine Squamous Epithelial Cells None /LPF (NONE/OCC) Urine Bacteria None /HPF (NONE) Sodium Level 127 MMOL/L (136-145) L Potassium Level 4.9 MMOL/L (3.5-5.1) Chloride Level 95 MMOL/L (98-107) L Carbon Dioxide Level 26 MMOL/L (21-32) Anion Gap 7 mmol/L (5-15) Blood Urea Nitrogen 40 mg/dL (7-18) H Creatinine 1.9 MG/DL (0.55-1.30) H Estimate Glomerular Filtration Rate 45.6 mL/min (>60) Glucose Level 580 MG/DL (74-106) *H Calcium Level 8.9 MG/DL (8.5-10.1) Magnesium Level 1.9 MG/DL (1.8-2.4) Total Bilirubin 0.2 MG/DL (0.2-1.0) Aspartate Amino Transferase (AST) 103 U/L (15-37) H Alanine Aminotransferase (ALT) 175 U/L (12-78) H Alkaline Phosphatase 155 U/L (46-116) H Total Creatine Kinase 97 U/L (26-308) Troponin I 0.002 ng/mL (0.000-0.056) Total Protein 7.3 G/DL (6.4-8.2) Albumin 3.3 G/DL (3.4-5.0) L Globulin 4.0 g/dL Albumin/Globulin Ratio 0.8 (1.0-2.7) L Lipase 464 U/L (73-393) H Urine Opiates Screen Negative (NEGATIVE) Urine Barbiturates Screen Negative (NEGATIVE) Phencyclidine (PCP) Screen Negative (NEGATIVE) Urine Amphetamines Screen Negative (NEGATIVE) Urine Benzodiazepines Screen Negative (NEGATIVE) Urine Cocaine Screen Positive (NEGATIVE) H Urine Marijuana (THC) Screen Positive (NEGATIVE) H Serum Alcohol < 3 mg/dL Acetone Level Negative (NEGATIVE) Hemoglobin A1c 12.2 % (4.3-6.0) H EKG Diagnostic Results Rate: normal Rhythm: NSR ST Segments: no acute changes Rhythm Strip Diag. Results EP Interpretation: yes Rhythm: NSR, no PVC's, no ectopy Chest X-Ray Diagnostic Results Chest X-Ray Diagnostic Results : Chest X-Ray Ordered: Yes # of Views/Limited/Complete: 1 View Indication: Other Interpretation: no consolidation, no effusion, no pneumothorax, no acute cardiopulmonary disease Impression: No acute disease Electronically Signed by: Leonides Vega MD Status: improved Disposition: ADMITTED INPATIENT Condition: Serious Leonides Vega M.D. Jun 07, 2017 21:14
[2017-06-07 21:30] VITALS: BP 140/81
[2017-06-07 21:46] LABS: BASOPHILS % (AUTO) 1.3 % (0.0-2.0); EOSINOPHILS % (AUTO) 1.5 % (0.0-3.0); LYMPHOCYTES % (AUTO) 33.9 % (20.0-45.0); MEAN CORPUSCULAR HEMOGLOBIN 31.2 PG (27.0-31.0); MEAN CORPUSCULAR HGB CONC 31.1 G/DL (32.0-36.0); MEAN CORPUSCULAR VOLUME 100 FL (80-99); MONOCYTES % (AUTO) 4.6 % (1.0-10.0); NEUTROPHILS % (AUTO) 58.7 % (45.0-75.0); PLATELET COUNT 174 K/UL (150-450); RED BLOOD COUNT 3.42 M/UL (4.70-6.10); RED CELL DISTRIBUTION WIDTH 13.2 % (11.6-14.8)
[2017-06-07 21:47] LABS: APPEARANCE,URINE CLEAR; KETONES,URINE NEGATIVE (NEGATIVE); LEUKOCYTE ESTERASE ,URINE NEGATIVE (NEGATIVE); NITRITE,URINE NEGATIVE (NEGATIVE); PH,URINE 5 (4.5-8.0); PROTEIN,URINE 3+ (NEGATIVE); UROBILINOGEN,URINE NORMAL MG/DL (0.0-1.0)
[2017-06-07 21:54] LABS: INR 0.8 (0.9-1.1); PROTHROMBIN TIME 8.7 SEC (9.30-11.50)
[2017-06-07 22:02] LABS: RBC,URINE 0-2 /HPF (0 - 0); WBC,URINE 0-2 /HPF (0 - 0)
[2017-06-07 22:05] LABS: ALANINE AMINOTRANSFERASE 175 U/L (12-78); ALBUMIN/GLOBULIN RATIO 0.8 (1.0-2.7); ANION GAP 7 mmol/L (5-15); ASPARTATE AMINO TRANSFERASE 103 U/L (15-37); CALCIUM 8.9 MG/DL (8.5-10.1); CARBON DIOXIDE 26 MMOL/L (21-32); CHLORIDE 95 MMOL/L (98-107); CREATININE 1.9 MG/DL (0.55-1.30); GLOMERULAR FILTRATION RATE 45.6 mL/min (>60); LIPASE 464 U/L (73-393); MAGNESIUM 1.9 MG/DL (1.8-2.4); POTASSIUM 4.9 MMOL/L (3.5-5.1); SODIUM 127 MMOL/L (136-145); TOTAL PROTEIN 7.3 G/DL (6.4-8.2)
[2017-06-07 22:08] LABS: ALCOHOL < 3 mg/dL
[2017-06-07] MEDS ORDERED: Morphine Sulfate 4mg/ml Inj IVP ONE (22:30)
[2017-06-07] MEDS ORDERED: DiphenhydrAMINE 50mg/ml Inj IVP ONE (22:30)
[2017-06-07 23:18] VITALS: BP 130/92
[2017-06-08] MEDS ORDERED: ZANTAC150 MG ORAL (01:22)
[2017-06-08] MEDS ORDERED: DIPHENHYDRAMINE25 M1 ORAL (01:40)
[2017-06-08] MEDS ORDERED: LOSARTAN POTASS50 MG ORAL (01:40)
[2017-06-08] MEDS ORDERED: GENVOYA TABLET1 EACH PO (01:40)
[2017-06-08 02:33] VITALS: BP 141/83
[2017-06-08 04:00] VITALS: BP 148/78
--- NOTE | 2017-06-08 07:26 | General Progress Note ---
Assessment/Plan Problem List: (1) Gastroparesis due to DM ICD Codes: E11.43 - Diabetic gastroparesis; K31.84 - Gastroparesis SNOMED: 37973851 (2) Hypothyroidism ICD Codes: E03.9 - Hypothyroidism SNOMED: 82012976 (3) Uncontrolled diabetes mellitus ICD Codes: E11.65 - Type 2 diabetes mellitus with hyperglycemia SNOMED: 039983124 (4) Status post below knee amputation of left lower extremity ICD Codes: Z89.512 - Acquired absence of left leg below knee SNOMED: 00634904, 532766880, [id number] Assessment/Plan Levemir 15 units daily Novolog 5 units ac tid + SSI Levothyroxine 150 mcg daily Subjective Allergies: Coded Allergies: GABAPENTIN (Verified Allergy, Severe, 06/07/17) QUETIAPINE (Verified Allergy, Unknown, 06/07/17) All Systems: reviewed and negative except above Subjective admitted with elevated glucose and generalized weakness Objective Last 24 Hour Vital Signs Date Time Temp Pulse Resp B/P (MAP) Pulse Ox O2 Delivery O2 Flow Rate FiO2 06/08/17 04:00 98.8 76 21 148/78 100 Room Air 06/08/17 02:50 98.1 84 17 141/83 98 Room Air 06/08/17 02:33 98.1 84 17 141/83 98 Room Air 06/07/17 23:18 98.1 91 18 130/92 100 Room Air 06/07/17 21:30 98.1 89 16 140/81 100 Room Air 06/07/17 21:03 98.1 104 16 170/100 98 Room Air Laboratory Tests 06/07/17 21:30: White Blood Count 6.0, Red Blood Count 3.42L, Hemoglobin 10.7L, Hematocrit 34.3L , Mean Corpuscular Volume 100H, Mean Corpuscular Hemoglobin 31.2H, Mean Corpuscular Hemoglobin Concent 31.1L, Red Cell Distribution Width 13.2, Platelet Count 174, Mean Platelet Volume 8.0, Neutrophils (%) (Auto) 58.7, Lymphocytes (%) (Auto) 33.9, Monocytes (%) (Auto) 4.6, Eosinophils (%) (Auto) 1.5, Basophils (%) (Auto) 1.3, Prothrombin Time 8.7L, Prothromb Time International Ratio 0.8L, Activated Partial Thromboplast Time 18L, Urine Color Pale yellow, Urine Appearance Clear, Urine pH 5, Urine Specific [place] 1.010, Urine Protein 3+H, Urine Glucose (UA) 4+H, Urine Ketones Negative, Urine Occult Blood Negative, Urine Nitrite Negative, Urine Bilirubin Negative, Urine Urobilinogen Normal, Urine Leukocyte Esterase Negative, Urine RBC 0-2H, Urine WBC 0-2, Urine Squamous Epithelial Cells None, Urine Bacteria None, Sodium Level 127L, Potassium Level 4.9, Chloride Level 95L, Carbon Dioxide Level 26, Anion Gap 7, Blood Urea Nitrogen 40H, Creatinine 1.9H, Estimat Glomerular Filtration Rate 45.6, Glucose Level 580*H, Calcium Level 8.9, Magnesium Level 1.9, Total Bilirubin 0.2, Aspartate Amino Transf (AST/SGOT) 103H, Alanine Aminotransferase (ALT/SGPT) 175H, Alkaline Phosphatase 155H, Total Creatine Kinase 97, Troponin I 0.002, Total Protein 7.3, Albumin 3.3L, Globulin 4.0, Albumin/Globulin Ratio 0.8L, Lipase 464H, Urine Opiates Screen Negative, Urine Barbiturates Screen Negative, Phencyclidine (PCP) Screen Negative, Urine Amphetamines Screen Negative, Urine Benzodiazepines Screen Negative, Urine Cocaine Screen PositiveH, Urine Marijuana (THC) Screen PositiveH, Serum Alcohol < 3, Acetone Level Negative Height (Feet): 6 Height (Inches): 1.00 Weight (Pounds): 141 General Appearance: no apparent distress Neck: non-tender Cardiovascular: normal rate Respiratory/Chest: lungs clear Abdomen: normal bowel sounds Pelvis: normal external exam Objective Item Value Date Time Bedside Blood Glucose 217 mg/dl H 06/08/17 0608 Bedside Blood Glucose 237 mg/dl H 06/08/17 0248 Bedside Blood Glucose 580 mg/dl H 06/07/17 2240 Current Medications Medications (Trade) Dose Ordered Sig/Gadiel Route PRN Reason Start Time Stop Time Status Last Admin Dose Admin Sodium Chloride 1,000 ml @ 300 mls/hr Q3H20M IV 06/07/17 21:15 06/08/17 10:00 AKILAH MARIE Jun 08, 2017 07:26
[2017-06-08 08:00] VITALS: BP 140/85
--- NOTE | 2017-06-08 08:13 | General Progress Note ---
Assessment/Plan Assessment/Plan (1) Lumbago (2) Lumbar DDD (3) Lumbar Spondylosis (4) Phantom limb pain (5) history of below knee amputation of left lower extremity Pt will be continued on [place] Pt was d/w Dr. Merino and he concurred. Thank you for the courtesy of this consultation Subjective Date patient seen: Jun 08, 2017 Time patient seen: 07:00 - am Allergies: Coded Allergies: GABAPENTIN (Verified Allergy, Severe, 06/07/17) QUETIAPINE (Verified Allergy, Unknown, 06/07/17) Subjective Constitutional: Reports: weakness, Denies: chills, diaphoresis, fever, malaise , no symptoms, other HEENT: Denies: blurred vision, double vision, ear discharge, ear pain, eye pain , mouth pain, mouth swelling, no symptoms, nose congestion, nose pain, other, tearing, throat pain, throat swelling Cardiovascular: Denies: chest pain, edema, irregular heart rate, lightheadedness, no symptoms, other, palpitations, syncope Respiratory: Denies: SOB at rest, SOB with excertion, cough, no symptoms, orthopnea, other, shortness of breath, sputum, stridor, wheezing Gastrointestinal/Abdominal: Reports: abdominal pain, Denies: abdomen distended, black stools, blood in stool, constipated, diarrhea, difficulty swallowing, nausea, no symptoms, other, poor appetite, poor fluid intake, rectal bleeding, tarry stools, vomiting Genitourinary: Denies: burning, discharge, flank pain, frequency, hematuria, incontinence, no symptoms, other, pain, urgency Neurologic/Psychiatric: Reports: numbness, tingling, weakness, Denies: anxiety , depressed, emotional problems, headache, no symptoms, other, paresthesia, pre- existing deficit, seizure, tremors Endocrine: Denies: excessive sweating, flushing, increased hunger, increased thirst, increased urine, intolerance to cold, intolerance to heat, no symptoms, other, unexplained weight gain, unexplained weight loss Hematologic/Lymphatic: Denies: anemia, easy bleeding, easy bruising, no symptoms, other Subjective Pt is a known patient from prior admissions and has returned due to hyperglycemia under the care of Dr. Bruce. At this time is on norco 10/325mg as needed Q4h and his pain is stable and tolerated well. Objective Last 24 Hour Vital Signs Date Time Temp Pulse Resp B/P (MAP) Pulse Ox O2 Delivery O2 Flow Rate FiO2 06/08/17 04:00 98.8 76 21 148/78 100 Room Air 06/08/17 02:50 98.1 84 17 141/83 98 Room Air 06/08/17 02:33 98.1 84 17 141/83 98 Room Air 06/07/17 23:18 98.1 91 18 130/92 100 Room Air 06/07/17 21:30 98.1 89 16 140/81 100 Room Air 06/07/17 21:03 98.1 104 16 170/100 98 Room Air Laboratory Tests 06/07/17 21:30: White Blood Count 6.0, Red Blood Count 3.42L, Hemoglobin 10.7L, Hematocrit 34.3L , Mean Corpuscular Volume 100H, Mean Corpuscular Hemoglobin 31.2H, Mean Corpuscular Hemoglobin Concent 31.1L, Red Cell Distribution Width 13.2, Platelet Count 174, Mean Platelet Volume 8.0, Neutrophils (%) (Auto) 58.7, Lymphocytes (%) (Auto) 33.9, Monocytes (%) (Auto) 4.6, Eosinophils (%) (Auto) 1.5, Basophils (%) (Auto) 1.3, Prothrombin Time 8.7L, Prothromb Time International Ratio 0.8L, Activated Partial Thromboplast Time 18L, Urine Color Pale yellow, Urine Appearance Clear, Urine pH 5, Urine Specific [place] 1.010, Urine Protein 3+H, Urine Glucose (UA) 4+H, Urine Ketones Negative, Urine Occult Blood Negative, Urine Nitrite Negative, Urine Bilirubin Negative, Urine Urobilinogen Normal, Urine Leukocyte Esterase Negative, Urine RBC 0-2H, Urine WBC 0-2, Urine Squamous Epithelial Cells None, Urine Bacteria None, Sodium Level 127L, Potassium Level 4.9, Chloride Level 95L, Carbon Dioxide Level 26, Anion Gap 7, Blood Urea Nitrogen 40H, Creatinine 1.9H, Estimat Glomerular Filtration Rate 45.6, Glucose Level 580*H, Calcium Level 8.9, Magnesium Level 1.9, Total Bilirubin 0.2, Aspartate Amino Transf (AST/SGOT) 103H, Alanine Aminotransferase (ALT/SGPT) 175H, Alkaline Phosphatase 155H, Total Creatine Kinase 97, Troponin I 0.002, Total Protein 7.3, Albumin 3.3L, Globulin 4.0, Albumin/Globulin Ratio 0.8L, Lipase 464H, Urine Opiates Screen Negative, Urine Barbiturates Screen Negative, Phencyclidine (PCP) Screen Negative, Urine Amphetamines Screen Negative, Urine Benzodiazepines Screen Negative, Urine Cocaine Screen PositiveH, Urine Marijuana (THC) Screen PositiveH, Serum Alcohol < 3, Acetone Level Negative Height (Feet): 6 Height (Inches): 1.00 Weight (Pounds): 141 Objective General Appearance: no apparent distress, alert EENT: PERRL/EOMI, normal ENT inspection Neck: normal alignment, supple Cardiovascular: normal rate, regular rhythm Respiratory/Chest: lungs clear, normal breath sounds Abdomen: non tender, soft Extremities: other - left BKA Edema: trace edema Neurologic: alert, oriented x 3 Skin: warm/dry CALLIE FRAGOSO Jun 08, 2017 08:13
[2017-06-08] MEDS: NovoLOG Insulin Flexpen SUBQ SCH ×7 (09:00→20:29)
[2017-06-08] MEDS ORDERED: Losartan 50mg tab ORAL SCH (09:00)
[2017-06-08] MEDS ORDERED: Lisinopril 20mg tab ORAL SCH (09:00)
[2017-06-08] MEDS: Levemir Flexpen SUBQ SCH (09:04)
[2017-06-08] MEDS: Sucralfate 1gm tab ORAL SCH ×4 (10:59→20:26)
[2017-06-08] MEDS: Metoprolol Tartrate 50mg tab ORAL SCH ×2 (11:00→20:25)
[2017-06-08] MEDS: Depakote 500mg tab ORAL SCH ×2 (11:02→20:26)
[2017-06-08] MEDS: BuPROPion SR 150mg tab ORAL SCH (11:03)
[2017-06-08] MEDS: Aspirin EC 81mg tab ORAL SCH (11:03)
[2017-06-08] MEDS: Heparin 5000 units/ml inj SUBQ SCH ×2 (11:04→20:28)
[2017-06-08] MEDS: Norco 10mg/325mg tab ORAL PRN ×3 (11:08→20:27)
--- NOTE | 2017-06-08 11:11 | Diagnostic Imaging Report ---
Indication: Chest pain Technique: One view of the chest Comparison: 09/23/2016 Findings: Lungs and pleural spaces are clear. Heart size is normal. No significant change Impression: No acute process
[2017-06-08] MEDS: Albuterol 90mcg Inhaler 8gm INH SCH ×3 (11:19→18:00)
[2017-06-08] MEDS ORDERED: NovoLOG Insulin Flexpen SUBQ SCH (11:30)
--- NOTE | 2017-06-08 11:50 | Consultation ---
Consult Note Consult Note HPI The patient presents via EMS. He has multiple complaints. Apparently his blood sugar was critically high in the field. He does take insulin. According to his family his also altered. They claim that he was doing some drugs with THC. He vigorously denies this. He says his body falling apart. He also suffers from HIV and hypertension. Allergies: Coded Allergies: GABAPENTIN (Verified Allergy, Severe, 06/07/17) QUETIAPINE (Verified Allergy, Unknown, 06/07/17) Hx Cardiac Problems: Yes - [place] 2015 Hx Hypertension: Yes Hx Pacemaker: No - HIV+ Hx Asthma: Yes Hx Diabetes: Yes Hx Gastrointestinal Problems: Yes History Of Psychiatric Problem: Yes Hx Neurological Problems: Yes Hx Cerebrovascular Accident: Yes - CVA Hx Transient Ischemic Attacks: Yes Hx Dementia: Yes Hx Parkinson's Disease: Yes Hx Seizures: Yes Hx Peripheral Neuropathy: Yes Hx Head Trauma: Yes Hx Dizziness: Yes Hx Syncope: Yes Hx Numbness: Yes - legs Hx Weakness: Yes Hx Fatigue: Yes interviewed- examined- data reviewed Assessment/Plan Patient admitted for Hyperglycemia- Urine positive for coccaine and MJ Cr of 1.9 Anemia LFTs also elevated- Other conditions: (1) Diabetic nephropathy (2) DM (diabetes mellitus) (3) Diabetic foot ulcer (4) Hypothyroidism (5) Dehydration (6) HIV (7) Parkinson / Migraine PLAN: BS control Monitor renal parameters- and LFTs Avoid Nephrotoxics Keep BP in check, adjust meds slow hydrate- per orders / consultants PONCHO RAMÍREZ Jun 08, 2017 11:50
[2017-06-08 12:00] VITALS: BP 150/93
--- NOTE | 2017-06-08 15:56 | Cardiology Report ---
APPROVED REPORT EKG Measurement Heart [id number] Normal sinus rhythm Anteroseptal infarct, age undetermined Abnormal ECG
[2017-06-08 16:00] VITALS: BP 149/79
[2017-06-08] MEDS: Docusate 100mg cap ORAL SCH (17:10)
[2017-06-08] MEDS ORDERED: LORazepam 1mg tab ORAL PRN (19:00)
--- NOTE | 2017-06-08 19:37 | Consultation ---
Consult Note Assessment/Plan DATE OF CONSULTATION: 06/08/17 CONSULTING PHYSICIAN: Connor Cuevas M.D. REFERRING PHYSICIAN: Suzy Bruce M.D. REASON FOR CONSULTATION: Anemia chronic disease CURRENT COMPLAINT/HISTORY OF PRESENT ILLNESS: Dear Dr. Bruce, Today, I had an opportunity to see one of your patient, who as you well aware, 51-year-old delightful gentleman with past medical history remarkable for HIV, cellulitis of the foot, hx of anemia, hereditary hemorhagic telectangasia has been admitted to [place] with similar symptoms numerous times in the recent past ended up in the emergency room at [facility]. During an evaluation, it was found the patient developed significant anemia with hemoglobin of 9-11 and has a similar history before and was admitted for critically high BS. His hgb now improved and I was consulted to re-eval for GI bleed and discontinuation of epogen. PAST MEDICAL HISTORY: 1. HIV/AIDS. 2. Anemia of HIV/AIDS. 3. Diabetes mellitus. 4. Hypertension. 5. Dementia. 6. Dyslipidemia. 7. Cellulitis left foot. 8. History of cerebrovascular accident. 9. Parkinson disease. 10. Encephalopathy. 11. History of seizure. 12. Periatrial neuropathy. 13. Dizziness. 14. Migraine. 15. Fatigue. ALLERGIES: 1. Gabapentin. 2. Hydromorphone. MEDICATIONS: Home meds reviewed SOCIAL HISTORY: No history of smoking. No history of alcohol abuse. No history of illicit drug use. REVIEW OF SYSTEMS: GENERAL DESCRIPTION: The patient not in any significant distress, but looks chronically ill. RESPIRATORY SYSTEM: Mild shortness of breath on exertion. GASTROINTESTINAL SYSTEM: The patient claims constipation. NEUROMUSCULAR SYSTEM: The patient claims muscle aches. PHYSICAL EXAMINATION: VITAL SIGNS: Last 24 Hour Vital Signs Date Time Temp Pulse Resp B/P (MAP) Pulse Ox O2 Delivery O2 Flow Rate FiO2 06/08/17 19:10 91 16 99 Room Air 06/08/17 19:00 80 18 100 Room Air 06/08/17 17:10 82 149/79 06/08/17 16:00 97.3 82 20 149/79 100 06/08/17 12:00 97.9 79 20 150/93 100 06/08/17 12:00 Room Air 06/08/17 11:43 83 16 99 Room Air 06/08/17 11:40 81 18 99 Room Air 21 06/08/17 11:02 160/92 06/08/17 11:01 88 160/92 06/08/17 11:00 88 160/92 06/08/17 10:59 160/92 06/08/17 08:00 Room Air 06/08/17 08:00 97.9 77 20 140/85 99 06/08/17 04:00 98.8 76 21 148/78 100 Room Air 06/08/17 02:50 98.1 84 17 141/83 98 Room Air 06/08/17 02:33 98.1 84 17 141/83 98 Room Air 06/07/17 23:18 98.1 91 18 130/92 100 Room Air 06/07/17 21:30 98.1 89 16 140/81 100 Room Air 06/07/17 21:03 98.1 104 16 170/100 98 Room Air HEENT: Head normocephalic and atraumatic. NECK: Supple. No thyroid enlargement. No lymphadenopathy. LUNGS: Decreased breath sounds bilaterally with few rhonchi at the base. HEART: S1 and S2 regular. ABDOMEN: Soft and benign. No organomegaly present. Bowel sounds present. EXTREMITIES: No cyanosis, clubbing, or edema. LABORATORY DATA: Test 06/07/17 21:30 06/08/17 09:30 White Blood Count 6.0 K/UL (4.8-10.8) Red Blood Count 3.42 M/UL (4.70-6.10) L Hemoglobin 10.7 G/DL (14.2-18.0) L Hematocrit 34.3 % (42.0-52.0) L Mean Corpuscular Volume 100 FL (80-99) H Mean Corpuscular Hemoglobin 31.2 PG (27.0-31.0) H Mean Corpuscular Hemoglobin Concent 31.1 G/DL (32.0-36.0) L Red Cell Distribution Width 13.2 % (11.6-14.8) Platelet Count 174 K/UL (150-450) Mean Platelet Volume 8.0 FL (6.5-10.1) Neutrophils (%) (Auto) 58.7 % (45.0-75.0) Lymphocytes (%) (Auto) 33.9 % (20.0-45.0) Monocytes (%) (Auto) 4.6 % (1.0-10.0) Eosinophils (%) (Auto) 1.5 % (0.0-3.0) Basophils (%) (Auto) 1.3 % (0.0-2.0) Prothrombin Time 8.7 SEC (9.30-11.50) L Prothromb Time International Ratio 0.8 (0.9-1.1) L Activated Partial Thromboplast Time 18 SEC (23-33) L Urine Color Pale yellow Urine Appearance Clear Urine pH 5 (4.5-8.0) Urine Specific [place] 1.010 (1.005-1.035) Urine Protein 3+ (NEGATIVE) H Urine Glucose (UA) 4+ (NEGATIVE) H Urine Ketones Negative (NEGATIVE) Urine Occult Blood Negative (NEGATIVE) Urine Nitrite Negative (NEGATIVE) Urine Bilirubin Negative (NEGATIVE) Urine Urobilinogen Normal MG/DL (0.0-1.0) Urine Leukocyte Esterase Negative (NEGATIVE) Urine RBC 0-2 /HPF (0 - 0) H Urine WBC 0-2 /HPF (0 - 0) Urine Squamous Epithelial Cells None /LPF (NONE/OCC) Urine Bacteria None /HPF (NONE) Sodium Level 127 MMOL/L (136-145) L Potassium Level 4.9 MMOL/L (3.5-5.1) Chloride Level 95 MMOL/L (98-107) L Carbon Dioxide Level 26 MMOL/L (21-32) Anion Gap 7 mmol/L (5-15) Blood Urea Nitrogen 40 mg/dL (7-18) H Creatinine 1.9 MG/DL (0.55-1.30) H Estimat Glomerular Filtration Rate 45.6 mL/min (>60) Glucose Level 580 MG/DL (74-106) *H Calcium Level 8.9 MG/DL (8.5-10.1) Magnesium Level 1.9 MG/DL (1.8-2.4) Total Bilirubin 0.2 MG/DL (0.2-1.0) Aspartate Amino Transf (AST/SGOT) 103 U/L (15-37) H Alanine Aminotransferase (ALT/SGPT) 175 U/L (12-78) H Alkaline Phosphatase 155 U/L (46-116) H Total Creatine Kinase 97 U/L (26-308) Troponin I 0.002 ng/mL (0.000-0.056) Total Protein 7.3 G/DL (6.4-8.2) Albumin 3.3 G/DL (3.4-5.0) L Globulin 4.0 g/dL Albumin/Globulin Ratio 0.8 (1.0-2.7) L Lipase 464 U/L (73-393) H Urine Opiates Screen Negative (NEGATIVE) Urine Barbiturates Screen Negative (NEGATIVE) Phencyclidine (PCP) Screen Negative (NEGATIVE) Urine Amphetamines Screen Negative (NEGATIVE) Urine Benzodiazepines Screen Negative (NEGATIVE) Urine Cocaine Screen Positive (NEGATIVE) H Urine Marijuana (THC) Screen Positive (NEGATIVE) H Serum Alcohol < 3 mg/dL Acetone Level Negative (NEGATIVE) Hemoglobin A1c 12.2 % (4.3-6.0) H ASSESSMENT: 1. Anemia 2/2 hiv / aids, consider use of procrit if anemia worsens in next few days, hgb goal is >7 2. Anemia of chronic disease as well as kidney disease, now improved, could be 2/2 dehydration, will recheck 3. Hereditary hemorrhagic telectangasia 4. Leukopenia, stable, potentially 2/2 infection as well 5. Hypoglycemia. 6. Human immunodeficiency virus/acquired immune deficiency syndrome. 7. Dementia. 8. Parkinson disease. 9. CP r/o ACS 10. Osteomyelitis 11. Parkinson disease. 12. Encephalopathy. 13. History of seizure. Thank you Dr. Suzy Bruce for this kind referral, please do not hesitate to contact me with any further questions. MD Mason Freitas Roman L. Jun 08, 2017 19:37
[2017-06-08 20:00] VITALS: BP 137/81
[2017-06-08] MEDS: Lisinopril 20mg tab ORAL SCH (20:26)
[2017-06-08] MEDS ORDERED: Zolpidem 5mg tab ORAL PRN (21:00)
--- NOTE | 2017-06-08 23:01 | Consultation ---
DATE OF CONSULTATION: 06/08/2017 INFECTIOUS DISEASES CONSULTATION CONSULTING PHYSICIAN: Raulito Muse M.D. This consultation is for coverage of Dr. Hui. PRIMARY ATTENDING PHYSICIAN: Suzy Bruce M.D. REASON FOR CONSULTATION: HIV. HISTORY OF PRESENT ILLNESS: This is a 51-year-old male admitted yesterday complaints including back ache. The patient thinks he is falling apart. He is diabetic and had hyperglycemia. He has HIV for many years. PAST MEDICAL HISTORY: Significant for HIV. The patient is currently on Genvoya, says the virus is undetectable, but he does not know his CD4 count. He has diabetes mellitus and ends up on insulin. He had multiple admissions with diabetic ketoacidosis in the past. He had hypothyroidism. He has a history of diabetic gastroparesis. He has left lower extremity below-knee amputation. MEDICATIONS: He is getting Ambien, lisinopril, Norvasc, insulin, Levemir insulin, albuterol, heparin, aspirin, Wellbutrin, Depakote, Protonix, clonidine, levothyroxine, diphenhydramine, [place], metoprolol, and Zofran. ALLERGIES: Gabapentin. SOCIAL HISTORY: Denies drug abuse. He says that he is retired. Currently single. He has children and grandchildren. REVIEW OF SYSTEMS: He says that he had significant weight loss and he was sent here and once he was 250 pounds, but because of diabetes it came down. He says that he has constipation. No urinary problem. Ambulatory with prosthesis. PHYSICAL EXAMINATION: GENERAL APPEARANCE: No acute distress seen. VITAL SIGNS: Temperature 97.9 degrees, pulse 88, and blood pressure 160/92. HEAD AND NECK: Poor dentition. No oral lesion. HEART: Regular. LUNGS: Clear. ABDOMEN: Soft and nontender. EXTREMITIES: Left below-knee amputation. NEUROLOGIC: Awake, alert, and oriented x3. LABORATORY AND DIAGNOSTIC DATA: WBC 6000, hemoglobin 10.7, hematocrit 34.3, and platelets 174,000. Sodium at the time of admission was 127, potassium 4.9, chloride 95, bicarbonate 26, BUN 40, creatinine 1.9, and glucose 580. AST is 103. ALT is 175. Alkaline phosphatase is 155. Lipase is 464. Toxicology was positive for cocaine and marijuana. Chest x-ray was negative. IMPRESSION: Human immunodeficiency virus. The patient is already on medication Genvoya. He has diabetes mellitus that is uncontrolled. Drug abuse including cocaine and marijuana. The patient has chronic elevation in transaminase level. In the past, hepatitis panel was negative. He has acute renal failure. He has hypertension and history of left lower extremity amputation. RECOMMENDATIONS: We will continue with current HIV medication Genvoya. We will follow up closely the renal function. At the end of my exam, I thank Dr. Bruce for involving me in the care of this patient. Raulito Muse M.D. DR: CRISTIAN JOB#: [id number] CC:
[2017-06-09] VITALS: BP 132/83
[2017-06-09] MEDS: Albuterol 90mcg Inhaler 8gm INH SCH ×3 (02:52→12:00)
[2017-06-09 04:41] VITALS: BP 132/81
[2017-06-09] MEDS: NovoLOG Insulin Flexpen SUBQ SCH ×7 (05:35→21:00)
[2017-06-09 07:18] LABS: BASOPHILS % (AUTO) 0.9 % (0.0-2.0); EOSINOPHILS % (AUTO) 1.6 % (0.0-3.0); LYMPHOCYTES % (AUTO) 48.5 % (20.0-45.0); MEAN CORPUSCULAR HEMOGLOBIN 32.3 PG (27.0-31.0); MEAN CORPUSCULAR HGB CONC 32.7 G/DL (32.0-36.0); MEAN CORPUSCULAR VOLUME 99 FL (80-99); MEAN PLATELET VOLUME 9.4 FL (6.5-10.1); MONOCYTES % (AUTO) 2.4 % (1.0-10.0); NEUTROPHILS % (AUTO) 46.5 % (45.0-75.0); PLATELET COUNT 202 K/UL (150-450); RED BLOOD COUNT 3.22 M/UL (4.70-6.10); RED CELL DISTRIBUTION WIDTH 13.7 % (11.6-14.8); WHITE BLOOD COUNT 5.1 K/UL (4.8-10.8)
--- NOTE | 2017-06-09 07:24 | General Progress Note ---
Assessment/Plan Problem List: (1) Gastroparesis due to DM ICD Codes: E11.43 - Diabetic gastroparesis; K31.84 - Gastroparesis SNOMED: 10564106 (2) Hypothyroidism ICD Codes: E03.9 - Hypothyroidism SNOMED: 53344097 (3) Uncontrolled diabetes mellitus ICD Codes: E11.65 - Type 2 diabetes mellitus with hyperglycemia SNOMED: 393445537 (4) Status post below knee amputation of left lower extremity ICD Codes: Z89.512 - Acquired absence of left leg below knee SNOMED: 44999385, [id number], [id number] Assessment/Plan Levemir 15 units daily Novolog 5 units ac tid + SSI Levothyroxine 150 mcg daily follow am labs - pending Subjective Allergies: Coded Allergies: GABAPENTIN (Verified Allergy, Severe, 06/07/17) QUETIAPINE (Verified Allergy, Unknown, 06/07/17) All Systems: reviewed and negative except above Subjective events noted feeling better Objective Last 24 Hour Vital Signs Date Time Temp Pulse Resp B/P (MAP) Pulse Ox O2 Delivery O2 Flow Rate FiO2 06/09/17 04:41 98.3 74 18 132/81 100 06/09/17 02:00 82 18 100 Room Air 06/09/17 02:00 78 18 99 Room Air 06/09/17 00:00 100 Room Air 06/09/17 00:00 98.8 78 19 132/83 100 Room Air 06/08/17 21:27 98.1 06/08/17 20:26 137/81 06/08/17 20:25 85 137/81 06/08/17 20:00 98.1 85 19 137/81 100 Room Air 06/08/17 20:00 100 Room Air 06/08/17 19:10 91 16 99 Room Air 06/08/17 19:00 80 18 100 Room Air 06/08/17 17:10 82 149/79 06/08/17 16:00 97.3 82 20 149/79 100 06/08/17 12:00 97.9 79 20 150/93 100 06/08/17 12:00 Room Air 06/08/17 11:43 83 16 99 Room Air 06/08/17 11:40 81 18 99 Room Air 06/08/17 11:02 160/92 11/22/17 11:01 88 160/92 06/08/17 11:00 88 160/92 06/08/17 10:59 160/92 06/08/17 08:00 Room Air 06/08/17 08:00 97.9 77 20 140/85 99 Laboratory Tests 06/08/17 09:30: Hemoglobin A1c 12.2H 06/09/17 04:50: White Blood Count 5.1, Red Blood Count 3.22L, Hemoglobin 10.4L, Hematocrit 31.8L , Mean Corpuscular Volume 99, Mean Corpuscular Hemoglobin 32.3H, Mean Corpuscular Hemoglobin Concent 32.7, Red Cell Distribution Width 13.7, Platelet Count 202, Mean Platelet Volume 9.4, Neutrophils (%) (Auto) 46.5, Lymphocytes (% ) (Auto) 48.5H, Monocytes (%) (Auto) 2.4, Eosinophils (%) (Auto) 1.6, Basophils (%) (Auto) 0.9, Sodium Level [Pending], Potassium Level [Pending], Chloride Level [Pending], Carbon Dioxide Level [Pending], Blood Urea Nitrogen [Pending], Creatinine [Pending], Estimat Glomerular Filtration Rate [Pending], Glucose Level [Pending], Uric Acid [Pending], Calcium Level [Pending], Phosphorus Level [Pending], Magnesium Level [Pending], Iron Level [Pending], Unsaturated Iron Binding [Pending], Ferritin [Pending], Total Bilirubin [Pending], Gamma Glutamyl Transpeptidase [Pending], Aspartate Amino Transf (AST/SGOT) [Pending], Alanine Aminotransferase (ALT/SGPT) [Pending], Alkaline Phosphatase [Pending], Total Creatine Kinase [Pending], Troponin I [Pending], C-Reactive Protein, Quantitative [Pending], Pro-B-Type Natriuretic Peptide [Pending], Total Protein [Pending], Albumin [Pending], Globulin [Pending], Triglycerides Level [Pending] , Cholesterol Level [Pending], LDL Cholesterol [Pending], HDL Cholesterol [ Pending], Cholesterol/HDL Ratio [Pending], Vitamin B12 Level [Pending], Folate [ Pending], Thyroid Stimulating Hormone (TSH) [Pending] Height (Feet): 6 Height (Inches): 1.00 Weight (Pounds): 141 General Appearance: no apparent distress EENT: normal ENT inspection Neck: normal alignment Cardiovascular: normal rate Respiratory/Chest: lungs clear Abdomen: normal bowel sounds Pelvis: normal external exam Extremities: other - left BKA Objective Current Medications Medications (Trade) Dose Ordered Sig/Gadiel Route PRN Reason Start Time Stop Time Status Last Admin Dose Admin Acetaminophen/ Hydrocodone Bitart ([place] 10/325) 1 ea Q4H PRN ORAL For Pain 06/08/17 08:00 06/15/17 07:59 06/08/17 20:27 Al Hydroxide/Mg Hydroxide (Mylanta) 30 ml Q4H PRN ORAL UPSET STOMACH 06/08/17 15:45 07/08/17 15:44 06/08/17 16:08 Albuterol Sulfate (Proventil MDI) 1 puff Q6HR INH 06/08/17 09:00 07/08/17 08:59 06/09/17 02:52 Amlodipine Besylate (Norvasc) 5 mg BID ORAL 06/08/17 18:00 07/08/17 08:59 06/08/17 17:10 Aspirin (Ecotrin) 81 mg DAILY ORAL 06/08/17 09:00 07/08/17 08:59 06/08/17 11:03 Bupropion HCl (Wellbutrin SR) 150 mg DAILY ORAL 06/08/17 09:00 07/08/17 08:59 06/08/17 11:03 Clonidine HCl (Catapres) 0.1 mg Q4H PRN ORAL Give for Systolic BP >160 06/08/17 08:45 07/08/17 08:44 Dextrose (Dextrose 50%) STAT PRN IV Hypoglycemia 06/08/17 08:00 07/08/17 07:59 Diphenhydramine HCl (Benadryl) 25 mg Q8H PRN ORAL Itching 06/08/17 08:00 07/08/17 07:59 Divalproex Sodium (Depakote) 500 mg Q12HR ORAL 06/08/17 09:00 07/08/17 08:59 06/08/17 20:26 Docusate Sodium (Colace) 100 mg TWICE A DAY ORAL 06/08/17 18:00 07/08/17 17:59 06/08/17 17:10 Heparin Sodium (Porcine) (Heparin 5000 units/ml) 5,000 units EVERY 12 HOURS SUBQ 06/08/17 09:00 07/08/17 08:59 06/08/17 20:28 Insulin Aspart (NovoLOG) BEFORE MEALS AND HS SUBQ 06/08/17 08:30 07/08/17 08:29 06/09/17 05:36 Insulin Aspart (NovoLOG) 5 units NOVOTIAC SUBQ 06/08/17 11:30 07/08/17 11:29 06/09/17 05:35 Insulin Detemir (Levemir) 15 units DAILY SUBQ 06/08/17 09:00 07/08/17 08:59 06/08/17 09:04 Levothyroxine Sodium (Synthroid) 150 mcg DAILY@0630 ORAL 06/08/17 08:00 07/08/17 07:59 06/09/17 05:33 Lisinopril (Prinivil) 20 mg EVERY 12 HOURS ORAL 06/08/17 21:00 07/08/17 20:59 06/08/17 20:26 Lorazepam (Ativan) 1 mg Q6H PRN ORAL For Anxiety 06/08/17 19:00 06/15/17 18:59 Metoprolol Tartrate (Lopressor) 50 mg Q12H ORAL 06/08/17 08:00 07/08/17 07:59 06/08/17 20:25 Ondansetron HCl (Zofran ODT) 4 mg Q6H PRN ORAL Nausea & Vomiting 06/08/17 08:00 07/08/17 07:59 Pantoprazole (Protonix) 40 mg ACBREAKFAST ORAL 06/08/17 09:00 07/08/17 08:59 06/09/17 05:33 Sucralfate (Carafate) 1 gm FOUR TIMES A DAY ORAL 06/08/17 09:00 07/08/17 08:59 06/08/17 20:26 Zolpidem Tartrate (Ambien) 5 mg BEDTIME PRN ORAL Insomnia 06/08/17 21:00 06/15/17 20:59 06/08/17 20:26 Item Value Date Time Bedside Blood Glucose 217 mg/dl H 06/08/17 0608 Bedside Blood Glucose 237 mg/dl H 06/08/17 0248 Bedside Blood Glucose 580 mg/dl H 06/07/17 2240 Bedside Blood Glucose 358 mg/dl H 06/09/17 0623 Bedside Blood Glucose 203 mg/dl H 06/08/17 2126 Bedside Blood Glucose 217 mg/dl H 06/08/17 1719 Bedside Blood Glucose 397 mg/dl H 06/08/17 1223 Bedside Blood Glucose 497 mg/dl H 06/08/17 0904 AKILAH MARIE Jun 09, 2017 07:24
[2017-06-09 07:48] LABS: ALANINE AMINOTRANSFERASE 121 U/L (12-78); ALBUMIN/GLOBULIN RATIO 0.7 (1.0-2.7); ANION GAP 6 mmol/L (5-15); ASPARTATE AMINO TRANSFERASE 46 U/L (15-37); CALCIUM 8.5 MG/DL (8.5-10.1); CARBON DIOXIDE 25 MMOL/L (21-32); CHLORIDE 102 MMOL/L (98-107); CHOLESTEROL 144 MG/DL (< 200); CHOLESTEROL/HDL RATIO 2.1 (3.3-4.4); CREATININE 1.5 MG/DL (0.55-1.30); FERRITIN 110 NG/ML (8-388); GLOMERULAR FILTRATION RATE 59.8 mL/min (>60); MAGNESIUM 1.8 MG/DL (1.8-2.4); PHOSPHORUS 2.5 MG/DL (2.5-4.9); POTASSIUM 4.5 MMOL/L (3.5-5.1); SODIUM 133 MMOL/L (136-145); THYROID STIMULATING HORMONE 0.655 uiU/mL (0.358-3.740); TOTAL PROTEIN 6.1 G/DL (6.4-8.2); URIC ACID 6.7 MG/DL (2.6-7.2)
[2017-06-09 07:50] LABS: CRP QUANT < 0.4 mg/dL (0.00-0.90)
[2017-06-09 08:00] LABS: FOLIC ACID 9.5 NG/ML (3.1-17.5); IRON 72 ug/dL (50-175); TOTAL IRON BINDING CAPACITY 278 ug/dL (250-450)
[2017-06-09] MEDS: Metoprolol Tartrate 50mg tab ORAL SCH ×2 (08:00→21:07)
[2017-06-09 08:33] VITALS: BP 136/85
[2017-06-09] MEDS: BuPROPion SR 150mg tab ORAL SCH (08:49)
[2017-06-09] MEDS: Heparin 5000 units/ml inj SUBQ SCH ×2 (08:52→21:11)
[2017-06-09] MEDS: Sucralfate 1gm tab ORAL SCH ×4 (08:56→21:07)
[2017-06-09] MEDS: Depakote 500mg tab ORAL SCH ×2 (08:56→21:05)
[2017-06-09] MEDS: Docusate 100mg cap ORAL SCH ×2 (08:56→18:12)
[2017-06-09] MEDS: Aspirin EC 81mg tab ORAL SCH (08:56)
[2017-06-09] MEDS: Lisinopril 20mg tab ORAL SCH ×2 (08:57→21:06)
[2017-06-09] MEDS: Levemir Flexpen SUBQ SCH (08:57)
--- NOTE | 2017-06-09 09:17 | Infectious Diseases Prog Note ---
Assessment/Plan Assessment/Plan A: HIV Uncontrolled DM Polysubstance abuse Elevation of transaminase, chronic Acute renal failure P; Continue HIV treatment with [facility] Subjective ROS Limited/Unobtainable: No Constitutional: Reports: no symptoms, other - wants to go home Respiratory: Reports: no symptoms Cardiovascular: Reports: no symptoms Gastrointestinal/Abdominal: Reports: no symptoms Genitourinary: Reports: no symptoms Allergies: Coded Allergies: GABAPENTIN (Verified Allergy, Severe, 06/07/17) QUETIAPINE (Verified Allergy, Unknown, 06/07/17) Objective Vital Signs Last 24 Hour Vital Signs Date Time Temp Pulse Resp B/P (MAP) Pulse Ox O2 Delivery O2 Flow Rate FiO2 06/09/17 08:33 97.8 74 20 136/85 97 Room Air 06/09/17 07:43 75 18 100 Room Air 06/09/17 07:41 78 18 99 Room Air 06/09/17 04:41 98.3 74 18 132/81 100 06/09/17 02:00 82 18 100 Room Air 06/09/17 02:00 78 18 99 Room Air 06/09/17 00:00 100 Room Air 06/09/17 00:00 98.8 78 19 132/83 100 Room Air 06/08/17 21:27 98.1 06/08/17 20:26 137/81 06/08/17 20:25 85 137/81 06/08/17 20:00 98.1 85 19 137/81 100 Room Air 06/08/17 20:00 100 Room Air 06/08/17 19:10 91 16 99 Room Air 06/08/17 19:00 80 18 100 Room Air 06/08/17 17:10 82 149/79 06/08/17 16:00 97.3 82 20 149/79 100 06/08/17 12:00 97.9 79 20 150/93 100 06/08/17 12:00 Room Air 06/08/17 11:43 83 16 99 Room Air 06/08/17 11:40 81 18 99 Room Air 06/08/17 11:02 160/92 06/08/17 11:01 88 160/92 06/08/17 11:00 88 160/92 06/08/17 10:59 160/92 Height (Feet): 6 Height (Inches): 1.00 Weight (Pounds): 141 General Appearance: no acute distress HEENT: mucous membranes moist Respiratory/Chest: lungs clear Cardiovascular: normal rate Abdomen: soft, non tender Extremities: no edema, other - left BKA Neurologic/Psychiatric: alert, responsive Laboratory Tests Test 06/08/17 09:30 06/09/17 04:50 Hemoglobin A1c 12.2 % (4.3-6.0) H White Blood Count 5.1 K/UL (4.8-10.8) Red Blood Count 3.22 M/UL (4.70-6.10) L Hemoglobin 10.4 G/DL (14.2-18.0) L Hematocrit 31.8 % (42.0-52.0) L Mean Corpuscular Volume 99 FL (80-99) Mean Corpuscular Hemoglobin 32.3 PG (27.0-31.0) H Mean Corpuscular Hemoglobin Concent 32.7 G/DL (32.0-36.0) Red Cell Distribution Width 13.7 % (11.6-14.8) Platelet Count 202 K/UL (150-450) Mean Platelet Volume 9.4 FL (6.5-10.1) Neutrophils (%) (Auto) 46.5 % (45.0-75.0) Lymphocytes (%) (Auto) 48.5 % (20.0-45.0) H Monocytes (%) (Auto) 2.4 % (1.0-10.0) Eosinophils (%) (Auto) 1.6 % (0.0-3.0) Basophils (%) (Auto) 0.9 % (0.0-2.0) Sodium Level 133 MMOL/L (136-145) L Potassium Level 4.5 MMOL/L (3.5-5.1) Chloride Level 102 MMOL/L (98-107) Carbon Dioxide Level 25 MMOL/L (21-32) Anion Gap 6 mmol/L (5-15) Blood Urea Nitrogen 36 mg/dL (7-18) H Creatinine 1.5 MG/DL (0.55-1.30) H Estimat Glomerular Filtration Rate 59.8 mL/min (>60) Glucose Level 359 MG/DL (74-106) #H Uric Acid 6.7 MG/DL (2.6-7.2) Calcium Level 8.5 MG/DL (8.5-10.1) Phosphorus Level 2.5 MG/DL (2.5-4.9) Magnesium Level 1.8 MG/DL (1.8-2.4) Iron Level 72 ug/dL (50-175) Total Iron Binding Capacity 278 ug/dL (250-450) Percent Iron Saturation 26 % (15-50) Unsaturated Iron Binding 206 ug/dL (112-346) Ferritin 110 NG/ML (8-388) Total Bilirubin 0.2 MG/DL (0.2-1.0) Gamma Glutamyl Transpeptidase 144 U/L (5-85) H Aspartate Amino Transf (AST/SGOT) 46 U/L (15-37) H Alanine Aminotransferase (ALT/SGPT) 121 U/L (12-78) H Alkaline Phosphatase 101 U/L (46-116) Total Creatine Kinase 49 U/L (26-308) Troponin I 0.004 ng/mL (0.000-0.056) C-Reactive Protein, Quantitative < 0.4 mg/dL (0.00-0.90) Pro-B-Type Natriuretic Peptide 776 pg/mL (0-125) H Total Protein 6.1 G/DL (6.4-8.2) L Albumin 2.5 G/DL (3.4-5.0) L Globulin 3.6 g/dL Albumin/Globulin Ratio 0.7 (1.0-2.7) L Triglycerides Level 131 MG/DL (30-150) Cholesterol Level 144 MG/DL (< 200) LDL Cholesterol 55 mg/dL (<100) HDL Cholesterol 67 MG/DL (40-60) H Cholesterol/HDL Ratio 2.1 (3.3-4.4) L Vitamin B12 Level 570 PG/ML (193-986) Folate 9.5 NG/ML (3.1-17.5) Thyroid Stimulating Hormone (TSH) 0.655 uiU/mL (0.358-3.740) Current Medications Medications (Trade) Dose Ordered Sig/Gadiel Route PRN Reason Start Time Stop Time Status Last Admin Dose Admin Acetaminophen/ Hydrocodone Bitart ([place] 10/325) 1 ea Q4H PRN ORAL For Pain 06/08/17 08:00 06/15/17 07:59 06/08/17 20:27 Al Hydroxide/Mg Hydroxide (Mylanta) 30 ml Q4H PRN ORAL UPSET STOMACH 06/08/17 15:45 07/08/17 15:44 06/08/17 16:08 Albuterol Sulfate (Proventil MDI) 1 puff Q6HR INH 06/08/17 09:00 07/08/17 08:59 06/09/17 07:41 Amlodipine Besylate (Norvasc) 5 mg BID ORAL 06/08/17 18:00 07/08/17 08:59 06/08/17 17:10 Aspirin (Ecotrin) 81 mg DAILY ORAL 06/08/17 09:00 07/08/17 08:59 06/08/17 11:03 Bupropion HCl (Wellbutrin SR) 150 mg DAILY ORAL 06/08/17 09:00 07/08/17 08:59 06/09/17 08:49 Clonidine HCl (Catapres) 0.1 mg Q4H PRN ORAL Give for Systolic BP >160 06/08/17 08:45 07/08/17 08:44 Dextrose (Dextrose 50%) STAT PRN IV Hypoglycemia 06/08/17 08:00 07/08/17 07:59 Diphenhydramine HCl (Benadryl) 25 mg Q8H PRN ORAL Itching 06/08/17 08:00 07/08/17 07:59 Divalproex Sodium (Depakote) 500 mg Q12HR ORAL 06/08/17 09:00 07/08/17 08:59 06/08/17 20:26 Docusate Sodium (Colace) 100 mg TWICE A DAY ORAL 06/08/17 18:00 07/08/17 17:59 06/08/17 17:10 Heparin Sodium (Porcine) (Heparin 5000 units/ml) 5,000 units EVERY 12 HOURS SUBQ 06/08/17 09:00 07/08/17 08:59 06/09/17 08:52 Insulin Aspart (NovoLOG) BEFORE MEALS AND HS SUBQ 06/08/17 08:30 07/08/17 08:29 06/09/17 05:36 Insulin Aspart (NovoLOG) 5 units NOVOTIAC SUBQ 06/08/17 11:30 07/08/17 11:29 06/09/17 05:35 Insulin Detemir (Levemir) 15 units DAILY SUBQ 06/08/17 09:00 07/08/17 08:59 06/08/17 09:04 Levothyroxine Sodium (Synthroid) 150 mcg DAILY@0630 ORAL 06/08/17 08:00 07/08/17 07:59 06/09/17 05:33 Lisinopril (Prinivil) 20 mg EVERY 12 HOURS ORAL 06/08/17 21:00 07/08/17 20:59 06/08/17 20:26 Lorazepam (Ativan) 1 mg Q6H PRN ORAL For Anxiety 06/08/17 19:00 06/15/17 18:59 Metoprolol Tartrate (Lopressor) 50 mg Q12H ORAL 06/08/17 08:00 07/08/17 07:59 06/08/17 20:25 Ondansetron HCl (Zofran ODT) 4 mg Q6H PRN ORAL Nausea & Vomiting 06/08/17 08:00 07/08/17 07:59 Pantoprazole (Protonix) 40 mg ACBREAKFAST ORAL 06/08/17 09:00 07/08/17 08:59 06/09/17 05:33 Sucralfate (Carafate) 1 gm FOUR TIMES A DAY ORAL 06/08/17 09:00 07/08/17 08:59 06/08/17 20:26 Zolpidem Tartrate (Ambien) 5 mg BEDTIME PRN ORAL Insomnia 06/08/17 21:00 06/15/17 20:59 06/08/17 20:26 LASHAY KNOWLES Jun 09, 2017 09:17
--- NOTE | 2017-06-09 09:30 | Nephrology Progress Note ---
Assessment/Plan Problem List: (1) Cocaine abuse (2) Uncontrolled diabetes mellitus (3) Diabetic nephropathy (4) Dehydration (5) HIV disease (6) Abnormal liver enzymes Assessment Patient admitted for Hyperglycemia- Urine positive for coccaine and MJ Cr of 1.9 down to 1.5 today Anemia LFTs also elevated- Other conditions: (1) Diabetic nephropathy (2) DM (diabetes mellitus) (3) Diabetic foot ulcer (4) Hypothyroidism (5) Dehydration (6) HIV (7) Parkinson / Migraine Plan PLAN: BS control Monitor renal parameters- and LFTs Avoid Nephrotoxics Keep BP in check, adjust meds slow hydrate- per orders / consultants Subjective ROS Limited/Unobtainable: No Constitutional: Reports: malaise Objective Objective Last 24 Hour Vital Signs Date Time Temp Pulse Resp B/P (MAP) Pulse Ox O2 Delivery O2 Flow Rate FiO2 06/09/17 08:33 97.8 74 20 136/85 97 Room Air 06/09/17 07:43 75 18 100 Room Air 06/09/17 07:41 78 18 99 Room Air 06/09/17 04:41 98.3 74 18 132/81 100 06/09/17 02:00 82 18 100 Room Air 06/09/17 02:00 78 18 99 Room Air 06/09/17 00:00 100 Room Air 06/09/17 00:00 98.8 78 19 132/83 100 Room Air 06/08/17 21:27 98.1 06/08/17 20:26 137/81 06/08/17 20:25 85 137/81 06/08/17 20:00 98.1 85 19 137/81 100 Room Air 06/08/17 20:00 100 Room Air 06/08/17 19:10 91 16 99 Room Air 06/08/17 19:00 80 18 100 Room Air 06/08/17 17:10 82 149/79 06/08/17 16:00 97.3 82 20 149/79 100 06/08/17 12:00 97.9 79 20 150/93 100 06/08/17 12:00 Room Air 06/08/17 11:43 83 16 99 Room Air 06/08/17 11:40 81 18 99 Room Air 06/08/17 11:02 160/92 06/08/17 11:01 88 160/92 06/08/17 11:00 88 160/92 06/08/17 10:59 160/92 Intake and Output 06/09/17 06/10/17 19:00 07:00 Intake Total 480 ml Balance 480 ml Intake Oral 480 ml Laboratory Tests 06/08/17 09:30: Hemoglobin A1c 12.2H 06/09/17 04:50: White Blood Count 5.1, Red Blood Count 3.22L, Hemoglobin 10.4L, Hematocrit 31.8L , Mean Corpuscular Volume 99, Mean Corpuscular Hemoglobin 32.3H, Mean Corpuscular Hemoglobin Concent 32.7, Red Cell Distribution Width 13.7, Platelet Count 202, Mean Platelet Volume 9.4, Neutrophils (%) (Auto) 46.5, Lymphocytes (% ) (Auto) 48.5H, Monocytes (%) (Auto) 2.4, Eosinophils (%) (Auto) 1.6, Basophils (%) (Auto) 0.9, Sodium Level 133L, Potassium Level 4.5, Chloride Level 102, Carbon Dioxide Level 25, Anion Gap 6, Blood Urea Nitrogen 36H, Creatinine 1.5H, Estimat Glomerular Filtration Rate 59.8, Glucose Level 359#H, Uric Acid 6.7, Calcium Level 8.5, Phosphorus Level 2.5, Magnesium Level 1.8, Iron Level 72, Total Iron Binding Capacity 278, Percent Iron Saturation 26, Unsaturated Iron Binding 206, Ferritin 110, Total Bilirubin 0.2, Gamma Glutamyl Transpeptidase 144H, Aspartate Amino Transf (AST/SGOT) 46H, Alanine Aminotransferase (ALT/SGPT ) 121H, Alkaline Phosphatase 101, Total Creatine Kinase 49, Troponin I 0.004, C- Reactive Protein, Quantitative < 0.4, Pro-B-Type Natriuretic Peptide 776H, Total Protein 6.1L, Albumin 2.5L, Globulin 3.6, Albumin/Globulin Ratio 0.7L, Triglycerides Level 131, Cholesterol Level 144, LDL Cholesterol 55, HDL Cholesterol 67H, Cholesterol/HDL Ratio 2.1L, Vitamin B12 Level 570, Folate 9.5, Thyroid Stimulating Hormone (TSH) 0.655 Height (Feet): 6 Height (Inches): 1.00 Weight (Pounds): 141 General Appearance: no apparent distress Objective PE not changed PONCHO RAMÍREZ Jun 09, 2017 09:30
--- NOTE | 2017-06-09 10:37 | General Progress Note ---
Assessment/Plan Assessment/Plan (1) Lumbago (2) Lumbar DDD (3) Lumbar Spondylosis (4) Phantom limb pain (5) history of below knee amputation of left lower extremity Pt will be discontinued off Mccarley we will start Percocet 10/325mg PO 1 tab Q4H PRN severe pain. Pt was d/w Dr. Merino and he concurred. Subjective Date patient seen: Jun 09, 2017 Time patient seen: 10:00 - am Allergies: Coded Allergies: GABAPENTIN (Verified Allergy, Severe, 06/07/17) QUETIAPINE (Verified Allergy, Unknown, 06/07/17) Subjective Constitutional: Reports: weakness, Denies: chills, diaphoresis, fever, malaise , no symptoms, other HEENT: Denies: blurred vision, double vision, ear discharge, ear pain, eye pain , mouth pain, mouth swelling, no symptoms, nose congestion, nose pain, other, tearing, throat pain, throat swelling Cardiovascular: Denies: chest pain, edema, irregular heart rate, lightheadedness, no symptoms, other, palpitations, syncope Respiratory: Denies: SOB at rest, SOB with excertion, cough, no symptoms, orthopnea, other, shortness of breath, sputum, stridor, wheezing Gastrointestinal/Abdominal: Reports: abdominal pain, Denies: abdomen distended, black stools, blood in stool, constipated, diarrhea, difficulty swallowing, nausea, no symptoms, other, poor appetite, poor fluid intake, rectal bleeding, tarry stools, vomiting Genitourinary: Denies: burning, discharge, flank pain, frequency, hematuria, incontinence, no symptoms, other, pain, urgency Neurologic/Psychiatric: Reports: numbness, tingling, weakness, Denies: anxiety , depressed, emotional problems, headache, no symptoms, other, paresthesia, pre- existing deficit, seizure, tremors Endocrine: Denies: excessive sweating, flushing, increased hunger, increased thirst, increased urine, intolerance to cold, intolerance to heat, no symptoms, other, unexplained weight gain, unexplained weight loss Hematologic/Lymphatic: Denies: anemia, easy bleeding, easy bruising, no symptoms, other Subjective Pt reports that the pain has been severe and not tolerated on the Mccarley. D/w him about Percocet and he understands. Objective Last 24 Hour Vital Signs Date Time Temp Pulse Resp B/P (MAP) Pulse Ox O2 Delivery O2 Flow Rate FiO2 06/09/17 08:33 97.8 74 20 136/85 97 Room Air 06/09/17 07:43 75 18 100 Room Air 06/09/17 07:41 78 18 99 Room Air 06/09/17 04:41 98.3 74 18 132/81 100 06/09/17 02:00 82 18 100 Room Air 06/09/17 02:00 78 18 99 Room Air 06/09/17 00:00 100 Room Air 06/09/17 00:00 98.8 78 19 132/83 100 Room Air 06/08/17 21:27 98.1 06/08/17 20:26 137/81 06/08/17 20:25 85 137/81 06/08/17 20:00 98.1 85 19 137/81 100 Room Air 06/08/17 20:00 100 Room Air 06/08/17 19:10 91 16 99 Room Air 06/08/17 19:00 80 18 100 Room Air 06/08/17 17:10 82 149/79 06/08/17 16:00 97.3 82 20 149/79 100 06/08/17 12:00 97.9 79 20 150/93 100 06/08/17 12:00 Room Air 06/08/17 11:43 83 16 99 Room Air 06/08/17 11:40 81 18 99 Room Air 06/08/17 11:02 160/92 06/08/17 11:01 88 160/92 06/08/17 11:00 88 160/92 06/08/17 10:59 160/92 Intake and Output 06/09/17 06/10/17 19:00 07:00 Intake Total 480 ml Balance 480 ml Intake Oral 480 ml Laboratory Tests 06/09/17 04:50: White Blood Count 5.1, Red Blood Count 3.22L, Hemoglobin 10.4L, Hematocrit 31.8L , Mean Corpuscular Volume 99, Mean Corpuscular Hemoglobin 32.3H, Mean Corpuscular Hemoglobin Concent 32.7, Red Cell Distribution Width 13.7, Platelet Count 202, Mean Platelet Volume 9.4, Neutrophils (%) (Auto) 46.5, Lymphocytes (% ) (Auto) 48.5H, Monocytes (%) (Auto) 2.4, Eosinophils (%) (Auto) 1.6, Basophils (%) (Auto) 0.9, Sodium Level 133L, Potassium Level 4.5, Chloride Level 102, Carbon Dioxide Level 25, Anion Gap 6, Blood Urea Nitrogen 36H, Creatinine 1.5H, Estimat Glomerular Filtration Rate 59.8, Glucose Level 359#H, Uric Acid 6.7, Calcium Level 8.5, Phosphorus Level 2.5, Magnesium Level 1.8, Iron Level 72, Total Iron Binding Capacity 278, Percent Iron Saturation 26, Unsaturated Iron Binding 206, Ferritin 110, Total Bilirubin 0.2, Gamma Glutamyl Transpeptidase 144H, Aspartate Amino Transf (AST/SGOT) 46H, Alanine Aminotransferase (ALT/SGPT ) 121H, Alkaline Phosphatase 101, Total Creatine Kinase 49, Troponin I 0.004, C- Reactive Protein, Quantitative < 0.4, Pro-B-Type Natriuretic Peptide 776H, Total Protein 6.1L, Albumin 2.5L, Globulin 3.6, Albumin/Globulin Ratio 0.7L, Triglycerides Level 131, Cholesterol Level 144, LDL Cholesterol 55, HDL Cholesterol 67H, Cholesterol/HDL Ratio 2.1L, Vitamin B12 Level 570, Folate 9.5, Thyroid Stimulating Hormone (TSH) 0.655 Height (Feet): 6 Height (Inches): 1.00 Weight (Pounds): 141 Objective General Appearance: no apparent distress, alert EENT: PERRL/EOMI, normal ENT inspection Neck: normal alignment, supple Cardiovascular: normal rate, regular rhythm Respiratory/Chest: lungs clear, normal breath sounds Abdomen: non tender, soft Extremities: other - left BKA Edema: trace edema Neurologic: alert, oriented x 3 Skin: warm/dry CALLIE FRAGOSO Jun 09, 2017 10:37
[2017-06-09 11:42] VITALS: BP 154/86
--- NOTE | 2017-06-09 13:11 | General Progress Note ---
Assessment/Plan Problem List: (1) Anemia ICD Codes: D64.9 - Anemia SNOMED: 111095514 (2) Pain ICD Codes: R52 - Pain SNOMED: 93305197 (3) Hyponatremia ICD Codes: E87.1 - Hyponatremia SNOMED: 60604923 (4) DM (diabetes mellitus) ICD Codes: E11.9 - Diabetes mellitus SNOMED: 32722093 (5) Pain in limb ICD Codes: M79.609 - Pain in limb SNOMED: 24523450 (6) Hyperglycemia ICD Codes: R73.9 - Hyperglycemia SNOMED: 81306818 (7) Hypothyroidism ICD Codes: E03.9 - Hypothyroidism SNOMED: 71767864 Status: tolerating diet Assessment/Plan hyponatrima hyperglycemia bg is improving not in dka aids chronic pain Subjective ROS Limited/Unobtainable: Yes - l HEENT: Reports: no symptoms Allergies: Coded Allergies: GABAPENTIN (Verified Allergy, Severe, 06/07/17) QUETIAPINE (Verified Allergy, Unknown, 06/07/17) Objective Last 24 Hour Vital Signs Date Time Temp Pulse Resp B/P (MAP) Pulse Ox O2 Delivery O2 Flow Rate FiO2 06/09/17 12:59 Room Air 06/09/17 12:59 Room Air 06/09/17 11:42 98.2 86 20 154/86 100 06/09/17 08:33 97.8 74 20 136/85 97 Room Air 06/09/17 07:43 75 18 100 Room Air 06/09/17 07:41 78 18 99 Room Air 06/09/17 04:41 98.3 74 18 132/81 100 06/09/17 02:00 82 18 100 Room Air 06/09/17 02:00 78 18 99 Room Air 06/09/17 00:00 100 Room Air 06/09/17 00:00 98.8 78 19 132/83 100 Room Air 06/08/17 21:27 98.1 06/08/17 20:26 137/81 06/08/17 20:25 85 137/81 06/08/17 20:00 98.1 85 19 137/81 100 Room Air 06/08/17 20:00 100 Room Air 06/08/17 19:10 91 16 99 Room Air 06/08/17 19:00 80 18 100 Room Air 06/08/17 17:10 82 149/79 06/08/17 16:00 97.3 82 20 149/79 100 Intake and Output 06/09/17 06/10/17 19:00 07:00 Intake Total 480 ml Balance 480 ml Intake Oral 480 ml Laboratory Tests 06/09/17 04:50: White Blood Count 5.1, Red Blood Count 3.22L, Hemoglobin 10.4L, Hematocrit 31.8L , Mean Corpuscular Volume 99, Mean Corpuscular Hemoglobin 32.3H, Mean Corpuscular Hemoglobin Concent 32.7, Red Cell Distribution Width 13.7, Platelet Count 202, Mean Platelet Volume 9.4, Neutrophils (%) (Auto) 46.5, Lymphocytes (% ) (Auto) 48.5H, Monocytes (%) (Auto) 2.4, Eosinophils (%) (Auto) 1.6, Basophils (%) (Auto) 0.9, Sodium Level 133L, Potassium Level 4.5, Chloride Level 102, Carbon Dioxide Level 25, Anion Gap 6, Blood Urea Nitrogen 36H, Creatinine 1.5H, Estimat Glomerular Filtration Rate 59.8, Glucose Level 359#H, Uric Acid 6.7, Calcium Level 8.5, Phosphorus Level 2.5, Magnesium Level 1.8, Iron Level 72, Total Iron Binding Capacity 278, Percent Iron Saturation 26, Unsaturated Iron Binding 206, Ferritin 110, Total Bilirubin 0.2, Gamma Glutamyl Transpeptidase 144H, Aspartate Amino Transf (AST/SGOT) 46H, Alanine Aminotransferase (ALT/SGPT ) 121H, Alkaline Phosphatase 101, Total Creatine Kinase 49, Troponin I 0.004, C- Reactive Protein, Quantitative < 0.4, Pro-B-Type Natriuretic Peptide 776H, Total Protein 6.1L, Albumin 2.5L, Globulin 3.6, Albumin/Globulin Ratio 0.7L, Triglycerides Level 131, Cholesterol Level 144, LDL Cholesterol 55, HDL Cholesterol 67H, Cholesterol/HDL Ratio 2.1L, Vitamin B12 Level 570, Folate 9.5, Thyroid Stimulating Hormone (TSH) 0.655 Height (Feet): 6 Height (Inches): 1.00 Weight (Pounds): 141 Abdomen: soft Suzy Bruce MD Jun 09, 2017 13:11
[2017-06-09] MEDS ORDERED: Norco 10mg/325mg tab ORAL PRN (15:00)
[2017-06-09 15:41] VITALS: BP 131/77
--- NOTE | 2017-06-09 16:03 | General Progress Note ---
Assessment/Plan Assessment/Plan ASSESSMENT/PLAN: Anemia 2/2 hiv / aids, consider use of procrit if anemia worsens in next few days, hgb goal is >7 --> continue to watch counts Anemia of chronic disease as well as kidney disease, now improved, could be 2/2 dehydration, will recheck Hereditary hemorrhagic telectangasia Leukopenia, stable, potentially 2/2 infection as well Hypoglycemia. Human immunodeficiency virus/acquired immune deficiency syndrome. Dementia. Parkinson disease. CP r/o ACS Osteomyelitis History of seizure. Subjective Allergies: Coded Allergies: GABAPENTIN (Verified Allergy, Severe, 06/07/17) QUETIAPINE (Verified Allergy, Unknown, 06/07/17) All Systems: reviewed and negative except above Subjective no events overnight, pt wants to leave Objective Last 24 Hour Vital Signs Date Time Temp Pulse Resp B/P (MAP) Pulse Ox O2 Delivery O2 Flow Rate FiO2 06/09/17 15:41 98.2 82 20 131/77 98 06/09/17 12:59 Room Air 06/09/17 12:59 Room Air 06/09/17 12:00 100 Room Air 06/09/17 11:42 98.2 86 20 154/86 100 06/09/17 08:33 97.8 74 20 136/85 97 Room Air 06/09/17 08:00 100 Room Air 06/09/17 07:43 75 18 100 Room Air 06/09/17 07:41 78 18 99 Room Air 06/09/17 04:41 98.3 74 18 132/81 100 06/09/17 02:00 82 18 100 Room Air 06/09/17 02:00 78 18 99 Room Air 06/09/17 00:00 100 Room Air 06/09/17 00:00 98.8 78 19 132/83 100 Room Air 06/08/17 21:27 98.1 06/08/17 20:26 137/81 06/08/17 20:25 85 137/81 06/08/17 20:00 98.1 85 19 137/81 100 Room Air 06/08/17 20:00 100 Room Air 06/08/17 19:10 91 16 99 Room Air 06/08/17 19:00 80 18 100 Room Air 06/08/17 17:10 82 149/79 06/08/17 16:00 97.3 82 20 149/79 100 Intake and Output 06/09/17 06/10/17 19:00 07:00 Intake Total 840 ml Output Total 600 ml Balance 240 ml Intake Oral 840 ml Output Urine Total 600 ml Laboratory Tests 06/09/17 04:50: White Blood Count 5.1, Red Blood Count 3.22L, Hemoglobin 10.4L, Hematocrit 31.8L , Mean Corpuscular Volume 99, Mean Corpuscular Hemoglobin 32.3H, Mean Corpuscular Hemoglobin Concent 32.7, Red Cell Distribution Width 13.7, Platelet Count 202, Mean Platelet Volume 9.4, Neutrophils (%) (Auto) 46.5, Lymphocytes (% ) (Auto) 48.5H, Monocytes (%) (Auto) 2.4, Eosinophils (%) (Auto) 1.6, Basophils (%) (Auto) 0.9, Sodium Level 133L, Potassium Level 4.5, Chloride Level 102, Carbon Dioxide Level 25, Anion Gap 6, Blood Urea Nitrogen 36H, Creatinine 1.5H, Estimat Glomerular Filtration Rate 59.8, Glucose Level 359#H, Uric Acid 6.7, Calcium Level 8.5, Phosphorus Level 2.5, Magnesium Level 1.8, Iron Level 72, Total Iron Binding Capacity 278, Percent Iron Saturation 26, Unsaturated Iron Binding 206, Ferritin 110, Total Bilirubin 0.2, Gamma Glutamyl Transpeptidase 144H, Aspartate Amino Transf (AST/SGOT) 46H, Alanine Aminotransferase (ALT/SGPT ) 121H, Alkaline Phosphatase 101, Total Creatine Kinase 49, Troponin I 0.004, C- Reactive Protein, Quantitative < 0.4, Pro-B-Type Natriuretic Peptide 776H, Total Protein 6.1L, Albumin 2.5L, Globulin 3.6, Albumin/Globulin Ratio 0.7L, Triglycerides Level 131, Cholesterol Level 144, LDL Cholesterol 55, HDL Cholesterol 67H, Cholesterol/HDL Ratio 2.1L, Vitamin B12 Level 570, Folate 9.5, Thyroid Stimulating Hormone (TSH) 0.655 Height (Feet): 6 Height (Inches): 1.00 Weight (Pounds): 141 General Appearance: no apparent distress EENT: PERRL/EOMI Neck: normal alignment Cardiovascular: normal peripheral pulses Abdomen: normal bowel sounds, non tender Extremities: non-tender Connor Cuevas Jun 09, 2017 16:03
[2017-06-09] MEDS ORDERED: Albuterol 90mcg Inhaler 8gm INH PRN (16:15)
[2017-06-09 20:00] VITALS: BP 151/90
[2017-06-10] VITALS: BP 143/93
[2017-06-10 03:31] VITALS: BP 160/94
[2017-06-10 05:00] VITALS: BP 154/91
[2017-06-10] MEDS: NovoLOG Insulin Flexpen SUBQ SCH ×2 (06:26→06:27)
--- NOTE | 2017-06-10 06:28 | General Progress Note ---
Assessment/Plan Problem List: (1) Gastroparesis due to DM ICD Codes: E11.43 - Diabetic gastroparesis; K31.84 - Gastroparesis SNOMED: 24161769 (2) Hypothyroidism ICD Codes: E03.9 - Hypothyroidism SNOMED: 32996078 (3) Uncontrolled diabetes mellitus ICD Codes: E11.65 - Type 2 diabetes mellitus with hyperglycemia SNOMED: 091667321 (4) Status post below knee amputation of left lower extremity ICD Codes: Z89.512 - Acquired absence of left leg below knee SNOMED: 56997149, 265899695, 427489236 Assessment/Plan Levemir 15 units daily Novolog 5 units ac tid + SSI Levothyroxine 150 mcg daily Subjective Allergies: Coded Allergies: GABAPENTIN (Verified Allergy, Severe, 06/07/17) QUETIAPINE (Verified Allergy, Unknown, 06/07/17) All Systems: reviewed and negative except above Subjective events noted Objective Last 24 Hour Vital Signs Date Time Temp Pulse Resp B/P (MAP) Pulse Ox O2 Delivery O2 Flow Rate FiO2 06/10/17 03:31 96.6 81 20 160/94 96 Room Air 06/10/17 00:00 98.1 67 21 143/93 100 Room Air 06/09/17 21:07 74 151/90 06/09/17 21:06 151/90 06/09/17 20:00 98.2 74 20 151/90 100 Room Air 06/09/17 20:00 76 16 Room Air 06/09/17 18:12 77 144/86 06/09/17 15:41 98.2 82 20 131/77 98 06/09/17 12:59 Room Air 06/09/17 12:59 Room Air 06/09/17 12:00 100 Room Air 06/09/17 11:42 98.2 86 20 154/86 100 06/09/17 08:33 97.8 74 20 136/85 97 Room Air 06/09/17 08:00 100 Room Air 06/09/17 07:43 75 18 100 Room Air 21 06/09/17 07:41 78 18 99 Room Air 21 Laboratory Tests 06/10/17 05:50: Urine Eosinophils [Pending] Height (Feet): 6 Height (Inches): 1.00 Weight (Pounds): 141 General Appearance: no apparent distress Neck: normal alignment Cardiovascular: normal rate Respiratory/Chest: lungs clear Abdomen: normal bowel sounds Edema: no edema noted Arm (L), no edema noted Arm (R), no edema noted Leg (L), no edema noted Leg (R), no edema noted Pedal (L), no edema noted Pedal (R), no edema noted Generalized Objective Current Medications Medications (Trade) Dose Ordered Sig/Gadiel Route PRN Reason Start Time Stop Time Status Last Admin Dose Admin Acetaminophen/ Hydrocodone Bitart ([place] 10/325) 1 ea Q4H PRN ORAL Moderate Pain (Pain Scale 4-6) 06/09/17 15:00 06/15/17 07:59 Al Hydroxide/Mg Hydroxide (Mylanta) 30 ml Q4H PRN ORAL UPSET STOMACH 06/08/17 15:45 07/08/17 15:44 06/10/17 03:08 Albuterol Sulfate (Proventil MDI) 1 puff Q6H PRN INH Shortness of Breath 06/09/17 16:15 07/09/17 16:14 Amlodipine Besylate (Norvasc) 5 mg BID ORAL 06/08/17 18:00 07/08/17 08:59 06/09/17 18:12 Aspirin (Ecotrin) 81 mg DAILY ORAL 06/08/17 09:00 07/08/17 08:59 06/08/17 11:03 Bupropion HCl (Wellbutrin SR) 150 mg DAILY ORAL 06/08/17 09:00 07/08/17 08:59 06/09/17 08:49 Clonidine HCl (Catapres) 0.1 mg Q4H PRN ORAL Give for Systolic BP >160 06/08/17 08:45 07/08/17 08:44 Dextrose (Dextrose 50%) STAT PRN IV Hypoglycemia 06/08/17 08:00 07/08/17 07:59 Diphenhydramine HCl (Benadryl) 25 mg Q8H PRN ORAL Itching 06/08/17 08:00 07/08/17 07:59 Divalproex Sodium (Depakote) 500 mg Q12HR ORAL 06/08/17 09:00 07/08/17 08:59 06/09/17 21:05 Docusate Sodium (Colace) 100 mg TWICE A DAY ORAL 06/08/17 18:00 07/08/17 17:59 06/09/17 18:12 Heparin Sodium (Porcine) (Heparin 5000 units/ml) 5,000 units EVERY 12 HOURS SUBQ 06/08/17 09:00 07/08/17 08:59 06/09/17 21:11 Insulin Aspart (NovoLOG) BEFORE MEALS AND HS SUBQ 06/08/17 08:30 07/08/17 08:29 06/09/17 17:09 Insulin Aspart (NovoLOG) 5 units NOVOTIAC SUBQ 06/08/17 11:30 07/08/17 11:29 06/09/17 17:08 Insulin Detemir (Levemir) 15 units DAILY SUBQ 06/08/17 09:00 07/08/17 08:59 06/08/17 09:04 Levothyroxine Sodium (Synthroid) 150 mcg DAILY@0630 ORAL 06/08/17 08:00 07/08/17 07:59 06/09/17 05:33 Lisinopril (Prinivil) 20 mg EVERY 12 HOURS ORAL 06/08/17 21:00 07/08/17 20:59 06/09/17 21:06 Lorazepam (Ativan) 1 mg Q6H PRN ORAL For Anxiety 06/08/17 19:00 06/15/17 18:59 Metoprolol Tartrate (Lopressor) 50 mg Q12H ORAL 06/08/17 08:00 07/08/17 07:59 06/09/17 21:07 Ondansetron HCl (Zofran ODT) 4 mg Q6H PRN ORAL Nausea & Vomiting 06/08/17 08:00 07/08/17 07:59 Oxycodone/ Acetaminophen (Percocet 10/325) 1 tab Q4H PRN ORAL severe pain 06/09/17 10:45 06/16/17 10:44 06/10/17 03:09 Pantoprazole (Protonix) 40 mg ACBREAKFAST ORAL 06/08/17 09:00 07/08/17 08:59 06/09/17 05:33 Sucralfate (Carafate) 1 gm FOUR TIMES A DAY ORAL 06/08/17 09:00 07/08/17 08:59 06/09/17 21:07 Zolpidem Tartrate (Ambien) 5 mg BEDTIME PRN ORAL Insomnia 06/08/17 21:00 06/15/17 20:59 06/08/17 20:26 Item Value Date Time Bedside Blood Glucose 96 mg/dl 06/09/172099 Bedside Blood Glucose 246 mg/dl H 06/09/17 1709 Bedside Blood Glucose 394 mg/dl H 06/09/17 1223 AKILAH MARIE Jun 10, 2017 06:28
[2017-06-10 08:00] VITALS: BP 155/83
--- NOTE | 2017-06-10 08:04 | General Progress Note ---
Assessment/Plan Assessment/Plan (1) Lumbago (2) Lumbar DDD (3) Lumbar Spondylosis (4) Phantom limb pain (5) history of below knee amputation of left lower extremity Pt will be continued on the Percocet. An Rx for [place] 10/325mg PO 1 tab Q4-6H PRN pain 15 tabs was written for pt in anticipation for discharge. . Pt was d/w Dr. Merino and he concurred. Subjective Date patient seen: Jun 10, 2017 Time patient seen: 07:00 - am Allergies: Coded Allergies: GABAPENTIN (Verified Allergy, Severe, 06/07/17) QUETIAPINE (Verified Allergy, Unknown, 06/07/17) Subjective Constitutional: Reports: weakness, Denies: chills, diaphoresis, fever, malaise , no symptoms, other HEENT: Denies: blurred vision, double vision, ear discharge, ear pain, eye pain , mouth pain, mouth swelling, no symptoms, nose congestion, nose pain, other, tearing, throat pain, throat swelling Cardiovascular: Denies: chest pain, edema, irregular heart rate, lightheadedness, no symptoms, other, palpitations, syncope Respiratory: Denies: SOB at rest, SOB with excertion, cough, no symptoms, orthopnea, other, shortness of breath, sputum, stridor, wheezing Gastrointestinal/Abdominal: Reports: abdominal pain, Denies: abdomen distended, black stools, blood in stool, constipated, diarrhea, difficulty swallowing, nausea, no symptoms, other, poor appetite, poor fluid intake, rectal bleeding, tarry stools, vomiting Genitourinary: Denies: burning, discharge, flank pain, frequency, hematuria, incontinence, no symptoms, other, pain, urgency Neurologic/Psychiatric: Reports: numbness, tingling, weakness, Denies: anxiety , depressed, emotional problems, headache, no symptoms, other, paresthesia, pre- existing deficit, seizure, tremors Endocrine: Denies: excessive sweating, flushing, increased hunger, increased thirst, increased urine, intolerance to cold, intolerance to heat, no symptoms, other, unexplained weight gain, unexplained weight loss Hematologic/Lymphatic: Denies: anemia, easy bleeding, easy bruising, no symptoms, other Subjective Pt is laying in bed and reports that his pain has been reduced and now more tolerated on the Percocet. He has no new complaints. Objective Last 24 Hour Vital Signs Date Time Temp Pulse Resp B/P (MAP) Pulse Ox O2 Delivery O2 Flow Rate FiO2 06/10/17 05:00 154/91 06/10/17 03:31 96.6 81 20 160/94 96 Room Air 06/10/17 00:00 98.1 67 21 143/93 100 Room Air 06/09/17 21:07 74 151/90 06/09/17 21:06 151/90 06/09/17 20:00 98.2 74 20 151/90 100 Room Air 06/09/17 20:00 76 16 Room Air 06/09/17 18:12 77 144/86 06/09/17 15:41 98.2 82 20 131/77 98 06/09/17 12:59 Room Air 06/09/17 12:59 Room Air 06/09/17 12:00 100 Room Air 06/09/17 11:42 98.2 86 20 154/86 100 06/09/17 08:33 97.8 74 20 136/85 97 Room Air Laboratory Tests 06/10/17 05:50: Urine Eosinophils [Pending] Height (Feet): 6 Height (Inches): 1.00 Weight (Pounds): 141 Objective General Appearance: no apparent distress, alert EENT: PERRL/EOMI, normal ENT inspection Neck: normal alignment, supple Cardiovascular: normal rate, regular rhythm Respiratory/Chest: lungs clear, normal breath sounds Abdomen: non tender, soft Extremities: other - left BKA Edema: trace edema Neurologic: alert, oriented x 3 Skin: warm/dry CALLIE FRAGOSO Jun 10, 2017 08:03
--- NOTE | 2017-06-10 09:14 | Nephrology Progress Note ---
Assessment/Plan Problem List: (1) Cocaine abuse (2) Uncontrolled diabetes mellitus (3) Diabetic nephropathy (4) Dehydration (5) HIV disease (6) Abnormal liver enzymes Assessment Patient admitted for Hyperglycemia- Urine positive for coccaine and MJ Cr of 1.9 down to 1.5 today Anemia LFTs also elevated- Other conditions: (1) Diabetic nephropathy (2) DM (diabetes mellitus) (3) Diabetic foot ulcer (4) Hypothyroidism (5) Dehydration (6) HIV (7) Parkinson / Migraine Plan PLAN: stable fro renal stand point BS control Monitor renal parameters- and LFTs Avoid Nephrotoxics Keep BP in check, adjust meds slow hydrate- per orders / consultants Subjective ROS Limited/Unobtainable: No Objective Objective Last 24 Hour Vital Signs Date Time Temp Pulse Resp B/P (MAP) Pulse Ox O2 Delivery O2 Flow Rate FiO2 06/10/17 08:12 78 16 Room Air 06/10/17 08:00 98.8 77 18 155/83 Room Air 06/10/17 05:00 154/91 06/10/17 03:31 96.6 81 20 160/94 96 Room Air 06/10/17 00:00 98.1 67 21 143/93 100 Room Air 06/09/17 21:07 74 151/90 06/09/17 21:06 151/90 06/09/17 20:00 98.2 74 20 151/90 100 Room Air 06/09/17 20:00 76 16 Room Air 06/09/17 18:12 77 144/86 06/09/17 15:41 98.2 82 20 131/77 98 06/09/17 12:59 Room Air 06/09/17 12:59 Room Air 06/09/17 12:00 100 Room Air 06/09/17 11:42 98.2 86 20 154/86 100 Laboratory Tests 06/10/17 05:50: Urine Eosinophils None seen Height (Feet): 6 Height (Inches): 1.00 Weight (Pounds): 141 General Appearance: no apparent distress Objective PE not changed PONCHO RAMÍREZ Jun 10, 2017 09:14
[2017-06-10] MEDS: Aspirin EC 81mg tab ORAL SCH (09:38)
[2017-06-10 09:39] VITALS: BP 155/83
[2017-06-10] MEDS: Docusate 100mg cap ORAL SCH (09:39)
[2017-06-10] MEDS: Metoprolol Tartrate 50mg tab ORAL SCH (09:39)
[2017-06-10] MEDS: Depakote 500mg tab ORAL SCH (09:39)
[2017-06-10] MEDS: Sucralfate 1gm tab ORAL SCH (09:39)
[2017-06-10] MEDS: Lisinopril 20mg tab ORAL SCH (09:39)
[2017-06-10] MEDS: BuPROPion SR 150mg tab ORAL SCH (09:39)
[2017-06-10] MEDS: Heparin 5000 units/ml inj SUBQ SCH (09:45)
[2017-06-10] MEDS: Levemir Flexpen SUBQ SCH (09:46)
--- NOTE | 2017-06-10 15:15 | History and Physical Report ---
DATE OF ADMISSION: 06/08/2017 NOTE: POOR AUDIO QUALITY HISTORY OF PRESENT ILLNESS: The patient comes in with hyperglycemia, nonketotic. The patient is also schizophrenic. The patient with depression and suicidal ideation as well. He also has chronic pain syndrome. He feels weak. He is admitted for hyperglycemia. PAST MEDICAL HISTORY: Significant for psychosis, chronic pain syndrome, history of HIV, history of hypertension, mood disorder, NIDDM, hypothyroidism, peripheral vascular disease, GERD, history of DKA, history of diabetic foot ulcer, history of osteomyelitis, history of GI bleed, history of neuropathic pain, history of anemia, and hyperlipidemia. PAST SURGICAL HISTORY: Left BKA, eye surgery, and appendectomy. ALLERGIES: Gabapentin and Seroquel. MEDICATIONS: BuSpar, , Benadryl, Depakote, Genvoya, enalapril, insulin, Levoxyl, benzodiazepines, Crestor, and Carafate. SOCIAL HISTORY: History of smoking. History of drug and alcohol abuse. FAMILY HISTORY: Does have history of diabetes and hypertension. REVIEW OF SYSTEMS: HEENT: Denies headaches. RESPIRATORY: Denies shortness of breath. Denies cough. CARDIOVASCULAR: Denies chest pain or orthopnea. GASTROINTESTINAL: Denies nausea, vomiting, or diarrhea. Does have chronic pain syndrome. CENTRAL NERVOUS SYSTEM: No change in vision or speech pattern. He feels weak. PHYSICAL EXAMINATION: VITAL SIGNS: Temperature is 98.1, pulse is 85, and blood pressure 137/81. HEENT: PERRLA. NECK: Supple. No lymphadenopathy. CHEST: Clear to auscultation. GASTROINTESTINAL: Soft, nontender, nondistended. No organomegaly. Abdomen is soft EXTREMITIES: The patient does have left BKA. LABORATORY DATA: WBC of 6, hemoglobin 7.7, and platelets of 174,000. Sodium 127, potassium 4.9, BUN of 40, creatinine 1.9, and glucose of 580. AST of 103, ALT of 175, 135. ASSESSMENT AND PLAN: 1. Hyperglycemia. 2. Hyponatremia. 3. Azotemia. 4. Psychosis. 5. Suicidal ideation. 6. Neuropathy. 7. Chronic pain syndrome. I have asked Dr. [place], Dr. Bullock, Dr. Angelique Dr. to see the patient for the above-mentioned diagnoses and treatment. Suzy Bruce M.D. DR: FAHAD JOB#: [id number] CC:
--- NOTE | 2017-06-11 14:40 | General Progress Note ---
Assessment/Plan Assessment/Plan ASSESSMENT/PLAN: Anemia 2/2 hiv / aids, consider use of procrit if anemia worsens in next few days, hgb goal is >7 --> continue to watch counts Anemia of chronic disease as well as kidney disease, now improved, could be 2/2 dehydration, will recheck Hereditary hemorrhagic telectangasia Leukopenia, stable, potentially 2/2 infection as well Hypoglycemia. Human immunodeficiency virus/acquired immune deficiency syndrome. Dementia. Parkinson disease. CP r/o ACS Osteomyelitis History of seizure. Subjective Date patient seen: Jun 10, 2017 Allergies: Coded Allergies: GABAPENTIN (Verified Allergy, Severe, 06/07/17) QUETIAPINE (Verified Allergy, Unknown, 06/07/17) All Systems: reviewed and negative except above Subjective NAD Objective Height (Feet): 6 Height (Inches): 1.00 Weight (Pounds): 141 General Appearance: no apparent distress EENT: normal ENT inspection Neck: normal alignment Respiratory/Chest: chest wall non-tender Extremities: non-tender Skin: warm/dry Connor Cuevas Jun 11, 2017 14:40
--- NOTE | 2017-06-13 10:14 | Discharge Summary ---
Discharge Summary Hospital Course Date of Admission Jun 07, 2017 at 23:20 Date of Discharge Jun 10, 2017 at 11:55 Admitting Diagnosis HYPERGLYCEMIA HPI Uri Dickerson Jr is a 51 year old male who was admitted on Jun 07, 2017 at 23 :20 for Hyperglycemia Hospital Course dc summary #[id number] Discharge Medications Continued Medications: Albuterol Sulfate* (Proair Hfa*) 8.5 Gm Hfa.aer.ad 1 PUFF INH Q6H, #8.5 GM 0 Refills Amlodipine Besylate (Norvasc) 5 Mg Tab 5 MG ORAL DAILY, TAB Aspirin* (Aspir-Low*) 81 Mg Tablet.dr 81 MG PO DAILY, TAB Take 1 tablet by mouth every day. Bisacodyl* (Dulcolax*) 5 Mg Tablet.dr 10 MG ORAL DAILY, #10 TAB 0 Refills Bupropion HCl (Wellbutrin Sr) 150 Mg Tablet.er 150 MG PO DAILY, TAB Clonidine Hcl* (Catapres*) 0.1 Mg Tablet 0.1 MG ORAL EVERY 4 HOURS PRN for For High Blood Pressure, TAB Diphenhydramine HCl (Benadryl) 25 Mg Capsule 25 MG PO EVERY 8 HOURS PRN for Itching, CAP Diphenhydramine Hcl* (Diphenhydramine Hcl*) 25 Mg Capsule 25 MG ORAL Q8H PRN for Itching, #30 CAP 0 Refills Divalproex Sodium (Depakote) 500 Mg Tabec 500 MG PO BID, TAB Docusate Sodium* (Docusate Sodium*) 100 Mg Capsule 100 MG ORAL THREE TIMES A DAY, CAP Elviteg/Ninoska/Emtric/Tenofo Ala (Genvoya Tablet) 1 Each Tablet 1 EACH PO DAILY, TAB Elviteg/Ninoska/Emtric/Tenofo Ala (Genvoya Tablet) 1 Each Tablet 1 EACH PO DAILY, TAB Enalapril/Hydrochlorothiazide (Enalapril-Hctz 10-25 Mg Tablet) 1 Each Tablet 1 EACH PO DAILY Hydrocodone Bit/Acetaminophen 10-325* ([place] 10-325*) 1 Each Tablet 1 TAB ORAL Q4H PRN for For Pain, TAB 0 Refills PRN PAIN Insulin Aspart* (Novolog*) 100 Unit/1 Ml Insuln.pen 0 SUBQ .SLIDING SCALE for 14 Days, UNITS Inject subcutaneously per sliding scale order Insulin Aspart* (Novolog*) 100 Unit/1 Ml Insuln.pen 5 SYR SUBQ BEFORE MEALS, #1 EA 0 Refills Insulin Detemir (Levemir) 100 Unit/1 Ml Vial 15 UNITS SUBQ BID, #1 VIAL Levothyroxine Sodium* (Synthroid*) 150 Mcg Tablet 150 MCG PO DAILY, #0 TAB Take 1 tablet by mouth every day. Lisinopril* (Zestril*) 10 Mg Tablet 10 MG ORAL EVERY 12 HOURS, TAB Losartan Potassium* (Losartan Potassium*) 50 Mg Tablet 50 MG ORAL BID, TAB Methocarbamol* (Methocarbamol*) 750 Mg Tablet 750 MG ORAL THREE TIMES A DAY PRN for For Pain, TAB Metoprolol Tartrate* (Metoprolol Tartrate*) 50 Mg Tablet 50 MG ORAL EVERY 12 HOURS, TAB Mupirocin* (Mupirocin*) 22 Gm Oint...g. 1 APPLIC TOPIC THREE TIMES A DAY, #22 GM Nitroglycerin (Nitrostat) 0.4 Mg Tab.subl 0.4 MG SL Q5M X3 DOSES PRN for chest pain, #25 TAB 0 Refills Ondansetron Odt* (Zofran Odt*) 4 Mg Tab.rapdis 4 MG ORAL Q6H PRN for Nausea & Vomiting, #30 TAB 0 Refills Oxycodone Hcl Er* (Oxycontin*) 10 Mg Tab.er.12h 10 MG ORAL EVERY 8 HOURS for For Pain, TAB Pantoprazole* (Protonix*) 40 Mg Tablet.dr 40 MG ORAL DAILY, TAB Ranitidine Hcl* (Zantac*) 150 Mg Tablet 150 MG ORAL AC, #30 TAB 0 Refills Rosuvastatin Calcium* (Crestor*) 10 Mg Tablet 10 MG ORAL DAILY, TAB Rosuvastatin Calcium* (Crestor*) 10 Mg Tablet 10 MG ORAL DAILY, TAB Sucralfate* (Carafate*) 1 Gm Tablet 1 GM ORAL FOUR TIMES A DAY, TAB Zolpidem Tartrate* (Zolpidem Tartrate*) 10 Mg Tablet 10 MG ORAL BEDTIME PRN for Insomnia, TAB 0 Refills Discharge Condition Upon Discharge: stable Discharge Disposition Patient was discharged to Home (01) Discharge Diagnoses: Discharge Instructions Discharge Instructions Special Instructions I have been assigned to complete a D/C Summary on this account. I was not involved in the patient management Cindi Banks NP ([place]) Jun 13, 2017 10:14
--- NOTE | 2017-06-13 16:45 | Discharge Summary 2 SIG ---
DATE OF ADMISSION: 06/07/2017 DATE OF DISCHARGE: 06/10/2017 REASON FOR ADMISSION: 51-year-old male with history of HIV, diabetes, hypertension, history of myocardial infarction, peripheral vascular disease with left BKA, chronic pain syndrome. presented to emergency department with multiple complaints. According to family, the patient was doing drugs and looked more altered. Blood sugar was critically high in the field. The patient complained of the chest pain and abdominal pain, aching and constant. No vomiting. No diarrhea. No dysuria. Workup revealed negative troponin. EKG revealed normal sinus rhythm. Urine tox screen was positive for cocaine and marijuana. Sodium was low-127. Blood sugar - 580. Anion gap was closed. CO2 within normal limits. Urinalysis revealed +3 protein, +4 glucose, but no evidence of occult blood and no evidence of infection. Chest x-ray revealed no acute cardiopulmonary pathology. Creatinine -1.9 and BUN -40. AST- 103, ALT -175, alkaline phosphatase -155. Lipase - 464. The patient was admitted with hyperglycemia, cocaine abuse, and chest pain. HOSPITAL COURSE: The patient was admitted. Serial troponin were negative. EKG revealed no acute ischemic changes. Therefore, the patient was ruled out for acute DE. Furnace Process Supervisor seen and evaluated the patient. Hemoglobin A1c -12.2. -Insulin regimen was optimized by objects conservator. The patient with history of hypothyroidism. TSH was within normal limits. Current dose of levothyroxine was continued. The patient was encouraged to comply with insulin regimen at home. Patient was educated on diabetic diet. The patient was counseled on abstinence from the street drugs. [employer] Open Stack Administrator followed the patient. According to spinner iron, the patient had diabetic nephropathy along with dehydration, which likely precipitated acute renal failure. The patient was slowly hydrated. Renal parameters and electrolytes were closely monitored. Acute renal failure and hyponatremia both improved with intravenous hydration. Sodium up to 133, creatinine down to 1.5. AST and ALT were trending down. Blood pressure was managed with current regimen, and it remained stable. ID closely followed the patient. Current medication regimen for HIV disease / ART therapy was resumed. Patient was encouraged compliance and followup as outpatient with the HIV provider. Golf Course Assistant seen and evaluated the patient and diagnosed the patient with anemia of chronic disease. He recommended to consider Procrit if anemia worsened with goal to keep hemoglobin above 7. Hemoglobin and hematocrit remained at the baseline. No need for transfusion. Pain specialist seen and evaluated the patient secondary to chronic pain syndrome. The patient with phantom limb pain due to the history of [id number] amputation left lower extremity. Pain medication regimen optimized as per pain specialist. Bowel regimen was provided. Supplemental oxygen provided as needed. Blood pressure was managed with ADILENE and calcium channel merle and was stable. DVT prophylaxis was provided. Aspirin was continued. Antiemetic was provided as needed. The patient was able to tolerate diet. Nausea and vomiting resolved. The patient was stable for discharge home. FINAL DIAGNOSES: 1. Hyperglycemia due to diabetes mellitus out of control. 2. Diabetes mellitus, out of control (Hemoglobin A1c -12.2) 3. Cocaine abuse. 4. Dehydration. 5. Acute renal failure likely secondary to dehydration on chronic kidney disease. 6. Human immunodeficiency virus status. 7. Diabetic nephropathy. 8. Hyponatremia likely secondary to dehydration, improved. 9. Chronic pain syndrome. 10. Hypertension. 11. Phantom limb pain. 12. Lumbar degenerative disk disease with spondylosis. 13. Anemia of chronic disease. 14. Hypothyroidism. 15. Left lower extremity [id number]-ori-[id number] amputation. 16. Gastroparesis secondary to diabetes mellitus. DISCHARGE MEDICATIONS: See medication reconciliation list. DISCHARGE INSTRUCTIONS: The patient was discharged home. Followup with the primary medical doctor. Suzy Bruce M.D. I have been assigned to dictate discharge summary on this account and I was not involved in the patient's management. Cindi McarthurGouverneur HealthElicia N.PZach DR: Shavon JOB#: [id number] CC: MARCOS
== END 2017-06-10 11:55 | disposition home or self-care (01) | DRG 637 ==
LOC: EDBD 21:03 → EMR 22:24 → 4E 23:20 → EDBEDREQ 06-08 01:53 → 4E 06-08 03:50
DX: E11.65 Type 2 diabetes mellitus with hyperglycemia (principal); B20 Human immunodeficiency virus [HIV] disease; N17.9 Acute kidney failure, unspecified; G20 Parkinson's disease; E87.1 Hypo-osmolality and hyponatremia; G54.6 Phantom limb syndrome with pain; K31.84 Gastroparesis; E11.43 Type 2 diabetes mellitus with diabetic autonomic (poly)neuropathy; F14.10 Cocaine abuse, uncomplicated; E03.9 Hypothyroidism, unspecified; M51.36 Other intervertebral disc degeneration, lumbar region; E86.0 Dehydration; E11.21 Type 2 diabetes mellitus with diabetic nephropathy; G89.4 Chronic pain syndrome; Z89.512 Acquired absence of left leg below knee; I25.2 Old myocardial infarction; D63.8 Anemia in other chronic diseases classified elsewhere; F03.90 Unspecified dementia, unspecified severity, without behavioral disturbance, psychotic disturbance, mood disturbance, and anxiety; I78.0 Hereditary hemorrhagic telangiectasia; F12.10 Cannabis abuse, uncomplicated; M47.816 Spondylosis without myelopathy or radiculopathy, lumbar region; Z88.8 Allergy status to other drugs, medicaments and biological substances; I73.9 Peripheral vascular disease, unspecified; F20.9 Schizophrenia, unspecified; F32.9 Major depressive disorder, single episode, unspecified
CPT/HCPCS: 36415; 71010; 80053; 80061; 80307; 80329; 81003; 82009; 82550; 82607; 82728; 82746; 82977; 83036; 83540; 83550; 83690; 83735; 83880; 84100; 84443; 84484; 84550; 85025; 85610; 85730; 86140; 87081; 89050; 93005; 94640; 94664; 99285; J1815; S5561

== ENCOUNTER 2017-12-27 00:12 | Emergency (ER) | payer MEDICARE, OTHER ==
[~2017-12-27] VITALS: Ht 182.9 cm; Wt 66.7 kg
[~2017-12-27 00:12] MED LIST changes: +DIPHENHYDRAMINE25 M1 ORAL; +LOSARTAN POTASS50 MG ORAL; +ZANTAC150 MG ORAL
[2017-12-27 00:50] VITALS: BP 141/85
[2017-12-27 01:29] LABS: BASOPHILS % (AUTO) 1.2 % (0.0-2.0); EOSINOPHILS % (AUTO) 1.2 % (0.0-3.0); HEMATOCRIT 31.6 % (42.0-52.0); HEMOGLOBIN 10.5 G/DL (14.2-18.0); LYMPHOCYTES % (AUTO) 27.1 % (20.0-45.0); MEAN CORPUSCULAR VOLUME 92 FL (80-99); MONOCYTES % (AUTO) 4.7 % (1.0-10.0); NEUTROPHILS % (AUTO) 65.8 % (45.0-75.0); PLATELET COUNT 246 K/UL (150-450); RED BLOOD COUNT 3.45 M/UL (4.70-6.10); RED CELL DISTRIBUTION WIDTH 13.8 % (11.6-14.8)
[2017-12-27 01:45] LABS: ANION GAP 9 mmol/L (5-15); BLOOD UREA NITROGEN 36 mg/dL (7-18); CALCIUM 9.9 MG/DL (8.5-10.1); CARBON DIOXIDE 27 MMOL/L (21-32); CHLORIDE 94 MMOL/L (98-107); CREATININE 2.1 MG/DL (0.55-1.30); POTASSIUM 3.7 MMOL/L (3.5-5.1); SODIUM 130 MMOL/L (136-145)
[2017-12-27 01:51] LABS: ALANINE AMINOTRANSFERASE 93 U/L (12-78); ALBUMIN 3.3 G/DL (3.4-5.0); ALBUMIN/GLOBULIN RATIO 0.7 (1.0-2.7); ALKALINE PHOSPHATASE 146 U/L (46-116); ASPARTATE AMINO TRANSFERASE 48 U/L (15-37); BILIRUBIN,TOTAL 0.4 MG/DL (0.2-1.0); CKMB 3.8 NG/ML (0.0-3.6); CREATINE KINASE 231 U/L (26-308)
[2017-12-27 03:28] VITALS: BP 158/79
--- NOTE | 2017-12-27 04:29 | Emergency Room Report ---
History of Present Illness General Chief Complaint: Chest Pain Source: Patient Present Illness HPI 52-year-old male presents ED complaining of chest pain. Sharp, midsternal, 7 out of 10, nonradiating. Started 3 days ago. Given aspirin and nitroglycerin by EMS without relief. Patient states that he was seen yesterday at [facility] and the day before [facility] for the same chest pain. States that they ran tests on him and subsequently discharged him. Denies drug use. No other aggravating relieving factors. Denies any other associated symptoms Allergies: Coded Allergies: GABAPENTIN (Verified Allergy, Severe, 06/07/17) QUETIAPINE (Verified Allergy, Unknown, 06/07/17) Patient History Past Medical History: HTN, AR, asthma, CVA/TIA, seizures Past Surgical History: none Pertinent Family History: none Social History: Denies: smoking, alcohol use, drug use Immunizations: UTD Reviewed Nursing Documentation: PMH: Agreed; PSxH: Agreed Nursing Documentation-PMH Hx Cardiac Problems: Yes - AR 2016 Hx Hypertension: Yes Hx Pacemaker: No - HIV+ Hx Asthma: Yes Hx COPD: No Hx Diabetes: Yes Hx Cancer: No Hx Gastrointestinal Problems: Yes Hx Neurological Problems: Yes Hx Cerebrovascular Accident: Yes - CVA Hx Transient Ischemic Attacks: Yes Hx Dementia: Yes Hx Alzheimer's Disease: No Hx Parkinson's Disease: Yes Hx Meningitis: No Hx Encephalitis: No Hx Seizures: Yes Hx Epilepsy: No Hx Multiple Sclerosis: No Hx Cerebral Palsy: No Hx Amyotrophic Lat Sclerosis: No Hx Guillian-Essex Syndrome: No Hx Paralysis: No Hx Peripheral Neuropathy: Yes Hx Spinal Cord Injury: No Hx Head Trauma: Yes Hx Traumatic Brain Injury: No Hx Memory Loss: No Hx Concentration Difficulty: No Hx Speech Problem: No Hx Tremors: No Hx Vertigo: No Hx Dizziness: Yes Hx Syncope: Yes Hx Aphasia: No Hx Dysphasia: No Hx Numbness: Yes - legs Hx Weakness: Yes Hx Fatigue: Yes Hx Neurologic Surgery: No Hx Brain Shunt: No Review of Systems All Other Systems: negative except mentioned in HPI Physical Exam Vital Signs Date Time Temp Pulse Resp B/P (MAP) Pulse Ox O2 Delivery O2 Flow Rate FiO2 12/27/17 00:05 98.0 96 16 132/78 98 Room Air 98.1 Sp02 EP Interpretation: reviewed, normal General Appearance: no apparent distress, alert, GCS 15, non-toxic Head: normocephalic, atraumatic Eyes: bilateral eye normal inspection, bilateral eye PERRL ENT: hearing grossly normal, normal pharynx, no angioedema, normal voice Neck: full range of motion, supple/symm/no masses Respiratory: chest non-tender, lungs clear, normal breath sounds, speaking full sentences Cardiovascular #1: regular rate, rhythm, no edema Cardiovascular #2: 2+ carotid (R), 2+ carotid (L), 2+ radial (R), 2+ radial (L) , 2+ dorsalis pedis (R), 2+ dorsalis pedis (L) Gastrointestinal: normal bowel sounds, non tender, soft, non-distended, no guarding, no rebound Rectal: deferred Genitourinary: normal inspection, no CVA tenderness Musculoskeletal: back normal, gait/station normal, normal range of motion, non- tender Neurologic: alert, oriented x3, responsive, motor strength/tone normal, sensory intact, speech normal Psychiatric: judgement/insight normal, memory normal, mood/affect normal, no suicidal/homicidal ideation Reflexes: 3+ bicep (R), 3+ bicep (L), 3+ tricep (R), 3+ tricep (L), 3+ knee (R) , 3+ knee (L) Skin: normal color, no rash, warm/dry, well hydrated Lymphatic: no adenopathy Medical Decision Making Diagnostic Impression: Primary Impression: Uncontrolled diabetes mellitus Qualified Codes: E13.8 - Other specified diabetes mellitus with unspecified complications; E13.65 - Other specified diabetes mellitus with hyperglycemia; Z79.4 - roasterman (current) use of insulin Additional Impression: ARF (acute renal failure) Qualified Codes: N17.9 - Acute kidney failure, unspecified ER Course Hospital Course 52-year-old male presenting to ED with chest pain x 3 days Differential diagnoses include: ETOH/drug ingestion, AR, acs Clinical course Patient placed on stretcher. On playground monitor. After initial history and physical I ordered labs, IV fluids, urine and chest Xray, EKG Labs-glucose 499, no DKA, trop 0.00, BUN/Cr elevated, Na 130 Chest x-ray unremarkable EKG - NSR, no acute ischemic changes interpreted by me I reviewed discharge papers from the [facility]. Patient at those times had negative troponins. Given negative troponin today, I have low suspicion for ACS. However patient sugar is uncontrolled and he is dehydrated Given IV fluids. Because of insurance patient will be transferred i. I feel this is a highly complex case requiring extensive working including EKG/Rhythm strip, Xray/CT/US, Blood/urine lab work, repeat exams while in ED, and administration of strong opiates/narcotics for pain control, admission to hospital or close patient follow up. diagnosis - uncontrolled diabetes, ARF Transferred in serious condition Labs Test 12/27/17 01:03 12/27/17 01:10 Urine Opiates Screen Negative (NEGATIVE) Urine Barbiturates Screen Negative (NEGATIVE) Phencyclidine (PCP) Screen Negative (NEGATIVE) Urine Amphetamines Screen Negative (NEGATIVE) Urine Benzodiazepines Screen Negative (NEGATIVE) Urine Cocaine Screen Negative (NEGATIVE) Urine Marijuana (THC) Screen Positive (NEGATIVE) White Blood Count 7.0 K/UL (4.8-10.8) Red Blood Count 3.45 M/UL (4.70-6.10) Hemoglobin 10.5 G/DL (14.2-18.0) Hematocrit 31.6 % (42.0-52.0) Mean Corpuscular Volume 92 FL (80-99) Mean Corpuscular Hemoglobin 30.4 PG (27.0-31.0) Mean Corpuscular Hemoglobin Concent 33.1 G/DL (32.0-36.0) Red Cell Distribution Width 13.8 % (11.6-14.8) Platelet Count 246 K/UL (150-450) Mean Platelet Volume 9.3 FL (6.5-10.1) Neutrophils (%) (Auto) 65.8 % (45.0-75.0) Lymphocytes (%) (Auto) 27.1 % (20.0-45.0) Monocytes (%) (Auto) 4.7 % (1.0-10.0) Eosinophils (%) (Auto) 1.2 % (0.0-3.0) Basophils (%) (Auto) 1.2 % (0.0-2.0) Sodium Level 130 MMOL/L (136-145) Potassium Level 3.7 MMOL/L (3.5-5.1) Chloride Level 94 MMOL/L (98-107) Carbon Dioxide Level 27 MMOL/L (21-32) Anion Gap 9 mmol/L (5-15) Blood Urea Nitrogen 36 mg/dL (7-18) Creatinine 2.1 MG/DL (0.55-1.30) Estimat Glomerular Filtration Rate 40.4 mL/min (>60) Glucose Level 499 MG/DL (74-106) Calcium Level 9.9 MG/DL (8.5-10.1) Total Bilirubin 0.4 MG/DL (0.2-1.0) Aspartate Amino Transf (AST/SGOT) 48 U/L (15-37) Alanine Aminotransferase (ALT/SGPT) 93 U/L (12-78) Alkaline Phosphatase 146 U/L (46-116) Total Creatine Kinase 231 U/L (26-308) Creatine Kinase MB 3.8 NG/ML (0.0-3.6) Creatine Kinase MB Relative Index 1.6 Troponin I 0.000 ng/mL (0.000-0.056) Pro-B-Type Natriuretic Peptide 806 pg/mL (0-125) Total Protein 7.8 G/DL (6.4-8.2) Albumin 3.3 G/DL (3.4-5.0) Globulin 4.5 g/dL Albumin/Globulin Ratio 0.7 (1.0-2.7) EKG Diagnostic Results Rate: normal Rhythm: NSR ST Segments: no acute changes ASA given to the pt in ED: Yes - given by ems Rhythm Strip Diag. Results EP Interpretation: yes Rhythm: NSR, no ectopy Chest X-Ray Diagnostic Results Chest X-Ray Diagnostic Results : Chest X-Ray Ordered: Yes # of Views/Limited/Complete: 1 View Indication: Chest Pain EP Interpretation: Yes Interpretation: no consolidation, no effusion, no pneumothorax, no acute cardiopulmonary disease Impression: No acute disease Electronically Signed by: Electronically signed by Romero Hansen MD Last Vital Signs Date Time Temp Pulse Resp B/P (MAP) Pulse Ox O2 Delivery O2 Flow Rate FiO2 12/27/17 03:28 98.1 76 20 158/79 100 Room Air 98.1 Status: improved Disposition: XFER SHT-TRM HOSP Condition: Serious Referrals: [facility],REFERR[facility] (PCP) Romero Hansen MD Dec 27, 2017 04:29
[2017-12-27] MEDS ORDERED: Morphine Sulfate 4mg/ml Inj IVP ONE (04:30)
[2017-12-27] MEDS ORDERED: DiphenhydrAMINE 50mg/ml Inj IVP ONE (04:45)
[2017-12-27 05:06] VITALS: BP 160/84
[2017-12-27 05:22] VITALS: BP 160/84
--- NOTE | 2017-12-27 13:10 | Diagnostic Imaging Report ---
Indication: Chest pain Technique: One view of the chest Comparison: 06/07/2017 Findings: Lungs and pleural spaces are clear. The heart size is normal. No significant interim change Impression: No acute process
--- NOTE | 2017-12-27 14:02 | Cardiology Report ---
APPROVED REPORT EKG Measurement Heart [id number] Normal sinus rhythm Possible Left atrial enlargement Septal infarct, age undetermined Abnormal ECG
== END 2017-12-27 05:25 | disposition short-term general hospital (02) ==
LOC: EDBD 00:12 → EMR 00:31
DX: E11.65 Type 2 diabetes mellitus with hyperglycemia (principal); I10 Essential (primary) hypertension; Z86.73 Personal history of transient ischemic attack (TIA), and cerebral infarction without residual deficits; G20 Parkinson's disease; N17.9 Acute kidney failure, unspecified; Z88.8 Allergy status to other drugs, medicaments and biological substances
CPT/HCPCS: 36415; 71045; 80053; 80307; 82550; 82553; 82962; 83880; 84484; 85025; 93005; 96361; 96374; 96375; 99285; J1200; J2270